=== PATIENT | female | born 1960 | race Caucasian/White ===

== ENCOUNTER → 2016-10-09 | Outpatient (CLI) | payer BC ==
[~2016-10-09] MED LIST: ASPEC81 PO; ATOR-22 PO; DILT240C57 PO; LEVO1TAB33 PO; LISI-461 PO; LISI10TA PO; LPT/20 PO; METO50TA16 PO; OMEP20CA9 PO; PRLSR20 PO; VNTHFA/IN INH
[2016-10-09 14:51] LABS: ESTIMATED AVERAGE GLUCOSE 134 mg/dl; HA1C FLAG Normal (Normal)
[2016-10-09 16:51] LABS: BLOOD UREA NITROGEN 15 mg/dl (7-18); CALCIUM 8.7 mg/dl (8.5-10.1); CARBON DIOXIDE 28 mmol/L (21-32); CHLORIDE 104 mmol/L (98-107); GLUCOSE 99 mg/dl (70-99); POTASSIUM 3.9 mmol/L (3.5-5.1); SODIUM 138 mmol/L (136-145)
[2016-10-09 16:56] LABS: CHOLESTEROL 165 mg/dl (0-200); CHOLESTEROL/HDL RATIO 3.6; HDL CHOLESTEROL 46 mg/dl; TRIGLYCERIDES 94 mg/dl (0-150); VERY LOW DENSITY LIPOPROT CALC 19 mg/dl
== END | disposition home or self-care (01) ==
LOC: C.LABSPEC 12:19
PROVIDERS: ATTEND Internal Medicine
DX: E11.9 Type 2 diabetes mellitus without complications (principal); I10 Essential (primary) hypertension; E78.5 Hyperlipidemia, unspecified; E66.01 Morbid (severe) obesity due to excess calories

== ENCOUNTER 2016-10-17 14:08 | Emergency (ER) | payer BC ==
[~2016-10-17] VITALS: Ht 175.3 cm; Wt 127.5 kg
[~2016-10-17 14:08] MED LIST changes: -ASPEC81 PO; -DILT240C57 PO; -LEVO1TAB33 PO; -LISI-461 PO; -LPT/20 PO; -OMEP20CA9 PO; -VNTHFA/IN INH
[2016-10-17 14:20] VITALS: TEMP 36.6; O2SAT 97; Ht 175.3 cm; Wt 127.5 kg
--- NOTE | 2016-10-17 15:10 | EMERGENCY ROOM VISIT NOTE ---
History Report prepared by Marshall: Isaias Patrick Under the Supervision of: Dr. Katya Soriano D.O. First contact with patient: 14:53 Chief Complaint: ALTERED MENTAL STATUS Stated Complaint: LETHARGIC Nursing Triage Summary: PT PRESENTS VIA ALS FROM WORK. 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 PT VERBALIZES SHE IS A CURRENT SMOKER, HAS BEEN FEELING CONGESTED LATELY WITH A COUGH, BUT THOUGHT IT WAS JUST BECAUSE OF BEING A SMOKER, DENIES ANY OTHER SYMPTOMS. PT PRESENTS ALERT AND ORIENTED X4, BUT SLOW TO RESPOND, FLAT AFFECT. BSG EN ROUTE 120. History of Present Illness The patient is a 56 year old female who presents to the Emergency Room via ALS with complaints of a syncopal episode that occurred earlier this afternoon. 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 The next thing she remembers is people at work waking her up. She ate [employer], which is a normal meal for her. Per the nursing staff, the patient was found at her desk unresponsive. The patient awoke to sternal rub. When EMS arrived, the patient was awake and oriented X4, but was slow to respond, and was lethargic and hypoxic. No seizure like activity noted by coworkers. Her O2 saturation was 88% on room air. The patient has no history of wearing oxygen. The patient notes that she has had an illness for the past week, with symptoms including a productive cough with yellow sputum, and a runny nose. She says she feels okay now, and is not nauseous. She denies any chest pain, palpitations, shortness of breath, abdominal pain, urinary symptoms, bowel problems, or leg swelling. She has no history of syncope, heart attacks, or strokes. The patient says that she has not had any medication changes recently and that she has not had any recent sick contacts. The patient is diabetic, and she says her sugars are under control. She does not check her sugars regularly. The patient's BSG en route was 120. She is a smoker, but she does not drink alcohol or use recreational drugs. The patient does not get her period anymore. She takes Lipitor for hyperlipidemia. She also has hypertension. Source of History: patient, nursing staff Onset: Earlier this afternoon Position: other (global - syncope) Timing: other (episode) Associated Symptoms: + cough, No SOB, No abdominal pain, No chest pain, No urinary symptoms Note: Associated symptoms: Slow to respond when first woken up. Lethargic, hypoxic. Runny nose for past week. Denies bowel problems, leg swelling. Review of Systems See HPI for pertinent positives & negatives. A total of 10 systems reviewed and were otherwise negative. Past Medical & Surgical Medical Problems: (1) Obese Family History Diabetes mellitus MOTHER FH: heart disease FATHER Social History Smoking Status: Current Every Day Smoker Alcohol Use: occasionally Drug Use: none Marital Status: single Housing Status: lives alone Current/Historical Medications Scheduled Albuterol Hfa (Ventolin Hfa), 2 PUFFS INH Q6H Atorvastatin (Atorvastatin Calcium), 20 MG PO QAM Levofloxacin (Levaquin), 500 MG PO DAILY Lisinopril (Lisinopril), 10 MG PO QAM Metoprolol Tartrate (Lopressor) (Lopressor), 50 MG PO TID Omeprazole (Prilosec), 20 MG PO QAM Allergies Coded Allergies: No Known Allergies (Unverified , 03/12/16) Physical Exam Vital Signs Date Time Temp Pulse Resp B/P Pulse Ox O2 Delivery O2 Flow Rate FiO2 10/17/16 21:35 85 20 114/66 98 10/17/16 20:24 78 20 90/65 95 Room Air 10/17/16 19:30 78 18 96/62 93 Room Air 10/17/16 18:07 101 94 Room Air 10/17/16 17:36 84 120/74 110 117/69 85 108/65 10/17/16 16:23 86 16 104/53 98 Nasal Cannula 2.0 10/17/16 15:30 99 Nasal Cannula 2.0 10/17/16 15:20 89 Room Air 10/17/16 14:28 92 10/17/16 14:20 36.6 93 18 103/57 91 Room Air 10/17/16 14:20 97 Nasal Cannula 2.0 Physical Exam GENERAL: alert, well appearing, well nourished, no distress, non-toxic EYE EXAM: normal conjunctiva, PERRL and EOM's grossly intact OROPHARYNX: no exudate, no erythema, lips, buccal mucosa, and tongue normal and mucous membranes are dry. Poor dentition. NECK: supple, no nuchal rigidity, no adenopathy, non-tender LUNGS: Lung sounds diminished. Normal chest wall mechanics HEART: no murmurs, S1 normal and S2 normal ABDOMEN: abdomen soft, non-tender, normo-active bowel sounds, no masses, no rebound or guarding. BACK: Back is symmetrical on inspection and there is no deformity, no midline tenderness, no CVA tenderness. SKIN: no rashes and no bruising UPPER EXTREMITIES: upper extremities are grossly normal. LOWER EXTREMITIES: No pitting edema. NEURO EXAM: Normal sensorium, cranial nerves II-XII [grossly] intact, normal speech, no [gross] weakness of arms, no [gross] weakness of legs. [No drift. Finger to nose intact. Gross sensation intact.] Medical Decision & Procedures ER Provider Diagnostic Interpretation: Xray results per the radiologist and my interpretation. Other results have been interpreted by the radiologist and reviewed by me. CT HEAD WITHOUT CONTRAST (CT) CLINICAL HISTORY: Syncope, G, acute change in mental status. COMPARISON STUDY: No previous studies for comparison. TECHNIQUE: Axial CT of the brain is performed from the vertex to the skull base. IV contrast was not administered for this examination. CT DOSE: 537.48 mGy.cm FINDINGS: No intra or extra-axial mass lesions are visualized. There is no CT evidence of acute cortical infarction. There is no evidence of midline shift. There is no acute hemorrhage. No calvarial fractures are visualized. There is no evidence of pathologic ventricular dilatation. There is mild mucosal thickening involving the maxillary and ethmoid sinuses. IMPRESSION: No acute intracranial findings Electronically signed by: Ant Blandon M.D. 10/17/2016 4:23 PM Dictated Date/Time: 10/17/2016 4:21 PM CHEST ONE VIEW PORTABLE HISTORY: cough, hypoxia COMPARISON: Chest 08/08/2014. FINDINGS: No pleural effusions. No pneumothorax. There are low lung volumes. The heart is normal in size. Left basilar linear densities consistent with subsegmental atelectasis or scarring. No new focal lung consolidations. No evidence for pulmonary edema. Slight prominence of interstitial markings, unchanged. IMPRESSION: No significant change compared to the prior study. No acute process. Electronically signed by: Julio Linares M.D. 10/17/2016 3:54 PM Dictated Date/Time: 10/17/2016 3:52 PM CHEST CTA for PULMONARY ARTERIES CT DOSE: 687.34 mGy.cm HISTORY: Short of breath. Elevated d-dimer. TECHNIQUE: Multiaxial CT images of the chest were performed following the intravenous administration of contrast to evaluate the pulmonary arteries. Maximal intensity projection images were also obtained. COMPARISON STUDY: Chest 10/17/2016. FINDINGS: There is a normal caliber thoracic aorta with no evidence for dissection. There is no evidence for pulmonary embolus. No pleural effusions. No pneumothorax. Mild diffuse bronchial wall thickening. A 7 mm nodular density within the superior segment of the right lower lobe on image 135. This may represent partially impacted bronchus. There are few small scattered bulla/blebs. A 3 mm subpleural nodule within the left lung apex on image 220. Patchy groundglass and linear densities at the lung bases are nonspecific but favor atelectasis. Cholecystectomy. The visualized liver, spleen, and adrenal glands are unremarkable. There are few subcentimeter thyroid nodules. No mediastinal or hilar lymphadenopathy. IMPRESSION: 1. No evidence for pulmonary embolus. 2. Patchy groundglass and linear density lung bases are nonspecific but favor atelectasis. 3. Mild diffuse bronchial wall thickening. 4. A 7 mm nodule within the superior segment of the right lower lobe. This may represent a partially impacted bronchus. However, six-month chest CT follow up is recommended to ensure resolution/stability. Electronically signed by: Julio Linares M.D. 10/17/2016 4:33 PM Dictated Date/Time: 10/17/2016 4:21 PM Laboratory Results 10/17/16 14:55 Red Blood Count 4.81, Mean Corpuscular Volume 87.9, Mean Corpuscular Hemoglobin 28.1, Mean Corpuscular Hemoglobin Concent 31.9, Mean Platelet Volume 12.0, Neutrophils (%) (Auto) 70.0, Lymphocytes (%) (Auto) 22.3, Monocytes (%) (Auto) 5.6, Eosinophils (%) (Auto) 1.5, Basophils (%) (Auto) 0.4, Neutrophils # (Auto) 6.22, Lymphocytes # (Auto) 1.98, Monocytes # (Auto) 0.50, Eosinophils # (Auto) 0.13, Basophils # (Auto) 0.04 10/17/16 14:55 Test 10/17/16 14:55 10/17/16 15:21 10/17/16 15:38 10/17/16 20:14 White Blood Count 8.89 K/uL (4.8-10.8) Red Blood Count 4.81 M/uL (4.2-5.4) Hemoglobin 13.5 g/dL (12.0-16.0) Hematocrit 42.3 % (37-47) Mean Corpuscular Volume 87.9 fL (80-100) Mean Corpuscular Hemoglobin 28.1 pg (25-34) Mean Corpuscular Hemoglobin Concent 31.9 g/dl (32-36) Platelet Count 251 K/uL (130-400) Mean Platelet Volume 12.0 fL (7.4-10.4) Neutrophils (%) (Auto) 70.0 % Lymphocytes (%) (Auto) 22.3 % Monocytes (%) (Auto) 5.6 % Eosinophils (%) (Auto) 1.5 % Basophils (%) (Auto) 0.4 % Neutrophils # (Auto) 6.22 K/uL (1.4-6.5) Lymphocytes # (Auto) 1.98 K/uL (1.2-3.4) Monocytes # (Auto) 0.50 K/uL (0.11-0.59) Eosinophils # (Auto) 0.13 K/uL (0-0.5) Basophils # (Auto) 0.04 K/uL (0-0.2) RDW Standard Deviation 47.3 fL (36.4-46.3) RDW Coefficient of Variation 14.6 % (11.5-14.5) Immature Granulocyte % (Auto) 0.2 % Immature Granulocyte # (Auto) 0.02 K/uL (0.00-0.02) D-Dimer 980 ug/L FEU (0-500) Anion Gap 3.0 mmol/L (3-11) Est Creatinine Clear Calc Drug Dose 63.5 ml/min Estimated GFR () 48.2 Estimated GFR (Non- 41.6 BUN/Creatinine Ratio 16.9 (10-20) Calcium Level 8.6 mg/dl (8.5-10.1) Total Bilirubin 0.2 mg/dl (0.2-1) Aspartate Amino Transf (AST/SGOT) 10 U/L (15-37) Alanine Aminotransferase (ALT/SGPT) 19 U/L (12-78) Alkaline Phosphatase 102 U/L (45-117) Troponin I < 0.015 ng/ml (0-0.045) Total Protein 7.4 gm/dl (6.4-8.2) Albumin 3.2 gm/dl (3.4-5.0) Globulin 4.2 gm/dl (2.5-4.0) Albumin/Globulin Ratio 0.8 (0.9-2) Lipase 126 U/L (73-393) Urine Color DK YELLOW Urine Appearance CLEAR (CLEAR) Urine pH 6.0 (4.5-7.5) Urine Specific [place] 1.025 (1.000-1.030) Urine Protein 1+ (NEG) Urine Glucose (UA) NEG (NEG) Urine Ketones NEG (NEG) Urine Occult Blood NEG (NEG) Urine Nitrite NEG (NEG) Urine Bilirubin NEG (NEG) Urine Urobilinogen NEG (NEG) Urine Leukocyte Esterase TRACE (NEG) Urine WBC (Auto) 5-10 /hpf (0-5) Urine RBC (Auto) 0-4 /hpf (0-4) Urine Hyaline Casts (Auto) 10-30 /lpf (0-5) Urine Epithelial Cells (Auto) >30 /lpf (0-5) Urine Bacteria (Auto) 1+ (NEG) Arterial Blood pH 7.37 (7.35-7.45) Arterial Blood Partial Pressure CO2 40 mmHg (35-46) Arterial Blood Partial Pressure O2 86 mm/Hg (80-95) Arterial Blood HCO3 22 mmol/L (19-24) Arterial Blood Oxygen Saturation 96.0 % (90-95) Arterial Blood Base Excess -2.7 mEq/L (-9-1.8) Arterial Blood Gas Delivery 2L Car Test POS (POS) Lactic Acid Level 1.6 mmol/L (0.4-2.0) Bedside Troponin I 0.000 ng/ml (0-0.045) Laboratory results per my review. Medications Administered Medications (Trade) Dose Ordered Sig/Scott Route Start Time Stop Time Status Last Admin Dose Admin Sodium Chloride (Nss 1000ml) 1,000 ml @ 999 mls/hr Q1H1M STAT IV 10/17/16 15:12 10/17/16 16:12 DC 10/17/16 15:17 999 MLS/HR Levofloxacin (Levaquin Tab) 750 mg NOW STAT PO 10/17/16 17:18 10/17/16 17:20 DC 10/17/16 17:40 750 MG Albuterol (Ventolin Hfa Inhaler) 2 puffs NOW ONCE INH 10/17/16 19:00 10/17/16 19:01 DC 10/17/16 18:50 2 PUFFS Methylprednisolone Sodium Succinate (Solu-Medrol IV) 60 mg NOW STAT IV 10/17/16 20:32 10/17/16 20:33 DC 10/17/16 20:43 60 MG ECG Indication: syncope Rate (beats per minute): 95 Rhythm: normal sinus Findings: no acute ischemic change, no ectopy, other (normal axis, normal intervals) ED Course 1456: The patient was evaluated in room B11B. A complete history and physical exam was performed. 1512: Ordered NSS 1000 ml @ 999 mls/hr IV. 1718: Ordered Levaquin Tab 750 mg PO. 1754: I reevaluated the patient and she is feeling better. She had no symptoms during checkup of orthostatics. 0: Ordered Ventolin Hfa Inhaler 2 puffs INH. 2019: I reevaluated the patient and she is resting comfortably. The patient verbally expressed understanding and agreement of the treatment plan. The patient will be evaluated for further treatment. 2031: Ordered Solu-Medrol IV 60 mg IV. 2040: I discussed the patient with Dr. Lanza - index clerk - he will evaluate the patient for further treatment. Medical Decision Differential diagnosis includes but is not limited to: CVA, seizures, dysrhythmia, ACS, PE, vasovagal, dehydration, electrolyte abnormality, orthostatic hypotension. Patient improved here no recurrence of syncope. No dysrhythmias noted on telemetry. No recurrent episodes of nausea vomiting patient tolerating by mouth well at bedside and receive IV fluids as a precaution. Imaging and labs reassuring. Patient able to be weaned down off oxygen, but still complained of feeling short of breath tactically with exertion despite no hypoxia. Concern given risk factors for ACS. Possible the patient signal event vasovagal orthostatic in nature given preceding symptoms and GI illness. Patient found to have possible early pneumonia on CT and clinical symptoms started on antibiotics as well as steroids given likely underlying COPD from smoking history. Careful monitoring of patient's glucose with use of Solu-Medrol will be needed. Patient states the benefit from inhaler treatments here. Come discussed with patient's PCP who will the patient for continued observation monitoring, likely serial cardiac enzymes to rule out ACS. Consults Time Called: 2034 Consulting Physician: Dr. Lanza - index clerk Returned Call: 2040 I discussed the patient with Dr. Lanza - index clerk - he will evaluate the patient for further treatment. Impression Primary Impression: Syncope Additional Impressions: PNA (pneumonia) Hypoxia Scribe Attestation The scribe's documentation has been prepared under my direction and personally reviewed by me in its entirety. I confirm that the note above accurately reflects all work, treatment, procedures, and medical decision making performed by me. Departure Information Dispostion Still a Patient Prescriptions Albuterol Hfa (VENTOLIN HFA) 200 Puffs/59446 Mcg Aers 2 PUFFS INH Q6H, #1 INHALER Prov: Romeo Mosley M.D. 10/17/16 Levofloxacin (Levaquin) 500 Mg Tab 500 MG PO DAILY for 7 Days, TAB Prov: Romeo Mosley M.D. 10/17/16 Referrals Romeo Mosley M.D. (PCP) Patient Instructions My [facility] Problem Qualifiers Primary Impression: Syncope Syncope type: unspecified Qualified Codes: R55 - Syncope and collapse Additional Impressions: PNA (pneumonia) Pneumonia type: due to unspecified organism Laterality: bilateral Lung location: lower lobe of lung Qualified Codes: J18.9 - Pneumonia, unspecified organism
[2016-10-17] MEDS ORDERED: SODIUM CHLORIDE 0.9% 1000ML 1,000 ML IV STA (15:12)
[2016-10-17 15:26] LABS: BASO % 0.4 %; BASO ABS # 0.04 K/uL (0-0.2); COMPLETE YES; EOS % 1.5 %; HEMATOCRIT 42.3 % (37-47); IG% 0.2 %; LYMPH % 22.3 %; LYMPH ABS # 1.98 K/uL (1.2-3.4); MEAN CELL VOLUME 87.9 fL (80-100); MEAN CORPUSCULAR HEMOGLOBIN 28.1 pg (25-34); MEAN CORPUSCULAR HGB CONC 31.9 g/dl (32-36); MONO % 5.6 %; PLATELET COUNT 251 K/uL (130-400); RED BLOOD COUNT 4.81 M/uL (4.2-5.4); WHITE BLOOD COUNT 8.89 K/uL (4.8-10.8)
[2016-10-17 15:37] LABS: ALT/SGPT 19 U/L (12-78); AST/SGOT 10 U/L (15-37); BLOOD UREA NITROGEN 24 mg/dl (7-18); BUN/CREATININE RATIO 16.9 (10-20); CALCIUM 8.6 mg/dl (8.5-10.1); CARBON DIOXIDE 29 mmol/L (21-32); CHLORIDE 107 mmol/L (98-107); GLUCOSE 105 mg/dl (70-99); POTASSIUM 4.9 mmol/L (3.5-5.1); SODIUM 139 mmol/L (136-145)
[2016-10-17 15:40] LABS: ALB/GLOB RATIO 0.8 (0.9-2); ALKALINE PHOSPHATASE 102 U/L (45-117)
[2016-10-17] MEDS ORDERED: LPT/20 PO (15:47)
[2016-10-17] MEDS ORDERED: LISI-461 PO (15:47)
[2016-10-17] MEDS ORDERED: OMEP20CA9 PO (15:47)
[2016-10-17 15:52] LABS: URINE APPEARANCE CLEAR (CLEAR); URINE BILIRUBIN NEG (NEG); URINE COLOR DK YELLOW; URINE EPITHELIAL CELL AUTO >30 /lpf (0-5); URINE NITRITE NEG (NEG); URINE SPECIFIC GRAVITY 1.025 (1.000-1.030); UROBILINOGEN NEG (NEG); ZZUR CULT IF INDIC CLEAN CATCH YES
--- NOTE | 2016-10-17 15:56 | DIAGNOSTIC IMAGING REPORT ---
CHEST ONE VIEW PORTABLE HISTORY: cough, hypoxia COMPARISON: Chest 08/08/2014. FINDINGS: No pleural effusions. No pneumothorax. There are low lung volumes. The heart is normal in size. Left basilar linear densities consistent with subsegmental atelectasis or scarring. No new focal lung consolidations. No evidence for pulmonary edema. Slight prominence of interstitial markings, unchanged. IMPRESSION: No significant change compared to the prior study. No acute process. Electronically signed by: Julio Linares M.D. 10/17/2016 3:54 PM Dictated Date/Time: 10/17/2016 3:52 PM
[2016-10-17 15:57] LABS: MANUAL MICROSCOPIC REQUIRED? NO; REVIEW REQ? NO
[2016-10-17 15:58] LABS: ARTERIAL BLOOD GAS BASE EXCESS -2.7 mEq/L (-9-1.8); ARTERIAL BLOOD GAS HCO3 22 mmol/L (19-24); ARTERIAL BLOOD GAS PO2 86 mm/Hg (80-95); ARTERIAL BLOOD GAS pH 7.37 (7.35-7.45)
[2016-10-17 16:01] LABS: ALLEN TEST POS (POS); O2 ADMINISTRATION 2L
[2016-10-17] MEDS ORDERED: OPTIRAY 320 IV PRN (16:15)
--- NOTE | 2016-10-17 16:24 | DIAGNOSTIC IMAGING REPORT ---
CT HEAD WITHOUT CONTRAST (CT) CLINICAL HISTORY: Syncope, G, acute change in mental status. COMPARISON STUDY: No previous studies for comparison. TECHNIQUE: Axial CT of the brain is performed from the vertex to the skull base. IV contrast was not administered for this examination. CT DOSE: 537.48 mGy.cm FINDINGS: No intra or extra-axial mass lesions are visualized. There is no CT evidence of acute cortical infarction. There is no evidence of midline shift. There is no acute hemorrhage. No calvarial fractures are visualized. There is no evidence of pathologic ventricular dilatation. There is mild mucosal thickening involving the maxillary and ethmoid sinuses. IMPRESSION: No acute intracranial findings Electronically signed by: Ant Blandon M.D. 10/17/2016 4:23 PM Dictated Date/Time: 10/17/2016 4:21 PM
--- NOTE | 2016-10-17 16:34 | DIAGNOSTIC IMAGING REPORT ---
CHEST CTA for PULMONARY ARTERIES CT DOSE: 687.34 mGy.cm HISTORY: Short of breath. Elevated d-dimer. TECHNIQUE: Multiaxial CT images of the chest were performed following the intravenous administration of contrast to evaluate the pulmonary arteries. Maximal intensity projection images were also obtained. COMPARISON STUDY: Chest 10/17/2016. FINDINGS: There is a normal caliber thoracic aorta with no evidence for dissection. There is no evidence for pulmonary embolus. No pleural effusions. No pneumothorax. Mild diffuse bronchial wall thickening. A 7 mm nodular density within the superior segment of the right lower lobe on image 135. This may represent partially impacted bronchus. There are few small scattered bulla/blebs. A 3 mm subpleural nodule within the left lung apex on image 220. Patchy groundglass and linear densities at the lung bases are nonspecific but favor atelectasis. Cholecystectomy. The visualized liver, spleen, and adrenal glands are unremarkable. There are few subcentimeter thyroid nodules. No mediastinal or hilar lymphadenopathy. IMPRESSION: 1. No evidence for pulmonary embolus. 2. Patchy groundglass and linear density lung bases are nonspecific but favor atelectasis. 3. Mild diffuse bronchial wall thickening. 4. A 7 mm nodule within the superior segment of the right lower lobe. This may represent a partially impacted bronchus. However, six-month chest CT follow up is recommended to ensure resolution/stability. Electronically signed by: Julio Linares M.D. 10/17/2016 4:33 PM Dictated Date/Time: 10/17/2016 4:21 PM
[2016-10-17] MEDS ORDERED: LEVOFLOXACIN 250 MG TAB PO STA (17:18)
[2016-10-17] MEDS ORDERED: ALBUTEROL HFA 8 GM INHALER INH ONE (19:00)
[2016-10-17] MEDS ORDERED: METHYLPREDNISOLONE 125 MG VIAL IV STA (20:32)
[2016-10-17] MEDS ORDERED: LEVO1TAB33 PO (21:14)
[2016-10-17] MEDS ORDERED: VNTHFA/IN INH (21:14)
--- NOTE | 2016-10-17 21:17 | Discharge Instructions ---
Discharge Instructions Date of Service Oct 17, 2016. Admission Reason for Admission: Lethargic Discharge Discharge Diagnosis / Problem: SYNCOPE. BRONCHITIS. ARTERIAL HYPERTENSION. Discharge Goals Goal(s): Decrease discomfort, Improve function Activity Recommendations Activity Limitations: resume your previous activity . Instructions / Follow-Up Instructions / Follow-Up DR AARON IN ONE WEEK Current Hospital Diet Patient's current hospital diet: Discharge Diet Recommended Diet: Diabetes Type 2 Diet Pending Studies Studies pending at discharge: no Laboratory Results Hemoglobin A1c Test 10/09/16 08:30 Range/Units Estimated Average Glucose 134 mg/dl Hemoglobin A1c 6.3 H 4.5-5.6 % Lipid Panel Test 10/09/16 08:30 Range/Units Triglycerides Level 94 0-150 mg/dl Cholesterol Level 165 0-200 mg/dl HDL Cholesterol 46 mg/dl LDL Cholesterol Direct 113 mg/dl Cholesterol/HDL Ratio 3.6 LDL Cholesterol, Calculated mg/dl Medical Emergencies . Who to Call and When: Medical Emergencies: If at any time you feel your situation is an emergency, please call 911 immediately. . Non-Emergent Contact Non-Emergency issues call your: Primary Care Provider . . "Provider Documentation" section prepared by Romeo Lanza. . VTE Core Measure Inpt VTE Proph given/why not?: Treatment not indicated
[2016-10-17 21:35] VITALS: BP 114/66; PULSE 85; O2SAT 98
--- NOTE | 2016-10-18 04:33 | INTERNAL MEDICINE CONSULTATION ---
DATE OF CONSULTATION: 10/17/2016 A 56-year-old female seen in the Emergency Room. She was brought into the Emergency Room from work. Apparently, she had a syncopal episode. Her medical problems include: 1. Arterial hypertension. 2. Type 2 diabetes mellitus. 3. Morbid obesity. 4. Smoker. 5. History of supraventricular tachycardia. The patient was evaluated in the Emergency Room. She had an extensive workup including blood tests, CT scan of the chest, CT scan of the head, and a chest x-ray. The patient has been complaining of some cough over the last few days. Some yellow sputum, but she had no fever or chills. She denied any headache or dizziness or light headedness. Denied any earache, sore throat or neck pain. She has not had any chest pain, pressure or tightness. No shortness of breath. She has been coughing. No hemoptysis. No abdominal pain, no nausea, no vomiting. No problem with her bowel movements. No problem urinating. No pain in her back or extremities. PHYSICAL EXAMINATION: GENERAL: Well developed, in no distress. Her recorded weight is 127.5 kg, height 175.3 cm, BMI 41.5. VITAL SIGNS: Blood pressure 90/65, pulse 78, respiration 20, temperature 36.6, her last oxygen saturation on room air was 95%. SKIN: Warm and dry. No rash. HEENT: She has multiple missing teeth. No mucosal abnormalities. NECK: Supple. Nontender. No lymph node or thyroid enlargement. No JVD. HEART: Regular heart sounds. LUNGS: Clear. The patient was treated in the Emergency Room with albuterol inhaler, but at this time there are no rhonchi, no wheezing, no rales. ABDOMEN: Obese, soft, nontender. BACK: No spinal tenderness. EXTREMITIES: No edema, clubbing or cyanosis. NEUROLOGIC: She is alert and oriented. Normal mental status. No evidence of any deficits. LABORATORY TESTS: WBC count 8890, hemoglobin 13.5, hematocrit 42.3, platelet count 251,000. Differential was normal. Sodium 139, potassium 4.9, chloride 107, CO2 of 29, BUN 24, creatinine 1.4, glucose 105, calcium 8.6, total bilirubin 0.2, AST 10, ALT 19, alkaline phosphatase 102. Troponin I less than 0.015. Second troponin I was 0. Total protein 7.4, albumin 3.2. Lipase 126. ABGs done on 2 liter oxygen by nasal cannula showed a pH 7.37, pCO2 of 40, pO2 of 86, saturation 96%. Her D-dimer was 980. Her urinalysis showed trace leukocyte esterase, 5-10 WBCs, 1+ bacteria. IMAGING STUDIES: Included a chest x-ray which showed some prominent interstitial markings but without any other significant abnormality. A CT angiogram of the chest was done because of the elevated D-dimer and there was no evidence of any pulmonary embolism. It is noted on her CT scan that she has patchy ground-glass and linear density in lung bases which are nonspecific but thought to represent atelectasis. A 7 mm nodule within the superior segment of the right lower lobe was also noted. Not really sure of the etiology. Followup in 6 months recommended. Her electrocardiogram showed sinus rhythm without any abnormality. ASSESSMENT: 1. Syncope. Negative evaluation. 2. Mild bronchitis. 3. Morbid obesity. 4. Smoker. 5. Arterial hypertension. 6. Dyspepsia. 7. Type 2 diabetes mellitus, not requiring any drug therapy at the present time. PLAN: 1. The patient already received a dose of Levaquin 750 mg p.o. in the Emergency Room, she also received a dose of steroids and albuterol inhaler. 2. All her workup has been quite unremarkable. 3. I did not really see any reason for her to be admitted. 4. I discharged her home. Discharge instructions were done. I wrote a prescription for Levaquin 500 mg daily to take for 7 days. 5. I will see her in the office in 1 week.
[2017-02-06] MEDS ORDERED: DILT240C57 PO (07:34)
[2017-02-06] MEDS ORDERED: ASPEC81 PO (07:34)
== END 2016-10-17 21:37 | disposition home or self-care (01) ==
LOC: EDBD 14:08 → C.EDB 14:09
DX: R55 Syncope and collapse (principal); J18.9 Pneumonia, unspecified organism; R09.02 Hypoxemia; J40 Bronchitis, not specified as acute or chronic; R10.13 Epigastric pain; R11.10 Vomiting, unspecified; E11.9 Type 2 diabetes mellitus without complications; E78.5 Hyperlipidemia, unspecified; I10 Essential (primary) hypertension; E66.01 Morbid (severe) obesity due to excess calories; F17.200 Nicotine dependence, unspecified, uncomplicated; Z83.3 Family history of diabetes mellitus; Z79.899 Other long term (current) drug therapy

== ENCOUNTER → 2016-10-23 | Outpatient (CLI) | payer BC ==
[~2016-10-23] MED LIST changes: +ASPEC81 PO; +DILT240C57 PO; +LEVO1TAB33 PO; +LISI-461 PO; +LPT/20 PO; +OMEP20CA9 PO; +VNTHFA/IN INH
--- NOTE | 2016-10-23 16:58 | MAMMOGRAPHY REPORT ---
BILATERAL DIGITAL SCREENING MAMMOGRAM TOMOSYNTHESIS WITH CAD: 10/23/2016 TECHNIQUE: Breast tomosynthesis in addition to standard 2D mammography was performed. Current study was also evaluated with a Computer Aided Detection (CAD) system. COMPARISON: Comparison is made to exams dated: 10/23/2015 mammogram, 10/20/2014 mammogram, 10/19/2013 m ammogram, 10/16/2012 mammogram, 10/16/2011 mammogram, and 09/21/2010 mammogram - [facility] enter. BREAST COMPOSITION: There are scattered areas of fibroglandular density in both breasts. FINDINGS: No suspicious masses, calcifications, or areas of architectural distortion are noted in e ither breast. There has been no significant interval change compared to prior exams. Scattered bilat eral benign-appearing calcifications are not significantly changed. IMPRESSION: ACR BI-RADS CATEGORY 2: BENIGN There is no mammographic evidence of malignancy. A 1 year screening mammogram is recommended. The p atient will receive written notification of the results. Approximately 10% of breast cancers are not detected with mammography. A negative mammographic repor t should not delay biopsy if a clinically suggestive mass is present. Lacey Barnes M.D. ah/:10/23/2016 15:54:08 Civil Engineering Project Manager: Flora RUELAS(R)(M), [facility] letter sent: Normal 1/2 BI-RADS Code: ACR BI-RADS Category 2: Benign
== END | disposition home or self-care (01) ==
LOC: C.MAMM 09:44
PROVIDERS: ATTEND Internal Medicine
DX: Z12.31 Encounter for screening mammogram for malignant neoplasm of breast (principal)

== ENCOUNTER → 2017-01-07 | Outpatient (CLI) | payer BC ==
[~2017-01-07] VITALS: Ht 167.6 cm; Wt 297.6 kg
[~2017-01-07] MED LIST changes: -LEVO1TAB33 PO
[2017-01-07 15:51] VITALS: BP 161/91; PULSE 76; Ht 167.6 cm; Wt 297.6 kg
== END | disposition home or self-care (01) ==
LOC: C.NEUR 15:03
PROVIDERS: ATTEND Internal Medicine Pulmonary Disease
DX: R06.83 Snoring (principal); R53.83 Other fatigue; R06.81 Apnea, not elsewhere classified; E66.01 Morbid (severe) obesity due to excess calories; I10 Essential (primary) hypertension; Z68.42 Body mass index [BMI] 45.0-49.9, adult

== ENCOUNTER 2017-02-03 11:13 | Inpatient (IN) | payer BC ==
[~2017-02-03] VITALS: Ht 167.6 cm; Wt 134.2 kg
[2017-02-03] VITALS (7 sets, daily range): BP systolic 120–144; BP diastolic 77–85; PULSE 70–80; TEMP 36.3–36.4; O2SAT 94–95; BMI 47.7
[~2017-02-03 11:13] MED LIST changes: -ASPEC81 PO; -ATOR-22 PO; -DILT240C57 PO; -LISI10TA PO; -PRLSR20 PO
--- NOTE | 2017-02-03 11:28 | EMERGENCY ROOM VISIT NOTE ---
History Report prepared by Garyibe: Lu Cain Under the Supervision of: Dr. Mark Calle D.O. First contact with patient: 11:25 Chief Complaint: PALPITATIONS Stated Complaint: HEART/EKG, SWEATING, PALPITATIONS History of Present Illness The patient is a 56 year old female who presents to the Emergency Room with complaints of intermittent heart palpitations since 0600 this morning. She reports upon waking, she experienced both diaphoresis and heart palpitations. She went to a local [employer] clinic and was referred to the ED for further evaluation after undergoing an EKG. She was given no medications while at [employer] [facility]. The patient denies ever undergoing a stress test or heart catheterization in the past. She has a history of hypertension and admits she is a current smoker. She took her daily medications this morning as prescribed, including her Lisinopril. She denies any recent pain or swelling in her legs. The patient also denies any recent fevers, abdominal pain or diarrhea. Source of History: patient Onset: 0600 this morning Position: chest Quality: other (palpitations) Timing: intermittent Associated Symptoms: + diaphoresis, No fevers, No abdominal pain, No diarrhea Review of Systems See HPI for pertinent positives & negatives. A total of 10 systems reviewed and were otherwise negative. Past Medical & Surgical Medical Problems: (1) GERD (gastroesophageal reflux disease) (2) Hypertension (3) Obese (4) TACHYARRYTHMIA, Surgical Problems: (1) History of appendectomy (2) History of cholecystectomy Family History Diabetes mellitus MOTHER FH: heart disease FATHER Social History Smoking Status: Current Every Day Smoker Alcohol Use: occasionally Drug Use: none Marital Status: single Housing Status: lives alone Occupation Status: unemployed Current/Historical Medications Scheduled Atorvastatin (Lipitor), 20 MG PO DAILY Lisinopril (Prinivil), 10 MG PO DAILY Metoprolol Tartrate (Lopressor) (Lopressor), 50 MG PO TID Omeprazole (Prilosec), 20 MG PO DAILY Allergies Coded Allergies: No Known Allergies (Unverified , 03/12/16) Physical Exam Vital Signs Date Time Temp Pulse Resp B/P (MAP) Pulse Ox O2 Delivery O2 Flow Rate FiO2 02/03/17 13:13 73 17 98 02/03/17 13:01 114/76 02/03/17 12:43 78 26 96 02/03/17 12:31 133/88 02/03/17 12:26 135/76 02/03/17 12:13 82 25 99 02/03/17 11:46 86 02/03/17 11:45 84 18 124/100 97 02/03/17 11:45 97 02/03/17 11:45 97 Room Air 02/03/17 11:43 86 24 94 02/03/17 11:32 123/100 02/03/17 11:16 36.4 124 20 127/81 95 Room Air Physical Exam GENERAL: Patient is awake, alert, somewhat anxious appearing but overall comfortable. EYES: The conjunctivae are clear. The pupils are round and reactive. EARS, NOSE, MOUTH AND THROAT: The nose is without any evidence of any deformity. Mucous membranes are moist tongue is midline NECK: The neck is nontender and supple. RESPIRATORY: Normal respiratory effort is noted there is no evidence of wheezing rhonchi or rales CARDIOVASCULAR: Heart sounds are tachycardic but regular. No definite murmur to auscultation. GASTROINTESTINAL: The abdomen is soft. Bowel sounds are present in all quadrants. Abdomen is nontender MUSCULOSKELETAL/EXTREMITIES: There is no evidence of gross deformity full range of motion is noted in the hips and shoulders SKIN: There is no obvious evidence of any rash. There are no petechiae, pallor or cyanosis noted. NEUROLOGIC: Patient is awake alert and oriented x3 Medical Decision & Procedures ER Provider Diagnostic Interpretation: Radiology results as stated below per my review and radiologist interpretation: SINGLE VIEW CHEST CLINICAL HISTORY: Dyspnea. FINDINGS: An AP, portable, upright chest radiograph is compared to chest x-ray and chest CT dated 10/17/2016. The examination is degraded by portable technique, large body habitus, and patient rotation. The cardiomediastinal silhouette is unremarkable. There is atherosclerotic calcification of the thoracic aorta. There is mild bibasilar atelectasis. The lungs and pleural spaces are otherwise clear. No pneumothorax is seen. The bony thorax is grossly intact. IMPRESSION: No active disease in the chest. Electronically signed by: Yuriy Jamison M.D. 02/03/2017 12:00 PM Laboratory Results 02/03/17 11:35 Red Blood Count 5.46, Mean Corpuscular Volume 86.6, Mean Corpuscular Hemoglobin 29.1, Mean Corpuscular Hemoglobin Concent 33.6, Mean Platelet Volume 12.0, Neutrophils (%) (Auto) 64.6, Lymphocytes (%) (Auto) 25.4, Monocytes (%) (Auto) 7.7, Eosinophils (%) (Auto) 1.4, Basophils (%) (Auto) 0.6, Neutrophils # (Auto) 6.99, Lymphocytes # (Auto) 2.75, Monocytes # (Auto) 0.83, Eosinophils # (Auto) 0.15, Basophils # (Auto) 0.06 02/03/17 11:35 Test 02/03/17 11:35 White Blood Count 10.81 K/uL (4.8-10.8) Red Blood Count 5.46 M/uL (4.2-5.4) Hemoglobin 15.9 g/dL (12.0-16.0) Hematocrit 47.3 % (37-47) Mean Corpuscular Volume 86.6 fL (80-100) Mean Corpuscular Hemoglobin 29.1 pg (25-34) Mean Corpuscular Hemoglobin Concent 33.6 g/dl (32-36) Platelet Count 256 K/uL (130-400) Mean Platelet Volume 12.0 fL (7.4-10.4) Neutrophils (%) (Auto) 64.6 % Lymphocytes (%) (Auto) 25.4 % Monocytes (%) (Auto) 7.7 % Eosinophils (%) (Auto) 1.4 % Basophils (%) (Auto) 0.6 % Neutrophils # (Auto) 6.99 K/uL (1.4-6.5) Lymphocytes # (Auto) 2.75 K/uL (1.2-3.4) Monocytes # (Auto) 0.83 K/uL (0.11-0.59) Eosinophils # (Auto) 0.15 K/uL (0-0.5) Basophils # (Auto) 0.06 K/uL (0-0.2) RDW Standard Deviation 47.1 fL (36.4-46.3) RDW Coefficient of Variation 15.0 % (11.5-14.5) Immature Granulocyte % (Auto) 0.3 % Immature Granulocyte # (Auto) 0.03 K/uL (0.00-0.02) Prothrombin Time 10.4 SECONDS (9.0-12.0) Prothromb Time International Ratio 1.0 (0.9-1.1) Activated Partial Thromboplast Time 34.5 SECONDS (21.0-31.0) Partial Thromboplastin Ratio 1.3 Anion Gap 6.0 mmol/L (3-11) Est Creatinine Clear Calc Drug Dose 54.6 ml/min Estimated GFR () 41.0 Estimated GFR (Non- 35.4 BUN/Creatinine Ratio 16.4 (10-20) Calcium Level 9.3 mg/dl (8.5-10.1) Magnesium Level 2.4 mg/dl (1.8-2.4) Total Bilirubin 0.2 mg/dl (0.2-1) Aspartate Amino Transf (AST/SGOT) 13 U/L (15-37) Alanine Aminotransferase (ALT/SGPT) 19 U/L (12-78) Alkaline Phosphatase 113 U/L (45-117) Total Creatine Kinase 55 U/L (26-192) Creatine Kinase MB 2.5 ng/ml (0.5-3.6) Creatine Kinase MB Ratio 4.5 (0-3.0) Troponin I 0.121 ng/ml (0-0.045) Total Protein 8.3 gm/dl (6.4-8.2) Albumin 3.4 gm/dl (3.4-5.0) Globulin 4.9 gm/dl (2.5-4.0) Albumin/Globulin Ratio 0.7 (0.9-2) Thyroid Stimulating Hormone (TSH) 1.850 uIu/ml (0.300-4.500) Free Thyroxine 1.14 ng/dl (0.80-1.60) Laboratory results per my review. Medications Administered Medications (Trade) Dose Ordered Sig/Scott Route Start Time Stop Time Status Last Admin Dose Admin Sodium Chloride 1,000 ml @ 999 mls/hr Q1H1M STAT IV 02/03/17 11:31 02/03/17 12:31 DC 02/03/17 11:50 999 MLS/HR Aspirin (Aspirin Chew) 324 mg NOW STAT PO 02/03/17 12:58 02/03/17 12:59 DC 02/03/17 13:07 324 MG ECG Indication: palpitations Rate (beats per minute): 120 Rhythm: SVT Findings: no ectopy, other (No acute ST segment abnormalities) Comparison ECG Date: SVT appears new when compared to EKG from October 17, 2016 Change: Repeat EKG: Normal sinus rhythm, rate of 82, no ectopy, no acute ST segment abnormalities, no change when compared to October 17, 2016. ED Course 1129: The patient was evaluated in room C7. A complete history and physical examination were performed. 1131: NSS 1000 ml @ 999 mls/hr IV. 1258: Aspirin 324 mg PO. 1303: I discussed the patients case with Dr. Lanza, Internal Medicine. The patient will be further evaluated. Medical Decision Prior records/ancillary studies reviewed. Triage Nursing notes reviewed. The patient's history was concerning for palpitations. Differential diagnosis: Etiologies such as premature contractions, electrolyte abnormality, cardiac dysrhythmia, thyroid dysfunction, pulmonary embolism, infection, gastrointestinal, as well as others were entertained. The patient is a 56-year- old female who presented to the emergency department for an evaluation of palpitations. The patient was found have a narrow complex tachycardia which was very regular on her EKG. Initially it was only 120 beats per minute but it did not appear to be consistent with sinus tachycardia or the patient's previous EKG. The patient does take beta blockers for high blood pressure. I feel this is why she did not have a faster rate even though I feel her underlying rhythm was likely SVT. I'm unsure how long the patient was in this rate and rhythm. She was treated with Valsalva maneuver and broke to a normal sinus rhythm. I discussed the patient's laboratory and radiographic studies with her. She was treated with IV fluids in the emergency department. She was also given aspirin. She was found to have an elevated troponin. This could be due to the time the patient was in this dysrhythmia however it could also reflect an underlying coronary lesion. I discussed the patient's condition with her primary care physician. He is agreed to evaluate the patient in emergency apartment for further management and disposition. The patient did not have any dyspnea or chest pain on final reevaluation. Medication Reconcilliation Current Medication List: was personally reviewed by me Blood Pressure Screening Patient's blood pressure: Normal blood pressure Blood pressure disposition: Did not require urgent referral Consults Time Called: 1300 Consulting Physician: Dr. Lanza, Internal Medicine Returned Call: 1303 I discussed the patients case with Dr. Lanza, Internal Medicine. The patient will be further evaluated. Impression Primary Impression: SVT (supraventricular tachycardia) Additional Impressions: Elevated troponin Dehydration Scribe Attestation The scribe's documentation has been prepared under my direction and personally reviewed by me in its entirety. I confirm that the note above accurately reflects all work, treatment, procedures, and medical decision making performed by me. Departure Information Dispostion Being Evaluated By Hospitalist Referrals Romeo Mosley M.D. (PCP) Patient Instructions My [facility] Problem Qualifiers
[2017-02-03] MEDS ORDERED: SODIUM CHLORIDE 0.9% 1000ML 1,000 ML IV STA (11:31)
[2017-02-03] MEDS ORDERED: PRLSR20 PO (11:52)
[2017-02-03] MEDS ORDERED: LISI10TA PO (11:52)
[2017-02-03] MEDS ORDERED: METO50TA16 PO (11:52)
[2017-02-03] MEDS ORDERED: ATOR-22 PO (11:52)
--- NOTE | 2017-02-03 12:01 | DIAGNOSTIC IMAGING REPORT ---
SINGLE VIEW CHEST CLINICAL HISTORY: Dyspnea. FINDINGS: An AP, portable, upright chest radiograph is compared to chest x-ray and chest CT dated 10/17/2016. The examination is degraded by portable technique, large body habitus, and patient rotation. The cardiomediastinal silhouette is unremarkable. There is atherosclerotic calcification of the thoracic aorta. There is mild bibasilar atelectasis. The lungs and pleural spaces are otherwise clear. No pneumothorax is seen. The bony thorax is grossly intact. IMPRESSION: No active disease in the chest. Electronically signed by: Yuriy Jamison M.D. 02/03/2017 12:00 PM Dictated Date/Time: 02/03/2017 11:59 AM
[2017-02-03 12:06] LABS: BASO % 0.6 %; BASO ABS # 0.06 K/uL (0-0.2); COMPLETE YES; EOS % 1.4 %; HEMATOCRIT 47.3 % (37-47); IG% 0.3 %; LYMPH % 25.4 %; LYMPH ABS # 2.75 K/uL (1.2-3.4); MEAN CELL VOLUME 86.6 fL (80-100); MEAN CORPUSCULAR HEMOGLOBIN 29.1 pg (25-34); MEAN CORPUSCULAR HGB CONC 33.6 g/dl (32-36); MONO % 7.7 %; NEUT % 64.6 %; PLATELET COUNT 256 K/uL (130-400); RED BLOOD COUNT 5.46 M/uL (4.2-5.4); WHITE BLOOD COUNT 10.81 K/uL (4.8-10.8)
[2017-02-03 12:15] LABS: PARTIAL THROMBOPLASTIN RATIO 1.3; PROTHROMBIN TIME (PATIENT) 10.4 SECONDS (9.0-12.0)
[2017-02-03 12:27] LABS: BUN/CREATININE RATIO 16.4 (10-20); CALCIUM 9.3 mg/dl (8.5-10.1); CREATININE 1.6 mg/dl (0.60-1.20); MAGNESIUM 2.4 mg/dl (1.8-2.4); POTASSIUM 4.7 mmol/L (3.5-5.1)
[2017-02-03 12:39] LABS: ALB/GLOB RATIO 0.7 (0.9-2); CKMB/CK RATIO 4.5 (0-3.0); THYROID STIMULATING HORMONE 1.85 uIu/ml (0.300-4.500)
[2017-02-03] MEDS ORDERED: ASPIRIN 81 MG CHEW PO STA (12:58)
[2017-02-03] MEDS ORDERED: ONDANSETRON INJ 8 MG in DEXTROSE 5% 50ML 50 ML IV PRN (13:15)
[2017-02-03] MEDS ORDERED: ACETAMINOPHEN 325 MG TAB PO PRN (13:15)
[2017-02-03] MEDS ORDERED: GLUCAGON FOR INJ 1 MG VIAL SQ PRN (14:00)
[2017-02-03] MEDS ORDERED: GLUCOSE 40% GEL 15 GM TUBE PO PRN (14:00)
[2017-02-03] MEDS ORDERED: GLUCOSE 10 TABS/TUBE PO PRN (14:00)
[2017-02-03] MEDS ORDERED: DEXTROSE 50% 50 ML SYR IV PRN (14:00)
[2017-02-03] MEDS ORDERED: PERFLUTREN LIPID MICROSPHERE (DEFINITY) IV ONE (15:53)
[2017-02-03] MEDS: METOPROLOL TARTRATE 50 MG TAB PO SCH ×2 (16:12→20:24)
[2017-02-03] MEDS: SODIUM CHLORIDE 0.9% 1000ML 1,000 ML IV SCH ×2 (16:13→23:52)
[2017-02-03] MEDS: INSULIN ASPART 100 UNITS/ML 3 ML PEN SC SCH ×2 (16:15→20:23)
--- NOTE | 2017-02-03 18:31 | ECHOCARDIOGRAM REPORT ---
*NOTICE TO RECEIVING CONSTITUTION PARTY AGENCY This information is strictly Confidential and protected under [place] law. [place] law prohibits you from making any further disclosure of this information unless further disclosure is expressly permitted by the written consent of the person to whom it pertains or is authorized by law. A general authorization for the release of medical or other information is not sufficient for this purpose. Hospital accepts no responsibility if the information is made available to any other person, INCLUDING THE PATIENT. Interpretation Summary * Name: WIL CARROLL Study Date: 02/03/2017 03:23 PM BP: 137/98 mmHg * Patient Location: C.2T\S\S229\S\2 HR: 73 * : 1960 (M/d/yyy) Gender: Female Height: 66 in * Age: 56 yrs Ethnicity: CA Weight: 294 lb * Ordering Physician: Romeo Mosley * Referring Physician: Self, Referred * Performed By: Radha Love [facility] * * Reason For Study: SVT * BSA: 2.4 m2 * Hyperdynamic left ventricular systolic function. * Mild concentric left ventricular hypertrophy. * Class 1 left ventricular diastolic dysfunction. * Normal chamber dimensions. * No significant valvular abnormalities noted. * The study was technically difficult. Procedure Details * A complete two-dimensional transthoracic echocardiogram was performed (2D, M-mode, Doppler and color flow Doppler). * The study was technically difficult. * There were technical limitations due to patient'sbody habitus * A contrast injection of Definity was performed to improve assessment of LV function. * Contrast was injected into an intravenous site in the left arm. * One vial of Definity ultrasound contrast was diluted in normal saline to a total volume of 10 ml. A total of '2' ml of solution was administered during imaging. * Lot # [id number] of Definity utilized for procedure. * Expiration date FEB 07. * The attending nurse who injected the contrast agent was JIA JAVIER, HEIKE. Left Ventricle * The left ventricle is normal in size. * There is mild concentric left ventricular hypertrophy. * A full diastolic examination was done with clinical findings of Class I diastolic dysfunction. * Ejection Fraction = >70 %. * The left ventricle is hyperdynamic. * The left ventricular wall motion is normal. Right Ventricle * The right ventricle is grossly normal size. * The right ventricle is not well visualized. * The right ventricular systolic function is normal. Atria * The left atrium is not well visualized. * The left atrial size is normal. * Right atrium not well visualized. * Right atrial size is normal. Mitral Valve * The mitral valve is not well visualized. * No significant mitral valve stenosis. * Significant mitral regurgitation is absent. Tricuspid Valve * The tricuspid valve is not well visualized. * There is no tricuspid stenosis. * Significant tricuspid regurgitation is absent. Aortic Valve * The aortic valve is not well visualized. * Aortic stenosis is absent. * There is no significant aortic regurgitation. Pulmonic Valve * The pulmonary valve is inadequately visualized, but the Doppler data is adequate for interpretation. * There is no pulmonic valvular stenosis. * There is no significant pulmonary regurgitation. Great Vessels * The aortic root is normal size. * Normal inferior vena cava diameter and respiratory variation suggests normal central venous pressure. MMode 2D Measurements and Calculations IVSd 1.4 cm LVIDd 3.8 cm LVPWd 1.4 cm IVS/LVPW 1.0 EDV(Teich) 60.6 ml EDV(cubed) 53.4 ml LV mass(C)d 181.1 grams LV mass(C)dI 76.9 grams/m\S\2 Ao root diam 2.6 cm Ao root area 5.2 cm\S\2 LA dimension 2.9 cm LA/Ao 1.1 LVOT diam 1.9 cm LVOT area 2.9 cm\S\2 Doppler Measurements and Calculations MV E max diego 44.8 cm/sec MV A max diego 52.1 cm/sec MV E/A 0.86 MV P1/2t max diego 81.3 cm/sec MV P1/2t 70.6 msec MVA(P1/2t) 3.1 cm\S\2 MV dec slope 337.2 cm/sec\S\2 MV dec time 0.19 sec Ao V2 max 119.0 cm/sec Ao max PG 5.7 mmHg Ao max PG (full) 0.11 mmHg SERVANDO(V,A) 2.9 cm\S\2 SERVANDO(V,D) 2.9 cm\S\2 LV V1 max PG 5.6 mmHg LV V1 max 117.8 cm/sec PA V2 max 88.3 cm/sec PA max PG 3.1 mmHg
[2017-02-03 19:27] LABS: CKMB/CK RATIO 5.2 (0-3.0)
[2017-02-03 19:47] LABS: URINE APPEARANCE CLOUDY (CLEAR); URINE COLOR DK YELLOW; URINE EPITHELIAL CELL AUTO >30 /lpf (0-5); URINE NITRITE NEG (NEG); URINE PH 5.5 (4.5-7.5); URINE SPECIFIC GRAVITY 1.021 (1.000-1.030); UROBILINOGEN NEG (NEG)
[2017-02-03 20:10] LABS: MANUAL MICROSCOPIC REQUIRED? NO; REVIEW REQ? YES; URINE BILIRUBIN NEG (NEG)
[2017-02-03 20:12] LABS: URINE PATH CASTS 5-10 GRANULAR CASTS /lpf (0)
[2017-02-03] MEDS: HEPARIN SOD 5000 UNIT/0.5 ML CARP SQ SCH (20:27)
--- NOTE | 2017-02-03 20:45 | History and Physical ---
History & Physical Date of Service Feb 03, 2017. History & Physical ADMISSION DATE: 02/03/2017 CHIEF COMPLAINTS: 58-year-old female admitted through the emergency room with multiple problems including tachyarrhythmia, dehydration, elevated troponin, acute renal insufficiency. PRESENT ILLNESS : Patient with known supraventricular tachycardia has been treated and controlled. She also has arterial hypertension. She is morbidly obese. Osteoarthritis. Type 2 diabetes mellitus. At one time in the past she was on oral hypoglycemic medication but now has not required any medications for many months. Her diabetes remains under control. She is a smoker up to one and one half pack per day. She was recently seen in the office. She was suspected of having sleep apnea. She is scheduled for a sleep study. Patient woke up this morning on 6:00. She was complaining of palpitation. She felt that her heart was beating fast. She was diaphoretic. Waves short of breath. Denied any chest pain. Denied any dizziness or lightheadedness. She felt nauseous. No vomiting. She still went to work. At work they were trying to check her blood pressure but did not have the right size cuff. She was sent to an [facility]. She was noted to be tachycardic. An electrocardiogram was done. It was abnormal. Her heart rate was 120. She was sent to the emergency room. She was evaluated by Dr. Calle. After Valsalva maneuver she went back to a sinus rhythm. She was asymptomatic. Patient was noted to be dehydrated. She had a rise in her BUN and creatinine. Also her troponin was elevated. She was admitted to PCU with telemetry. PAST MEDICAL HISTORY: * she was last hospitalized on 08/08/2014 with supraventricular tachycardia. * Acute diverticulitis requiring hospitalization in June of 2014. * Cholecystectomy in 1988 * Fracture of the left wrist secondary to a fall in the remote past. * Supraventricular tachycardia. First noted on 2011. She is on metoprolol tartrate 50 mg 3 times a day. * Arterial hypertension * Appendectomy in childhood * Type 2 diabetes mellitus. First diagnosed back in 2013. She was on metformin. In October of 2015 she presented with acute renal failure with a creatinine rising to 2.8. She was dehydrated. Her metformin was discontinued. She has not been on any medication since then. Her last hemoglobin A1c is 6.3 %. SOCIAL HISTORY: She is single. No children. She smokes about 1-1/2 pack per day for many years since approximately 1979. Denied any excessive alcohol. No drugs. 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 FAMILY HISTORY: Her mother age 69 had heart failure and kidney failure. She was diabetic and hypertensive. Her father in his 80s. He had atherosclerotic heart disease. She had 3 brothers and 2 sisters. One brother age 33. She described it as ruptured heart. ALLERGIES: None CURRENT MEDICATIONS: As noted on her home medication list REVIEW OF SYSTEMS: Denied any headache. No dizziness no lightheadedness at this point. No recent change in her vision. No ear ache no sore throat. No neck pain. No chest pain pressure or tightness. No shortness of breath at rest. No pain in her breasts. No abdominal pain. No nausea no vomiting. No problem with her bowel movements. No problem urinating. No pain in her back or extremities. PHYSICAL EXAMINATION: GENERAL : Well developed. Well nourished. No acute distress.Weight 134 kg. Height was 67.6 cm. BMI 47.7. VITAL SIGNS : Blood Pressure : 127/81 on arrival to the emergency room. Pulse 124. Respiration 20. Temperature 36.4. Oxygen saturation 95% on room air. SKIN : Warm and dry. No rash. HEENT :No problem with her vision. Normal oral and nasal and pharyngeal mucosa. Edentulous upper gum. Only a few teeth left in her lower gum. NECK : Supple. No adenopathy. No thyromegaly. No JVD. Normal carotid pulses. No carotid bruit. CHEST : Normal HEART: Regular heart sounds without any murmur rub or gallop. PMI not displaced. LUNGS: Clear. Normal breath sounds. ABDOMEN: Soft nontender. No organomegaly or masses. Good bowel sounds.. Markedly obese. BACK: No spine or CVA tenderness. EXTREMITIES : No edema clubbing or cyanosis. No joint or muscle tenderness. Good peripheral pulses. Osteoarthritis NEUROLOGICAL EXAMINATION: She is at her and oriented. There is no evidence of any deficit. LABORATORY TESTS : WBC count 10,810, hemoglobin 15.9, hematocrit 47.3, platelet count 256,000. Sodium 140, potassium 4.7, low right 108, CO2 26, BUN 26, creatinine 1.6, glucose 102, calcium 9.3, magnesium 2.4, total bilirubin 0.2, AST 13, ALT 19, alkaline phosphatase 113, total CK 55, MB fraction 2.5, troponin 0.121, total protein 8.3, albumin 3.4, globulin 4.9, TSH 1.850, free T4-1.14 Prothrombin time 10.4, INR 1.0, PTT 24.5. Chest x-rays showed no significant abnormality. Her first electrocardiogram showed what is interpreted as accelerated junctional rhythm at 120 beats per minute. After Valsalva maneuver repeat electrocardiogram showed a sinus rhythm without any significant abnormality. ASSESSMENT: * tachyarrhythmia * Known supraventricular tachycardia * Arterial hypertension * Type 2 diabetes mellitus not requiring any drug therapy * Morbid obesity * Suspected sleep apnea. She is scheduled for a sleep study. * Dehydration * Acute renal failure * Hyperlipidemia PLAN: Patient was admitted to PCU with telemetry. Resuscitation level I. all her laboratory tests were ordered. Cardiac isoenzymes and electrocardiograms were ordered. An echocardiogram was ordered. She was started on IV fluid. Zofran for any nausea. It is quite possible that the elevation of her troponin I was related to her rapid rate. She was placed on a sliding scale coverage for her diabetes. Subcutaneous heparin and JOAN stockings for DVT prophylaxis. Her lisinopril was held at this point because of her creatinine. She was continued on metoprolol tartrate. Smoking cessation consultation was requested. Cardiology consultation will be requested.
[2017-02-03] MEDS: CIPROFLOXACIN 500 MG TAB PO SCH (21:22)
[2017-02-04] VITALS (9 sets, daily range): BP systolic 118–167; BP diastolic 75–99; PULSE 55–76; TEMP 36.3–36.8; O2SAT 94–96; Ht 167.6 cm; Wt 134.2 kg
[2017-02-04 00:49] LABS: CKMB/CK RATIO 4.7 (0-3.0)
[2017-02-04 06:14] LABS: BASO % 0.4 %; BASO ABS # 0.04 K/uL (0-0.2); COMPLETE YES; EOS % 2.7 %; HEMATOCRIT 40.7 % (37-47); IG% 0.2 %; LYMPH % 37.2 %; LYMPH ABS # 3.71 K/uL (1.2-3.4); MEAN CELL VOLUME 87.2 fL (80-100); MEAN CORPUSCULAR HEMOGLOBIN 28.3 pg (25-34); MEAN CORPUSCULAR HGB CONC 32.4 g/dl (32-36); MEAN PLATELET VOLUME 12.5 fL (7.4-10.4); MONO % 6.9 %; NEUT % 52.6 %; PLATELET COUNT 202 K/uL (130-400); RED BLOOD COUNT 4.67 M/uL (4.2-5.4); WHITE BLOOD COUNT 9.96 K/uL (4.8-10.8)
[2017-02-04 06:25] LABS: BUN/CREATININE RATIO 22.4 (10-20); CREATININE 1.1 mg/dl (0.60-1.20); MAGNESIUM 2.1 mg/dl (1.8-2.4); POTASSIUM 4.5 mmol/L (3.5-5.1)
[2017-02-04 06:33] LABS: CKMB/CK RATIO 3.6 (0-3.0)
[2017-02-04] MEDS: METOPROLOL TARTRATE 50 MG TAB PO SCH ×3 (08:11→20:28)
[2017-02-04] MEDS: ATORVASTATIN 20 MG TAB PO SCH (08:11)
[2017-02-04] MEDS: CIPROFLOXACIN 500 MG TAB PO SCH ×2 (08:11→20:27)
[2017-02-04] MEDS: ASPIRIN 81 MG ECTAB PO SCH (08:11)
[2017-02-04] MEDS: HEPARIN SOD 5000 UNIT/0.5 ML CARP SQ SCH ×2 (08:16→20:33)
[2017-02-04] MEDS: INSULIN ASPART 100 UNITS/ML 3 ML PEN SC SCH ×4 (08:16→20:31)
--- NOTE | 2017-02-04 11:33 | Cardiology Consultation ---
Cardiology Consultation Date of Consultation: Feb 04, 2017. Requesting Physician: Dr. Lanza Reason for Consultation: SVT Pt evaluation today including: conversation w/ patient, physical exam, lab review, review of studies, review of inpatient medication list History of Present Illness This is a very pleasant 68-year-old woman who has a history of well documented supraventricular tachycardia. In addition she has hypertension, diabetes mellitus and obesity but does not have diagnosed coronary artery disease this point. Her initial documentation of SVT I believe was in July 2014, at that time she came in the emergency room complaining of abdominal discomfort however was noted to be in a supraventricular tachycardia at a rate which evidently varied somewhat but was as high as 150 ms, on 12-lead electrocardiography it appeared to be typical AV arlene reentry at a rate of 136 bpm. It is not clear whether she may have had prior symptoms, but she has been aware of it since. She has been treated with metoprolol, currently 50 mg 3 times a day, and presented on 02/03/2017 noting that her heart was beating rapidly when she woke up at around 6 AM. She came into the emergency room and in the emergency room a Valsalva maneuver converted her back to sinus rhythm. On review of her symptoms it seems as though she has episodes irregularly but on average every month or so, they typically last one half hour to one hour although on this occasion it was much longer than that. During the episode this admission she felt weak, she notes that she was very sweaty and that her heart was beating rapidly. She did not feel dizzy or presyncopal and did not of chest discomfort. She did have positive enzymes on arrival, her troponin was 0.121 on arrival, 5 hours later it had gone up to 0.282 and then decreased from there. Her electrocardiogram did not show any acute changes. Echocardiography this admission shows left ventricular hypertrophy with hyperdynamic systolic function. Past Medical/Surgical History (1) SVT (supraventricular tachycardia) (2) Obese (3) Hypertension (4) Diabetes (5) Hyperlipidemia (6) GERD (gastroesophageal reflux disease) Family History Diabetes mellitus MOTHER FH: heart disease FATHER Social History Smoking Status: Current Every Day Smoker History of Alcohol Use: Yes (occ) Review of Systems Constitutional: No fever, No weight loss, No weakness Respiratory: No cough, No wheezing, No shortness of breath, No dyspnea on exertion Cardiac: + see HPI, + palpitations, No chest pain, No orthopnea, No PND, No edema Abdomen: No pain, No nausea, No vomiting, No diarrhea, No GI bleeding Female : No problem reported Neurologic: No paralysis, No weakness, No numbness/tingling, No balance problems Heme: No abnormal bleeding/bruising, No clotting problems Endo: No fatigue Skin: No problem reported All Other Systems: Reviewed and Negative Allergies Coded Allergies: No Known Allergies (Unverified , 03/12/16) Medications Current Inpatient Medications Medications (Trade) Dose Ordered Sig/Scott Route Start Time Stop Time Status Last Admin Dose Admin Heparin Sodium (Porcine) (Heparin Sq 5000 Unit/0.5ml) 5,000 unit Q12 SQ 02/03/17 21:00 03/05/17 20:59 02/04/17 08:16 5,000 UNIT Acetaminophen (Tylenol Tab) 650 mg Q4H PRN PO 02/03/17 13:15 03/05/17 13:14 Aspirin (Ecotrin Tab) 81 mg QAM PO 02/04/17 09:00 03/06/17 08:59 02/04/17 08:11 81 MG Atorvastatin Calcium (Lipitor Tab) 20 mg DAILY PO 02/04/17 09:00 03/06/17 08:59 02/04/17 08:11 20 MG Metoprolol Tartrate (Lopressor Tab) 50 mg TID PO 02/03/17 14:00 03/05/17 13:59 02/04/17 08:11 50 MG Ondansetron HCl 8 mg/Dextrose 54 ml @ 200 mls/hr Q4H PRN IV 02/03/17 13:15 03/05/17 13:14 Insulin Aspart (novoLOG ASPART) SLIDING SCALE G... ACHS SC 02/03/17 16:15 03/05/17 16:14 02/04/17 08:16 5 UNITS Glucose (Glucose 40% Gel) 15-30 GRAMS 15 GRAMS... UD PRN PO 02/03/17 14:00 03/05/17 13:59 Glucose (Glucose Chew Tab) 4-8 Tablets 4 Tabl... UD PRN PO 02/03/17 14:00 03/05/17 13:59 Dextrose (Dextrose 50% 50ML Syringe) 25-50ML OF 50% DW IV FOR... UD PRN IV 02/03/17 14:00 03/05/17 13:59 Glucagon (Glucagon Inj) 1 mg UD PRN SQ 02/03/17 14:00 03/05/17 13:59 Ciprofloxacin (Cipro Tab) 500 mg BID PO 02/03/17 21:00 02/08/17 20:59 02/04/17 08:11 500 MG Physical Exam Vital Signs Past 12 Hours Date Time Temp Pulse Resp B/P (MAP) Pulse Ox O2 Delivery O2 Flow Rate FiO2 02/04/17 08:15 Room Air 02/04/17 08:15 95 Room Air 02/04/17 07:11 36.3 64 18 159/99 (119) 95 Room Air 02/04/17 04:05 36.5 76 16 118/75 (89) 96 Room Air 02/04/17 04:00 Room Air 02/04/17 02:51 36.5 70 20 135/84 (101) 94 Room Air 02/03/17 23:59 95 Room Air 02/03/17 23:37 36.3 71 18 120/77 (91) 95 Room Air Constitutional: General Apperance: overweight Level of Distress: NAD Psychiatric: Mental Status: active & alert Head: normocephalic Eyes: EOM: EOMI ENMT: normal ENT inspection, hearing grossly normal Neck: supple, no masses Lungs: Respiratory effort: no dyspnea, good air movement Auscultation: breath sounds normal, no wheezing Cardiovascular: Heart Auscultation: RRR, no murmurs, no rubs, no gallops Peripheral Pulses: Bruits: none appreciated Abdomen: Bowel Sounds: normal Inspection & Palpation: soft, no tenderness, guarding & rebound, no masses Musculoskeletal: normal strength (5/5 throughout) Extremities: no edema Neurologic: Cranial Nerves: grossly intact Sensation: grossly intact Data Laboratory Results: Last 24 Hours Test 02/03/17 11:35 02/03/17 15:09 02/03/17 16:12 02/03/17 17:55 White Blood Count 10.81 K/uL Red Blood Count 5.46 M/uL Hemoglobin 15.9 g/dL Hematocrit 47.3 % Mean Corpuscular Volume 86.6 fL Mean Corpuscular Hemoglobin 29.1 pg Mean Corpuscular Hemoglobin Concent 33.6 g/dl Platelet Count 256 K/uL Mean Platelet Volume 12.0 fL Neutrophils (%) (Auto) 64.6 % Lymphocytes (%) (Auto) 25.4 % Monocytes (%) (Auto) 7.7 % Eosinophils (%) (Auto) 1.4 % Basophils (%) (Auto) 0.6 % Neutrophils # (Auto) 6.99 K/uL Lymphocytes # (Auto) 2.75 K/uL Monocytes # (Auto) 0.83 K/uL Eosinophils # (Auto) 0.15 K/uL Basophils # (Auto) 0.06 K/uL RDW Standard Deviation 47.1 fL RDW Coefficient of Variation 15.0 % Immature Granulocyte % (Auto) 0.3 % Immature Granulocyte # (Auto) 0.03 K/uL Prothrombin Time 10.4 SECONDS Prothromb Time International Ratio 1.0 Activated Partial Thromboplast Time 34.5 SECONDS Partial Thromboplastin Ratio 1.3 Sodium Level 140 mmol/L Potassium Level 4.7 mmol/L Chloride Level 108 mmol/L Carbon Dioxide Level 26 mmol/L Anion Gap 6.0 mmol/L Blood Urea Nitrogen 26 mg/dl Creatinine 1.60 mg/dl Est Creatinine Clear Calc Drug Dose 54.6 ml/min Estimated GFR () 41.0 Estimated GFR (Non- 35.4 BUN/Creatinine Ratio 16.4 Random Glucose 102 mg/dl Calcium Level 9.3 mg/dl Magnesium Level 2.4 mg/dl Total Bilirubin 0.2 mg/dl Aspartate Amino Transf (AST/SGOT) 13 U/L Alanine Aminotransferase (ALT/SGPT) 19 U/L Alkaline Phosphatase 113 U/L Total Creatine Kinase 55 U/L Creatine Kinase MB 2.5 ng/ml Creatine Kinase MB Ratio 4.5 Troponin I 0.121 ng/ml Total Protein 8.3 gm/dl Albumin 3.4 gm/dl Globulin 4.9 gm/dl Albumin/Globulin Ratio 0.7 Thyroid Stimulating Hormone (TSH) 1.850 uIu/ml Free Thyroxine 1.14 ng/dl Hepatitis C Antibody Screen NEG Bedside Glucose 118 mg/dl Urine Color DK YELLOW Urine Appearance CLOUDY Urine pH 5.5 Urine Specific Gratz 1.021 Urine Protein 2+ Urine Glucose (UA) NEG Urine Ketones TRACE Urine Occult Blood TRACE Urine Nitrite NEG Urine Bilirubin NEG Urine Urobilinogen NEG Urine Leukocyte Esterase LARGE Urine WBC (Auto) >30 /hpf Urine RBC (Auto) 0-4 /hpf Urine Hyaline Casts (Auto) 1-5 /lpf Urine Epithelial Cells (Auto) >30 /lpf Urine Bacteria (Auto) 4+ Urine Pathogenic Casts 5-10 GRANULAR CASTS /lpf Urine Yeast (Auto) Test 02/03/17 18:30 02/03/17 20:20 02/04/17 00:18 02/04/17 05:36 Total Creatine Kinase 48 U/L 45 U/L 44 U/L Creatine Kinase MB 2.5 ng/ml 2.1 ng/ml 1.6 ng/ml Creatine Kinase MB Ratio 5.2 4.7 3.6 Troponin I 0.282 ng/ml 0.216 ng/ml 0.151 ng/ml Bedside Glucose 111 mg/dl White Blood Count 9.96 K/uL Red Blood Count 4.67 M/uL Hemoglobin 13.2 g/dL Hematocrit 40.7 % Mean Corpuscular Volume 87.2 fL Mean Corpuscular Hemoglobin 28.3 pg Mean Corpuscular Hemoglobin Concent 32.4 g/dl Platelet Count 202 K/uL Mean Platelet Volume 12.5 fL Neutrophils (%) (Auto) 52.6 % Lymphocytes (%) (Auto) 37.2 % Monocytes (%) (Auto) 6.9 % Eosinophils (%) (Auto) 2.7 % Basophils (%) (Auto) 0.4 % Neutrophils # (Auto) 5.23 K/uL Lymphocytes # (Auto) 3.71 K/uL Monocytes # (Auto) 0.69 K/uL Eosinophils # (Auto) 0.27 K/uL Basophils # (Auto) 0.04 K/uL RDW Standard Deviation 48.1 fL RDW Coefficient of Variation 15.2 % Immature Granulocyte % (Auto) 0.2 % Immature Granulocyte # (Auto) 0.02 K/uL Sodium Level 139 mmol/L Potassium Level 4.5 mmol/L Chloride Level 109 mmol/L Carbon Dioxide Level 25 mmol/L Anion Gap 5.0 mmol/L Blood Urea Nitrogen 25 mg/dl Creatinine 1.10 mg/dl Est Creatinine Clear Calc Drug Dose 80.3 ml/min Estimated GFR () 64.5 Estimated GFR (Non- 55.7 BUN/Creatinine Ratio 22.4 Random Glucose 101 mg/dl Calcium Level 8.0 mg/dl Magnesium Level 2.1 mg/dl Test 02/04/17 06:50 02/04/17 11:09 Bedside Glucose 108 mg/dl 77 mg/dl Imaging: Echocardiography this admission shows hyperdynamic left ventricular function with diastolic dysfunction. EKG: On arrival in the emergency room SVT at 136 bpm, probably typical AV arlene reentry Telemetry reviewed: Initially SVT at around 130 bpm, terminated quickly in the emergency room followed by sinus rhythm Assessment & Plan #1. SVT: She has well-documented SVT, on 2 occasions it was recorded on 12-lead in the emergency room and it appears to be typical AV arlene reentry. The rate varies somewhat but in general is relatively slow (136 bpm on this admission) however she does have significant symptoms including diaphoresis and weakness although she was not hypotensive. It is also worrisome that her cardiac enzymes were positive. She has been on a beta esha and continues to have episodes, I discussed options with her which include continued medical therapy or consideration of ablation. She is willing to consider either approach, at the moment I would like to switch her to diltiazem but if she has recurrences (even if they don't require emergency room visits) then I think we should consider electrophysiologic study and ablation. I am going to discontinue her metoprolol after today and start diltiazem to her 40 mg daily tomorrow. #2. Abnormal cardiac enzymes: Her cardiac enzymes are probably due to demand ischemia, she was not hypotensive and her heart rate was not terribly fast in her enzymes seem a little bit high under those circumstances. I agree we should look for evidence of coronary artery disease (she is scheduled for stress test) . If this is negative I would probably not pursue it further, but it would give us more incentive to definitively treat her arrhythmia. Thank you for allowing me to participate in her care.
--- NOTE | 2017-02-04 18:32 | Progress Note ---
Progress Note Date of Service Feb 04, 2017. Progress Note 56-year-old female admitted through the emergency room yesterday with multiple problems including: * tachyarrhythmia * Dehydration * Arterial hypertension * Urinary tract infection * Acute renal insufficiency * Elevated troponin I She converted back to sinus rhythm after Valsalva maneuver in the emergency room and she has remained in a sinus rhythm since then. This morning she has been doing well. Denied any problems or complaints. She has no headache or dizziness or lightheadedness. No chest pain no palpitation. No shortness of breath. She is tolerating her diet without any problem. No abdominal pain no nausea or vomiting. No ankle edema. EXAMINATION: General : Well developed. Well nourished. No distress. Vital Signs : Blood pressure 159/99, pulse 64, respiration 18, temperature 36.3 , oxygen saturation 95% on room air Skin : Warm and dry. No rash. HEENT :No mucosal abnormalities. Neck : Supple. No adenopathy. No thyromegaly. No JVD. Heart : Regular heart sounds. No murmur rub or gallop. Lungs : Clear. Normal breath sounds. Abdomen : Soft nontender without any organomegaly or masses. Back : No spinal or CVA tenderness. Extremities : No edema clubbing or cyanosis. No joint or muscle tenderness.Good peripheral pulses. LABORATORY TESTS: WBC count 9960, hemoglobin 13.2, hematocrit 40.7, platelet count 20 2000. Sodium 139, potassium 4.5, chloride 109, CO2 25, BUN 35, creatinine 1.1, glucose 101, calcium 8.0, magnesium 2.1, total CK 44, MB fraction 1.6, troponin I 0.151. ASSESSMENT: * tachyarrhythmia. Resolved. * History of recurrent supraventricular tachycardia * Elevated troponin I * Acute renal insufficiency. Resolved with hydration. * Arterial hypertension * Type 2 diabetes mellitus not requiring any drug therapy * Morbid obesity * urinary tract infection PLAN: * discontinued IV fluid. * she was started on oral ciprofloxacin yesterday * Encouraged ambulation * Her echocardiogram which was done yesterday was noted. She had a hyperdynamic left ventricular systolic function, mild concentric left ventricular hypertrophy , class I left ventricular diastolic dysfunction, no significant valvular abnormalities, normal chamber dimensions. The study was technically difficult. * Cardiology consultation was requested * I ordered a Lexiscan. I thought it would be a more appropriate test given her body habitus and the fact that the baseline echocardiogram study was technically difficult.
[2017-02-05] VITALS (7 sets, daily range): BP systolic 133–178; BP diastolic 76–99; PULSE 62–70; TEMP 36.3–36.8; O2SAT 93–97
[2017-02-05 06:58] LABS: BASO % 0.6 %; BASO ABS # 0.05 K/uL (0-0.2); COMPLETE YES; EOS % 2.5 %; HEMATOCRIT 41.2 % (37-47); IG% 0.1 %; LYMPH % 36.2 %; MEAN CELL VOLUME 85.8 fL (80-100); MEAN CORPUSCULAR HEMOGLOBIN 29.2 pg (25-34); MEAN PLATELET VOLUME 12.2 fL (7.4-10.4); MONO % 7.8 %; NEUT % 52.8 %; PLATELET COUNT 192 K/uL (130-400); WHITE BLOOD COUNT 7.74 K/uL (4.8-10.8)
[2017-02-05 07:25] LABS: BUN/CREATININE RATIO 20.6 (10-20); CALCIUM 8.9 mg/dl (8.5-10.1); CREATININE 0.97 mg/dl (0.60-1.20); POTASSIUM 4.5 mmol/L (3.5-5.1)
[2017-02-05] MEDS ORDERED: REGADENOSON 0.4 MG/5 ML SYR ONE (07:40)
[2017-02-05] MEDS: INSULIN ASPART 100 UNITS/ML 3 ML PEN SC SCH ×4 (08:00→20:27)
[2017-02-05] MEDS: DILTIAZEM HCL 240 MG CAPCR PO SCH (09:06)
[2017-02-05] MEDS: CIPROFLOXACIN 500 MG TAB PO SCH ×2 (09:06→20:11)
[2017-02-05] MEDS: ATORVASTATIN 20 MG TAB PO SCH (09:06)
[2017-02-05] MEDS: HEPARIN SOD 5000 UNIT/0.5 ML CARP SQ SCH ×2 (09:08→20:19)
[2017-02-05] MEDS: ASPIRIN 81 MG ECTAB PO SCH (09:39)
[2017-02-05] MEDS ORDERED: LISINOPRIL 10 MG TAB PO ONE (10:00)
--- NOTE | 2017-02-05 14:01 | Myocardial Perfusion Study ---
Myocardial Perfusion Study Rpt Myocardial Perfusion Study Rpt Date of Service 02/05/17 Myocardial Perfusion Study Rpt Procedure: 1. Myocardial perfusion study performed in multiple views/images 2. Lexiscan pharmacologic stress ECG Indications: 1. Elevated troponin 2. SVT Consent: Informed written consent was obtained prior to the procedure. Ordering physician: Dr. Lanza Procedural details: For the stress portion of the study, Lexiscan 0.4 mg was intravenously administered followed by a saline flush. This was followed by 22.3 mCi of technetium 99m Cardiolite, injected at 8:15 a.m. on 02/05/2017. 30 minutes following the injection, imaging of the heart was performed in multiple projections. For the rest portion of the study, 22.4 mCi technetium 99m Cardiolite was injected intravenously at 14:15 on 02/04/2017. 1 hour following the injection, imaging of the heart was performed in the same projections. Lexiscan stress ECG: Resting ECG demonstrated: NSR at 64 bpm. Possible septal infarct. Maximum heart rate: 103 bpm Resting blood pressure: 169/85 mmHg Maximum blood pressure: 198/104 mmHg Maximal, age-predicted heart rate: 63 % Significant ST changes: None Arrhythmia: None Symptoms: Shortness of breath Findings: Rotating raw imaging demonstrated no significant lung uptake. There is no significant motion artifact. Heart size appeared normal. Myocardial perfusion demonstrated no significant reversible or fixed defect to suggest ischemia or infarct. There was GI uptake near the inferior wall, more so in the stress imaging compared to rest, which may affect interpretation. Ejection fraction: 72 % Wall motion: Normal No significant transient ischemic dilation. Impression: 1. Normal myocardial perfusion study, without significant ischemia or infarct. 2. Normal wall motion. 3. Hyperdynamic LV systolic function. EF 72%. 4. Lexiscan induced dyspnea. 5. No arrhythmia. 6. Nondiagnostic Lexiscan ECG.
--- NOTE | 2017-02-05 21:50 | Progress Note ---
Progress Note Date of Service Feb 05, 2017. Progress Note 56-year-old female admitted with tachyarrhythmia, acute renal insufficiency,dehydration and elevated troponin . Her tachyarrhythmia was controlled with Valsalva maneuver. She remained in a sinus rhythm for the rest of her hospitalization. She is doing well. She has not had any recurrent problem with any shortness of breath and chest pressure or rhythm issues. She was seen in cardiology consultation by Dr. Candido Cowan. She was changed from metoprolol tartrate to diltiazem extended release. She denied any headache or dizziness or lightheadedness. No chest pain no shortness of breath. She is tolerating her diet. No abdominal pain. No nausea no vomiting. No problems with her bowel movements. No problem urinating. No pain in her back or extremities. EXAMINATION: GENERAL : Well developed. Well nourished. No acute distress. VITAL SIGNS : Blood Pressure : 178/99, pulse 69, respiration 18, temperature 36.5, oxygen saturation 97% on room air. SKIN : Warm and dry. No rash. HEENT :No evidence of mucosal abnormality NECK : Supple. No adenopathy. No thyromegaly. No JVD. HEART: Regular heart sounds without any murmur rub or gallop. LUNGS: Clear. Normal breath sounds. ABDOMEN: Soft nontender. No organomegaly or masses. Obese EXTREMITIES : No edema clubbing or cyanosis. No joint or muscle tenderness. Good peripheral pulses. LABORATORY TESTS : WBC count 7740, hemoglobin 14, hematocrit 41.2, platelet count 192,000. Sodium 138, potassium 4.5, chloride 107, CO2 28, BUN 30, creatinine 0.97, glucose 96, calcium 8.9 A Lexiscan was done today. There was no evidence of any ischemia. ASSESSMENT: * tachyarrhythmia * Elevated troponin I * Arterial hypertension * Type 2 diabetes mellitus * Hyperlipidemia * Morbid obesity * Acute renal insufficiency. Resolved with hydration. PLAN: * she was restarted back on her lisinopril today * As noted her cardiac scan was negative for ischemia * She was switched to diltiazem and she seems to be tolerating it. * As recommended by Dr. Cowan, she may need ablation in the future if she continues to have recurrent episodes of tachyarrhythmias
[2017-02-06 03:49] VITALS: BP 150/82; PULSE 62; TEMP 36.4; O2SAT 93
[2017-02-06 06:29] LABS: BASO % 0.4 %; BASO ABS # 0.03 K/uL (0-0.2); COMPLETE YES; EOS % 2.7 %; HEMATOCRIT 44.2 % (37-47); IG% 0.4 %; LYMPH % 34.5 %; LYMPH ABS # 2.69 K/uL (1.2-3.4); MEAN CELL VOLUME 86.8 fL (80-100); MEAN CORPUSCULAR HEMOGLOBIN 27.3 pg (25-34); MEAN CORPUSCULAR HGB CONC 31.4 g/dl (32-36); MEAN PLATELET VOLUME 11.7 fL (7.4-10.4); MONO % 8.2 %; NEUT % 53.8 %; PLATELET COUNT 210 K/uL (130-400); RED BLOOD COUNT 5.09 M/uL (4.2-5.4); WHITE BLOOD COUNT 7.79 K/uL (4.8-10.8)
[2017-02-06 07:04] LABS: BUN/CREATININE RATIO 19.2 (10-20); CALCIUM 8.8 mg/dl (8.5-10.1); POTASSIUM 4.3 mmol/L (3.5-5.1)
[2017-02-06 07:20] VITALS: BP 108/64; PULSE 74; TEMP 36.3; O2SAT 95
[2017-02-06] MEDS ORDERED: ASPEC81 PO (07:34)
[2017-02-06] MEDS ORDERED: DILT240C57 PO (07:34)
--- NOTE | 2017-02-06 07:38 | Discharge Instructions ---
Discharge Instructions Date of Service Feb 06, 2017. Admission Reason for Admission: Tachyarrythmia Supraventricular tachycardia Acute renal insufficiency Dehydration Arterial hypertension Morbid obesity Discharge Discharge Diagnosis / Problem: tachyarrhythmia. Acute renal insufficiency. Dehydration. Arterial hypert Discharge Goals Goal(s): Decrease discomfort, Improve function, Increase independence, Improve disease control, Improve nutritional status Activity Recommendations Activity Limitations: resume your previous activity . Instructions / Follow-Up Instructions / Follow-Up Return to work on Friday02/10/2017 Dr Lanza in one week Current Hospital Diet Patient's current hospital diet: Diabetes Type 2 Diet, AHA Diet (Heart Healthy) Discharge Diet Recommended Diet: Diabetes Type 2 Diet Pending Studies Studies pending at discharge: no Work Instructions Return To Work: 3 days Medical Emergencies . Who to Call and When: Medical Emergencies: If at any time you feel your situation is an emergency, please call 911 immediately. . Non-Emergent Contact Non-Emergency issues call your: Primary Care Provider . . "Provider Documentation" section prepared by Romeo Lanza. . VTE Core Measure Inpt VTE Proph given/why not?: Treatment not indicated
[2017-02-06 07:52] VITALS: BP 136/83
[2017-02-06] MEDS: DILTIAZEM HCL 240 MG CAPCR PO SCH (08:10)
[2017-02-06] MEDS: ATORVASTATIN 20 MG TAB PO SCH (08:11)
[2017-02-06] MEDS: ASPIRIN 81 MG ECTAB PO SCH (08:11)
[2017-02-06] MEDS: CIPROFLOXACIN 500 MG TAB PO SCH (08:11)
[2017-02-06] MEDS: HEPARIN SOD 5000 UNIT/0.5 ML CARP SQ SCH (08:11)
[2017-02-06] MEDS: INSULIN ASPART 100 UNITS/ML 3 ML PEN SC SCH (08:12)
--- NOTE | 2017-02-06 08:46 | Cardiology Follow-Up ---
Subjective Date of Service: Feb 06, 2017. Pt evaluation today including: conversation w/ patient, physical exam, lab review, review of studies, review of inpatient medication list History of Present Illness This is a very pleasant 68-year-old woman who has a history of well documented supraventricular tachycardia. In addition she has hypertension, diabetes mellitus and obesity but does not have diagnosed coronary artery disease this point. Her initial documentation of SVT I believe was in July 2014, at that time she came in the emergency room complaining of abdominal discomfort however was noted to be in a supraventricular tachycardia at a rate which evidently varied somewhat but was as high as 150 ms, on 12-lead electrocardiography it appeared to be typical AV arlene reentry at a rate of 136 bpm. It is not clear whether she may have had prior symptoms, but she has been aware of it since. She has been treated with metoprolol, currently 50 mg 3 times a day, and presented on 02/03/2017 noting that her heart was beating rapidly when she woke up at around 6 AM. She came into the emergency room and in the emergency room a Valsalva maneuver converted her back to sinus rhythm. On review of her symptoms it seems as though she has episodes irregularly but on average every month or so, they typically last one half hour to one hour although on this occasion it was much longer than that. During the episode this admission she felt weak, she notes that she was very sweaty and that her heart was beating rapidly. She did not feel dizzy or presyncopal and did not of chest discomfort. She did have positive enzymes on arrival, her troponin was 0.121 on arrival, 5 hours later it had gone up to 0.282 and then decreased from there. Her electrocardiogram did not show any acute changes. Echocardiography this admission shows left ventricular hypertrophy with hyperdynamic systolic function. A nuclear stress test was negative for ischemia. Today she feels well, she has tolerated the change from beta-blockade to diltiazem and has no complaints. Social History Smoking Status: Current Every Day Smoker History of Alcohol Use: Yes (occ) Review of Systems Respiratory: No cough, No wheezing, No shortness of breath, No dyspnea on exertion Cardiac: + see HPI, + palpitations, No chest pain, No orthopnea, No PND, No edema Medications Cardiovascular: Item Value Date Time Lisinopril 10 mg 02/06/17 0900 (Zestril Tab) DAILY/PO 02/06/17 0811 Diltiazem HCl 240 mg 02/05/17 0900 (Cardizem Cd Cap) QAM/PO 02/06/17 0810 Aspirin 81 mg 02/04/17 0900 (Ecotrin Tab) QAM/PO 02/06/17 0811 Atorvastatin 20 mg 02/04/17 0900 Calcium DAILY/PO 02/06/17 0811 (Lipitor Tab) Objective Vital Signs Past 12 Hours Date Time Temp Pulse Resp B/P (MAP) Pulse Ox O2 Delivery O2 Flow Rate FiO2 02/06/17 07:52 136/83 (100) 02/06/17 07:20 36.3 74 18 108/64 (79) 95 Room Air 02/06/17 04:00 Room Air 02/06/17 03:49 36.4 62 18 150/82 (104) 93 Room Air 02/06/17 00:04 Room Air 02/05/17 23:29 36.6 65 18 148/79 (102) 94 Room Air Last Recorded Weight-Kilograms: 134.200 Physical Exam Constitutional: General Apperance: overweight Level of Distress: NAD Lungs: Respiratory effort: no dyspnea, good air movement Auscultation: breath sounds normal, no wheezing Cardiovascular: Heart Auscultation: RRR, no murmurs, no rubs, no gallops Peripheral Pulses: Bruits: none appreciated Extremities: no edema Data Laboratory Results: Last 24 Hours Test 02/05/17 09:52 02/05/17 11:10 02/05/17 16:12 02/05/17 20:15 Bedside Glucose 113 mg/dl 90 mg/dl 81 mg/dl 85 mg/dl Test 02/06/17 06:01 02/06/17 06:30 White Blood Count 7.79 K/uL Red Blood Count 5.09 M/uL Hemoglobin 13.9 g/dL Hematocrit 44.2 % Mean Corpuscular Volume 86.8 fL Mean Corpuscular Hemoglobin 27.3 pg Mean Corpuscular Hemoglobin Concent 31.4 g/dl Platelet Count 210 K/uL Mean Platelet Volume 11.7 fL Neutrophils (%) (Auto) 53.8 % Lymphocytes (%) (Auto) 34.5 % Monocytes (%) (Auto) 8.2 % Eosinophils (%) (Auto) 2.7 % Basophils (%) (Auto) 0.4 % Neutrophils # (Auto) 4.19 K/uL Lymphocytes # (Auto) 2.69 K/uL Monocytes # (Auto) 0.64 K/uL Eosinophils # (Auto) 0.21 K/uL Basophils # (Auto) 0.03 K/uL RDW Standard Deviation 47.1 fL RDW Coefficient of Variation 14.7 % Immature Granulocyte % (Auto) 0.4 % Immature Granulocyte # (Auto) 0.03 K/uL Sodium Level 138 mmol/L Potassium Level 4.3 mmol/L Chloride Level 105 mmol/L Carbon Dioxide Level 28 mmol/L Anion Gap 5.0 mmol/L Blood Urea Nitrogen 19 mg/dl Creatinine 1.00 mg/dl Est Creatinine Clear Calc Drug Dose 87.4 ml/min Estimated GFR () 72.4 Estimated GFR (Non- 62.5 BUN/Creatinine Ratio 19.2 Random Glucose 99 mg/dl Calcium Level 8.8 mg/dl Bedside Glucose 100 mg/dl Telemetry reviewed: Sinus rhythm, no further SVT Assessment and Plan #1. SVT: She has well-documented SVT, on 2 occasions it was recorded on 12-lead in the emergency room and it appears to be typical AV arlene reentry. The rate varies somewhat but in general is relatively slow (136 bpm on this admission) however she does have significant symptoms including diaphoresis and weakness although she was not hypotensive. It is also worrisome that her cardiac enzymes were positive. She had been on a beta esha and continued to have episodes, I discussed options with her which include continued medical therapy or consideration of ablation. We elected to give a trial of diltiazem and she has been on diltiazem CD 240 mg for 24 hours. It is too early to tell if it will be effective, but she is tolerating it well. #2. Abnormal cardiac enzymes: Her cardiac enzymes are probably due to demand ischemia, she was not hypotensive and her heart rate was not terribly fast in her enzymes seem a little bit high under those circumstances. Nuclear stress testing was negative for ischemia, I would not pursue this further. I agree with discharge today, I will schedule her to come in to the office in one month. Thank you for allowing me to participate in her care.
[2017-02-06] MEDS ORDERED: LISINOPRIL 10 MG TAB PO SCH (09:00)
[2017-02-06 09:26] VITALS: BP 136/83; PULSE 74; TEMP 36.3; O2SAT 95
--- NOTE | 2017-02-06 21:12 | Progress Note ---
Progress Note Date of Service Feb 06, 2017. Progress Note 56-year-old female admitted with multiple problems including tachyarrhythmia, recurrent supraventricular tachycardia, dehydration, Acute renal insufficiency, type 2 diabetes mellitus, morbid obesity and arterial hypertension. She also had elevation of her troponin I. Patient was admitted. Cardiac isoenzymes showed no evidence of acute myocardial infarction. She was hydrated. Her renal function returned to normal. Her diabetes was monitored. Her blood sugars remained in good range. She did require coverage for her carbohydrate intake. Patient was seen in cardiology consultation by Dr. Candido Cwoan. She was changed from metoprolol tartrate to Cardizem CD. She tolerated the medication. During her hospitalization she did not have any recurrence of her supraventricular tachycardia. She did have a Lexiscan. It did not show any evidence of myocardial ischemia. She is doing one. She had no headache or dizziness or lightheadedness. No chest pain no shortness of breath. No abdominal pain. No nausea no vomiting. No problem with her bowel movements. No problem urinating. No ankle edema. EXAMINATION: GENERAL : Well developed. Well nourished. No acute distress. VITAL SIGNS : Blood Pressure : 108/64, pulse 74, respiration 18, Temperature 36.3, oxygen saturation 95% on room air. SKIN : Warm and dry. No rash. HEENT :No mucosal abnormalities. NECK : Supple. No adenopathy. No thyromegaly. No JVD. Normal carotid pulses. HEART: Regular heart sounds without any murmur rub or gallop. PMI not displaced. LUNGS: Clear. Normal breath sounds. ABDOMEN: Soft nontender. No organomegaly or masses. BACK: No spine or CVA tenderness. EXTREMITIES : No edema clubbing or cyanosis. No joint or muscle tenderness. LABORATORY TESTS : WBC count 7709 8, hemoglobin 13.9, hematocrit 44.2, platelet count 210,000. Sodium 138, potassium 4.3, chloride 105, CO2 28, BUN 19, creatinine 1.0, glucose 99, calcium 8.8 ASSESSMENT : * Tachyarrhythmia * Acute renal insufficiency * Dehydration * Arterial hypertension * Type 2 diabetes mellitus * Morbid obesity PLAN: * her condition is stable. She has not had any recurrent supraventricular tachycardia. Her renal function normalized. Urine culture grew more than 3 types of organisms, she did receive oral ciprofloxacin during her hospital stay. Her stress test was negative. She is tolerating the Cardize CD. * She was discharged home * Followup in the office in one week * Followup with Dr. Cowan in one month * Return to work on Friday.
--- NOTE | 2017-02-07 15:16 | EDITING REQUIRED CODING QUERY ---
CODING QUERY Dear Dr. Luis Fernando Smith, To promote full compliance with coding requirements relating to patient care, provider participation is requested in all cases of beef grinder uncertainty. Please assist us with the question(s) below: UTI is documented within the medical record but not on the discharge instructions. Coding Question(s): Does the patient have? ( ) UTI ( ) Present on admission ( ) Not present on admission ( ) Unable to determine * Organism identified if known: ( x ) UTI was ruled out ( ) Other: Please explain ( ) Unable to determine Physician's Response(s): Thank you for your time. Carina Madera [facility] Principal Diagnosis: "_that condition established after study, to be chiefly responsible for occasioning the admission of the patient to the hospital for care." Co-Existing Principal Diagnosis: "_when two or more diagnoses equally meet the criteria for principal diagnosis as determined by the circumstances of admission, diagnostic work up, and/or therapy provided, and the Alphabetic Index, Tabular List, or another coding guideline does not provide sequencing direction, any one of the diagnoses may be sequenced first." "When the physician has documented what appears to be a current diagnosis in the body of the record, but has not included the diagnosis in the final diagnostic statement, the physician should be asked whether the diagnosis should be added." (Source Coding [facility] 2 QTR90. p3-4)
--- NOTE | 2017-02-12 16:38 | Discharge Summary ---
Discharge Summary Date of Service Feb 12, 2017. Discharge Summary ADMISSION DATE : 02/03/2017 DISCHARGE DATE : 02/06/2017 DISCHARGE DIAGNOSES : * tachyarrhythmia * Supraventricular tachycardia * Acute renal insufficiency * Dehydration * Arterial hypertension * Morbid obesity * smoker DISCHARGE MEDICATIONS : * aspirin 81 mg daily * Cardizem CD 240 mg daily * Lipitor 20 mg daily * Lisinopril 10 mg daily * Omeprazole 20 mg daily. CONSULTATION: * Dr. Candido Cowan in cardiology PROCEDURE: * Lexiscan * Echocardiogram 58-year-old female admitted through the emergency room with multiple problems including tachyarrhythmia, dehydration, elevated troponin I and acute renal insufficiency. Patient with known supraventricular tachycardia had been treated and controlled. She is also treated for arterial hypertension. She has osteoarthritis. Type 2 diabetes mellitus. Currently not requiring any drug therapy for her diabetes. She is also suspected of having sleep apnea and she is scheduled for sleep study. Patient woke up on the day of admission at 6 clock in the morning. She was complaining of palpitation. She felt that her heart was beating fast. She was diaphoretic. She did feel short of breath. Denied any chest pain. No dizziness or lightheadedness. She did feel nauseous. No vomiting. She still went to work. At work they were trying to check her blood pressure because she was not feeling well but they did not have the correct size of the blood pressure cuff. She was sent to an urgent care. She was noted to be tachycardic. An electrocardiogram was done. Her heart rate was 120 beats per minute. She was sent to the emergency room. She was evaluated by Dr. Mark Calle. With Valsalva maneuver she converted to a sinus rhythm. Her troponin I was noted to be elevated. Patient was admitted to PCU for further evaluation. PAST MEDICAL HISTORY, SOCIAL HISTORY, FAMILY HISTORY : NOTED ON THE ADMISSION HISTORY AND PHYSICAL ALLERGIES :None MEDICATIONS ON ADMISSION : NOTED ON HOME MEDICATION LIST. PHYSICAL EXAMINATION AND ADMISSION LABORATORY TESTS : NOTED ON THE ADMISSION HISTORY AND PHYSICAL HOSPITAL COURSE : patient was admitted to PCU with telemetry. Resuscitation level I. All her laboratory tests were ordered. Cardiac isoenzymes and serial electrocardiograms were ordered. An echocardiogram was also ordered. She was started on IV fluid. Given IV Zofran. Sliding scale coverage for her diabetes. Subcutaneous heparin and JOAN stockings for DVT prophylaxis. Her lisinopril was held. She was continued on metoprolol tartrate. Smoking cessation consultation was requested. Cardiology consultation was requested. She was seen by Dr. Candido Cowan. He discontinued her metoprolol tartrate and started her on Cardizem. She did tolerate the medication without any problem. She did not have any recurrent tachyarrhythmia. Her renal function normalized. A Lexiscan was done. There was no evidence of any ischemia. Her condition improved. Her nausea resolved. She was tolerating her diet. Her renal function normalized. She was ambulating. Her cardiac isoenzymes did not show a pattern consistent with myocardial injury. Her LexiScan was negative Patient was discharged home in a stable condition. Medications as noted above. She was asked to stay home and return to work the following Friday. She was to be seen in the office in one week. She was also to see Dr. Cowan in one month. He did discuss with her the possibility of needing ablation for her supraventricular tachycardia. Will proceed with the sleep study as scheduled.
== END 2017-02-06 10:21 | disposition home or self-care (01) | DRG 309 ==
LOC: C.EDB 11:15 → C.2T 13:13 → ENRESERV 13:47 → C.2T 02-04 20:23
PROVIDERS: ADMIT Internal Medicine; ATTEND Internal Medicine
DX: I47.1 Supraventricular tachycardia (principal); Z68.42 Body mass index [BMI] 45.0-49.9, adult; N28.9 Disorder of kidney and ureter, unspecified; E86.0 Dehydration; I10 Essential (primary) hypertension; E66.01 Morbid (severe) obesity due to excess calories; E11.9 Type 2 diabetes mellitus without complications; R79.89 Other specified abnormal findings of blood chemistry; F17.210 Nicotine dependence, cigarettes, uncomplicated; E78.5 Hyperlipidemia, unspecified; K21.9 Gastro-esophageal reflux disease without esophagitis; Z79.899 Other long term (current) drug therapy

== ENCOUNTER → 2017-02-13 | Outpatient (CLI) | payer BC ==
[~2017-02-13] MED LIST changes: +ASPEC81 PO; +ATOR-22 PO; +DILT240C57 PO; -LISI-461 PO; +LISI10TA PO; -LPT/20 PO; -METO50TA16 PO; -OMEP20CA9 PO; +PRLSR20 PO; -VNTHFA/IN INH
--- NOTE | 2017-02-17 07:33 | PAP/PSG TECHNICIAN REPORT ---
[facility] Member Of Technical Staff Polysomnogram Report Study name: None Report date: 02/15/2017 Study date: 02/14/2017 Referring Physician: Frederick Claros M.D. Name: WIL HERNANDEZ Interpreting Physician: Frederick Claros M.D. Date of : 1960 Member Of Technical Staff: Belkis Disla PSGT. Sex: Female Age: 56 StudyType: PSG Weight: 297.6 lbs Height: 56 years, Height 5' 6" Neck Circum:16.5 inches BMI: 48.03 Medications: Lipitor 10 mg, Lisinopril 10 mg, Metoprolol 50 mg, Omeprazole 20 mg. Patient History 56 yr. old female in room 5, Presents tonight for a diagnostic sleep study. Pt. states that she naps during the day, she snores and makes odd noises during sleep. She wakes 2-3 times per: night for the restroom, and has been told she stops breathing during sleep= 9, Neck= 16.5 inches. Parameters Monitored NPSG: E1-M2, E2-M1, Fp1-M2, Fp2-M1, F3-M2, F4-M2, F4-M1, C3-M2, C4-M2, C4-M1, O1-M2, O2-M2, O2-M1, T3-M2, T4-M1, P3-M2, P4-M1, CHIN1, CHIN2, HR, EKG, Legs, PFLOW, SNOR, FLOW, CFLOW, Tidal Volume, THOR, ABDO, SpO2, PLTH, CPRESS, ETCO2 Wave, ETCO2, pH Sleep Architecture Sleep Stages Time at Lights Off 10:48:37 PM STAGES Time (min.) TST (%) Time at Lights On 5:30:07 AM Wake 96.5 -- Total Recording Time (TRT) 402.50 min. N1 46.0 15 Total Sleep Period (TSP) 378.0 min. N2 222.5 73 Total Sleep Time (TST) 305.0min. N3 0.0 0 Awake Time 97.5 min. REM 36.5 12 Wake after Sleep Onset 81.5 min. Sleep Efficiency (SE) 76 % Sleep Onset Latency (MARGARET) 15.0 min. Number of Stage 1 Shifts None Awakenings 18 Stage Changes 55 Number of REM periods 3 REM 36.5 12 REM Latency 176.0 min. NREM 268.5 88 Body Position Analysis Supine Right Left Side Prone Vertical Total Sleep Time (min.) 17.6 0.0 0.0 0.00 0.0 383.9 Total Sleep Time (%) 2% 0% 0% 0 0% 100% Total Sleep Time REM (min.) 0.1 0.0 0.0 None 0.0 36.4 Total Sleep Time NREM (min.) 4.5 0.0 0.0 None 0.0 264.0 Intermittent Wake (min.) 13.0 0.0 0.0 None 0.0 83.5 Total Sleep Period (%) 2% None None None None None Arousals Myoclonus (PLM) * Events Count Index Events Count Index Spontaneous 42 8 Events Awake (PLMW) 3 1.9 Respiratory 30 5.9 Events Asleep w/ Arousal (PLMA) 29 5.7 PLM 27 6 Events Asleep w/o Arousal (PLMS) 320 63.0 Snoring 25 5 Total Asleep 349 68.7 Total 121 24 Total 352 53 Respiratory Analysis * CA OA MA CH H RERA Total Count 0 3 0 0 96 9 99 Index 0.0 0.6 0.0 0 18.9 2 21.2 Mean Duration 0.0 26.4 0.0 0.00 18.5 16.3 18.5 Longest Duration 0.0 31.4 0.0 0.00 0.0 34.2 52.2 Respiratory Event Summary Total Supine ~Supine Right Left Prone REM NREM Apneas Count 3 0 3 N/A N/A N/A 0 3 Index 0.6 0 1 N/A N/A N/A 0 1 Hypopneas (4% Desat) Count 96 7 89 N/A N/A N/A 33 63 Index 18.9 91.3 18 N/A N/A N/A 54.2 14.1 Apneas & All Hypopneas Count 99 7 92 N/A N/A N/A 33 66 Index 19.5 91 18 N/A N/A N/A 54.2 14.7 Respiratory Events (Microbiology Instructor+All Hyp+RERA) Count 99 7 101 N/A N/A N/A 33 66 Index 21.2 91 20 N/A N/A N/A 54.2 16.8 Respiratory Related Arousal Count 30 7 30 N/A N/A N/A 11 19 Index 5.9 0 6 N/A N/A N/A 18 4 Snoring Analysis Supine Right Left Prone REM NREM Total Snore duration 81.4 min Snores count 21 N/A N/A N/A 251 3,163 3,414 Snore mean duration 1.4 Sec Snores index 274 N/A N/A N/A 412.6 706.8 671.6 TST with snoring (%) 26.7% Desaturation Event Summary: Minimum %SpO2 Event Count Mean/Min/Max Duration(sec.) Desaturation Index % Time In Bed > 90 106 23.2 / 6.5 / 53.3 33.4 48.6 86 - 90 19 18.3 / 5.8 / 34.3 5.8 49.9 81 - 85 0 N/A 0.0 1.0 76 - 80 0 N/A 0.0 0.2 71 - 75 0 N/A 0.0 0.1 66 - 70 0 N/A 0.0 0.1 61 - 65 0 N/A 0.0 0.0 56 - 60 0 N/A 0.0 0.0 51 - 55 0 N/A 0.0 0.0 < 50 0 N/A 0.0 0.0 Total REM NREM Awake <50% 0.0 min. 0.0 min. 0.0 min. 0.0 min. 51 - 60% 0.0 min. 0.0 min. 0.0 min. 0.0 min. 61 - 70% 0.5 min. 0.5 min. 0.0 min. 0.0 min. 71 - 80% 1.4 min. 1.3 min. 0.1 min. 0.0 min. 81 - 90% 199.2 min. 13.3 min. 157.4 min. 28.5 min. 91 - 100% 190.2 min. 21.3 min. 110.8 min. 58.2 min. Average 91 90 90 92 Minimum SpO2 64 64 80 83 Desaturation Event Index 16.6 65.8 16.1 0.0 # Desat. Events below 89% 60 32 28 0 Time(%) with Saturation below 89% 7.2 2.2 4.1 0.9 Time(min.) with Saturation below 89% 28.3 8.8 15.9 3.6 Time (mins) REM (mins) NREM (mins) % of TST SpO2 Below 90% 106 37 N69 24.6 SpO2 Below 88% 24 0 0 4 Heart Rate Analysis Min (bpm) Max (bpm) Average (bpm) Awake 67 127 75 NREM 67 87 77 REM 66 127 75 Overall 66 127 77 Supplemental O2 Values Minimum O2 level: None Value Start Time End Time Member Of Technical Staff Comments PSG Study MS. Hernandez slept in the right, left, and supine positions. No cardiac arrhythmia or PLM's noted. No bruxism noted. Snoring was noted and scored as a 4 on a scale of 1 through 5. (0=no snoring, 5=snoring loud enough to be heard through a closed door or down the beltran way) awoke to use the restroom 2 times during the night. Ms. Hernandez stated, I did sleep as well as I do when I am in my own bed. The final report will be interpreted and signed by a sleep physician. The completed physician report will then be placed in the patient medical record. Therapy (cm H2O) 0 TIB (min.) 401.5 TST (min.) 305.0 Sleep Onset (min.) 15.0 REM Onset From Sleep (min.) 176.0 Sleep Efficiency % 76 Wakefulness (%) 24 Wakefulness (min.) 97.5 NREM 1 (%) 15 NREM 1 (min.) 46.0 NREM 2 (%) 73 NREM 2 (min.) 222.5 NREM 3 (%) 0 NREM 3 (min.) 0.0 REM (%) 12 REM (min.) 36.5 # Arousals 121 Arousal Index 24 # Snore 3,414 Snore Index 671.6 AHI 19.5 AHI Supine 91 AHI Non-Supine 18 NREM AHI 14.7 REM AHI 54.2 RDI 21.2 # Obstructive Apnea 3 # Central Apnea 0 # Mixed Apnea 0 # Hypopneas 96 RERAs 9 Total Respiratory Events 109 Time Below SpO2 89% (min.) 24.7 Mean NREM SpO2 (%) 90 Mean REM SpO2 (%) 90 Mean Sleep SpO2 (%) 90 Min NREM SpO2 (%) 80 Min REM SpO2 (%) 64 Position Supine (min.) 17.6 Position Non-supine (min.) 300.4 LM Index Sleep 68.7 LM Index NREM 73.1 LM Index REM 36.2 Mean Heart Rate (bpm) 77 Min Heart Rate (bpm) 66
== END | disposition home or self-care (01) ==
LOC: C.PAPS 15:27
PROVIDERS: ATTEND Internal Medicine
DX: Z01.419 Encounter for gynecological examination (general) (routine) without abnormal findings (principal); Z78.0 Asymptomatic menopausal state

== ENCOUNTER → 2017-02-14 | Outpatient (CLI) | payer BC ==
--- NOTE | 2017-02-17 11:26 | POLYSOMNOGRAPH REPORT ---
CLINICAL DATA: 56-year-old female with BMI of 48 referred by myself and Dr. Lanza for evaluation of sleep apnea. She is tired during the day and takes naps. She snores and makes unusual noises at night. She wakes up 2-3 times per night to use the restroom and has been told she has apneic episodes at night. SLEEP ARCHITECTURE: Total recording time was 402.5 minutes. Total sleep period was 378 minutes. Total sleep time was 305 minutes divided between 268.5 minutes of non-REM sleep and 36.5 minutes of REM sleep. Sleep onset latency was 15 minutes. REM latency was slightly delayed at 176 minutes. Sleep efficiency was 76%. Wake after sleep onset was 81.5 minutes. Sleep consisted of stage N1 15%, stage N2 73% and REM 12%. AROUSAL DATA: 121 arousals were recorded for an index of 24 per hour. PLM DATA: Markedly elevated limb movements during sleep were noted. There were 349 limb movements during sleep noted for an index of 68.7 per hour with arousal index of 5.7 per hour. RESPIRATORY DATA: Moderate sleep apnea was documented. The AHI was 19.5. There were 3 obstructive apneic episodes. The longest duration of apnea was 31.4 seconds. There were 96 hypopneic episodes with mean duration of 18.5 seconds. OXIMETRY DATA: Nocturnal hypoxemia was seen. Oxygen zoila of 64% during REM. The mean saturation was 91%. Time below 88% was 24 minutes. EKG: Heart rates ranged from 66-127 beats per minute. No arrhythmias were noted. DIE MAKER STAMPING'S COMMENTS: The patient slept in the right, left, and supine positions. Snoring was loud rated 4 on a scale of 1 through 5. The patient did not reach split night criteria through the night, so CPAP was not started. IMPRESSION: Moderate sleep apnea/hypopnea with nocturnal hypoxemia with an AHI of 18.9 and an oxygen zoila of 64%. RECOMMENDATIONS: The patient may benefit from a repeat sleep study with CPAP or use of an oral appliance. TRINHD
== END | disposition home or self-care (01) ==
LOC: C.NEUR 20:00
PROVIDERS: ATTEND Internal Medicine Pulmonary Disease
DX: G47.30 Sleep apnea, unspecified (principal); G47.36 Sleep related hypoventilation in conditions classified elsewhere; I10 Essential (primary) hypertension; E66.01 Morbid (severe) obesity due to excess calories

== ENCOUNTER → 2017-03-21 | Outpatient (CLI) | payer BC ==
[~2017-03-21] VITALS: Ht 167.6 cm; Wt 135.3 kg
[2017-03-21 16:30] VITALS: BP 176/85; PULSE 68; Ht 167.6 cm; Wt 135.3 kg
== END | disposition home or self-care (01) ==
LOC: C.NEUR 15:18
PROVIDERS: ATTEND Internal Medicine Pulmonary Disease
DX: G47.33 Obstructive sleep apnea (adult) (pediatric) (principal); R53.83 Other fatigue; I10 Essential (primary) hypertension; E66.01 Morbid (severe) obesity due to excess calories; E11.9 Type 2 diabetes mellitus without complications; E78.5 Hyperlipidemia, unspecified; K21.0 Gastro-esophageal reflux disease with esophagitis; Z82.49 Family history of ischemic heart disease and other diseases of the circulatory system; F17.210 Nicotine dependence, cigarettes, uncomplicated

== ENCOUNTER → 2017-04-09 | Outpatient (CLI) | payer BC ==
--- NOTE | 2017-04-10 06:05 | PAP/PSG TECHNICIAN REPORT ---
[facility] Print And Pattern Designer Polysomnogram Report Study name: None Report date: 04/10/2017 Study date: 04/09/2017 Referring Physician: Frederick Claros M.D. Name: CARLY WIL Avinash Interpreting Physician: Frederick Claros M.D. Date of : 1960 Print And Pattern Designer: Kait Wells RPSGT. Sex: Female Age: 56 Study Type: PSG PAP Weight: 297 lbs 16.5 in Height: 56 years, Height 5' 6" Neck Circum: BMI: 47.93 Medications: LIPITOR 10 MG, LISINOPRIL 10 MG, METOPROLOL 50 MG, OMEPRAZOLE 20 MG Patient History 56 yr-old female here for a new CPAP treatment study. She was found to be positive for LYN with an AHI of 19. She chose a Simplus full face mask size medium from [employer]. The test was started on room air and 4 CMH2O. ETCO2 testing was not utilized during this study. Room 3 Parameters Monitored NPSG: E1-M2, E2-M1, Fp1-M2, Fp2-M1, F3-M2, F4-M2, F4-M1, C3-M2, C4-M2, C4-M1, O1-M2, O2-M2, O2-M1, T3-M2, T4-M1, P3-M2, P4-M1, CHIN1, CHIN2, HR, EKG, Legs, PFLOW, SNOR, FLOW, CFLOW, Tidal Volume, THOR, ABDO, SpO2, PLTH, CPRESS, ETCO2 Wave, ETCO2, pH Sleep Architecture Sleep Stages Time at Lights Off 10:50:41 PM STAGES Time (min.) TST (%) Time at Lights On 5:28:41 AM Wake 93.5 -- Total Recording Time (TRT) 398.00 min. N1 69.0 23 Total Sleep Period (TSP) 381.0 min. N2 139.5 46 Total Sleep Time (TST) 304.5min. N3 19.5 6 Awake Time 93.5 min. REM 76.5 25 Wake after Sleep Onset 76.5 min. Sleep Efficiency (SE) 77 % Sleep Onset Latency (MARGARET) 17.0 min. Number of Stage 1 Shifts None Awakenings 27 Stage Changes 103 Number of REM periods 7 REM 76.5 25 REM Latency 55.5 min. NREM 228.0 75 Body Position Analysis Supine Right Left Side Prone Vertical Total Sleep Time (min.) 85.3 88.8 154.0 242.77 0.0 1.8 Total Sleep Time (%) 20% 29% 51% 80 0% N/A% Total Sleep Time REM (min.) 27.5 6.5 42.5 None 0.0 0.0 Total Sleep Time NREM (min.) 34.2 82.3 111.5 None 0.0 0.0 Intermittent Wake (min.) 23.6 27.7 40.4 None 0.0 1.8 Total Sleep Period (%) 21% None None None None None Arousals Myoclonus (PLM) * Events Count Index Events Count Index Spontaneous 65 13 Events Awake (PLMW) 51 32.7 Respiratory 18 3.7 Events Asleep w/ Arousal (PLMA) 5 1.0 PLM 5 1 Events Asleep w/o Arousal (PLMS) 119 23.4 Snoring 20 4 Total Asleep 124 24.4 Total 107 21 Total 175 26 Respiratory Analysis * CA OA MA CH H RERA Total Count 1 4 0 0 15 14 20 Index 0.2 0.8 0.0 0 3.0 3 6.7 Mean Duration 13.5 12.7 0.0 0.00 29.2 16.5 21.6 Longest Duration 13.5 18.2 0.0 0.00 0.0 20.2 51.2 Respiratory Event Summary Total Supine ~Supine Right Left Prone REM NREM Apneas Count 5 5 0 0 0 N/A 1 4 Index 1.0 5 0 0.0 0.0 N/A 1 1 Hypopneas (4% Desat) Count 15 9 6 5 1 N/A 13 2 Index 3.0 8.7 1 3.4 0.4 N/A 10.2 0.5 Apneas & All Hypopneas Count 20 14 6 5 1 N/A 14 6 Index 3.9 14 1 3 0 N/A 11.0 1.6 Respiratory Events ([employer]des Supervisor+All Hyp+RERA) Count 20 25 9 5 4 N/A 14 6 Index 6.7 24 2 3.4 1.6 N/A 11.8 5.0 Respiratory Related Arousal Count 18 25 4 1 3 N/A 4 15 Index 3.7 15 1 1 1 N/A 3 4 Snoring Analysis Supine Right Left Prone REM NREM Total Snore duration 45.6 min Snores count 115 903 1,447 N/A 34 2,431 2,465 Snore mean duration 1.1 Sec Snores index 112 610 564 N/A 26.7 639.7 485.7 TST with snoring (%) 15.0% Desaturation Event Summary: Minimum %SpO2 Event Count Mean/Min/Max Duration(sec.) Desaturation Index % Time In Bed > 90 25 33.4 / 5.5 / 58.0 5.8 67.4 86 - 90 9 24.0 / 5.5 / 47.8 4.4 32.0 81 - 85 0 N/A 0.0 0.6 76 - 80 1 9.5 / 9.5 / 9.5 334.9 0.0 71 - 75 0 N/A 0.0 0.0 66 - 70 0 N/A 0.0 0.0 61 - 65 0 N/A 0.0 0.0 56 - 60 0 N/A 0.0 0.0 51 - 55 0 N/A 0.0 0.0 < 50 0 N/A 0.0 0.0 Total REM NREM Awake <50% 0.0 min. 0.0 min. 0.0 min. 0.0 min. 51 - 60% 0.0 min. 0.0 min. 0.0 min. 0.0 min. 61 - 70% 0.0 min. 0.0 min. 0.0 min. 0.0 min. 71 - 80% 0.2 min. 0.0 min. 0.0 min. 0.2 min. 81 - 90% 126.0 min. 23.3 min. 98.3 min. 4.5 min. 91 - 100% 260.9 min. 53.2 min. 129.7 min. 78.0 min. Average 91 91 91 93 Minimum SpO2 79 83 88 79 Desaturation Event Index 4.4 14.1 0.8 5.1 # Desat. Events below 89% 14 11 1 2 Time(%) with Saturation below 89% 4.1 2.1 1.8 0.2 Time(min.) with Saturation below 89% 15.7 8.2 6.9 0.7 Time (mins) REM (mins) NREM (mins) % of TST SpO2 Below 90% 16 14 N2 13.1 SpO2 Below 88% 7 0 0 2 Heart Rate Analysis Min (bpm) Max (bpm) Average (bpm) Awake 57 281 79 NREM 58 83 68 REM 58 76 68 Overall 58 83 68 Supplemental O2 Values Minimum O2 level: None Value Start Time End Time Print And Pattern Designer Comments Ms. Hernandez slept in the right, left, and supine positions. No cardiac arrhythmias were noted. Some PLMs were noted. No bruxism noted. CPAP was initiated at +4 CMH2O and up-titrated to a level of +10 CMH2O, Cflex 2. A Simplus full face mask size medium from [employer] was used during titration She awoke to use the restroom two times during the night. Ms. Hernandez stated that she slept ok. The final report will be interpreted and signed by a sleep physician. The completed physician report will then be placed in the patient medical record. Therapy Event: Therapy (cm H20) 4 6 8 10 Total Time at Pressure (min.) 78.9 97.9 28.2 193.0 TST at Pressure (min.) 56.4 63.9 23.7 160.5 # Periods 1 1 1 1 Sleep Onset (min.) 17.0 0.0 0.0 0.0 REM Onset (min.) 72.5 N/A 6.2 0.0 Sleep Efficiency % 71 65 84 83 Wakefulness (%) 28.5 34.7 16.0 16.8 Wakefulness (min.) 22.5 34.0 4.5 32.5 NREM 1 (%) 8.1 25.0 22.0 16.6 NREM 1 (min.) 6.4 24.4 6.2 32.0 NREM 2 (%) 36.8 40.3 0.0 36.8 NREM 2 (min.) 29.0 39.5 0.0 71.0 NREM 3 (%) 24.7 0.0 0.0 0.0 NREM 3 (min.) 19.5 0.0 0.0 0.0 REM (%) 1.9 0.0 62.0 29.8 REM (min.) 1.5 0.0 17.5 57.5 # Arousals 5 38 17 47 Arousal Index 5.3 35.7 43.1 17.6 # Snore 620 665 21 1,159 Snore Index 660.0 624.0 53.2 433.2 AHI 2.1 0.9 27.9 2.2 AHI Supine N/A 4.5 27.9 4.8 AHI Non-Supine 2.1 0.0 N/A 1.8 NREM AHI 1.1 0.9 29.1 0.6 REM AHI 40.0 N/A 27.4 5.2 RDI 2.1 13.1 30.4 2.2 # Obstructive 0 1 3 0 # Central Ap 0 0 1 0 # Mixed 0 0 0 0 # Hypopneas 2 0 7 6 RERAS 0 13 1 0 Total Respiratory Events 2 14 12 6 Time Below SpO2 89.00% (min.) 0.5 0.0 2.5 12.1 Mean NREM SpO2 (%) 91 91 92 90 Mean REM SpO2 (%) 89 N/A 91 91 Mean Sleep SpO2 (%) 91 91 91 91 Min NREM SpO2 (%) 90 89 89 88 Min REM SpO2 (%) 84 N/A 83 83 Position Supine (min.) 0.0 13.2 23.7 24.8 Position Non-supine (min.) 56.4 50.7 0.0 135.7 LM Index Sleep 6.4 8.4 50.7 33.3 LM Index NREM 4.4 8.4 77.5 46.0 LM Index REM 80.0 N/A 41.2 10.4 Mean Heart Rate (bpm) 71 68 66 67 Min Heart Rate (bpm) 66 58 58 59 CPAP REPORT Therapy Detail Time / Page # Comment CPAP 4 cm H2O Full Face Mask Flex Pressure Relief Humidifier on 10:47:49 PM / pg. 208 CPAP 6 cm H2O Full Face Mask Flex Pressure Relief Humidifier on 12:09:33 AM / pg. 371 INCREASED FOR SNORING AND HYPOPNEAS IN REM CPAP 8 cm H2O Full Face Mask Flex Pressure Relief Humidifier on 1:47:29 AM / pg. 567 INCREASED FOR RERAS CPAP 10 cm H2O Full Face Mask Flex Pressure Relief Humidifier on 2:15:40 AM / pg. 623 EVENTS IN REM
--- NOTE | 2017-04-11 09:00 | POLYSOMNOGRAPH REPORT ---
CLINICAL DATA: A 57-year-old female with BMI of 47.9 referred by myself and Dr. Lanza for treatment of moderate sleep apnea and nocturnal hypoxemia. She used a Simplus full facemask size medium from [employer] and [employer]. SLEEP ARCHITECTURE: Total sleep period was 381 minutes. Total sleep time was 304.5 minutes divided between 228 minutes of non-REM sleep and 76.5 minutes of REM sleep. Sleep onset latency was 17 minutes. REM latency was 55.5 minutes. Sleep efficiency was 77%. Wake after sleep onset was 76.5 minutes. Sleep consisted of stage N1 22%, stage N2 46%, stage N3 6%, and REM 25%. AROUSAL DATA: 107 arousals were recorded for an index of 21 per hour. 65 were spontaneous. PERIODIC LIMB MOVEMENTS DATA: Mild PLMD was seen. There were 124 limb movements during sleep noted for an index of 24.4 per hour with arousal index of 1. RESPIRATORY DATA: The AHI was 3.9. There was 1 central and 4 obstructive apneic episodes. The longest apneic episode was 18.2 seconds. There were 15 hypopneic episodes with the mean duration of 29.2 seconds. OXIMETRY DATA: Mild nocturnal hypoxemia was seen. Oxygen zoila was 82% during REM. The mean saturation was 91%. Time below 88% was 7 minutes. EKG: Heart rates ranged from 58-83 beats per minute. No arrhythmias were noted. HEALTH SAFETY COORDINATOR'S COMMENTS: The patient slept in the right, left, and supine positions. CPAP was titrated up to 10 cm of water, C-flex setting 2 using a Simplus full facemask size medium from [employer] and [employer] At her final pressure setting, the patient slept for 160.5 minutes with an AHI of 2.2. IMPRESSION: Moderate sleep apnea corrected with CPAP 10 cm water pressure C-flex setting 2, Simplus full facemask size medium from [employer] and [employer] RECOMMENDATIONS: The patient should be started on the above noted treatment regimen and seen back in followup within 90 days to document efficacy and compliance. MTDD
== END | disposition home or self-care (01) ==
LOC: C.NEUR 21:00
PROVIDERS: ATTEND Internal Medicine Pulmonary Disease
DX: G47.33 Obstructive sleep apnea (adult) (pediatric) (principal); R53.83 Other fatigue; I10 Essential (primary) hypertension; E66.01 Morbid (severe) obesity due to excess calories

== ENCOUNTER 2019-01-15 15:57 | Inpatient (IN) ==
[2019-01-15] MEDS ORDERED: ADENOSINE IV SOLN 3 MG/ML 2 ML VIAL IV STA (16:25)
[2019-01-15] MEDS ORDERED: SODIUM CHLORIDE 0.9% 1000ML 1,000 ML IV ONE ×2 (16:25→16:55)
[2019-01-15] MEDS ORDERED: fentaNYL citrate 100 MCG/2 ML VIAL IV STA (16:30)
[2019-01-15] MEDS ORDERED: SODIUM CHLORIDE 0.9% 1000ML 1,000 ML IV SCH (16:30)
[2019-01-15 16:39] LABS: iSTAT Creatinine 3.6 mg/dl (0.6-1.3); iSTAT Hemoglobin 22.1 g/dl (12.0-16.0); iSTAT Ionized Calcium 1.03 mmol/l (1.12-1.32); iSTAT Potassium 3.1 mEq/L (3.3-5.0)
--- NOTE | 2019-01-15 16:39 | XRay Report ---
XR chest 1V portable HISTORY: 58 years-old Female weakness acute weakness COMPARISON: Chest radiograph 02/03/2017 TECHNIQUE: Portable AP view of the chest FINDINGS: Cardiomediastinal and hilar silhouettes are within normal limits. Calcified plaque the thoracic aorta . No pneumothorax, pleural effusion, focal airspace consolidation or overt pulmonary edema. Degenerat dolly changes are seen about the shoulders and spine. IMPRESSION: No acute process. The above report was generated using voice recognition software. It may contain grammatical, syntax o r spelling errors. Electronically signed by: Yvan Jimenez M.D. 01/15/2019 4:38 PM
[2019-01-15 16:40] LABS: Basophils # (auto) 0.01 K/uL (0-0.2); Hematocrit (blood only) 53.6 % (37-47); Hemoglobin 19.1 g/dL (12.0-16.0); Immature Granulocytes # (auto) 0.11 K/uL (0.00-0.02); Immature Granulocytes % (auto) 0.4 %; Lymphocytes # (auto) 3.82 K/uL (1.2-3.4); Lymphocytes % (auto) 15.6 %; Mean Corpuscular Hgb Conc 35.6 g/dL (32-36); Mean Corpuscular Volume 85.1 fL (80-100); Mean Platelet Volume 12.6 fL (7.4-10.4); Monocytes # (auto) 1.51 K/uL (0.11-0.59); Monocytes % (auto) 6.2 %; Neutrophils # (auto) 19.07 K/uL (1.4-6.5); Neutrophils % (auto) 77.8 %; Platelet Count 231 K/uL (130-400); RDW Coefficient of Variation 14.2 % (11.5-14.5); RDW Standard Deviation 43.9 fL (36.4-46.3); White Blood Count 24.52 K/uL (4.8-10.8)
[2019-01-15] MEDS ORDERED: ONDANSETRON INJ 2 MG/ML 2 ML VIAL ONE (16:50)
[2019-01-15] MEDS ORDERED: ONDANSETRON INJ 2 MG/ML 2 ML VIAL IV STA (16:50)
[2019-01-15 16:52] LABS: INR 1.1 (0.9-1.1); Prothrombin Time 11.4 Seconds (9.0-12.0)
[2019-01-15] MEDS ORDERED: PIPERACILLIN/TAZOBACTAM 4.5 GM/120 ML BAG IV ONE (16:55)
[2019-01-15] MEDS ORDERED: PIPERACILL/TAZOBAC CONSULT ACTIVE PRN ×2 (16:55→20:02)
[2019-01-15 16:59] LABS: Alanine Aminotransferase 20 U/L (12-78); Albumin Level 4.2 gm/dl (3.4-5.0); Aspartate Aminotransferase 18 U/L (15-37); BUN Creatinine Ratio 7.7 (10-20); Blood Urea Nitrogen 26 mg/dl (7-18); Calcium 9.7 mg/dl (8.5-10.1); Carbon Dioxide 23 mmol/L (21-32); Chloride 90 mmol/L (98-107); Est GFR (African American) 16.8; Est GFR (Non-African American) 14.5; Glucose 255 mg/dl (70-99); Magnesium 2.1 mg/dl (1.8-2.4); Sodium 131 mmol/L (136-145)
[2019-01-15 17:12] LABS: Albumin Globulin Ratio 0.8 (0.9-2); Alkaline Phosphatase 125 U/L (45-117); Bilirubin,Total 0.6 mg/dl (0.2-1); Globulin 5.6 gm/dl (2.5-4.0); Phosphorus 2.5 mg/dl (2.5-4.9); Total Protein 9.8 gm/dl (6.4-8.2); Troponin I 0.115 ng/ml (0-0.045)
[2019-01-15] MEDS ORDERED: VANCOMYCIN HCL 2,750 MG in SODIUM CHLORIDE 0.9% 500 ML IV ONE (17:15)
[2019-01-15] MEDS ORDERED: VANCOMYCIN CONSULT ACTIVE PRN (17:15)
--- NOTE | 2019-01-15 18:10 | Emergency Department Note ---
Entered by Lilian Cunha acting as a scribe for Laz Farias MD History of Present Illness General Chief complaint: Vomiting Stated complaint: VOMITING, HOT, SWEATS Time Seen by Provider: 01/15/19 16:15 Source: patient History of Present Illness Provider complaint: Vomiting Onset (ago): day(s) Location: abdomen Pain Consistency: + constant Quality: + constant Associated symptoms: + diaphoresis, + nausea/vomiting (vomiting ), + weakness and + other (Positive: abdominal pain, hot and cold flashes, body aches. Negative: blood in vomit) The patient is a 58 year old white female w/ PMHx diabetes, abdominal pain, hyperlipidemia, acute diverticulitis, hypertension, GERD, who presents to the ED w/ CC of vomiting beginning a couple of days ago. The patient reports her pain became worse today. She notes her last vomiting episode was in the waiting room. The patient states she is a smoker. She states she has hot and cold flashes, weakness, diaphoresis, and body aches. The patient denies blood in vomit. Home Medications Home Medications Medication Instructions Recorded Confirmed Type aspirin 81 mg PO QAM 01/15/19 01/15/19 History atorvastatin 20 mg PO QAM 01/15/19 01/15/19 History lisinopril 10 mg PO QAM 01/15/19 01/15/19 History metoprolol tartrate 100 mg PO BID 01/15/19 01/15/19 History omeprazole 20 mg PO QAM 01/15/19 01/15/19 History Allergies Allergy/AdvReac Type Severity Reaction Status Date / Time No Known Allergies Allergy Verified 01/15/19 18:15 Past Med/Surg History Medical History Obese (Chronic) Vomiting and diarrhea (Acute) Abdominal pain (Acute) Vomiting and diarrhea (Acute) Hypertension (Chronic) Diabetes (Chronic) Hyperlipidemia (Chronic) Acute diverticulitis (Acute 07/17/14) Tachycardia (Acute 08/08/14) Hypertension Nausea, vomiting, and diarrhea (Acute) GERD (gastroesophageal reflux disease) (Chronic) Dehydration (Acute) Family History Other No known problems Social History Feels Safe at Home: Yes Smoking Status: Current every day smoker Review of Systems See HPI for pertinent positives & negatives. and A total of 10 systems reviewed and were otherwise negative Physical Exam Vital Signs Vital Signs - 24 hr 01/15/19 16:05 01/15/19 16:19 01/15/19 16:45 Temperature 36.6 C Temperature Source Oral Sepsis Recent Fever Within 48 Hours No Sepsis New/Unexplained Change in Mental Status No Sepsis Action Taken by Nursing No Action Required Pulse Rate 186 H 180 H Pulse Rate [Apical] 139 H Pulse Rate from SpO2 Sensor Pulse Rhythm Regular Pulse Rhythm [Apical] Irregular Respiratory Rate 32 H 28 H 20 Blood Pressure 47/31 L Blood Pressure [Right Arm] 86/69 L Blood Pressure Mean 36 Blood Pressure Mean [Right Arm] 74 Pulse Oximetry 96 98 95 Oxygen Delivery Method Room Air Room Air Room Air 01/15/19 17:06 01/15/19 17:35 01/15/19 17:50 Temperature Temperature Source Sepsis Recent Fever Within 48 Hours Sepsis New/Unexplained Change in Mental Status Sepsis Action Taken by Nursing Pulse Rate 121 H 119 H Pulse Rate [Apical] 130 H Pulse Rate from SpO2 Sensor 118 H 125 H Pulse Rhythm Pulse Rhythm [Apical] Respiratory Rate 20 Blood Pressure 132/124 H 154/139 H Blood Pressure [Right Arm] 106/60 Blood Pressure Mean 126 144 Blood Pressure Mean [Right Arm] 75 Pulse Oximetry 98 94 94 Oxygen Delivery Method Room Air 01/15/19 18:06 01/15/19 18:36 Temperature Temperature Source Sepsis Recent Fever Within 48 Hours Sepsis New/Unexplained Change in Mental Status Sepsis Action Taken by Nursing Pulse Rate 149 H Pulse Rate [Apical] 130 H Pulse Rate from SpO2 Sensor 139 H Pulse Rhythm Pulse Rhythm [Apical] Respiratory Rate 20 Blood Pressure 96/73 L Blood Pressure [Right Arm] 142/99 H Blood Pressure Mean 80 Blood Pressure Mean [Right Arm] 113 Pulse Oximetry 90 92 Oxygen Delivery Method Room Air GENERAL: Severe distress, diaphoretic. EYE EXAM: Normal conjunctiva. PERRL, no anisocoria and EOM's grossly intact w/o pain. OROPHARYNX: Dry mucous membranes. Poor dentition. NECK: Supple, no nuchal rigidity, no adenopathy, non-tender. No signs of meningismus. LUNGS: Clear to auscultation. Normal chest wall mechanics. HEART: Tachycardic rate, regular rhythm, no MRG. ABDOMEN: Abdomen soft, non-tender, normo-active bowel sounds, no masses, no rebound or guarding. BACK: No CVA TTP. SKIN: No rashes and no bruising. UPPER EXTREMITIES: Upper extremities are grossly normal. LOWER EXTREMITIES: No pitting edema. No calf pain. NEURO EXAM: A&O x3, cranial nerves II-XII grossly intact, normal speech, moves all 4 extremities on command w/o issue. Course Seen and evaluated at 1610. Reevaluation(s) Reevaluation #1: Patient HR and BP improving @ 1645 Reevaluation #2: 1750: HR and BP continuing to improve. Mild nausea noted. O rdered Zofran Reevaluation #3: 1830: HR in 120s a fib w/ RVR. BP 130/90. Repeat Lactice acid 1.9 from > 6. Dr. Mcmahon was updated on patient's improving lactic acid. Consultations Consultation #1: Dr. Rich, [place] [employer] Operator - Patient may be accepted to ICU if needed. Consultation #2: Dr. Mcmahon, [facility] [place] - He will see and further evaluated the patient. Administered Medications Discontinued Medications Adenosine (Adenosine) 6 mg IV NOW STA Stop: 01/15/19 16:26 Last Admin: 01/15/19 17:52 Dose: Not Given Documented by: [id number] Fentanyl Citrate (Fentanyl Citrate) 75 mcg IV NOW STA Stop: 01/15/19 16:31 Last Admin: 01/15/19 17:52 Dose: Not Given Documented by: [id number] Sodium Chloride (Nss 1000ml) 1,000 mls @ 999 mls/hr IV .Q1H1M AKHIL Stop: 01/15/19 17:30 Last Infusion: 01/15/19 18:01 Dose: 0 mls/hr Documented by: [id number] Admin: 01/15/19 16:27 Dose: 999 mls/hr Documented by: [id number] Sodium Chloride (Nss 1000ml) 1,000 mls @ 999 mls/hr IV .Q1H1M ONE Stop: 01/15/19 17:25 Last Admin: 01/15/19 16:32 Dose: 999 mls/hr Documented by: [id number] Sodium Chloride (Nss 1000ml) 1,000 mls @ 999 mls/hr IV .Q1H1M ONE Stop: 01/15/19 17:55 Last Admin: 01/15/19 17:05 Dose: 999 mls/hr Documented by: [id number] Piperacillin Sod/Tazobactam Sod (Zosyn) 4.5 gm in 120 mls @ 240 mls/hr IV NOW ONE Stop: 01/15/19 17:24 Last Admin: 01/15/19 18:25 Dose: 240 mls/hr Documented by: [id number] Metoclopramide HCl (Reglan) 10 mg IV NOW STA Stop: 01/15/19 18:15 Last Admin: 01/15/19 18:20 Dose: 10 mg Documented by: [id number] Ondansetron HCl (Zofran) Confirm Administered Dose 4 mg .ROUTE .STK-MED ONE Stop: 01/15/19 16:51 Last Admin: 01/15/19 16:51 Dose: 4 mg Documented by: [id number] Ondansetron HCl (Zofran) 4 mg IV NOW STA Stop: 01/15/19 16:51 Last Admin: 01/15/19 16:52 Dose: Not Given Documented by: [id number] Medical Decision Making Differential Diagnosis Differential diagnosis: Etiologies such as gastroenteritis, food borne illness, infections, appendicitis, diverticulitis, inflammatory bowel disease, obstruction, GI bleed, biliary pathology, cardiac process, intracranial process, as well as others were entertained. Medical Records Attestation: I reviewed the patient's medical records. Home Medications Current Medication List: was personally reviewed by me Laboratory Data Attestation: I reviewed the patient's lab results. Result diagrams: 01/15/19 16:15 01/15/19 16:15 Lab Results 01/15/19 01/15/19 01/15/19 Range/Units 16:15 16:15 16:15 WBC 24.52 H (4.8-10.8) K/uL RBC 6.30 H (4.2-5.4) M/uL Hgb 19.1 H (12.0-16.0) g/dL POC Hgb (12.0-16.0) g/dl Hct 53.6 H (37-47) % POC Hct (37-47) % MCV 85.1 (80-100) fL MCH 30.3 (25-34) pg MCHC 35.6 (32-36) g/dL RDW Std Deviation 43.9 (36.4-46.3) fL RDW Coeff of Jaswinder 14.2 (11.5-14.5) % Plt Count 231 (130-400) K/uL MPV 12.6 H (7.4-10.4) fL Immature Gran % (Auto) 0.4 % Neut % (Auto) 77.8 % Lymph % (Auto) 15.6 % [place] % (Auto) 6.2 % Eos % (Auto) 0.0 % Baso % (Auto) 0.0 % Immature Gran # (Auto) 0.11 H (0.00-0.02) K/uL Neut # (Auto) 19.07 H (1.4-6.5) K/uL Lymph # (Auto) 3.82 H (1.2-3.4) K/uL [place] # (Auto) 1.51 H (0.11-0.59) K/uL Eos # (Auto) 0.00 (0-0.5) K/uL Baso # (Auto) 0.01 (0-0.2) K/uL PT 11.4 (9.0-12.0) Seconds INR 1.1 (0.9-1.1) POC Sodium (135-144) mEq/L Sodium 131 L (136-145) mmol/L POC Potassium (3.3-5.0) mEq/L Potassium 3.0 L (3.5-5.1) mmol/L POC Chloride (101-112) mEq/L Chloride 90 L (98-107) mmol/L Carbon Dioxide 23 (21-32) mmol/L POC Total CO2 (24-31) mEq/l Anion Gap 18.0 H (3-11) POC Anion Gap (16-25) mmol/L POC BUN (7-18) mg/dl BUN 26 H (7-18) mg/dl Creatinine 3.31 H (0.6-1.2) mg/dl POC Creatinine (0.6-1.3) mg/dl Est Cr Clr Drug Dosing Not Reportable Est GFR ( Amer) 16.8 Est GFR (Non-Af Amer) 14.5 BUN/Creatinine Ratio 7.7 L (10-20) Glucose 255 H (70-99) mg/dl POC Glucose (other) (70-99) mg/dl POC Lactic Acid David (0.90-1.70) mmol/L Calcium 9.7 (8.5-10.1) mg/dl POC Ioniz Calcium Brock (1.12-1.32) mmol/l Phosphorus 2.5 (2.5-4.9) mg/dl Magnesium 2.1 (1.8-2.4) mg/dl Total Bilirubin 0.6 (0.2-1) mg/dl AST 18 (15-37) U/L ALT 20 (12-78) U/L Alkaline Phosphatase 125 H (45-117) U/L Troponin I 0.115 H* (0-0.045) ng/ml Total Protein 9.8 H (6.4-8.2) gm/dl Albumin 4.2 (3.4-5.0) gm/dl Globulin 5.6 H (2.5-4.0) gm/dl Albumin/Globulin Ratio 0.8 L (0.9-2) TSH 2.320 (0.300-4.500) uIu/ml 01/15/19 01/15/19 01/15/19 Range/Units 16:20 16:24 18:36 WBC (4.8-10.8) K/uL RBC (4.2-5.4) M/uL Hgb (12.0-16.0) g/dL POC Hgb 22.1 H* (12.0-16.0) g/dl Hct (37-47) % POC Hct 65 H* (37-47) % MCV (80-100) fL MCH (25-34) pg MCHC (32-36) g/dL RDW Std Deviation (36.4-46.3) fL RDW Coeff of Jawsinder (11.5-14.5) % Plt Count (130-400) K/uL MPV (7.4-10.4) fL Immature Gran % (Auto) % Neut % (Auto) % Lymph % (Auto) % [place] % (Auto) % Eos % (Auto) % Baso % (Auto) % Immature Gran # (Auto) (0.00-0.02) K/uL Neut # (Auto) (1.4-6.5) K/uL Lymph # (Auto) (1.2-3.4) K/uL [place] # (Auto) (0.11-0.59) K/uL Eos # (Auto) (0-0.5) K/uL Baso # (Auto) (0-0.2) K/uL PT (9.0-12.0) Seconds INR (0.9-1.1) POC Sodium 134 L (135-144) mEq/L Sodium (136-145) mmol/L POC Potassium 3.1 L (3.3-5.0) mEq/L Potassium (3.5-5.1) mmol/L POC Chloride 90 L (101-112) mEq/L Chloride (98-107) mmol/L Carbon Dioxide (21-32) mmol/L POC Total CO2 18 L (24-31) mEq/l Anion Gap (3-11) POC Anion Gap 30.0 H (16-25) mmol/L POC BUN 29 H (7-18) mg/dl BUN (7-18) mg/dl Creatinine (0.6-1.2) mg/dl POC Creatinine 3.6 H (0.6-1.3) mg/dl Est Cr Clr Drug Dosing Est GFR ( Amer) Est GFR (Non-Af Amer) BUN/Creatinine Ratio (10-20) Glucose (70-99) mg/dl POC Glucose (other) 229 H (70-99) mg/dl POC Lactic Acid David 6.74 H 1.95 H (0.90-1.70) mmol/L Calcium (8.5-10.1) mg/dl POC Ioniz Calcium Brock 1.03 L (1.12-1.32) mmol/l Phosphorus (2.5-4.9) mg/dl Magnesium (1.8-2.4) mg/dl Total Bilirubin (0.2-1) mg/dl AST (15-37) U/L ALT (12-78) U/L Alkaline Phosphatase (45-117) U/L Troponin I (0-0.045) ng/ml Total Protein (6.4-8.2) gm/dl Albumin (3.4-5.0) gm/dl Globulin (2.5-4.0) gm/dl Albumin/Globulin Ratio (0.9-2) TSH (0.300-4.500) uIu/ml Repeat lactic acid: 1.95 Imaging Data Radiologist's Impression: Radiology results as stated below per my review and the radiologist's interpretation: XR chest 1V portable HISTORY: 58 years-old Female weakness acute weakness COMPARISON: Chest radiograph 02/03/2017 TECHNIQUE: Portable AP view of the chest FINDINGS: Cardiomediastinal and hilar silhouettes are within normal limits. Calcified plaque the thoracic aorta. No pneumothorax, pleural effusion, focal airspace consolidation or overt pulmonary edema. Degenerative changes are seen about the shoulders and spine. IMPRESSION: No acute process. The above report was generated using voice recognition software. It may contain grammatical, syntax or spelling errors. Electronically signed by: Yvan Jimenez M.D. 01/15/2019 4:38 PM ECG Data Attestation: I personally reviewed and interpreted this ECG as follows: Indication: tachycardia Rate (beats per minute): 176 Rhythm: SVT Findings: + other (Narrow complex monomorphic and regular. Normal axis) and + ST depression (laterally ) Additional Comments: Repeat ECG: Atrial fibrillation with RVR at 141 beats per minute. Normal QRS duration QTC is prolonged Diffused depressions anteriorly and laterally. Blood Pressure Blood Pressure Findings: Normal blood pressure Blood Pressure Disposition: did not require urgent referral MDM Narrative The patient is a 58 year old white female w/ PMHx diabetes, abdominal pain, hyperlipidemia, acute diverticulitis, hypertension, GERD, who presents to the ED w/ CC of vomiting beginning a couple of days ago. Patient was seen and evaluated the bedside. The patient did present with nausea vomiting as well as some tachycardia. The patient was placed in a critical care recess room given the concern for elevated heart rate and hypotension. Patient was ill-appearing and diaphoretic. Patient's initial EKG was concerning for SVT. Given the patient's very low blood pressure I was concerned about the possibility of requiring cardioversion. The patient was ordered IV fluids as well as some electrolytes initially as I wanted to ensure that this was not more related to sinus tachycardia or that the patient had not been appropriately resuscitated prior to shock. Patient did show repeated improvement in her heart rate and blood pressure after additional fluids were given. The patient did have an elevated white counts at which point the patient was cultured and broad- spectrum antibiotics were ordered. The patient did have a clear chest x-ray. CT the abdomen pelvis did not show any acute infectious or inflammatory findings. The patient does have acute renal failure with a baseline creatinine of 1 that is now 3. The patient does have an elevated troponin but I believe this is more related to sepsis and dehydration. Patient was given several rounds of anti-medics. I did speak with the on-call biomedical manager given the concern for the patient's elevated lactate. They are comfortable with the patient come to the ICU if needed. I subsequently did speak with the on-call hospitalist and ordered a repeat lactate. The patient will be seen and evaluated by the hospitalist service and admitted to [facility]. Patient's repeat lactate was less than 2. Impression & Plan Dehydration, Sepsis, Acute renal failure (ARF), Elevated troponin, Atrial fibrillation Critical Care Time Critical Care Time: Yes Total Critical Care Time: 75 I have personally spent greater than 75 minutes of critical care time in direct management of this patient. This includes bedside care, interpretation of diagnostic studies, and testing, discussion with consultants, patient, and family members, and other require inpatient management activities. This 75 minutes is in excess of all separately billable procedures. Discharge Plan Visit Data Chief Complaint: Vomiting Stated Complaint: VOMITING, HOT, SWEATS ED Provider: Laz Farias Discharge Problem: Dehydration, Sepsis, Acute renal failure (ARF), Elevated troponin, Atrial fibrillation Forms Stand Alone Forms: My [facility] Prescriptions Prescriptions: No Action atorvastatin 20 mg tablet 20 mg PO QAM RF: 0 aspirin 81 mg Tablet,Delayed Release (Dr/Ec) 81 mg PO QAM RF: 0 lisinopril 10 mg tablet 10 mg PO QAM RF: 0 metoprolol tartrate 50 mg tablet 100 mg PO BID RF: 0 omeprazole 20 mg Tablet,Delayed Release (Dr/Ec) 20 mg PO QAM RF: 0 Discharge Problem: Sepsis Qualifiers: Sepsis type: sepsis due to unspecified organism Qualified Code(s): A41.9 - Seps is, unspecified organism Acute renal failure (ARF) Qualifiers: Acute renal failure type: unspecified Qualified Code(s): N17.9 - Acute kidney failure, unspecified Atrial fibrillation Qualifiers: Atrial fibrillation type: unspecified Qualified Code(s): I48.91 - Unspecified atrial fibrillation The scribe's documentation has been prepared under my direction and personally reviewed by me in its entirety. I confirm that the note above accurately reflects all work, treatment, procedures, and medical decision making performed by me.
--- NOTE | 2019-01-15 18:11 | CT Scan Report ---
ABDOMEN AND PELVIS CT WITHOUT CONTRAST CT DOSE: 1558.91 mGy.cm HISTORY: Acute nausea and vomiting with leukocytosis WBC, tachycardia, VINH, n/v TECHNIQUE: Multiaxial CT images of the abdomen and pelvis were performed without contrast. A dose lo wering technique was utilized adhering to the principles of ALARA. COMPARISON STUDY: CT abdomen and pelvis 03/11/2016 FINDINGS: Mild bibasilar bronchial wall thickening. No pneumatosis or pneumoperitoneum. Imaged inferior cardiac chambers are unremarkable. Coronary arterial calcifications are noted. Trace pericardial fluid. Chol ecystectomy. Unenhanced liver, spleen, pancreas and right adrenal gland are unremarkable. Moderate th ickening of the left adrenal gland suggestive of hyperplasia. 4 mm nonobstructing calculus of the inf erior pole left kidney. Right kidney appears unremarkable. No ureteral calculi or obstructive uropath y. Ureters are unremarkable. Decompressed urinary bladder. There is a suggested subserosal fibroid ab out the anterior mid uterus measuring up to 2.4 cm. No adnexal mass lesions identified. Moderate calc ified plaque of the abdominal aorta with infrarenal ectasia measuring up to 2.6 cm. No adenopathy. Moderate circumferential wall thickening about the distal esophagus. No bowel obstruction. Mild colon ic diverticulosis without acute diverticulitis. Terminal ileum appears unremarkable. Surgically absen t appendix. No ascites or mesenteric inflammation. Soft tissues are unremarkable. Remote appearing bi lateral L5 pars defects. Multilevel spondylitic spurring and facet arthrosis. Mild dextroscoliosis ab out the lumbar spine. IMPRESSION: 1. No bowel obstruction or bowel wall thickening. 2. Moderate circumferential wall thickening about the distal esophagus. Correlate clinically to exclu de esophagitis. 3. Prior cholecystectomy and appendectomy. 4. Nonobstructing 4 mm left renal calculus. 5. Colonic diverticulosis without acute diverticulitis. 6. Fibroid uterus. 7. Coronary arterial calcifications. Electronically signed by: Yvan Jimenez M.D. 01/15/2019 6:09 PM
[2019-01-15] MEDS ORDERED: METOCLOPRAMIDE HCL INJ 5 MG/ML 2 ML VIAL IV STA (18:14)
--- NOTE | 2019-01-15 19:14 | History & Physical Report ---
Date of Service January 15, 2019 Assessment & Plan (1) Sepsis: Documented by lactic acidosis, tachycardia, hypotension, leukocytosis. Blood and urine cultures done. Continue intravenous Zosyn. No further vancomycin due to acute renal failure Present on Admission?: Yes (2) Acute renal failure (ARF): Creatinine 3.6. Continue IV fluids. Hollis catheter placed to monitor urine output. Check fractional excretion of sodium. Serial lab studies. Consult nephrology if she does not improve Present on Admission?: Yes (3) SVT (supraventricular tachycardia): Telemetry. Metoprolol therapy. Obtain cardiac echo. Present on Admission?: Yes (4) Elevated troponin: Probably supply demand mismatch. Trend troponin levels. Telemetry. Cardiac echo. Correct hypokalemia Present on Admission?: Yes (5) Hypokalemia: IV replacement. Serial lab studies Present on Admission?: Yes (6) Diabetes: ADA diet. Sliding scale insulin coverage Present on Admission?: Yes (7) Morbid obesity: BMI greater than 40 Present on Admission?: Yes (8) DVT prophylaxis: Heparin subcu Total critical care time 60 minutes History of Present Illness Chief Complaint: Nausea and vomiting, chills, weakness Primary Care Provider: Romeo Lanza MD 58-year-old morbidly obese female who developed vomiting several days ago followed by weakness. She had a nonproductive cough and chills. She presented to the ED today for evaluation. She appears to be septic with elevated lactic acid, volume depletion, acute renal failure, leukocytosis and hypotension. She did respond to IV fluids and she is not requiring pressor support at this time. She is alert and oriented at the time of my examination and is feeling better. She presented also with SVT which responded to a adenosine IV. Troponin is elevated which may be supply demand mismatch. She has no chest pain and there are no acute EKG changes. She is admitted for further evaluation and treatment. She has been given intravenous Zosyn and vancomycin in the ED. Hollis catheter will be placed. Urine studies are pending. She denies any hematemesis melena or hematochezia. She has no fever upon presentation. Allergies Allergy/AdvReac Type Severity Reaction Status Date / Time No Known Allergies Allergy Verified 01/15/19 18:15 Home Medications Home Medications Medication Instructions Recorded Confirmed Type aspirin 81 mg PO QAM 01/15/19 01/15/19 History atorvastatin 20 mg PO QAM 01/15/19 01/15/19 History lisinopril 10 mg PO QAM 01/15/19 01/15/19 History metoprolol tartrate 100 mg PO BID 01/15/19 01/15/19 History omeprazole 20 mg PO QAM 01/15/19 01/15/19 History Past Med/Surg History Medical History Obese (Chronic) Vomiting and diarrhea (Acute) Abdominal pain (Acute) Vomiting and diarrhea (Acute) Hypertension (Chronic) Diabetes (Chronic) Hyperlipidemia (Chronic) Acute diverticulitis (Acute 07/17/14) Tachycardia (Acute 08/08/14) Hypertension Nausea, vomiting, and diarrhea (Acute) GERD (gastroesophageal reflux disease) (Chronic) Dehydration (Acute) Family History Other No known problems Social History Feels Safe at Home: Yes Smoking Status: Current every day smoker Review of Systems Review of Systems: Constitutional-chills, malaise, weakness ENT-no blurred vision, no double vision, no epistaxis, no sore throat Respiratory- no wheezing, no shortness of breath. Nonproductive cough for several days Cardiac-no palpitations, no chest pain, no syncope GI-nausea and vomiting for several days. No hematemesis or coffee-ground emesis. -no urinary retention, no urinary incontinence, no dysuria, no hematuria Musculoskeletal-no joint pain, no muscle tenderness Skin-no bruising, no rashes, no pruritus Neuro-worsening weakness for several days Psych-no depression, no anxiety Physical Exam Physical Exam: General-alert and oriented x3, chills, malaise. Morbidly obese HEENT-head atraumatic and normocephalic, TMs intact bilaterally, pupils equal and reactive to light, extraocular muscles intact Neck-no lymphadenopathy or thyromegaly, trachea midline Chest-clear to auscultation percussion. No rales wheezing or rhonchi Cardiac-sinus tachycardia, normal S1 and S2, no murmurs Abdomen-normal bowel sounds, nontender, no hepatosplenomegaly Extremities-no cyanosis, clubbing, or edema Neuro-cranial nerves II through XII intact, motor and sensory function within normal limits, strength symmetrical , no focal deficits Psych-normal affect, normal mood Results & Data Vital Signs (Past 12 Hours) Vital Signs Temp Pulse Pulse Resp BP BP Pulse Ox 01/15/19 18:36 130 H 20 142/99 H 92 01/15/19 18:06 149 H 96/73 L 90 01/15/19 17:50 119 H 154/139 H 94 01/15/19 17:35 121 H 132/124 H 94 01/15/19 17:06 130 H 20 106/60 98 01/15/19 16:45 139 H 20 86/69 L 95 01/15/19 16:19 180 H 28 H 98 01/15/19 16:05 36.6 C 186 H 32 H 47/31 L 96 Laboratory Results 01/15/19 16:15 01/15/19 16:15 Critical Care Time 60 minutes PG Care Time/CCT Total # of Minutes Spent Total Time Spent with Patient: Total time spent is greater than 50% in coordination of care (as documented) at patient's floor/unit and/or counseling patient: (1) Sepsis Sepsis type: sepsis due to unspecified organism Qualified Code(s): A41.9 - Sepsis, unspecified organism (2) Acute renal failure (ARF) Acute renal failure type: unspecified Qualified Code(s): N17.9 - Acute kidney failure, unspecified
[2019-01-15 19:37] LABS: Appearance Urine Turbid (Clear); Bacteria Urine Automated Negative (Negative); Blood Urine 2+ (Negative); Color Urine Dark Yellow; Epithelial Cell Urine Auto >30 /lpf (0-5); Glucose Urine UA Trace (Negative); Ketones Urine Trace (Negative); Leukocyte Esterase Urine Negative (Negative); Nitrite Urine Negative (Negative); Protein Urine 3+ (Negative); RBC Urine Automated 0-4 /hpf (0-4); Specific Gravity Urine 1.028 (1.000-1.030); Urobilinogen Urine Negative (Negative)
[2019-01-15 19:44] LABS: Bilirubin Urine Negative (Negative); Ictotest Urine Negative (Negative)
[2019-01-15 19:52] LABS: Cast Urine Automated >30 /lpf (0-5)
[2019-01-15] MEDS ORDERED: ALUMINUM/MAGNESIUM SUSP 30 ML UDC PO PRN (20:02)
[2019-01-15] MEDS ORDERED: ACETAMINOPHEN 325 MG TAB PO PRN (20:02)
[2019-01-15] MEDS ORDERED: PIPERACILLIN/TAZOBACTAM 3.375 GM in DEXTROSE 5% 100 ML IV SCH (20:02)
[2019-01-15] MEDS: METOPROLOL TARTRATE 100 MG TAB PO SCH (21:08)
[2019-01-15] MEDS: HEPARIN SOD 5,000 UNIT/0.5 ML VIAL SQ SCH (21:09)
[2019-01-15] MEDS: NSS + 20MEQ KCL 20 MEQ/1,000 ML BAG IV SCH (21:10)
[2019-01-15] MEDS ORDERED: METOPROLOL TARTRATE 1 MG/ML VIAL IV STA (21:54)
--- NOTE | 2019-01-15 21:59 | Progress Note ---
Date of Service January 15, 2019 Received a text page from the patient's nurse that the patient was just admitted from the emergency department. She continues to have heart rates in the [id number]. On brief review of her chart, patient was admitted for multiple issues to include sepsis, acute renal failure, and SVT. Initial EKG appeared like SVT. A stat repeat EKG is notable for A. fib with RVR. There is no mention of A. fib in her previous medical history. Vitals reviewed. Saw patient at bedside. She is awake, watching TV, and eating some dinner. She stated that she had no chest pain, shortness of breath, or acute symptoms. She mentions that she did not receive any adenosine in the emergency department and that she just received her normal home dose of metoprolol 100 mg p.o. about half an hour ago. Plan: - Will give an additional metoprolol tartrate 5 mg IV x1 to help with rate control. - Hopefully her metoprolol tartrate p.o. from home will begin to kick in and slow down her rates. - She remains asymptomatic. Previous orders are in for an echocardiogram for the morning. Troponins are trending. Avinash Hendrickson, PGY3 Overnight call Results & Data Vital Signs (Past 12 Hours) Vital Signs Temp Pulse Pulse Pulse Resp BP BP 01/15/19 21:36 130 H 125/79 01/15/19 20:09 36.7 C 135 H 21 129/73 01/15/19 19:50 114 H 20 112/86 01/15/19 19:20 137 H 21 171/98 H 01/15/19 19:11 137 H 148/84 H 01/15/19 19:06 134/100 01/15/19 19:01 165/108 H 01/15/19 18:51 124 H 159/91 H 01/15/19 18:46 129 H 117/83 01/15/19 18:36 130 H 20 142/99 H 01/15/19 18:06 149 H 96/73 L 01/15/19 17:50 119 H 154/139 H 01/15/19 17:35 121 H 132/124 H 01/15/19 17:06 130 H 20 106/60 01/15/19 16:45 139 H 20 86/69 L 01/15/19 16:19 180 H 28 H 01/15/19 16:05 36.6 C 186 H 32 H 47/31 L Pulse Ox 01/15/19 21:36 01/15/19 20:09 93 01/15/19 19:50 94 01/15/19 19:20 94 01/15/19 19:11 91 01/15/19 19:06 90 01/15/19 19:01 96 01/15/19 18:51 93 01/15/19 18:46 93 01/15/19 18:36 92 01/15/19 18:06 90 01/15/19 17:50 94 01/15/19 17:35 94 01/15/19 17:06 98 01/15/19 16:45 95 01/15/19 16:19 98 01/15/19 16:05 96
[2019-01-15] MEDS ORDERED: PNEUMOCOCCAL POLYSACCHARIDES 25 MCG/0.5 ML VIAL/SYR IM ONE (22:30)
[2019-01-15] MEDS ORDERED: PNEUMOCOCCAL ADMINISTRATION CHARGE ONE (22:30)
[2019-01-15] MEDS: PIPERACILLIN/TAZOBACTAM 4.5 GM in DEXTROSE 5% 100 ML IV SCH (23:53)
[2019-01-16] MEDS: ONDANSETRON INJ 2 MG/ML 2 ML VIAL IV PRN ×2 (01:27→07:34)
[2019-01-16 02:57] LABS: Basophils # (auto) 0.01 K/uL (0-0.2); Basophils % (auto) 0.1 %; Hematocrit (blood only) 46.3 % (37-47); Hemoglobin 16.2 g/dL (12.0-16.0); Immature Granulocytes # (auto) 0.06 K/uL (0.00-0.02); Immature Granulocytes % (auto) 0.3 %; Lymphocytes # (auto) 2.42 K/uL (1.2-3.4); Lymphocytes % (auto) 12.3 %; Mean Corpuscular Volume 86.1 fL (80-100); Mean Platelet Volume 12.3 fL (7.4-10.4); Monocytes # (auto) 1.39 K/uL (0.11-0.59); Monocytes % (auto) 7.1 %; Neutrophils # (auto) 15.82 K/uL (1.4-6.5); Neutrophils % (auto) 80.2 %; Platelet Count 191 K/uL (130-400); RDW Coefficient of Variation 14.3 % (11.5-14.5); RDW Standard Deviation 44.3 fL (36.4-46.3); Red Blood Count 5.38 M/uL (4.2-5.4)
[2019-01-16] MEDS: NSS + 20MEQ KCL 20 MEQ/1,000 ML BAG IV SCH ×4 (03:04→20:01)
[2019-01-16 03:16] LABS: BUN Creatinine Ratio 13.8 (10-20); Calcium 7.6 mg/dl (8.5-10.1); Creatinine Clr Calc Pharmacy 38.8 ml/min; Est GFR (African American) 30.3; Est GFR (Non-African American) 26.2; Potassium 3.4 mmol/L (3.5-5.1)
[2019-01-16] MEDS: PIPERACILLIN/TAZOBACTAM 4.5 GM in DEXTROSE 5% 100 ML IV SCH ×3 (07:34→23:53)
[2019-01-16] MEDS: PANTOprazole 40 MG TAB PO SCH (07:35)
[2019-01-16] MEDS: ASPIRIN 81 MG ECTAB PO SCH (07:35)
[2019-01-16] MEDS: METOPROLOL TARTRATE 100 MG TAB PO SCH ×2 (07:35→20:29)
[2019-01-16] MEDS: ATORVASTATIN 20 MG TAB PO SCH (07:35)
[2019-01-16] MEDS ORDERED: CALCIUM GLUCONATE 10% 10 ML VIAL IV STA (08:09)
[2019-01-16] MEDS ORDERED: POTASSIUM CHLORIDE PWD 20 MEQ PACK PO ONE (08:10)
[2019-01-16] MEDS ORDERED: CALCIUM GLUCONATE 10% 1,000 MG in SODIUM CHLORIDE 0.9% 50 ML IV ONE (08:30)
[2019-01-16] MEDS: HEPARIN SOD 5,000 UNIT/0.5 ML VIAL SQ SCH ×2 (10:23→20:28)
--- NOTE | 2019-01-16 18:10 | Hospitalist Progress Note ---
Date of Service January 16, 2019 Assessment & Plan (1) Sepsis: Unknown source at this time. Focal symptoms point toward pneumonia with shortness of breath, cough, and productive sputum; however, CXR on 01/15 show no focal consolidation. No urinary symptoms, and UA shows significant contamination and no bacteria. No reflex culture sent. CT a/p on 01/15 shows no acute process. Does show some distal esophageal thickening which will need outpatient review. - Given improvement, continue intravenous Zosyn. - Blood cultures from 01/15 show no growth to date - Will follow (2) SVT (supraventricular tachycardia): On presentation on 01/15, her HR was in the 170s and was labeled an SVT. After fluids, she was down to 120 bpm and her EKG was read as afib. Now, after feeling better, her rate is 80s and her EKG is sinus. Echo on 01/16 showed LVEF 55-60%. Grade II diastolic dysfunction. - Will follow up with cardiology in the morning. - Continue rate control - Will start anticoagulation (3) Acute renal failure (ARF): Baseline Cr ~1.0. - Creatinine was 3.3 on admission -> Improved to 2.0 on 01/16 - Continue IV fluids. (4) Elevated troponin: Supply demand mismatch. Troponin was 0.115 on presentation, then went up to 0.8 before downtrending. No reports of chest pain, and EKG was non-ischemic. - Will discuss with cardiology in the morning - Continue ASA, statin (5) Diabetes: A1c was 7.5% in 11/2018. - ADA diet. - Sliding scale insulin coverage (6) Morbid obesity: BMI greater than 40 (7) DVT prophylaxis: Heparin gtt for possible afib Subjective Feeling much better. Still coughing and still having some shortness of breath. Review of Systems Review of Systems: All systems reviewed & are unremarkable except as noted in HPI & below Physical Exam Constitutional: WD/WN, vitals as above + obese Eyes: EOM intact bilaterally; no conjunctival abnormality ENMT: external ear and nose normal, oropharynx normal Neck: trachea midline, no thyromegaly normal visual inspection Respiratory: normal respiratory effort, lungs clear to auscultation no respiratory distress Cardiovascular: RRR, no murmur, no edema Gastrointestinal (Abdomen): Inspection/Auscultation: abdomen normal to inspection; abdomen not distended Musculoskeletal: no cyanosis or clubbing, extremities motor strength 5/5 Skin: no rashes, warm and dry Neurologic: moves all extremities and awake Psychiatric: Orientation: alert, oriented to person and cooperative Results & Data Vital Signs (Past 12 Hours) Vital Signs Temp Pulse Pulse Resp BP Pulse Ox 01/16/19 15:29 36.7 C 69 18 183/84 H 96 01/16/19 11:00 36.8 C 64 19 157/84 H 95 01/16/19 08:05 86 01/16/19 07:37 36.7 C 89 18 164/97 H 95 PG Care Time/CCT Total # of Minutes Spent Total Time Spent with Patient: Total time spent is greater than 50% in coordination of care (as documented) at patient's floor/unit and/or counseling patient: (1) Sepsis Sepsis type: sepsis due to unspecified organism Qualified Code(s): A41.9 - Sepsis, unspecified organism (2) Acute renal failure (ARF) Acute renal failure type: unspecified Qualified Code(s): N17.9 - Acute kidney failure, unspecified
[2019-01-17] MEDS: NSS + 20MEQ KCL 20 MEQ/1,000 ML BAG IV SCH ×2 (01:54→07:54)
[2019-01-17 06:19] LABS: Basophils # (auto) 0.02 K/uL (0-0.2); Basophils % (auto) 0.2 %; Eosinophils # (auto) 0.09 K/uL (0-0.5); Eosinophils % (auto) 0.9 %; Hemoglobin 13.1 g/dL (12.0-16.0); Immature Granulocytes # (auto) 0.02 K/uL (0.00-0.02); Immature Granulocytes % (auto) 0.2 %; Lymphocytes # (auto) 2.75 K/uL (1.2-3.4); Lymphocytes % (auto) 26.2 %; Mean Corpuscular Hgb Conc 33.6 g/dL (32-36); Mean Corpuscular Volume 86.9 fL (80-100); Mean Platelet Volume 12.2 fL (7.4-10.4); Monocytes # (auto) 0.79 K/uL (0.11-0.59); Monocytes % (auto) 7.5 %; Neutrophils # (auto) 6.81 K/uL (1.4-6.5); Platelet Count 147 K/uL (130-400); RDW Coefficient of Variation 14.5 % (11.5-14.5); RDW Standard Deviation 45.9 fL (36.4-46.3); Red Blood Count 4.49 M/uL (4.2-5.4); White Blood Count 10.48 K/uL (4.8-10.8)
[2019-01-17 06:42] LABS: BUN Creatinine Ratio 15.4 (10-20); Calcium 7.4 mg/dl (8.5-10.1); Creatinine Clr Calc Pharmacy 83.8 ml/min; Est GFR (African American) 67.3; Est GFR (Non-African American) 58.1; Potassium 3.6 mmol/L (3.5-5.1)
[2019-01-17] MEDS ORDERED: CALCIUM GLUCONATE 10% 10 ML VIAL IV STA (07:35)
[2019-01-17] MEDS: PIPERACILLIN/TAZOBACTAM 4.5 GM in DEXTROSE 5% 100 ML IV SCH (07:54)
[2019-01-17] MEDS: PANTOprazole 40 MG TAB PO SCH (07:55)
[2019-01-17] MEDS: ATORVASTATIN 20 MG TAB PO SCH (07:55)
[2019-01-17] MEDS: METOPROLOL TARTRATE 100 MG TAB PO SCH ×2 (07:55→21:27)
[2019-01-17] MEDS: ASPIRIN 81 MG ECTAB PO SCH (07:55)
[2019-01-17] MEDS: HEPARIN SOD 5,000 UNIT/0.5 ML VIAL SQ SCH ×2 (07:55→21:24)
[2019-01-17] MEDS ORDERED: CALCIUM GLUCONATE 10% 2,000 MG in SODIUM CHLORIDE 0.9% 50 ML IV SCH (08:00)
--- NOTE | 2019-01-17 14:23 | Hospitalist Progress Note ---
Date of Service January 17, 2019 Assessment & Plan (1) Sepsis: Unknown source at this time. Focal symptoms point toward pneumonia with shortness of breath, cough, and productive sputum; however, CXR on 01/15 show no focal consolidation. No urinary symptoms, and UA shows significant contamination and no bacteria. No reflex culture sent. CT a/p on 01/15 shows no acute process. Does show some distal esophageal thickening which will need outpatient review. - Blood cultures from 01/15 show no growth to date - Will follow - Given improvement, continue abx. Zosyn switched to Augmentin on 01/17. - I guess I would empirically treat with a 5-7 day course for presumptive pneumonia. (2) Atrial flutter: On presentation on 01/15, her HR was in the 170s and was labeled an SVT. After fluids, she was down to 120 bpm, and her EKG was afib/aflutter. Telemetry clearly shows spontaneous conversion from aflutter to sinus at 1:45am on 01/16. Has remained in sinus since then. Echo on 01/16 showed LVEF 55-60%. Grade II di astolic dysfunction. - Discussed with Dr. Mendez - Likely deserves ~1 month of anticoagulation with repeat EKG at her PCP to ensure she is not in afib still. If she has palpitations, irregular heart beat, or other signs of afib, she should be on anticoagulation indefinitely. - Continue beta-esha - Will start anticoagulation - Discussed with pharmacy. She is too obese for a DOAC/NOAC. Will start warfarin today. As CHADs-Vasc is only 3 (female, DM, and HTN), she does not need bridging. - Would probably set [facility] up with [facility] as I would worry about proper follow up otherwise. (3) Elevated troponin: Supply demand mismatch. Troponin was 0.115 on presentation, then went up to 0.8 before downtrending. No reports of chest pain, and EKG was non-ischemic. - Continue ASA, statin - Would benefit from outpatient nuclear perfusion study per cardiology (4) Acute renal failure (ARF): Baseline Cr ~1.0. - Creatinine was 3.3 on admission -> Improved to baseline by 01/17 - Monitor (5) Diabetes: A1c was 7.5% in 11/2018. Not on any home meds. - ADA diet. - Sliding scale insulin coverage (6) Morbid obesity: BMI greater than 40. - Does not qualify for DOAC (7) DVT prophylaxis: Warfarin for her aflutter Subjective Still has some nausea, but no vomiting. Doesn't feel she is read to go. Review of Systems Review of Systems: All systems reviewed & are unremarkable except as noted in HPI & below Physical Exam Constitutional: WD/WN, vitals as above + obese Eyes: EOM intact bilaterally; no conjunctival abnormality ENMT: external ear and nose normal, oropharynx normal Neck: trachea midline, no thyromegaly normal visual inspection Respiratory: normal respiratory effort, lungs clear to auscultation no respiratory distress Cardiovascular: RRR, no murmur, no edema Gastrointestinal (Abdomen): Inspection/Auscultation: abdomen normal to inspection; abdomen not distended Musculoskeletal: no cyanosis or clubbing, extremities motor strength 5/5 Skin: no rashes, warm and dry Neurologic: moves all extremities and awake Psychiatric: Orientation: alert, oriented to person and cooperative Results & Data Vital Signs (Past 12 Hours) Vital Signs Temp Pulse Pulse Resp BP Pulse Ox 01/17/19 11:06 36.9 C 58 L 19 168/76 H 97 01/17/19 08:50 64 01/17/19 07:30 36.8 C 65 19 188/96 H 97 01/17/19 04:24 36.8 C 71 20 175/84 H 96 01/17/19 02:28 68 PG Care Time/CCT Total # of Minutes Spent Total Time Spent with Patient: Total time spent is greater than 50% in coordination of care (as documented) at patient's floor/unit and/or counseling patient: (1) Acute renal failure (ARF) Acute renal failure type: unspecified Qualified Code(s): N17.9 - Acute kidney failure, unspecified (2) Sepsis Sepsis type: sepsis due to unspecified organism Qualified Code(s): A41.9 - Sepsis, unspecified organism
[2019-01-17] MEDS: WARFARIN SOD 7.5 MG TAB PO SCH (18:10)
[2019-01-17] MEDS: AMOXICILLIN/CLAVULANATE 875 MG TAB PO SCH (18:11)
[2019-01-18 06:12] LABS: Basophils # (auto) 0.03 K/uL (0-0.2); Basophils % (auto) 0.3 %; Eosinophils # (auto) 0.15 K/uL (0-0.5); Eosinophils % (auto) 1.4 %; Hemoglobin 13.9 g/dL (12.0-16.0); Immature Granulocytes # (auto) 0.02 K/uL (0.00-0.02); Immature Granulocytes % (auto) 0.2 %; Lymphocytes # (auto) 3.33 K/uL (1.2-3.4); Lymphocytes % (auto) 31.7 %; Mean Corpuscular Hgb Conc 33.1 g/dL (32-36); Mean Corpuscular Volume 88.4 fL (80-100); Mean Platelet Volume 12.7 fL (7.4-10.4); Monocytes # (auto) 0.71 K/uL (0.11-0.59); Monocytes % (auto) 6.8 %; Neutrophils # (auto) 6.27 K/uL (1.4-6.5); Neutrophils % (auto) 59.6 %; Platelet Count 161 K/uL (130-400); RDW Coefficient of Variation 14.1 % (11.5-14.5); RDW Standard Deviation 45.6 fL (36.4-46.3); Red Blood Count 4.75 M/uL (4.2-5.4); White Blood Count 10.51 K/uL (4.8-10.8)
[2019-01-18 06:21] LABS: Prothrombin Time 10.7 Seconds (9.0-12.0)
[2019-01-18 07:02] LABS: BUN Creatinine Ratio 10.9 (10-20); Calcium 8.3 mg/dl (8.5-10.1); Creatinine Clr Calc Pharmacy 103.6 ml/min; Est GFR (African American) 86.9; Potassium 3.3 mmol/L (3.5-5.1)
[2019-01-18] MEDS: AMOXICILLIN/CLAVULANATE 875 MG TAB PO SCH ×2 (07:44→16:58)
[2019-01-18] MEDS: ASPIRIN 81 MG ECTAB PO SCH (07:44)
[2019-01-18] MEDS: PANTOprazole 40 MG TAB PO SCH (07:44)
[2019-01-18] MEDS: ATORVASTATIN 20 MG TAB PO SCH (07:44)
[2019-01-18] MEDS: HEPARIN SOD 5,000 UNIT/0.5 ML VIAL SQ SCH ×2 (07:45→21:41)
[2019-01-18] MEDS: METOPROLOL TARTRATE 100 MG TAB PO SCH ×2 (08:42→21:41)
[2019-01-18] MEDS ORDERED: LISINOPRIL 10 MG TAB PO ONE (11:00)
[2019-01-18] MEDS ORDERED: POTASSIUM CHLORIDE 20 MEQ TABCR PO ONE (11:00)
[2019-01-18] MEDS: WARFARIN SOD 7.5 MG TAB PO SCH (16:59)
--- NOTE | 2019-01-18 18:03 | Hospitalist Progress Note ---
Date of Service January 18, 2019 Assessment & Plan (1) Sepsis: Unknown source but likely Pulmonary--> Focal symptoms point toward pneumonia with shortness of breath, cough, and productive sputum; however, CXR on 01/15 show no focal consolidation. No urinary symptoms, and UA shows significant contamination and no bacteria. No reflex culture sent. CT a/p on 01/15 shows no acute process. Does show some distal esophageal thickening which will need outpatient review. Sepsis resolved She is a snf smoker and had sputum production which is now improved, could have been acute bacterial bronchitis - Blood cultures from 01/15 show no growth to date - Will follow - Given improvement, continue abx. --> Zosyn switched to Augmentin on 01/17. -will empirically treat with a 5-7 day course for presumptive pneumonia (2) Atrial flutter: On presentation on 01/15, her HR was in the 170s and was labeled an SVT. After fluids, she was down to 120 bpm, and her EKG was afib/aflutter. Telemetry clearly shows spontaneous conversion from aflutter to sinus at 1:45am on 01/16. Has remained in sinus since then. Echo on 01/16 showed LVEF 55-60%. Grade II diastolic dysfunction. - Case was discussed with Dr. Mendez - Likely deserves ~1 month of anticoagulation with repeat EKG at her PCP to ensure she is not in afib still. If she has palpitations, irregular heart beat, or other signs of afib, she should be on anticoagulation indefinitely. - Continue beta-esha - started anticoagulation - Discussed with pharmacy. She is too obese for a DOAC/NOAC. Started warfarin on 01/17. As CHADs-Vasc is only 3 (female, DM, and HTN), she does not need bridging. - she [facility] and PCP will follow her on Fri this week for INR (3) Elevated troponin: Supply demand mismatch. Troponin was 0.115 on presentation, then went up to 0.8 before downtrending. No reports of chest pain, and EKG was non-ischemic. - Continue ASA, statin - Would benefit from outpatient nuclear perfusion study per cardiology (4) Acute renal failure (ARF): Baseline Cr ~1.0. - Creatinine was 3.3 on admission -> Improved to baseline by 01/17 - Monitor (5) Diabetes: A1c was 7.5% in 11/2018. Not on any home meds. - ADA diet. - Sliding scale insulin coverage (6) Morbid obesity: BMI greater than 40. - Does not qualify for DOAC -needs weight loss (7) Abnormal CT scan, esophagus: distal esophageal thickening seen on CT--> needs outpt EGD/follow up with GI (8) Hypertension: BPs not well controlled today as has been off her home lisinopril -restarted lisinopril 10mg daily today (9) Hypokalemia: replace with po K+, likely due to poor po intake recently which is now improved -follow BMP in AM (10) Diarrhea: Multiple loose stools today, on abx -check C. diff -start cholestyramine -start probiotics (11) Current smoker: encouraged cessation -with wheezing today--> add albuterol HFA 2 puffs q6h AKHIL -needs outpt PFTs (12) DVT prophylaxis: Warfarin for her aflutter Dispo-keep overnight given profuse diarrhea and wheezing Hopeful for dc tomorrow Subjective Pt having a lot of loose stools today, no abd pain. Feels her SOB is much improved, no longer coughing up sputum. No hemoptysis ever. No chest pain. Is ambulating around the room, not lightheaded Feels her appetite is back to normal Review of Systems Review of Systems: All systems reviewed & are unremarkable except as noted in HPI & below Physical Exam Constitutional: WD/WN, vitals as above + morbidly obese; no acute distress Eyes: PERRL, conjunctivae normal, anicteric sclerae ENMT: external ear and nose normal, oropharynx normal Neck: trachea midline, no thyromegaly Respiratory: normal respiratory effort; no labored breathing Auscultation: + wheezes (diffuse exp wheezes); no crackles and no rhonchi Cardiovascular: RRR, no murmur, no edema Gastrointestinal (Abdomen): normal bowel sounds, soft, nontender, no hepatosplenomegaly Musculoskeletal: Extremities: extremities normal to inspection; no cyanosis and no clubbing Skin: no rashes, warm and dry Neurologic: moves all extremities and awake; no focal motor deficits Psychiatric: A+Ox3, euthymic affect Results & Data Vital Signs (Past 12 Hours) Vital Signs Temp Pulse Resp BP BP Pulse Ox 01/18/19 15:36 36.6 C 58 L 18 146/85 H 94 01/18/19 14:10 64 138/80 01/18/19 08:41 74 01/18/19 07:08 36.6 C 56 L 18 196/99 H 95 01/18/19 06:57 164/85 H Laboratory Results 01/18/19 01/18/19 01/18/19 Range/Units 05:47 05:47 05:47 WBC 10.51 (4.8-10.8) K/uL RBC 4.75 (4.2-5.4) M/uL Hgb 13.9 (12.0-16.0) g/dL Hct 42.0 (37-47) % MCV 88.4 (80-100) fL MCH 29.3 (25-34) pg MCHC 33.1 (32-36) g/dL RDW Std Deviation 45.6 (36.4-46.3) fL RDW Coeff of Jaswinder 14.1 (11.5-14.5) % Plt Count 161 (130-400) K/uL MPV 12.7 H (7.4-10.4) fL Immature Gran % (Auto) 0.2 % Neut % (Auto) 59.6 % Lymph % (Auto) 31.7 % [place] % (Auto) 6.8 % Eos % (Auto) 1.4 % Baso % (Auto) 0.3 % Immature Gran # (Auto) 0.02 (0.00-0.02) K/uL Neut # (Auto) 6.27 (1.4-6.5) K/uL Lymph # (Auto) 3.33 (1.2-3.4) K/uL [place] # (Auto) 0.71 H (0.11-0.59) K/uL Eos # (Auto) 0.15 (0-0.5) K/uL Baso # (Auto) 0.03 (0-0.2) K/uL PT 10.7 (9.0-12.0) Seconds INR 1.0 (0.9-1.1) Sodium 135 L (136-145) mmol/L Potassium 3.3 L (3.5-5.1) mmol/L Chloride 102 (98-107) mmol/L Carbon Dioxide 26 (21-32) mmol/L Anion Gap 7.0 (3-11) BUN 9 D (7-18) mg/dl Creatinine 0.85 (0.6-1.2) mg/dl Est Cr Clr Drug Dosing 103.6 ml/min Est GFR ( Amer) 86.9 Est GFR (Non-Af Amer) 75.0 BUN/Creatinine Ratio 10.9 (10-20) Glucose 95 (70-99) mg/dl Calcium 8.3 L (8.5-10.1) mg/dl PG Care Time/CCT Total # of Minutes Spent Total Time Spent with Patient: Total time spent is greater than 50% in coordination of care (as documented) at patient's floor/unit and/or counseling patient: (1) Sepsis Sepsis type: sepsis due to unspecified organism Qualified Code(s): A41.9 - Sepsis, unspecified organism (2) Acute renal failure (ARF) Acute renal failure type: unspecified Qualified Code(s): N17.9 - Acute kidney failure, unspecified
[2019-01-18] MEDS: ALBUTEROL HFA 8 GM INHALER INH SCH (19:59)
[2019-01-18] MEDS: SACCHAROMYCES BOULARDII 250 MG CAP PO SCH (20:00)
[2019-01-18] MEDS: CHOLESTYRAMINE LIGHT 4 GM PKT PO SCH (21:41)
[2019-01-19] MEDS: ALBUTEROL HFA 8 GM INHALER INH SCH ×3 (00:15→12:20)
[2019-01-19 05:48] LABS: Basophils # (auto) 0.03 K/uL (0-0.2); Basophils % (auto) 0.3 %; Eosinophils # (auto) 0.16 K/uL (0-0.5); Eosinophils % (auto) 1.7 %; Immature Granulocytes # (auto) 0.02 K/uL (0.00-0.02); Immature Granulocytes % (auto) 0.2 %; Lymphocytes # (auto) 2.61 K/uL (1.2-3.4); Lymphocytes % (auto) 27.8 %; Mean Corpuscular Hgb Conc 33.3 g/dL (32-36); Mean Corpuscular Volume 87.9 fL (80-100); Mean Platelet Volume 12.5 fL (7.4-10.4); Monocytes # (auto) 0.69 K/uL (0.11-0.59); Monocytes % (auto) 7.4 %; Neutrophils # (auto) 5.87 K/uL (1.4-6.5); Neutrophils % (auto) 62.6 %; Platelet Count 158 K/uL (130-400); RDW Standard Deviation 45.5 fL (36.4-46.3); Red Blood Count 4.78 M/uL (4.2-5.4); White Blood Count 9.38 K/uL (4.8-10.8)
[2019-01-19 06:08] LABS: INR 1.3 (0.9-1.1); Prothrombin Time 13.1 Seconds (9.0-12.0)
[2019-01-19 06:31] LABS: BUN Creatinine Ratio 14.5 (10-20); Calcium 8.5 mg/dl (8.5-10.1); Creatinine Clr Calc Pharmacy 86.3 ml/min; Est GFR (African American) 69.7; Est GFR (Non-African American) 60.2; Magnesium 1.7 mg/dl (1.8-2.4); Potassium 3.8 mmol/L (3.5-5.1)
[2019-01-19] MEDS ORDERED: LISINOPRIL 10 MG TAB PO SCH (09:00)
[2019-01-19] MEDS: SACCHAROMYCES BOULARDII 250 MG CAP PO SCH (09:20)
[2019-01-19] MEDS: METOPROLOL TARTRATE 100 MG TAB PO SCH (09:21)
[2019-01-19] MEDS: ASPIRIN 81 MG ECTAB PO SCH (09:21)
[2019-01-19] MEDS: AMOXICILLIN/CLAVULANATE 875 MG TAB PO SCH (09:21)
[2019-01-19] MEDS: PANTOprazole 40 MG TAB PO SCH (09:21)
[2019-01-19] MEDS: ATORVASTATIN 20 MG TAB PO SCH (09:21)
[2019-01-19] MEDS: HEPARIN SOD 5,000 UNIT/0.5 ML VIAL SQ SCH (09:25)
[2019-01-19] MEDS: CHOLESTYRAMINE LIGHT 4 GM PKT PO SCH (10:32)
[2019-01-19] MEDS ORDERED: MAGNESIUM SULFATE / D5W 1 GM/100 ML BAG IV ONE (12:30)
--- NOTE | 2019-01-19 12:30 | Discharge Summary ---
Date of Service January 19, 2019 Admission HPI Per Admitting Provider 58-year-old morbidly obese female who developed vomiting several days ago followed by weakness. She had a nonproductive cough and chills. She presented to the ED today for evaluation. She appears to be septic with elevated lactic acid, volume depletion, acute renal failure, leukocytosis and hypotension. She did respond to IV fluids and she is not requiring pressor support at this time. She is alert and oriented at the time of my examination and is feeling better. She presented also with SVT which responded to a adenosine IV. Troponin is elevated which may be supply demand mismatch. She has no chest pain and there are no acute EKG changes. She is admitted for further evaluation and treatment. She has been given intravenous Zosyn and vancomycin in the ED. Hollis catheter will be placed. Urine studies are pending. She denies any hematemesis melena or hematochezia. She has no fever upon presentation. Principal Diagnosis Sepsis, Rapid atrial fibrillation, Suspected Pneumonia vs acute bronchitis Discharge Exam Constitutional WD/WN, vitals as above + morbidly obese; no acute distress Eyes PERRL, conjunctivae normal, anicteric sclerae ENMT external ear and nose normal, oropharynx normal Neck trachea midline, no thyromegaly Respiratory normal respiratory effort; no labored breathing Auscultation: no crackles and no rhonchi Cardiovascular RRR, no murmur, no edema Gastrointestinal (Abdomen) normal bowel sounds, soft, nontender, no hepatosplenomegaly Musculoskeletal Extremities: extremities normal to inspection; no cyanosis and no clubbing Skin no rashes, warm and dry Neurologic moves all extremities and awake; no focal motor deficits Psychiatric A+Ox3, euthymic affect Discharge Data Allergies Allergy/AdvReac Type Severity Reaction Status Date / Time No Known Allergies Allergy Verified 01/15/19 18:15 Consultations None Ordered Studies 01/15/19 16:55 CT abd pelvis wo con Stat CXR Hospital Course (1) Sepsis: Unknown source but likely Pulmonary--> Focal symptoms point toward pneumonia with shortness of breath, cough, and productive sputum; however, CXR on 01/15 show no focal consolidation. No urinary symptoms, and UA shows significant contamination and no bacteria. No reflex culture sent. CT a/p on 01/15 shows no acute process. Does show some distal esophageal thickening which will need outpatient review. Sepsis resolved She is a skilled nursing smoker and had sputum production which is now improved, could have been acute bacterial bronchitis - Blood cultures from 01/15 show no growth to date - Given improvement, continue abx. --> Zosyn switched to Augmentin on 01/17- finish out 7 day course for presumptive pneumonia (2) Atrial flutter: On presentation on 01/15, her HR was in the 170s and was labeled an SVT. After fluids, she was down to 120 bpm, and her EKG was afib/aflutter. Telemetry clearly shows spontaneous conversion from aflutter to sinus at 1:45am on 01/16. Has remained in sinus since then. Echo on 01/16 showed LVEF 55-60%. Grade II diastolic dysfunction. - Case was discussed with Dr. Mendez - Likely deserves ~1 month of anticoagulation with repeat EKG at her PCP to ensure she is not in afib still. If she has palpitations, irregular heart beat, or other signs of afib, she should be on anticoagulation indefinitely. - Continue beta-esha - started anticoagulation - Discussed with pharmacy. She is too obese for a DOAC/NOAC. Started warfarin on 01/17. As CHADs-Vasc is only 3 (female, DM, and HTN), she does not need bridging. - she has [facility] and PCP will follow her on Fri this week for INR INR was 1.3 on day of discharge and will go out with coumadin 7.5mg daily (3) Elevated troponin: Supply demand mismatch. Troponin was 0.115 on presentation, then went up to 0.8 before downtrending. No reports of chest pain, and EKG was non-ischemic. - Continue statin -dcd aspirin now that on coumadin - Would benefit from outpatient nuclear perfusion study per cardiology (4) Acute renal failure (ARF): Baseline Cr ~1.0. - Creatinine was 3.3 on admission -> Improved to baseline by 01/17 (5) Diabetes: A1c was 7.5% in 11/2018. Not on any home meds. - ADA diet. - Sliding scale insulin coverage was provided here (6) Morbid obesity: BMI greater than 40. - Does not qualify for DOAC -needs weight loss (7) Abnormal CT scan, esophagus: distal esophageal thickening seen on CT--> needs outpt EGD/follow up with GI (8) Hypertension: BPs were high and now improved with restarting home lisinopril which initially was held for VINH -continue lisinopril 10mg daily -continue metoprolol 100mg bid (9) Hypokalemia: replaced and resolved Replaced mildly low Magnesium as well (10) Diarrhea: Multiple loose stools on abx--> C. diff negative, no abd pain or fevers Diarrhea improved with cholestyramine powder and probiotics -cont cholestyramine bid x 1 week -continue probiotics (11) Current smoker: encouraged cessation -with wheezing here now improved with addition of albuterol HFA 2 puffs q6h -needs outpt PFTs -continue albuterol HFA prn after discharge (12) DVT prophylaxis: Warfarin for her aflutter/fib Dispo-stable for dc to home Total Time Total Time Spent Total Time Spent (In Minutes): >30 min Total Time Includes: Examination of the Patient, Discharge Planning and Medication Reconciliation Discharge Plan Discharge Items Patient Disposition: Home - Self-Care Reason For Visit: SEPSIS,ACUTE RENAL FAILURE Discharge Diagnosis: Sepsis, Bronchitis,Possible Pneumonia, Rapid atrial fibrillation Condition: Good Discharge Goals: Decrease discomfort, Diagnostic testing, Improve disease control, Learn about illness and Therapeutic intervention Activity: Resume your previous activity Activity Comment: Remain out of work until you see Dr. Luis Fernando Smith tomorrow. Bathing: No limitations Exercise/Sports: Gradually increase as tolerated Driving/Machine Use: No limitations Non-emergency contact: Primary Care Provider and Results Engineer Call non-emergency contact if: you have any medication questions, your symptoms worsen, your pain is not controlled, your pain is worsening and your temperature is above 100.5 Follow-up/Referrals: [facility] [Provider Group] - 01/21/19 10:45 am (Please, follow up at [facility] on January 21 at 11:00 am (arrive 10:45 am). *The clinic is located in the REAR of this hospital building. You will park BEHIND the hospital in [address] and enter via [facility]. If you have any questions, call the clinic at [phone].) Paris Sullivan PA-C [Physician Florist'S Decorator] - 02/04/19 1:00 pm (Please, follow up at [facility]iology Office with Paris Sullivan PA-C on February 04 at 1:00 pm. *The office is located in [address] of [facility]. This is the big building next to this hospital. If you need to change this appointment, call the office at [phone].) Romeo Lanza MD [Primary Care Provider] - 01/20/19 9:15 am (Please, follow up with Dr. Luis Fernando Smith on FridayJanuary 20 at 9:15 am. *If you need to change this appointment, call the office at [phone].) Diet: Carb Consistent or DM2 and Heart Healthy Addtl Provider Instructions: You were admitted with a lung infection and sepsis as well as a rapid irregular heart rhythm called atrial fibrillation. You were treated with antibiotics and had improvement. Please finish out the course of antibiotics. You can take the cholestyramine powder as needed for diarrhea. You can also use the albuterol inhaler as needed for cough or wheezing. It is VERY IMPORTANT that you QUIT SMOKING immediately. For your atrial fibrillation, you were started on a blood thinner called coumadin to prevent you from having a stroke. You will need to have Dr. Luis Fernando Smith check your PT/INR at your visit TOMORROW and give you instructions on what dose to take moving forward. Either Dr. Luis Fernando Smith or the Coumadin (Anticoagulation) Clinic can manage your coumadin dosing. Please follow up with the Results Engineer as scheduled for you. Prescriptions: New albuterol sulfate [Ventolin HFA] 90 mcg/actuation Hfa Aerosol Inhaler 2 puff inhalation Q6H PRN (Reason: shortness of breath or wheezing) Qty: 18 RF: 0 amoxicillin-pot clavulanate 875-125 mg Tablet 1 tab PO BIDM Qty: 4 RF: 0 warfarin 5 mg tablet 7.5 mg PO QPM Qty: 45 RF: 0 Cholestyramine Light 4 gram Powder In Packet 4 g PO BID@1000,2200 Qty: 14 RF: 0 Florastor 250 mg Capsule 250 mg PO DAILY Qty: 30 RF: 0 Continued atorvastatin 20 mg tablet 20 mg PO QAM RF: 0 lisinopril 10 mg tablet 10 mg PO QAM RF: 0 metoprolol tartrate 50 mg tablet 100 mg PO BID RF: 0 omeprazole 20 mg Tablet,Delayed Release (Dr/Ec) 20 mg PO QAM RF: 0 Discontinued aspirin 81 mg Tablet,Delayed Release (Dr/Ec) 81 mg PO QAM RF: 0 Stand-Alone Forms: [facility] Discharge Orders: Discharge Order (Routine); Ordered 01/19/19 Ordered By: Azeb Nunn Admission Data Admit Date/Time: 01/15/19 19:25 Attending Provider: Azeb Nunn Admit Provider: Max Mcmahon Primary Care Provider: Romeo Lanza Other Providers: Patrick Bosch ; Max Mcmahon Service: Medical Other Pending Studies at Discharge: No
== END 2019-01-19 14:23 | disposition home or self-care (01) | DRG 871 ==
LOC: ED 15:57 → SUATTDRO 19:25 → 2E 19:25 → 4W 01-17 16:00

== ENCOUNTER 2019-02-03 11:25 | Inpatient (IN) ==
[2019-02-03] MEDS ORDERED: SODIUM CHLORIDE 0.9% 1000ML 1,000 ML IV ONE (12:08)
--- NOTE | 2019-02-03 12:39 | XRay Report ---
XR chest 1V portable CLINICAL HISTORY: ro pna dyspnea COMPARISON STUDY: 01/15/2018 FINDINGS: The bones soft tissues and hemidiaphragms are normal. The cardiomediastinal silhouette is n ormal. The lungs are clear. The pulmonary vasculature is normal. IMPRESSION: Negative chest. The above report was generated using voice recognition software. It may contain grammatical, syntax or spelling errors. Electronically signed by: Dom Borjas M.D. 02/03/2019 12:38 PM
[2019-02-03 13:05] LABS: Basophils # (auto) 0.03 K/uL (0-0.2); Basophils % (auto) 0.2 %; Eosinophils # (auto) 0.05 K/uL (0-0.5); Eosinophils % (auto) 0.3 %; Hematocrit (blood only) 50.5 % (37-47); Hemoglobin 17.9 g/dL (12.0-16.0); Immature Granulocytes # (auto) 0.04 K/uL (0.00-0.02); Immature Granulocytes % (auto) 0.3 %; Lymphocytes % (auto) 26.4 %; Mean Corpuscular Hgb Conc 35.4 g/dL (32-36); Mean Corpuscular Volume 83.3 fL (80-100); Mean Platelet Volume 12.7 fL (7.4-10.4); Monocytes # (auto) 1.15 K/uL (0.11-0.59); Monocytes % (auto) 7.2 %; Neutrophils # (auto) 10.46 K/uL (1.4-6.5); Neutrophils % (auto) 65.6 %; Platelet Count 279 K/uL (130-400); RDW Coefficient of Variation 14.1 % (11.5-14.5); RDW Standard Deviation 42.8 fL (36.4-46.3); Red Blood Count 6.06 M/uL (4.2-5.4); White Blood Count 15.93 K/uL (4.8-10.8)
[2019-02-03 13:23] LABS: Albumin Level 3.3 gm/dl (3.4-5.0); Aspartate Aminotransferase 13 U/L (15-37); BUN Creatinine Ratio 15.2 (10-20); Bilirubin Direct < 0.1 mg/dl (0-0.2); Blood Urea Nitrogen 56 mg/dl (7-18); Calcium 8.4 mg/dl (8.5-10.1); Carbon Dioxide 23 mmol/L (21-32); Chloride 94 mmol/L (98-107); Creatinine Clr Calc Pharmacy 22.2 ml/min; Est GFR (African American) 14.9; Est GFR (Non-African American) 12.8; Glucose 133 mg/dl (70-99); Magnesium 1.8 mg/dl (1.8-2.4); Potassium 3.2 mmol/L (3.5-5.1); Sodium 132 mmol/L (136-145)
[2019-02-03 13:31] LABS: Partial Thromboplastin Ratio 2.4; Prothrombin Time > 90.0 Seconds (9.0-12.0)
[2019-02-03 13:35] LABS: INR > 10.4 (0.9-1.1); Partial Thromboplastin Time 65.1 Seconds (21.0-31.0)
[2019-02-03 13:36] LABS: Alanine Aminotransferase 15 U/L (12-78); Alkaline Phosphatase 114 U/L (45-117); Bilirubin,Total 0.4 mg/dl (0.2-1); Total Protein 8.3 gm/dl (6.4-8.2); Troponin I 0.104 ng/ml (0-0.045)
[2019-02-03 13:56] LABS: Appearance Urine Cloudy (Clear); Bilirubin Urine Negative (Negative); Blood Urine 1+ (Negative); Color Urine Yellow; Glucose Urine UA Negative (Negative); Ketones Urine Negative (Negative); Leukocyte Esterase Urine Negative (Negative); Nitrite Urine Negative (Negative); Protein Urine 1+ (Negative); Specific Gravity Urine >= 1.030 (1.000-1.030); Urobilinogen Urine Negative (Negative)
[2019-02-03 14:16] LABS: Epithelial Cell Urine >30 /lpf (0-5)
[2019-02-03 14:17] LABS: Bacteria Urine 1+ (Negative); RBC Urine 0-4 /hpf (0-4)
--- NOTE | 2019-02-03 14:35 | History & Physical Report ---
Date of Service February 03, 2019 Assessment & Plan (1) Sepsis: (2) Gastroenteritis: - Admit to PCU - LR at 125 ml/hr continuous for now - Subjective fever/chills/sweats, N/V diarrhea, elevated WBC, borderline hypotensive. - No known sick contacts, raw foods consumption -Was recently on IV antibiotics, and p.o. antibiotics for suspected pneumonia during last admission, will check C. difficile for rule out -WBC equal to 15.9 with a left shift, this is elevated in comparison to date of discharge from most recent hospital stay on 01/19/2019 - CT abd/pelvis negative for diverticulitis, but can consider this if c diff is negative and would then start empiric abx. -Flu swab for recent respiratory issues- no cough or sputum production now -MRSA swab, will consider vancomycin IV if positive with recent hospital stay, po vanc if c.diff -Lactic acid negative at 1.6 -Follow blood culture x2 -UA completed, appears dirty, but not infected, consider recheck once hydrated, IV Zosyn on board will cover. no urinary sx. (3) VINH (acute kidney injury): -Elevated BUN at 56, creatinine 3.66, This is increased compared to previous results with creatinine of 0.98 most recently on day of discharge -LR on board -Follow a.m. PRP (4) Diarrhea: -Likely secondary to gastroenteritis or else c diff -C. difficile culture ordered, highly possible with history of IV antibiotic use and recent hospital stay (5) Hypokalemia: -Slightly depressed at 3.2, will order po and iv supplement (6) Supratherapeutic INR: (7) Atrial fibrillation: - Holding coumadin as INR supratherapeutic >10, last dose of Coumadin was yesterday at noon. Patient has been taking 7.5 mg daily. Her last check was on 01/28/2019 where it was noted to be 4.0,she was instructed to skip that day and then resumed normal regimen on 01/29/19. - Order 5 mg PO Vit K now - Recheck INR at 1900 with next troponin - Anticoagulated per cardiology for at least 1 month total for developing aflutter/afib during last hospital stay (8) Hypertension: - Holding lisinopril with borderline low BP and giving fluids as above - Order metoprolol tartrate 12.5 mg PO BID starting now as pt missed meds this am. Monitor response tonight, holding home dosing of metoprolol tartrate 100 mg BID - consider increasing if HR not controlled in am. (9) Elevated troponin: - Elevated at 0.104, this is decreased compared to last hospitalization where troponin was 0.323. This is likely secondary to demand ischemia with VINH and dehydration. -trend x2 more sets (10) Hyperlipidemia: - Cont atorvastatin 20 mg QAM (11) Diabetes: - Last A1C =7.5 last month, no need to recheck - ISS with Accu-Cheks - Patient is not on any oral anti-glycemic's or insulin, diet and exercise to be encouraged -Consult shotweld operator (12) Sarcopenia: - Albumin 3.3, would recommend increased protein diet with limiting carbs for more HH/DM diet with new onset DM II - Consider Boost breeze glucose control supplements (13) GERD (gastroesophageal reflux disease): -History of such, continue omeprazole 20 mg every morning (14) Morbid obesity: - BMI of 49.2, diet and exercise to be encouraged upon discharge - HH/DM diet (15) Current smoker: - Cessation encouraged - Pt has been smoking 5-6 cig daily compared to her baseline of 1ppd. She is not actively trying to quit, just has not felt up to it. - Nicotine patch ordered (16) DVT prophylaxis: - teds, holding coumadin with supratherapeutic INR Disposition: From home, lives with cousin, likely to be here fore at least 2 midnights History of Present Illness Primary Care Provider: Romeo Lanza MD This is a 58 yo F with PMx of atrial flutter/fib on coumadin, HTN, elevated troponin, DM type II, acute renal failure, morbid obesity, who was recently admitted for bout of sepsis from 01/15 to 01/19 where it appeared that she was treated for pneumonia due to her sx of sob, cough and productive sputum with IV zosyn and vanc initially, which was then switched to Augment on 01/17 which completed a 7 day course for the presumptive pneumonia. The patient confirms that she did finish the full course and denies any acute shortness of breath or respiratory complaints presently. The patient presents today with nausea and vomiting which started Friday night, denies hematemesis, coffee ground emesis or blood streaking in emesis. She admits to having fever, sweats and chills on and off over past 2 days, but did not take her temp. She did not take tylenol or nsaids to mask a fever. She has not been eating or drinking very well at all. Patient denies any known sick contacts, consumption of raw or undercooked foods, picnic foods, or known exposures. She reports feeling slightly weak and feels generalized soreness throughout her abdomen, which slightly localized. She is also having diarrhea which began around the same timeframe, denies any hematochezia or melena. Patient notes that she was able to take her medications on Friday and Friday however has been unable to do so today. She has not been smoking as much as her normal, only 5 to 6 cigarettes/day compared to 1 PPD. Allergies Allergy/AdvReac Type Severity Reaction Status Date / Time No Known Allergies Allergy Verified 02/03/19 11:46 Home Medications Home Medications Medication Instructions Recorded Confirmed Type atorvastatin 20 mg PO QAM 01/15/19 02/03/19 History lisinopril 10 mg PO QAM 01/15/19 02/03/19 History metoprolol tartrate 100 mg PO BID 01/15/19 02/03/19 History omeprazole 20 mg PO QAM 01/15/19 02/03/19 History Saccharomyces boulardii [Florastor] 250 mg PO DAILY #30 cap 01/19/19 02/03/19 Rx albuterol sulfate [Ventolin HFA] 2 puff INHALATION Q6H PRN #18 gm 01/19/19 02/03/19 Rx warfarin 7.5 mg PO QPM #45 tab 01/19/19 02/03/19 Rx Past Med/Surg History Medical History Morbid obesity (Chronic) Obese (Chronic) Vomiting and diarrhea (Acute) Abdominal pain (Acute) Vomiting and diarrhea (Acute) Hypertension (Chronic) Diabetes (Chronic) Hyperlipidemia (Chronic) Acute diverticulitis (Acute 07/17/14) Tachycardia (Acute 08/08/14) Hypertension Nausea, vomiting, and diarrhea (Acute) GERD (gastroesophageal reflux disease) (Chronic) Dehydration (Acute) Family History Other No known problems Social History Preferred Language: Venezuelan Communication Ability: Effective File Keeper Required: No Beliefs That Will Affect Care: None marital status: Single Current Living Situation: Family current occupational status: unemployed Other Information That Helps Us Care for You: No Feels Safe at Home: Yes Safety Concerns: Feels Safe At This Time Smoking Status: Current every day smoker Tobacco Type: cigarettes ; Do You Dip or Chew Tobacco: No ; Second Hand Exposure: Yes ; Tobacco Cessation Education Requested by Patient: Yes Hx Alcohol Use: No Hx Substance Use: No Review of Systems Review of Systems: Constitutional: + fever, sweats and chills Eyes: No diplopia, no worsening or blurred vision ENT: normal hearing, no trouble swallowing Respiratory: No cough, sputum, dyspnea at rest or on exertion Cardiovascular: No chest pain, tightness or palpitations Abdomen: As per HPI. Musculoskeletal: No joint pain, calf pain, swelling Neurologic: No weakness, numbness/tingling, or balance problems Psychiatric: No anxiety or depression Skin: No rash or itch Physical Exam Physical Exam: General: awake, alert, no apparent distress, smells of tobacco smoke, +obese Head: Normocephalic, atraumatic ENT: PERRL, EOMI, no pharyngeal exudate, mucous membranes moist, + missing multiple teeth Chest: Clear to auscultation, on room air, no wheezing rales or rhonchi Cardiac: Regular rate and rhythm, HR in the 80s, no murmur, no JVD, normal peripheral pulses, good capillary refill Abdominal: NABS x 4 quadrants, soft, nontender to palpation, no rebound, guarding or tenderness Extremities: Normal inspection, no peripheral edema or erythema, calfs nontender to palpation Psych: Normal mood and affect Neuro: AAO x 3, no motor deficits, speech is clear, no peripheral sensory deficits Results & Data Vital Signs (Past 12 Hours) Vital Signs Temp Pulse Pulse Resp BP BP Pulse Ox 02/03/19 12:21 90 20 103/76 95 02/03/19 12:20 90 17 95 02/03/19 12:05 93 H 18 103/76 97 02/03/19 11:28 36.7 C 98 H 20 136/75 98 Diagnostic Findings XR chest 1V portable CLINICAL HISTORY: ro pna dyspnea COMPARISON STUDY: 01/15/2018 FINDINGS: The bones soft tissues and hemidiaphragms are normal. The cardiomediastinal silhouette is normal. The lungs are clear. The pulmonary vasculature is normal. IMPRESSION: Negative chest. ECG Additional Comments: 03-FEB-2019 11:58:22 [facility]-EDSTAT ROUTINE RETRIEVAL Normal sinus rhythm Possible Left atrial enlargement Borderline ECG When compared with ECG of 17-JAN-2019 06:36, Questionable change in QRS axis 25mm/s 10mm/mV 150Hz 9.0.8 12SL 241 STEPHON: 16 Referred by: REFERRED SELF Unconfirmed Vent. rate 83 BPM IN interval 162 ms QRS duration 82 ms QT/QTc 408/479 ms P-R-T axes 73 -12 63 Code Status & VTE Plan Code Status Full Code- discussed with the pt at bedside Supervising Physician Co-Signing Physician Notes I have seen the patient with Abby Gtz and agree with exam , assessment and plan. PG Care Time/CCT Total # of Minutes Spent Total Time Spent with Patient: Total time spent is greater than 50% in coordination of care (as documented) at patient's floor/unit and/or counseling patient: (1) Atrial fibrillation Atrial fibrillation type: unspecified Qualified Code(s): I48.91 - Unspecified atrial fibrillation (2) Sepsis Sepsis type: sepsis due to unspecified organism Qualified Code(s): A41.9 - Sepsis, unspecified organism
--- NOTE | 2019-02-03 14:46 | CT Scan Report ---
CT SCAN OF THE ABDOMEN AND PELVIS WITHOUT CONTRAST CLINICAL HISTORY: Diffuse abdominal pain, nausea, vomiting. COMPARISON STUDY: 01/15/2019 TECHNIQUE: CT scan of the abdomen and pelvis was performed from the lung bases to the proximal femurs . Images are reviewed in the axial, sagittal, and coronal planes. IV contrast was not administered fo r this examination. A dose lowering technique was utilized adhering to the principles of ALARA. CT DOSE: 1701.52 mGy.cm FINDINGS: Lower chest: The heart is normal in size and configuration, without pericardial effusion. The lung ba ses and pleural spaces are clear. There is borderline thickening of the distal esophagus, similar to the preceding study Liver: The unenhanced liver is normal in size, contour, and attenuation. There is no intrahepatic miguel iary ductal dilatation. Gallbladder: Surgically absent Spleen: Normal in size and attenuation. Pancreas: Unremarkable. Adrenal glands: There is mild left adrenal gland thickening similar to the prior study Kidneys: There is a nonobstructing 2 mm left renal calculus. There is no hydronephrosis. No ureteral or bladder calculi are visualized. Bowel: There are no transition zones to indicate bowel obstruction. By history the appendix is surgic ally absent. There is colonic diverticulosis. There are no acute peridiverticular inflammatory change s. Peritoneum: There is no intraperitoneal free air or abdominal ascites. There is a tiny fat-containing umbilical hernia Vasculature: The abdominal aorta is normal in course and caliber. Adenopathy: None. Pelvic viscera: There is a contour deformity uterine fundus, likely secondary to a fibroid Skeletal structures: No destructive osseous lesions are seen. IMPRESSION: 1. No acute intra-abdominal or pelvic findings 2. No evidence of bowel obstruction. No evidence of free air 3. Surgically absent gallbladder and appendix 4. Nonobstructing left renal calculus 5. Fibroid uterus 6. Diverticulosis. No evidence of acute diverticulitis 7. Mild nonspecific distal esophageal thickening Electronically signed by: Ant Blandon M.D. 02/03/2019 2:44 PM
[2019-02-03] MEDS: LACTATED RINGER'S 1,000 ML IV SCH ×2 (14:56→23:31)
[2019-02-03] MEDS ORDERED: PHYTONADIONE 5 MG TAB PO STA (15:17)
[2019-02-03] MEDS ORDERED: CARBOHYDRATES FOR HYPOGLYCEMIA PO PRN (16:34)
[2019-02-03] MEDS ORDERED: GLUCOSE 40% GEL 15 GM TUBE PO PRN (16:34)
[2019-02-03] MEDS ORDERED: POTASSIUM CHLORIDE 20 MEQ TABCR PO STA (16:34)
[2019-02-03] MEDS ORDERED: ACETAMINOPHEN 325 MG TAB PO PRN (16:34)
[2019-02-03] MEDS ORDERED: GLUCAGON FOR INJ 1 MG VIAL SQ PRN (16:34)
[2019-02-03] MEDS ORDERED: PIPERACILL/TAZOBAC CONSULT ACTIVE PRN (16:34)
[2019-02-03] MEDS ORDERED: GLUCOSE 10 TABS/TUBE PO PRN (16:34)
[2019-02-03] MEDS ORDERED: ONDANSETRON INJ 2 MG/ML 2 ML VIAL IV PRN (16:34)
[2019-02-03] MEDS ORDERED: DEXTROSE 50% 50 ML SYRINGE IV PRN (16:34)
[2019-02-03] MEDS ORDERED: PIPERACILLIN/TAZOBACTAM 4.5 GM in DEXTROSE 5% 100 ML IV ONE (17:00)
[2019-02-03] MEDS: POTASSIUM CHLORIDE / WTR 10 MEQ/100 ML PLCT IV SCH ×2 (17:08→18:25)
[2019-02-03] MEDS: METOPROLOL TARTRATE 25 MG TAB PO SCH ×2 (17:21→21:39)
[2019-02-03] MEDS: NICOTINE 14 MG/24 HR PATCH TD SCH (17:22)
[2019-02-03] MEDS: INSULIN ASPART 100 UNITS/ML 3 ML PEN SC SCH ×2 (17:25→21:33)
--- NOTE | 2019-02-03 18:06 | Emergency Department Note ---
Entered by Shayy Junior acting as a scribe for History of Present Illness General Chief complaint: Vomiting Stated complaint: HOT/SWEATY,WEAKNESS,VOMITING Time Seen by Provider: 02/03/19 12:07 Source: patient History of Present Illness Onset (ago): day(s) (this morning) Location: abdomen Severity: similar to prior episodes (SVT) Pain Consistency: + other (episode) Quality: + other (nausea) Associated symptoms: + denies other symptoms (hematuria, dysuria), + diaphoresis, + fever/chills (chills) and + other (hot flashes); no chest pain, no nausea/vomiting (vomiting) and no shortness of breath The patient is a 58 year old female who presents to the Emergency Room with complaints of an episode of nausea starting this morning. The patient states that she has a history of SVT that was recently diagnosed. She reports that this morning she started to feel like she was having another episode. She states that she been having nausea, hot flashes with diaphoresis, and chills. She notes that she did have palpitations when it first started, but not anymore. The patient denies missing any of her medications, vomiting, hematuria, dysuria, chest pain, and shortness of breath. Home Medications Home Medications Medication Instructions Recorded Confirmed Type atorvastatin 20 mg PO QAM 01/15/19 02/03/19 History lisinopril 10 mg PO QAM 01/15/19 02/03/19 History metoprolol tartrate 100 mg PO BID 01/15/19 02/03/19 History omeprazole 20 mg PO QAM 01/15/19 02/03/19 History Saccharomyces boulardii [Florastor] 250 mg PO DAILY #30 cap 01/19/19 02/03/19 Rx albuterol sulfate [Ventolin HFA] 2 puff INHALATION Q6H PRN #18 gm 01/19/19 02/03/19 Rx warfarin 7.5 mg PO QPM #45 tab 01/19/19 02/03/19 Rx Allergies Allergy/AdvReac Type Severity Reaction Status Date / Time No Known Allergies Allergy Verified 02/03/19 11:46 Past Med/Surg History Medical History Morbid obesity (Chronic) Obese (Chronic) Vomiting and diarrhea (Acute) Abdominal pain (Acute) Vomiting and diarrhea (Acute) Hypertension (Chronic) Diabetes (Chronic) Hyperlipidemia (Chronic) Acute diverticulitis (Acute 07/17/14) Tachycardia (Acute 08/08/14) Hypertension Nausea, vomiting, and diarrhea (Acute) GERD (gastroesophageal reflux disease) (Chronic) Dehydration (Acute) Family History Other No known problems Social History Preferred Language: Cymraes Communication Ability: Effective Chief Executive Or Managing Director Required: No Beliefs That Will Affect Care: None marital status: Single Current Living Situation: Family current occupational status: unemployed Other Information That Helps Us Care for You: No Feels Safe at Home: Yes Safety Concerns: Feels Safe At This Time Smoking Status: Current every day smoker Tobacco Type: cigarettes ; Do You Dip or Chew Tobacco: No ; Second Hand Exposure: Yes ; Tobacco Cessation Education Requested by Patient: Yes Hx Alcohol Use: No Hx Substance Use: No Review of Systems See HPI for pertinent positives & negatives. and A total of 10 systems reviewed and were otherwise negative Physical Exam Vital Signs Vital Signs - 24 hr 02/03/19 11:28 02/03/19 12:05 02/03/19 12:20 Temperature 36.7 C Temperature Source Oral Sepsis Recent Fever Within 48 Hours No Sepsis New/Unexplained Change in Mental Status No Sepsis Action Taken by Nursing No Action Required Pulse Rate 98 H 93 H 90 Pulse Rate [Apical] Pulse Rate from SpO2 Sensor 92 H Pulse Rhythm Regular Pulse Rhythm [Apical] Pulse Strength Normal Respiratory Rate 20 18 17 Respiratory Effort / Characteristics Respiratory Depth Respiratory Pattern Blood Pressure 136/75 103/76 Blood Pressure [Right Arm] Blood Pressure Mean 95 85 Blood Pressure Mean [Right Arm] Blood Pressure Position Sitting Blood Pressure Position [Right Arm] Pulse Oximetry 98 97 95 Oxygen Delivery Method Room Air 02/03/19 12:21 02/03/19 14:00 Temperature Temperature Source Sepsis Recent Fever Within 48 Hours Sepsis New/Unexplained Change in Mental Status Sepsis Action Taken by Nursing Pulse Rate Pulse Rate [Apical] 90 90 Pulse Rate from SpO2 Sensor Pulse Rhythm Pulse Rhythm [Apical] Regular Regular Pulse Strength Respiratory Rate 20 20 Respiratory Effort / Characteristics Non-Labored Non-Labored Respiratory Depth Normal Normal Respiratory Pattern Regular Regular Blood Pressure Blood Pressure [Right Arm] 103/76 103/76 Blood Pressure Mean Blood Pressure Mean [Right Arm] 85 85 Blood Pressure Position Blood Pressure Position [Right Arm] Sitting Lying Pulse Oximetry 95 95 Oxygen Delivery Method Room Air Room Air GENERAL: She is oriented to person, place, and time. She appears well-developed and well-nourished. She does not appear distressed. She is morbidly obese. HENT: Exam performed. - Head: Normocephalic and atraumatic. - Right Ear: External ear normal. No mastoid tenderness. - Left Ear: External ear normal. No mastoid tenderness. - Mouth/Throat: Multiple missing teeth. The oropharynx is clear and moist. No trismus in the jaw. No dental abscesses or uvula swelling. No oropharyngeal exudate or tonsillar abscesses. EYES: Conjunctivae and EOM are normal. Pupils are equal, round, and reactive to light. Right eye exhibits no discharge. Left eye exhibits no discharge. No scleral icterus. NECK: Normal range of motion. Neck supple. No JVD present. No spinous process tenderness present. No carotid bruit present. No rigidity. No tracheal deviation and normal range of motion present. No Brudzinski's sign and no Kernig's sign noted. CV: Normal rate, regular rhythm, normal heart sounds and intact distal pulses. There is no peripheral edema. Palpable radial pulses bue. PULM/CHEST: Effort normal and breath sounds normal. No respiratory distress. No stridor. She has no wheezes. She has no rales. Chest Wall: She exhibits no tenderness. ABD: The abdomen is soft. Bowel sounds are normal. She has no distension. No mass is present. There is no tenderness. There is no rebound, no guarding, no Treviño's sign and no tenderness at McBurney's point. Rovsig negative MUSC/SKEL: Normal range of motion. There is no peripheral edema, tenderness or deformity. LYMPH: No cervical adenopathy. NEURO: She is alert and oriented to person, place, and time. She has normal strength. No cranial nerve deficit or sensory deficit. Coordination and gait normal. GCS eye subscore is 4. GCS verbal subscore is 5. GCS motor subscore is 6. cerbellar tests wnl. SKIN: Skin is warm and dry. She is not diaphoretic. PSYCH: She has a normal mood and affect. Her behavior is normal. Judgment and thought content normal. Course 1207: The EMR was reviewed at this time. The patient was discharged from the hospital on January 19 after being admitted on January 15. She was admitted for SVT, acute renal failure, dehydration, and hypotension. Her chest x-ray was negative. Her blood cultures were negative. Her urinalysis was contaminated. Her CT of abdomen was negative. Her heart rate was in the 170s when she was first seen here. She had an elevated troponin and creatinine of 3.3 on admission. Her baseline creatinine was 1. She was started on Coumadin. 1211: Past medical records reviewed. The patient was evaluated in room B3B. A complete history and physical exam was performed. 1354: Vital signs stable. Labs show leukocytosis of 15.9 and a hemoglobin of 17.9. Her INR is greater than 10.4. Her creatinine elevated again at 3.6. This is 3 times her baseline and what she was discharged with of 1. Her lactic acid is within normal limits. The patient's troponin is elevated at 0.104, but thought to be due to her acute kidney injury. We will trend the troponin. no anticoagulation will be started at this time especially since her INR is greater than 10.4. The patient will be continued with aggressive fluid hydration. I di scussed the patient's case with Dr. Walker Hospitalist. She will evaluate the patient for further management and is asking for a CT of the abdomen without contrast be done. Consultations Consultation #1: I discussed the patient's case with Dr. Walker Hospitalist. She will evaluate the patient for further management and is asking for a CT of the abdomen without contrast be done. Time: 13:54 Administered Medications Lactated Ringer's (Lr) 1,000 mls @ 125 mls/hr IV .Q8H AKHIL Stop: 03/05/19 14:59 Last Admin: 02/03/19 14:56 Dose: 125 mls/hr Documented by: [id number] Potassium Chloride (K Quirino / Wtr) 10 meq in 100 mls @ 100 mls/hr IV Q1H AKHIL Stop: 02/03/19 18:33 Last Admin: 02/03/19 17:08 Dose: 100 mls/hr Documented by: [id number] Insulin Aspart (Novolog Flexpen) 0 units SC ACHS AKHIL Stop: 03/05/19 16:33 Last Admin: 02/03/19 17:25 Dose: 2 units Documented by: [id number] Cosigned by: [id number] Metoprolol Tartrate (Lopressor) 12.5 mg PO BID AKHIL Stop: 03/05/19 16:04 Last Admin: 02/03/19 17:21 Dose: 12.5 mg Documented by: [id number] Nicotine (Nicoderm Cq) 14 mg TD QAM AKHIL Stop: 03/05/19 16:33 Last Admin: 02/03/19 17:22 Dose: 14 mg Documented by: [id number] Discontinued Medications Sodium Chloride (Nss 1000ml) 1,000 mls @ 999 mls/hr IV .Q1H1M ONE Stop: 02/03/19 13:08 Last Infusion: 02/03/19 13:23 Dose: 0 mls/hr Documented by: [id number] Admin: 02/03/19 12:22 Dose: 999 mls/hr Documented by: [id number] Piperacillin Sod/Tazobactam (Sod 4.5 gm/ Dextrose) 120 mls @ 200 mls/hr IV NOW ONE; Protocol Stop: 02/03/19 17:35 Last Admin: 02/03/19 17:22 Dose: 200 mls/hr Documented by: [id number] Phytonadione (Mephyton) 5 mg PO NOW STA Stop: 02/03/19 15:18 Last Admin: 02/03/19 15:28 Dose: 5 mg Documented by: [id number] Potassium Chloride (Klor-Con M20) 20 meq PO NOW STA Stop: 02/03/19 16:35 Last Admin: 02/03/19 17:22 Dose: 20 meq Documented by: [id number] Medical Decision Making Medical Records Attestation: I reviewed the patient's medical records. Home Medications Current Medication List: was personally reviewed by me Laboratory Data Attestation: I reviewed the patient's lab results. Result diagrams: 02/03/19 12:50 02/03/19 12:50 Lab Results 02/03/19 02/03/19 02/03/19 Range/Units 12:50 12:50 12:50 WBC 15.93 H (4.8-10.8) K/uL RBC 6.06 H (4.2-5.4) M/uL Hgb 17.9 H (12.0-16.0) g/dL Hct 50.5 H (37-47) % MCV 83.3 (80-100) fL MCH 29.5 (25-34) pg MCHC 35.4 (32-36) g/dL RDW Std Deviation 42.8 (36.4-46.3) fL RDW Coeff of Jaswinder 14.1 (11.5-14.5) % Plt Count 279 (130-400) K/uL MPV 12.7 H (7.4-10.4) fL Immature Gran % (Auto) 0.3 % Neut % (Auto) 65.6 % Lymph % (Auto) 26.4 % [place] % (Auto) 7.2 % Eos % (Auto) 0.3 % Baso % (Auto) 0.2 % Immature Gran # (Auto) 0.04 H (0.00-0.02) K/uL Neut # (Auto) 10.46 H (1.4-6.5) K/uL Lymph # (Auto) 4.20 H (1.2-3.4) K/uL [place] # (Auto) 1.15 H (0.11-0.59) K/uL Eos # (Auto) 0.05 (0-0.5) K/uL Baso # (Auto) 0.03 (0-0.2) K/uL PT (9.0-12.0) Seconds INR (0.9-1.1) APTT (21.0-31.0) Seconds PTT Ratio Sodium 132 L (136-145) mmol/L Potassium 3.2 L (3.5-5.1) mmol/L Chloride 94 L (98-107) mmol/L Carbon Dioxide 23 (21-32) mmol/L Anion Gap 15.0 H (3-11) BUN 56 H (7-18) mg/dl Creatinine 3.66 H (0.6-1.2) mg/dl Est Cr Clr Drug Dosing 22.2 ml/min Est GFR ( Amer) 14.9 Est GFR (Non-Af Amer) 12.8 BUN/Creatinine Ratio 15.2 (10-20) Glucose 133 H (70-99) mg/dl Lactate 1.6 (0.4-2.0) mmol/L Calcium 8.4 L (8.5-10.1) mg/dl Magnesium 1.8 (1.8-2.4) mg/dl Total Bilirubin 0.4 (0.2-1) mg/dl Direct Bilirubin < 0.1 (0-0.2) mg/dl AST 13 L (15-37) U/L ALT 15 (12-78) U/L Alkaline Phosphatase 114 (45-117) U/L Troponin I 0.104 H* (0-0.045) ng/ml Total Protein 8.3 H (6.4-8.2) gm/dl Albumin 3.3 L (3.4-5.0) gm/dl Lipase 56 L (73-393) U/L Urine Color Urine Appearance (Clear) Urine pH (4.5-7.5) Ur Specific [place] (1.000-1.030) Urine Protein (Negative) Urine Glucose (UA) (Negative) Urine Ketones (Negative) Urine Blood (Negative) Urine Nitrite (Negative) Urine Bilirubin (Negative) Urine Urobilinogen (Negative) Ur Leukocyte Esterase (Negative) Urine RBC (0-4) /hpf Urine WBC (0-5) /hpf Ur Epithelial Cells (0-5) /lpf Urine Bacteria (Negative) 02/03/19 02/03/19 Range/Units 12:50 13:40 WBC (4.8-10.8) K/uL RBC (4.2-5.4) M/uL Hgb (12.0-16.0) g/dL Hct (37-47) % MCV (80-100) fL MCH (25-34) pg MCHC (32-36) g/dL RDW Std Deviation (36.4-46.3) fL RDW Coeff of Jaswinder (11.5-14.5) % Plt Count (130-400) K/uL MPV (7.4-10.4) fL Immature Gran % (Auto) % Neut % (Auto) % Lymph % (Auto) % [place] % (Auto) % Eos % (Auto) % Baso % (Auto) % Immature Gran # (Auto) (0.00-0.02) K/uL Neut # (Auto) (1.4-6.5) K/uL Lymph # (Auto) (1.2-3.4) K/uL [place] # (Auto) (0.11-0.59) K/uL Eos # (Auto) (0-0.5) K/uL Baso # (Auto) (0-0.2) K/uL PT > 90.0 H (9.0-12.0) Seconds INR > 10.4 H* (0.9-1.1) APTT 65.1 H* (21.0-31.0) Seconds PTT Ratio 2.4 Sodium (136-145) mmol/L Potassium (3.5-5.1) mmol/L Chloride (98-107) mmol/L Carbon Dioxide (21-32) mmol/L Anion Gap (3-11) BUN (7-18) mg/dl Creatinine (0.6-1.2) mg/dl Est Cr Clr Drug Dosing ml/min Est GFR ( Amer) Est GFR (Non-Af Amer) BUN/Creatinine Ratio (10-20) Glucose (70-99) mg/dl Lactate (0.4-2.0) mmol/L Calcium (8.5-10.1) mg/dl Magnesium (1.8-2.4) mg/dl Total Bilirubin (0.2-1) mg/dl Direct Bilirubin (0-0.2) mg/dl AST (15-37) U/L ALT (12-78) U/L Alkaline Phosphatase (45-117) U/L Troponin I (0-0.045) ng/ml Total Protein (6.4-8.2) gm/dl Albumin (3.4-5.0) gm/dl Lipase (73-393) U/L Urine Color Yellow Urine Appearance Cloudy A (Clear) Urine pH 5.0 (4.5-7.5) Ur Specific [place] >= 1.030 (1.000-1.030) Urine Protein 1+ H (Negative) Urine Glucose (UA) Negative (Negative) Urine Ketones Negative (Negative) Urine Blood 1+ H (Negative) Urine Nitrite Negative (Negative) Urine Bilirubin Negative (Negative) Urine Urobilinogen Negative (Negative) Ur Leukocyte Esterase Negative (Negative) Urine RBC 0-4 (0-4) /hpf Urine WBC 5-10 H (0-5) /hpf Ur Epithelial Cells >30 H (0-5) /lpf Urine Bacteria 1+ H (Negative) Imaging Data Radiologist's Impression: Radiology results as stated below per my review and the radiologist's interpretation: XR chest 1V portable CLINICAL HISTORY: ro pna dyspnea COMPARISON STUDY: 01/15/2018 FINDINGS: The bones soft tissues and hemidiaphragms are normal. The cardiomediastinal silhouette is normal. The lungs are clear. The pulmonary vasculature is normal. IMPRESSION: Negative chest. The above report was generated using voice recognition software. It may contain grammatical, syntax or spelling errors. Electronically signed by: Dom Borjas M.D. 02/03/2019 12:[address] SCAN OF THE ABDOMEN AND PELVIS WITHOUT CONTRAST CLINICAL HISTORY: Diffuse abdominal pain, nausea, vomiting. COMPARISON STUDY: 01/15/2019 TECHNIQUE: CT scan of the abdomen and pelvis was performed from the lung bases to the proximal femurs. Images are reviewed in the axial, sagittal, and coronal planes. IV contrast was not administered for this examination. A dose lowering technique was utilized adhering to the principles of ALARA. CT DOSE: 1701.52 mGy.cm FINDINGS: Lower chest: The heart is normal in size and configuration, without pericardial effusion. The lung bases and pleural spaces are clear. There is borderline thickening of the distal esophagus, similar to the preceding study Liver: The unenhanced liver is normal in size, contour, and attenuation. There is no intrahepatic biliary ductal dilatation. Gallbladder: Surgically absent Spleen: Normal in size and attenuation. Pancreas: Unremarkable. Adrenal glands: There is mild left adrenal gland thickening similar to the prior study Kidneys: There is a nonobstructing 2 mm left renal calculus. There is no hydronephrosis. No ureteral or bladder calculi are visualized. Bowel: There are no transition zones to indicate bowel obstruction. By history the appendix is surgically absent. There is colonic diverticulosis. There are no acute peridiverticular inflammatory changes. Peritoneum: There is no intraperitoneal free air or abdominal ascites. There is a tiny fat-containing umbilical hernia Vasculature: The abdominal aorta is normal in course and caliber. Adenopathy: None. Pelvic viscera: There is a contour deformity uterine fundus, likely secondary to a fibroid Skeletal structures: No destructive osseous lesions are seen. IMPRESSION: 1. No acute intra-abdominal or pelvic findings 2. No evidence of bowel obstruction. No evidence of free air 3. Surgically absent gallbladder and appendix 4. Nonobstructing left renal calculus 5. Fibroid uterus 6. Diverticulosis. No evidence of acute diverticulitis 7. Mild nonspecific distal esophageal thickening Electronically signed by: Ant Blandon M.D. 02/03/2019 2:44 PM ECG Data Attestation: I personally reviewed and interpreted this ECG as follows: Indication: nausea Rate (beats per minute): 83 Rhythm: sinus rhythm Findings: + other (VA, QRS, and QT-c intervals are within normal limits; peaked T waves); no ST depression and no ST elevation Blood Pressure Blood Pressure Findings: Normal blood pressure Blood Pressure Disposition: did not require urgent referral MDM Narrative 1207: The EMR was reviewed at this time. The patient was discharged from the hospital on January 19 after being admitted on January 15. She was admitted for SVT, acute renal failure, dehydration, and hypotension. Her chest x-ray was negative. Her blood cultures were negative. Her urinalysis was contaminated. Her CT of abdomen was negative. Her heart rate was in the 170s when she was first seen here. She had an elevated troponin and creatinine of 3.3 on admission. Her baseline creatinine was 1. She was started on Coumadin. 1211: Past medical records reviewed. The patient was evaluated in room B3B. A complete history and physical exam was performed. 1354: Vital signs stable. Labs show leukocytosis of 15.9 and a hemoglobin of 17.9. Her INR is greater than 10.4. Her creatinine elevated again at 3.6. This is 3 times her baseline and what she was discharged with of 1. Her lactic acid is within normal limits. The patient's troponin is elevated at 0.104, but thought to be due to her acute kidney injury. We will trend the troponin. no anticoagulation will be started at this time especially since her INR is greater than 10.4. The patient will be continued with aggressive fluid hydration. I discussed the patient's case [facility]. She will evaluate the patient for further management and is asking for a CT of the abdomen without contrast be done. Impression & Plan VINH (acute kidney injury), Elevated troponin Discharge Plan Visit Data *Final* Discharge Date/Time: 02/03/19 16:19 Chief Complaint: Vomiting Stated Complaint: HOT/SWEATY,WEAKNESS,VOMITING ED Provider: Govind Figueroa Discharge Problem: VINH (acute kidney injury), Elevated troponin Patient Disposition: Admitted As Inpatient Discharge Instructions Interventions: ED Discharge Assessment Last Done: 02/03/19 16:19 The scribe's documentation has been prepared under my direction and personally reviewed by me in its entirety. I confirm that the note above accurately reflects all work, treatment, procedures, and medical decision making performed by me.
[2019-02-03 20:05] LABS: INR > 10.4 (0.9-1.1); Prothrombin Time > 90.0 Seconds (9.0-12.0)
[2019-02-03] MEDS: PIPERACILLIN/TAZOBACTAM 4.5 GM in DEXTROSE 5% 100 ML IV SCH (21:39)
[2019-02-04 03:17] LABS: Hematocrit (blood only) 43.4 % (37-47); Hemoglobin 15.2 g/dL (12.0-16.0); Mean Corpuscular Volume 82.7 fL (80-100); Mean Platelet Volume 11.5 fL (7.4-10.4); Platelet Count 227 K/uL (130-400); RDW Coefficient of Variation 14.1 % (11.5-14.5); RDW Standard Deviation 42.4 fL (36.4-46.3); Red Blood Count 5.25 M/uL (4.2-5.4)
[2019-02-04 03:37] LABS: Prothrombin Time 55.8 Seconds (9.0-12.0)
[2019-02-04 03:38] LABS: Albumin Level 2.6 gm/dl (3.4-5.0); BUN Creatinine Ratio 17.7 (10-20); Calcium 7.6 mg/dl (8.5-10.1); Creatinine Clr Calc Pharmacy 21.6 ml/min; Est GFR (African American) 15.6; Est GFR (Non-African American) 13.5; Potassium 3.2 mmol/L (3.5-5.1)
[2019-02-04 03:58] LABS: INR 6.2 (0.9-1.1)
[2019-02-04 04:06] LABS: Albumin Globulin Ratio 0.7 (0.9-2); Bilirubin,Total 0.5 mg/dl (0.2-1); Total Protein 6.6 gm/dl (6.4-8.2); Troponin I 0.08 ng/ml (0-0.045)
[2019-02-04] MEDS: PIPERACILLIN/TAZOBACTAM 4.5 GM in DEXTROSE 5% 100 ML IV SCH (06:37)
[2019-02-04] MEDS: ATORVASTATIN 20 MG TAB PO SCH (08:19)
[2019-02-04] MEDS ORDERED: PHYTONADIONE 5 MG TAB PO STA (08:19)
[2019-02-04] MEDS: LACTATED RINGER'S 1,000 ML IV SCH ×3 (08:19→22:45)
[2019-02-04] MEDS: PANTOprazole 40 MG TAB PO SCH (08:19)
[2019-02-04] MEDS: NICOTINE 14 MG/24 HR PATCH TD SCH (08:20)
[2019-02-04] MEDS ORDERED: POTASSIUM CHLORIDE 20 MEQ TABCR PO STA (08:21)
[2019-02-04] MEDS: INSULIN ASPART 100 UNITS/ML 3 ML PEN SC SCH ×4 (08:36→21:22)
[2019-02-04] MEDS: METOPROLOL TARTRATE 25 MG TAB PO SCH ×2 (08:51→20:39)
[2019-02-04] MEDS ORDERED: METOPROLOL TARTRATE 100 MG TAB PO SCH (09:00)
--- NOTE | 2019-02-04 11:00 | Nephrology Consultation ---
Date of Consultation February 04, 2019 Assessment & Plan (1) VINH (acute kidney injury): Nonoliguric acute kidney injury. Clinical presentation is consistent with prerenal physiology and suspected ATN. CT scan was personally reviewed this morning. I cannot completely exclude AIN or warfarin nephropathy. Urine studies are not consistent with anticoagulation associated nephropathy. Patient is be treated appropriately for supratherapeutic INR. Likely culprit medications for AIN including antibiotics have been discontinued. Patient's INDIA-inhibitor has been appropriately held. She has been provided appropriate volume replacement with LR. No additional changes were made at this time. Medications are currently adjust for kidney function. Close perspective monitoring will be provided. Please document accurate I/O's. BP and volume status are currently acceptable. Patient's condition was discussed in detail with the patient this morning. We discussed superimposed a KI. We discussed her recent history of acute kidney injury. We reviewed the treatment plan. I will repeat blood metabolic profile tomorrow morning. Follow-up will be provided at that time. (2) Gastroenteritis: (3) Supratherapeutic INR: (4) Atrial fibrillation: (5) Hypertension: (6) Diabetes: History of Present Illness Reason for Consultation: Acute kidney injury Requesting Physician: Azeb Nunn MD Attending Physician: Azeb Nunn MD History of Present Illness Mrs. Nya Hernandez is a 58-year-old female with baseline creatinine of 1 mg/dL. The patient was admitted to [facility] overnight with nausea and vomiting, as well as fever. Medical history is notable for atrial fibrillation for which he had recently started anticoagulation. Patient was diagnosed with [facility]. She had been admitted to the hospital from January 15 with sepsis secondary to pneumonia. She was treated with vancomycin and Zosyn as an inpatient was converted to Augmentin for to complete a 7 day course of treatment at discharge. During the prior hospitalization the patient had developed acute kidney injury attributed to hemodynamic pre renal VINH. Serum creatinine had peaked at 3.3 mg/dL and improved did 0.98 mg/dL when checked on January 17. Lisinopril have been held. Medical history is also notable for hypertension, diabetes mellitus type 2, morbid obesity, and the patient is a current smoker. Serum creatinine was elevated at 3.66 mg/dL on admission. Balance IV fluids were provided overnight. Creatinine is now 3.5 mg/dL. Metabolic profile also notable for a anion gap metabolic acidosis with superimposed metabolic alkalosis. CT of the abdomen did not demonstrate any obstruction of the kidneys. There is a small 2 mm nonobstructing left renal calculi. Urinalysis demonstrated +1 protein, specific gravity of greater than 1.030. Microscopy was negative for red blood cells and did demonstrate 5-10 white blood cells per high-power field. Patient was resting comfortably in bed when seen and evaluated this morning. She had no acute complaints. She has some persistent nausea. She was able to keep down small amount of food. She is tolerating fluids well. She notes that she did have some loose stools during her recent hospitalization. She attributes this to antibiotics. At that time C difficile testing was negative. A culture is currently pending. Fevers have defervesced. Allergies Allergy/AdvReac Type Severity Reaction Status Date / Time No Known Allergies Allergy Verified 02/03/19 11:46 Home Medications Home Medications Medication Instructions Recorded Confirmed Type atorvastatin 20 mg PO QAM 01/15/19 02/03/19 History lisinopril 10 mg PO QAM 01/15/19 02/03/19 History metoprolol tartrate 100 mg PO BID 01/15/19 02/03/19 History omeprazole 20 mg PO QAM 01/15/19 02/03/19 History Saccharomyces boulardii [Florastor] 250 mg PO DAILY #30 cap 01/19/19 02/03/19 Rx albuterol sulfate [Ventolin HFA] 2 puff INHALATION Q6H PRN #18 gm 01/19/19 02/03/19 Rx warfarin 7.5 mg PO QPM #45 tab 01/19/19 02/03/19 Rx Patient History Medical History Morbid obesity (Chronic) Obese (Chronic) Vomiting and diarrhea (Acute) Abdominal pain (Acute) Vomiting and diarrhea (Acute) Hypertension (Chronic) Diabetes (Chronic) Hyperlipidemia (Chronic) Acute diverticulitis (Acute 07/17/14) Tachycardia (Acute 08/08/14) Hypertension Nausea, vomiting, and diarrhea (Acute) GERD (gastroesophageal reflux disease) (Chronic) Dehydration (Acute) Family History Other No known problems Social History Preferred Language: Uzbek Communication Ability: Effective Day Care Aide Required: No Beliefs That Will Affect Care: None marital status: Single Current Living Situation: Family current occupational status: unemployed Other Information That Helps Us Care for You: No Feels Safe at Home: Yes Safety Concerns: Feels Safe At This Time Smoking Status: Current every day smoker Tobacco Type: cigarettes ; Do You Dip or Chew Tobacco: No ; Second Hand Exposure: Yes ; Tobacco Cessation Education Requested by Patient: Yes Hx Alcohol Use: No Hx Substance Use: No Review of Systems Review of Systems: All systems reviewed & are unremarkable except as noted in HPI & below Physical Exam Constitutional: well developed and + obese; no acute distress Eyes: no scleral abnormality and no corneal abnormality ENMT: Ears: no hearing impairment Mouth: no oral mucosal abnormality Neck: normal visual inspection; + trachea not midline Respiratory: normal respiratory effort Auscultation: lungs clear to auscultation bilaterally Cardiovascular: Rate/Rhythm: regular rate Heart Sounds: normal S1, normal S2 and + murmur Musculoskeletal: Extremities: no cyanosis and no clubbing Skin: normal turgor; no lesions Neurologic: Motor/Sensory: no tremor and no asterixis Psychiatric: Orientation: alert and oriented x 3 Results & Data Vital Signs (Past 12 Hours) Vital Signs Temp Pulse Pulse Resp BP Pulse Ox 02/04/19 08:00 74 02/04/19 07:29 36.5 C 67 20 106/64 95 02/04/19 04:23 36.8 C 76 16 124/73 95 02/04/19 00:00 36.5 C 75 16 122/60 97 Laboratory Results Laboratory Results - last 24 hr 02/03/19 02/03/19 02/03/19 12:50 12:50 12:50 WBC 15.93 H RBC 6.06 H Hgb 17.9 H Hct 50.5 H MCV 83.3 MCH 29.5 MCHC 35.4 RDW Std Deviation 42.8 RDW Coeff of Jaswinder 14.1 Plt Count 279 MPV 12.7 H Immature Gran % (Auto) 0.3 Neut % (Auto) 65.6 Lymph % (Auto) 26.4 [place] % (Auto) 7.2 Eos % (Auto) 0.3 Baso % (Auto) 0.2 Immature Gran # (Auto) 0.04 H Neut # (Auto) 10.46 H Lymph # (Auto) 4.20 H [place] # (Auto) 1.15 H Eos # (Auto) 0.05 Baso # (Auto) 0.03 PT INR APTT PTT Ratio Sodium 132 L Potassium 3.2 L Chloride 94 L Carbon Dioxide 23 Anion Gap 15.0 H BUN 56 H Creatinine 3.66 H Est Cr Clr Drug Dosing 22.2 Est GFR ( Amer) 14.9 Est GFR (Non-Af Amer) 12.8 BUN/Creatinine Ratio 15.2 Glucose 133 H POC Glucose Lactate 1.6 Calcium 8.4 L Magnesium 1.8 Total Bilirubin 0.4 Direct Bilirubin < 0.1 AST 13 L ALT 15 Alkaline Phosphatase 114 Troponin I 0.104 H* Total Protein 8.3 H Albumin 3.3 L Globulin Albumin/Globulin Ratio Lipase 56 L Urine Color Urine Appearance Urine pH Ur Specific [place] Urine Protein Urine Glucose (UA) Urine Ketones Urine Blood Urine Nitrite Urine Bilirubin Urine Urobilinogen Ur Leukocyte Esterase Urine RBC Urine WBC Ur Epithelial Cells Urine Bacteria Nasal Screen MRSA (PCR) Stl C. diff Tox B Gene Influenza Type A Ag Influenza Type B Ag 02/03/19 02/03/19 02/03/19 12:50 13:40 15:33 WBC RBC Hgb Hct MCV MCH MCHC RDW Std Deviation RDW Coeff of Jaswinder Plt Count MPV Immature Gran % (Auto) Neut % (Auto) Lymph % (Auto) [place] % (Auto) Eos % (Auto) Baso % (Auto) Immature Gran # (Auto) Neut # (Auto) Lymph # (Auto) [place] # (Auto) Eos # (Auto) Baso # (Auto) PT > 90.0 H INR > 10.4 H* APTT 65.1 H* PTT Ratio 2.4 Sodium Potassium Chloride Carbon Dioxide Anion Gap BUN Creatinine Est Cr Clr Drug Dosing Est GFR ( Amer) Est GFR (Non-Af Amer) BUN/Creatinine Ratio Glucose POC Glucose Lactate Calcium Magnesium Total Bilirubin Direct Bilirubin AST ALT Alkaline Phosphatase Troponin I Total Protein Albumin Globulin Albumin/Globulin Ratio Lipase Urine Color Yellow Urine Appearance Cloudy A Urine pH 5.0 Ur Specific [place] >= 1.030 Urine Protein 1+ H Urine Glucose (UA) Negative Urine Ketones Negative Urine Blood 1+ H Urine Nitrite Negative Urine Bilirubin Negative Urine Urobilinogen Negative Ur Leukocyte Esterase Negative Urine RBC 0-4 Urine WBC 5-10 H Ur Epithelial Cells >30 H Urine Bacteria 1+ H Nasal Screen MRSA (PCR) Stl C. diff Tox B Gene Influenza Type A Ag Neg for Influ A Influenza Type B Ag Neg for Influ B 02/03/19 02/03/19 02/03/19 16:51 19:12 19:12 WBC RBC Hgb Hct MCV MCH MCHC RDW Std Deviation RDW Coeff of Jaswinder Plt Count MPV Immature Gran % (Auto) Neut % (Auto) Lymph % (Auto) [place] % (Auto) Eos % (Auto) Baso % (Auto) Immature Gran # (Auto) Neut # (Auto) Lymph # (Auto) [place] # (Auto) Eos # (Auto) Baso # (Auto) PT > 90.0 H INR > 10.4 H* APTT PTT Ratio Sodium Potassium Chloride Carbon Dioxide Anion Gap BUN Creatinine Est Cr Clr Drug Dosing Est GFR ( Amer) Est GFR (Non-Af Amer) BUN/Creatinine Ratio Glucose POC Glucose 115 H Lactate Calcium Magnesium Total Bilirubin Direct Bilirubin AST ALT Alkaline Phosphatase Troponin I 0.119 H* Total Protein Albumin Globulin Albumin/Globulin Ratio Lipase Urine Color Urine Appearance Urine pH Ur Specific [place] Urine Protein Urine Glucose (UA) Urine Ketones Urine Blood Urine Nitrite Urine Bilirubin Urine Urobilinogen Ur Leukocyte Esterase Urine RBC Urine WBC Ur Epithelial Cells Urine Bacteria Nasal Screen MRSA (PCR) Stl C. diff Tox B Gene Influenza Type A Ag Influenza Type B Ag 02/03/19 02/04/19 02/04/19 21:18 03:08 03:08 WBC 14.50 H RBC 5.25 Hgb 15.2 Hct 43.4 MCV 82.7 MCH 29.0 MCHC 35.0 RDW Std Deviation 42.4 RDW Coeff of Jaswinder 14.1 Plt Count 227 MPV 11.5 H Immature Gran % (Auto) Neut % (Auto) Lymph % (Auto) [place] % (Auto) Eos % (Auto) Baso % (Auto) Immature Gran # (Auto) Neut # (Auto) Lymph # (Auto) [place] # (Auto) Eos # (Auto) Baso # (Auto) PT INR APTT PTT Ratio Sodium 133 L Potassium 3.2 L Chloride 96 L Carbon Dioxide 25 Anion Gap 12.0 H BUN 62 H Creatinine 3.51 H Est Cr Clr Drug Dosing 21.6 Est GFR ( Amer) 15.6 Est GFR (Non-Af Amer) 13.5 BUN/Creatinine Ratio 17.7 Glucose 113 H POC Glucose 137 H Lactate Calcium 7.6 L Magnesium Total Bilirubin 0.5 Direct Bilirubin AST 12 L ALT 13 Alkaline Phosphatase 86 Troponin I 0.080 H* Total Protein 6.6 D Albumin 2.6 L Globulin 4.0 Albumin/Globulin Ratio 0.7 L Lipase Urine Color Urine Appearance Urine pH Ur Specific [place] Urine Protein Urine Glucose (UA) Urine Ketones Urine Blood Urine Nitrite Urine Bilirubin Urine Urobilinogen Ur Leukocyte Esterase Urine RBC Urine WBC Ur Epithelial Cells Urine Bacteria Nasal Screen MRSA (PCR) Stl C. diff Tox B Gene Influenza Type A Ag Influenza Type B Ag 02/04/19 02/04/19 02/04/19 03:08 06:35 06:45 WBC RBC Hgb Hct MCV MCH MCHC RDW Std Deviation RDW Coeff of Jaswinder Plt Count MPV Immature Gran % (Auto) Neut % (Auto) Lymph % (Auto) [place] % (Auto) Eos % (Auto) Baso % (Auto) Immature Gran # (Auto) Neut # (Auto) Lymph # (Auto) [place] # (Auto) Eos # (Auto) Baso # (Auto) PT 55.8 H INR 6.2 H* APTT PTT Ratio Sodium Potassium Chloride Carbon Dioxide Anion Gap BUN Creatinine Est Cr Clr Drug Dosing Est GFR ( Amer) Est GFR (Non-Af Amer) BUN/Creatinine Ratio Glucose POC Glucose Lactate Calcium Magnesium Total Bilirubin Direct Bilirubin AST ALT Alkaline Phosphatase Troponin I Total Protein Albumin Globulin Albumin/Globulin Ratio Lipase Urine Color Urine Appearance Urine pH Ur Specific [place] Urine Protein Urine Glucose (UA) Urine Ketones Urine Blood Urine Nitrite Urine Bilirubin Urine Urobilinogen Ur Leukocyte Esterase Urine RBC Urine WBC Ur Epithelial Cells Urine Bacteria Nasal Screen MRSA (PCR) Negative Stl C. diff Tox B Gene Pending Influenza Type A Ag Influenza Type B Ag 02/04/19 07:27 WBC RBC Hgb Hct MCV MCH MCHC RDW Std Deviation RDW Coeff of Jaswinder Plt Count MPV Immature Gran % (Auto) Neut % (Auto) Lymph % (Auto) [place] % (Auto) Eos % (Auto) Baso % (Auto) Immature Gran # (Auto) Neut # (Auto) Lymph # (Auto) [place] # (Auto) Eos # (Auto) Baso # (Auto) PT INR APTT PTT Ratio Sodium Potassium Chloride Carbon Dioxide Anion Gap BUN Creatinine Est Cr Clr Drug Dosing Est GFR ( Amer) Est GFR (Non-Af Amer) BUN/Creatinine Ratio Glucose POC Glucose 108 H Lactate Calcium Magnesium Total Bilirubin Direct Bilirubin AST ALT Alkaline Phosphatase Troponin I Total Protein Albumin Globulin Albumin/Globulin Ratio Lipase Urine Color Urine Appearance Urine pH Ur Specific [place] Urine Protein Urine Glucose (UA) Urine Ketones Urine Blood Urine Nitrite Urine Bilirubin Urine Urobilinogen Ur Leukocyte Esterase Urine RBC Urine WBC Ur Epithelial Cells Urine Bacteria Nasal Screen MRSA (PCR) Stl C. diff Tox B Gene Influenza Type A Ag Influenza Type B Ag PG Care Time/CCT Total # of Minutes Spent Total Time Spent with Patient: Total time spent is greater than 50% in coordination of care (as documented) at patient's floor/unit and/or counseling patient: (1) Atrial fibrillation Atrial fibrillation type: unspecified Qualified Code(s): I48.91 - Unspecified atrial fibrillation
[2019-02-04 12:04] LABS: Cdiff Antigen Positive; Cdiff Toxin A+B Negative Cdiff Toxin (Negative)
--- NOTE | 2019-02-04 13:04 | Hospitalist Progress Note ---
Date of Service February 04, 2019 Assessment & Plan (1) Nausea, vomiting, and diarrhea: Patient presented with several days of nausea/vomiting/diarrhea developed diffuse crampy abdominal pains. Nonbloody vomit and stool. With subjective chills and sweats at home, leukocytosis, borderline hypotension on admission No known sick contacts, raw foods consumption Was recently on IV antibiotics, and p.o. antibiotics for suspected pneumonia during last admission CT abd/pelvis negative for diverticulitis Lactic acid negative at 1.6 Flu swab negative C. difficile gene is positive, but C. difficile toxin is negative, however C. difficile gene was negative just 2 weeks ago. Despite the toxin being negative, I do believe this represents an acute C. difficile colitis/diarrhea especially as there is no other source of infection at this time -Start p.o. vancomycin 125 mg p.o. 4 times daily x14-day course -Discontinue Zosyn and vancomycin -Follow blood cultures -Continue antiemetics as needed for nausea -Start cholestyramine powder to help with diarrhea -Continue IV fluids with LR at 125 mL's per hour (2) C. difficile diarrhea: As above -Starting p.o. vancomycin (3) Sepsis: Secondary to C. difficile colitis as above -Continue IV fluid resuscitation -Continue to follow CBC (4) VINH (acute kidney injury): -Elevated BUN at 56, creatinine 3.66, on admission up from baseline of 0.98 Likely some prerenal component from hypovolemia from dehydration, also possibly with ATN secondary to hypotension Urinalysis without granular casts Creatinine is only slightly improved with hydration overnight down to 3.5 today, BUN remains high at 62 Is non-oliguric -Continue IV fluids at 125 mL's per hour -Consult nephrology-recommendations appreciated -Follow BMP in the morning (5) Hypokalemia: Potassium remains low likely secondary to GI losses and poor p.o. intake -Will give p.o. potassium chloride -Caution in the setting of acute kidney injury -Follow BMP in the morning (6) Supratherapeutic INR: INR was greater than 10 upon admission, no evidence of bleeding, likely secondary to poor p.o. intake Was given vitamin K 5 mg p.o. x1 on admission INR only down to 6.1 today We will give another 2.5 mg of vitamin K, repeat INR later was 3.6 -Plan to permanently discontinue Coumadin-she was only supposed to be on it for another 2 weeks anyway given her very brief episode of rapid atrial fibrillation not upon admission 2 to 3 weeks ago -Follow INR in the morning -Monitor for bleeding (7) Atrial fibrillation: No recurrence of A. fib that she is aware of since last admission Plan at that time was to only continue Coumadin x1 month-we will discontinue as above Monitor on telemetry-remains in sinus -Metoprolol dose was reduced to 12.5 twice daily down from 100 twice daily home dose due to hypotension -Can titrate back up on metoprolol dose as needed (8) Hypertension: - Holding lisinopril due to hypotension -Continue metoprolol tartrate at lower dose of 12.5 mg PO BID -Follow blood pressures (9) Elevated troponin: - Elevated at 0.104/0.119/0.08, this is decreased compared to last hospitalization where troponin was 0.323. ECG shows normal sinus rhythm without ischemic changes No chest pain at all This is likely secondary to demand ischemia with VINH and dehydration. (10) Hyperlipidemia: - Cont atorvastatin 20 mg QAM (11) Diabetes: - Last A1C =7.5 last month - ISS with Accu-Cheks - Patient is not on any oral anti-glycemic's or insulin, diet and exercise to be encouraged -Consult ems educator (12) GERD (gastroesophageal reflux disease): -Stable -Continue PPI (13) Morbid obesity: - BMI of 56, diet and exercise to be encouraged upon discharge - HH/DM diet (14) Current smoker: - Cessation encouraged - Pt has been smoking 5-6 cig daily compared to her baseline of 1ppd. She is not actively trying to quit, just has not felt up to it. - Nicotine patch ordered (15) DVT prophylaxis: - teds, holding coumadin with supratherapeutic INR Disposition: From home, lives with cousin, remain on PCU Subjective Patient reports still having a lot of loose stools and some lower crampy abdominal pain. She also has nausea but has not vomited. She is eating some food. Denies chest pain or shortness of breath. She denies lightheadedness. She is making urine. No blood in the stool, no bleeding in the gums, no bloody nose, no blood in the urine. Telemetry with normal sinus rhythm, rates in the 60s 70s Review of Systems Review of Systems: All systems reviewed & are unremarkable except as noted in HPI & below Physical Exam Constitutional: WD/WN, vitals as above + obese Eyes: + anicteric sclerae ENMT: external ear and nose normal, oropharynx normal Neck: trachea midline, no thyromegaly Respiratory: normal respiratory effort; no labored breathing Auscultation: + wheezes (Scattered expiratory wheezes); no crackles Cardiovascular: RRR, no murmur, no edema Gastrointestinal (Abdomen): Inspection/Auscultation: abdomen normal to inspection and normal bowel sounds Percussion/Palpation: + abdomen tender (Mild, across lower abdomen and periumbilical region without guarding or rebound tenderness) and abdomen soft Musculoskeletal: Extremities: extremities normal to inspection; no cyanosis and no clubbing Skin: no rashes, warm and dry Neurologic: moves all extremities and awake; no focal motor deficits Psychiatric: A+Ox3, euthymic affect Results & Data Vital Signs (Past 12 Hours) Vital Signs Temp Pulse Pulse Resp BP Pulse Ox 02/04/19 11:14 36.5 C 70 16 121/71 95 02/04/19 08:00 74 02/04/19 07:29 36.5 C 67 20 106/64 95 02/04/19 04:23 36.8 C 76 16 124/73 95 Laboratory Results 02/04/19 02/04/19 02/04/19 Range/Units 16:28 12:51 11:16 WBC (4.8-10.8) K/uL RBC (4.2-5.4) M/uL Hgb (12.0-16.0) g/dL Hct (37-47) % MCV (80-100) fL MCH (25-34) pg MCHC (32-36) g/dL RDW Std Deviation (36.4-46.3) fL RDW Coeff of Jaswinder (11.5-14.5) % Plt Count (130-400) K/uL MPV (7.4-10.4) fL PT 33.9 H (9.0-12.0) Seconds INR 3.6 H (0.9-1.1) Sodium (136-145) mmol/L Potassium (3.5-5.1) mmol/L Chloride (98-107) mmol/L Carbon Dioxide (21-32) mmol/L Anion Gap (3-11) BUN (7-18) mg/dl Creatinine (0.6-1.2) mg/dl Est Cr Clr Drug Dosing ml/min Est GFR ( Amer) Est GFR (Non-Af Amer) BUN/Creatinine Ratio (10-20) Glucose (70-99) mg/dl POC Glucose 99 102 H (70-99) Calcium (8.5-10.1) mg/dl Total Bilirubin (0.2-1) mg/dl AST (15-37) U/L ALT (12-78) U/L Alkaline Phosphatase (45-117) U/L Troponin I (0-0.045) ng/ml Total Protein (6.4-8.2) gm/dl Albumin (3.4-5.0) gm/dl Globulin (2.5-4.0) gm/dl Albumin/Globulin Ratio (0.9-2) Nasal Screen MRSA (PCR) (Negative) Stl C. diff Tox B Gene (Neg) Stl C.difficile Tox A&B (Negative) 02/04/19 02/04/19 02/04/19 Range/Units 07:27 06:45 06:35 WBC (4.8-10.8) K/uL RBC (4.2-5.4) M/uL Hgb (12.0-16.0) g/dL Hct (37-47) % MCV (80-100) fL MCH (25-34) pg MCHC (32-36) g/dL RDW Std Deviation (36.4-46.3) fL RDW Coeff of Jaswinder (11.5-14.5) % Plt Count (130-400) K/uL MPV (7.4-10.4) fL PT (9.0-12.0) Seconds INR (0.9-1.1) Sodium (136-145) mmol/L Potassium (3.5-5.1) mmol/L Chloride (98-107) mmol/L Carbon Dioxide (21-32) mmol/L Anion Gap (3-11) BUN (7-18) mg/dl Creatinine (0.6-1.2) mg/dl Est Cr Clr Drug Dosing ml/min Est GFR ( Amer) Est GFR (Non-Af Amer) BUN/Creatinine Ratio (10-20) Glucose (70-99) mg/dl POC Glucose 108 H (70-99) Calcium (8.5-10.1) mg/dl Total Bilirubin (0.2-1) mg/dl AST (15-37) U/L ALT (12-78) U/L Alkaline Phosphatase (45-117) U/L Troponin I (0-0.045) ng/ml Total Protein (6.4-8.2) gm/dl Albumin (3.4-5.0) gm/dl Globulin (2.5-4.0) gm/dl Albumin/Globulin Ratio (0.9-2) Nasal Screen MRSA (PCR) Negative (Negative) Stl C. diff Tox B Gene Positive Cdiff Gene H (Neg) Stl C.difficile Tox A&B Negative Cdiff Toxin (Negative) 02/04/19 02/04/19 02/04/19 Range/Units 03:08 03:08 03:08 WBC 14.50 H (4.8-10.8) K/uL RBC 5.25 (4.2-5.4) M/uL Hgb 15.2 (12.0-16.0) g/dL Hct 43.4 (37-47) % MCV 82.7 (80-100) fL MCH 29.0 (25-34) pg MCHC 35.0 (32-36) g/dL RDW Std Deviation 42.4 (36.4-46.3) fL RDW Coeff of Jaswinder 14.1 (11.5-14.5) % Plt Count 227 (130-400) K/uL MPV 11.5 H (7.4-10.4) fL PT 55.8 H (9.0-12.0) Seconds INR 6.2 H* (0.9-1.1) Sodium 133 L (136-145) mmol/L Potassium 3.2 L (3.5-5.1) mmol/L Chloride 96 L (98-107) mmol/L Carbon Dioxide 25 (21-32) mmol/L Anion Gap 12.0 H (3-11) BUN 62 H (7-18) mg/dl Creatinine 3.51 H (0.6-1.2) mg/dl Est Cr Clr Drug Dosing 21.6 ml/min Est GFR ( Amer) 15.6 Est GFR (Non-Af Amer) 13.5 BUN/Creatinine Ratio 17.7 (10-20) Glucose 113 H (70-99) mg/dl POC Glucose (70-99) Calcium 7.6 L (8.5-10.1) mg/dl Total Bilirubin 0.5 (0.2-1) mg/dl AST 12 L (15-37) U/L ALT 13 (12-78) U/L Alkaline Phosphatase 86 (45-117) U/L Troponin I 0.080 H* (0-0.045) ng/ml Total Protein 6.6 D (6.4-8.2) gm/dl Albumin 2.6 L (3.4-5.0) gm/dl Globulin 4.0 (2.5-4.0) gm/dl Albumin/Globulin Ratio 0.7 L (0.9-2) Nasal Screen MRSA (PCR) (Negative) Stl C. diff Tox B Gene (Neg) Stl C.difficile Tox A&B (Negative) 02/03/19 Range/Units 21:18 WBC (4.8-10.8) K/uL RBC (4.2-5.4) M/uL Hgb (12.0-16.0) g/dL Hct (37-47) % MCV (80-100) fL MCH (25-34) pg MCHC (32-36) g/dL RDW Std Deviation (36.4-46.3) fL RDW Coeff of Jaswinder (11.5-14.5) % Plt Count (130-400) K/uL MPV (7.4-10.4) fL PT (9.0-12.0) Seconds INR (0.9-1.1) Sodium (136-145) mmol/L Potassium (3.5-5.1) mmol/L Chloride (98-107) mmol/L Carbon Dioxide (21-32) mmol/L Anion Gap (3-11) BUN (7-18) mg/dl Creatinine (0.6-1.2) mg/dl Est Cr Clr Drug Dosing ml/min Est GFR ( Amer) Est GFR (Non-Af Amer) BUN/Creatinine Ratio (10-20) Glucose (70-99) mg/dl POC Glucose 137 H (70-99) Calcium (8.5-10.1) mg/dl Total Bilirubin (0.2-1) mg/dl AST (15-37) U/L ALT (12-78) U/L Alkaline Phosphatase (45-117) U/L Troponin I (0-0.045) ng/ml Total Protein (6.4-8.2) gm/dl Albumin (3.4-5.0) gm/dl Globulin (2.5-4.0) gm/dl Albumin/Globulin Ratio (0.9-2) Nasal Screen MRSA (PCR) (Negative) Stl C. diff Tox B Gene (Neg) Stl C.difficile Tox A&B (Negative) PG Care Time/CCT Total # of Minutes Spent Total Time Spent with Patient: Total time spent is greater than 50% in coordination of care (as documented) at patient's floor/unit and/or counseling patient: (1) Atrial fibrillation Atrial fibrillation type: unspecified Qualified Code(s): I48.91 - Unspecified atrial fibrillation (2) Sepsis Sepsis type: sepsis due to unspecified organism Qualified Code(s): A41.9 - Sepsis, unspecified organism
[2019-02-04] MEDS: RASPBERRY SYRUP 5 ML UDP PO SCH ×3 (13:12→23:47)
[2019-02-04] MEDS: VANCOMYCIN HCL 125 MG/2.5ML SOLN PO SCH ×3 (13:12→23:48)
[2019-02-04 13:21] LABS: INR 3.6 (0.9-1.1); Prothrombin Time 33.9 Seconds (9.0-12.0)
[2019-02-04] MEDS ORDERED: PIPERACILLIN/TAZOBACTAM 4.5 GM in DEXTROSE 5% 100 ML IV SCH (18:00)
[2019-02-04] MEDS: CHOLESTYRAMINE LIGHT 4 GM PKT PO SCH (21:26)
[2019-02-05 06:01] LABS: Hematocrit (blood only) 41.3 % (37-47); Hemoglobin 14.1 g/dL (12.0-16.0); Mean Corpuscular Hgb Conc 34.1 g/dL (32-36); Mean Corpuscular Volume 84.8 fL (80-100); Mean Platelet Volume 12.3 fL (7.4-10.4); Platelet Count 186 K/uL (130-400); RDW Coefficient of Variation 14.1 % (11.5-14.5); RDW Standard Deviation 43.8 fL (36.4-46.3); Red Blood Count 4.87 M/uL (4.2-5.4); White Blood Count 9.16 K/uL (4.8-10.8)
[2019-02-05 06:14] LABS: INR 1.8 (0.9-1.1); Prothrombin Time 17.7 Seconds (9.0-12.0)
[2019-02-05 06:34] LABS: Albumin Globulin Ratio 0.7 (0.9-2); Albumin Level 2.5 gm/dl (3.4-5.0); BUN Creatinine Ratio 26.9 (10-20); Bilirubin,Total 0.7 mg/dl (0.2-1); Calcium 7.8 mg/dl (8.5-10.1); Creatinine Clr Calc Pharmacy 51.7 ml/min; Est GFR (African American) 44.8; Est GFR (Non-African American) 38.7; Globulin 3.7 gm/dl (2.5-4.0); Potassium 3.2 mmol/L (3.5-5.1); Total Protein 6.2 gm/dl (6.4-8.2)
[2019-02-05] MEDS: RASPBERRY SYRUP 5 ML UDP PO SCH ×4 (06:51→23:44)
[2019-02-05] MEDS: LACTATED RINGER'S 1,000 ML IV SCH ×2 (06:51→15:40)
[2019-02-05] MEDS: METOPROLOL TARTRATE 25 MG TAB PO SCH (07:38)
[2019-02-05] MEDS: ATORVASTATIN 20 MG TAB PO SCH (07:38)
[2019-02-05] MEDS: PANTOprazole 40 MG TAB PO SCH (07:38)
[2019-02-05] MEDS: NICOTINE 14 MG/24 HR PATCH TD SCH (07:38)
[2019-02-05] MEDS: VANCOMYCIN HCL 125 MG/2.5ML SOLN PO SCH ×4 (07:40→23:44)
[2019-02-05] MEDS ORDERED: POTASSIUM CHLORIDE 20 MEQ TABCR PO STA (08:27)
[2019-02-05] MEDS: INSULIN ASPART 100 UNITS/ML 3 ML PEN SC SCH ×4 (08:35→20:35)
--- NOTE | 2019-02-05 09:18 | Nephrology Progress Note ---
Date of Service February 05, 2019 Assessment & Plan (1) VINH (acute kidney injury): Nonoliguric acute kidney injury. Clinical presentation is consistent with prerenal physiology. CT scan did not demonstrate obstruction. Urine studies are not consistent with anticoagulation associated nephropathy. INDIA-inhibitor has been appropriately held. She appropriate volume replacement with LR is being provided. No additional changes were made at this time. Medications are acceptable for kidney function. Close perspective monitoring will be provided. Please document accurate I/O's. BP and volume status are currently acceptable. Pending additional improvement in GI symptoms, I have continued IVF's for now. Elevated BP noted this AM which is being monitored. Once oral intake is acceptable and diarrhea improved, stop IVF. (2) Gastroenteritis: (3) Supratherapeutic INR: (4) Atrial fibrillation: (5) Hypertension: (6) Diabetes: Subjective No acute events overnight. Nya continues to describe persistent nausea and frequent loose stool. No fevers or chills. Appetite is poor. Review of Systems Review of Systems: All systems reviewed & are unremarkable except as noted in HPI & below Physical Exam Constitutional: well developed and + obese; no acute distress Eyes: no scleral abnormality and no corneal abnormality ENMT: Ears: no hearing impairment Mouth: no oral mucosal abnormality Neck: normal visual inspection; + trachea not midline Respiratory: normal respiratory effort Auscultation: lungs clear to auscultation bilaterally Cardiovascular: Rate/Rhythm: regular rate Heart Sounds: normal S1, normal S2 and + murmur Musculoskeletal: Extremities: no cyanosis and no clubbing Skin: normal turgor; no lesions Neurologic: Motor/Sensory: no tremor and no asterixis Psychiatric: Orientation: alert and oriented x 3 Results & Data Vital Signs (Past 12 Hours) Vital Signs Temp Pulse Pulse Resp BP BP Pulse Ox 02/05/19 08:00 71 02/05/19 07:34 159/96 H 02/05/19 07:31 36.6 C 75 20 201/130 H 97 02/05/19 03:28 36.6 C 71 18 149/65 H 99 02/04/19 23:23 36.6 C 74 18 115/44 L 95 Laboratory Results Laboratory Results - last 24 hr 02/04/19 02/04/19 02/04/19 06:35 06:45 11:16 WBC RBC Hgb Hct MCV MCH MCHC RDW Std Deviation RDW Coeff of Jaswinder Plt Count MPV PT INR Sodium Potassium Chloride Carbon Dioxide Anion Gap BUN Creatinine Est Cr Clr Drug Dosing Est GFR ( Amer) Est GFR (Non-Af Amer) BUN/Creatinine Ratio Glucose POC Glucose 102 H Calcium Total Bilirubin AST ALT Alkaline Phosphatase Total Protein Albumin Globulin Albumin/Globulin Ratio Nasal Screen MRSA (PCR) Negative Stl C. diff Tox B Gene Positive Cdiff Gene H Stl C.difficile Tox A&B Negative Cdiff Toxin 02/04/19 02/04/19 02/04/19 12:51 16:28 20:14 WBC RBC Hgb Hct MCV MCH MCHC RDW Std Deviation RDW Coeff of Jaswinder Plt Count MPV PT 33.9 H INR 3.6 H Sodium Potassium Chloride Carbon Dioxide Anion Gap BUN Creatinine Est Cr Clr Drug Dosing Est GFR ( Amer) Est GFR (Non-Af Amer) BUN/Creatinine Ratio Glucose POC Glucose 99 116 H Calcium Total Bilirubin AST ALT Alkaline Phosphatase Total Protein Albumin Globulin Albumin/Globulin Ratio Nasal Screen MRSA (PCR) Stl C. diff Tox B Gene Stl C.difficile Tox A&B 02/05/19 02/05/19 02/05/19 05:36 05:36 05:36 WBC 9.16 RBC 4.87 Hgb 14.1 Hct 41.3 MCV 84.8 MCH 29.0 MCHC 34.1 RDW Std Deviation 43.8 RDW Coeff of Jaswinder 14.1 Plt Count 186 MPV 12.3 H PT 17.7 H INR 1.8 H Sodium 137 Potassium 3.2 L Chloride 104 Carbon Dioxide 26 Anion Gap 7.0 BUN 40 H Creatinine 1.47 H D Est Cr Clr Drug Dosing 51.7 Est GFR ( Amer) 44.8 Est GFR (Non-Af Amer) 38.7 BUN/Creatinine Ratio 26.9 H Glucose 98 POC Glucose Calcium 7.8 L Total Bilirubin 0.7 AST 9 L ALT 10 L Alkaline Phosphatase 78 Total Protein 6.2 L Albumin 2.5 L Globulin 3.7 Albumin/Globulin Ratio 0.7 L Nasal Screen MRSA (PCR) Stl C. diff Tox B Gene Stl C.difficile Tox A&B 02/05/19 07:30 WBC RBC Hgb Hct MCV MCH MCHC RDW Std Deviation RDW Coeff of Jaswinder Plt Count MPV PT INR Sodium Potassium Chloride Carbon Dioxide Anion Gap BUN Creatinine Est Cr Clr Drug Dosing Est GFR ( Amer) Est GFR (Non-Af Amer) BUN/Creatinine Ratio Glucose POC Glucose 104 H Calcium Total Bilirubin AST ALT Alkaline Phosphatase Total Protein Albumin Globulin Albumin/Globulin Ratio Nasal Screen MRSA (PCR) Stl C. diff Tox B Gene Stl C.difficile Tox A&B PG Care Time/CCT Total # of Minutes Spent Total Time Spent with Patient: Total time spent is greater than 50% in coordination of care (as documented) at patient's floor/unit and/or counseling patient: (1) Atrial fibrillation Atrial fibrillation type: unspecified Qualified Code(s): I48.91 - Unspecified atrial fibrillation
[2019-02-05] MEDS: CHOLESTYRAMINE LIGHT 4 GM PKT PO SCH ×3 (09:24→20:31)
[2019-02-05] MEDS ORDERED: HydrALAZINE HCL 20 MG/ML VIAL IV STA (16:37)
[2019-02-05] MEDS ORDERED: Nursing to Pharmacy Communication ONE (17:09)
[2019-02-05] MEDS ORDERED: METOPROLOL TARTRATE 100 MG TAB PO ONE (17:30)
--- NOTE | 2019-02-05 20:12 | Hospitalist Progress Note ---
Date of Service February 05, 2019 Assessment & Plan (1) Nausea, vomiting, and diarrhea: Patient presented with several days of nausea/vomiting/diarrhea developed diffuse crampy abdominal pains. Nonbloody vomit and stool. With subjective chills and sweats at home, leukocytosis, borderline hypotension on admission No known sick contacts, raw foods consumption Was recently on IV antibiotics, and p.o. antibiotics for suspected pneumonia during last admission CT abd/pelvis negative for diverticulitis Lactic acid negative at 1.6 Flu swab negative C. difficile gene is positive, but C. difficile toxin is negative, however C. difficile gene was negative just 2 weeks ago. Despite the toxin being negative, I do believe this represents an acute C. difficile colitis/diarrhea especially as there is no other source of infection at this time Now much improved -Continue p.o. vancomycin 125 mg p.o. 4 times daily x14-day course, however patient does not have health insurance-senior manager asset protection stated that the oral vancomycin would be too costly-she will need p.o. metronidazole at the time of discharge to finish out the course -Follow blood cultures-no growth to date -Continue antiemetics as needed for nausea -Continue cholestyramine powder to help with diarrhea -DC IV fluids for elevated blood pressures (2) C. difficile diarrhea: As above -Continue p.o. vancomycin while here and then convert to Flagyl as above (3) Sepsis: Secondary to C. difficile colitis as above Resolved (4) VINH (acute kidney injury): -Elevated BUN at 56, creatinine 3.66, on admission up from baseline of 0.98 Likely some prerenal component from hypovolemia from dehydration Urinalysis without granular casts Creatinine now much improved down to 1.47, BUN decreased Is non-oliguric -DC IV fluids especially given elevated blood pressures -Consult nephrology-recommendations appreciated -Follow BMP in the morning -Continue to hold home lisinopril (5) Hypokalemia: Potassium remains low likely secondary to GI losses and poor p.o. intake -We will again give p.o. potassium chloride -Caution in the setting of acute kidney injury -Follow BMP in the morning (6) Supratherapeutic INR: INR was greater than 10 upon admission, no evidence of bleeding, likely secondary to poor p.o. intake Was given vitamin K 5 mg p.o. x1 on admission INR was then only down to 6.1 the following day and was given another 2.5 mg of vitamin K, repeat INR later was 3.6 INR down to 1.8 -Plan to permanently discontinue Coumadin-she was only supposed to be on it for another 2 weeks anyway given her very brief episode of rapid atrial fibrillation not upon admission 2 to 3 weeks ago -Follow INR in the morning -Monitor for bleeding (7) Atrial fibrillation: No recurrence of A. fib that she is aware of since last admission and none on telemetry here Plan at that time was to only continue Coumadin x1 month-we will discontinue as above Monitor on telemetry-remains in sinus -Metoprolol dose was reduced to 12.5 twice daily initially due to hypotension, but will now increase back to usual home dose of 100 twice daily home dose due to severely elevated blood pressures (8) Hypertension: - Holding lisinopril due to hypotension and acute kidney injury on admission Now with severely elevated blood pressures as above in the low 200 systolic over 110 -Increase metoprolol tartrate back to home dose of 100 mg p.o. twice daily -Continue to hold lisinopril -Give IV hydralazine 10 mg x 1 now (9) Elevated troponin: - Elevated at 0.104/0.119/0.08, this is decreased compared to last hospitalization where troponin was 0.323. ECG shows normal sinus rhythm without ischemic changes No chest pain at all This is likely secondary to demand ischemia with VINH and dehydration. (10) Hyperlipidemia: - Cont atorvastatin 20 mg QAM (11) Diabetes: - Last A1C =7.5 last month - ISS with Accu-Cheks - Patient is not on any oral anti-glycemic's or insulin, diet and exercise to be encouraged -Consult torch straightener (12) GERD (gastroesophageal reflux disease): -Stable -Continue PPI (13) Morbid obesity: - BMI of 56, diet and exercise to be encouraged upon discharge - HH/DM diet (14) Current smoker: - Cessation encouraged - Pt has been smoking 5-6 cig daily compared to her baseline of 1ppd. She is not actively trying to quit, just has not felt up to it. - Nicotine patch ordered (15) DVT prophylaxis: - teds, discontinue Coumadin Disposition: From home, lives with cousin, remain on PCU for severely elevated blood pressure If diarrhea continues to improve, renal failure continues to improve, and blood pressure improved, could discharge to home on Friday. Of note, will need Flagyl rather than p.o. vancomycin due to severe cost and has no health insurance Subjective Patient had one episode of loose stool this morning, but otherwise diarrhea has really decreased. No blood in her stool. Abdominal pain is much improved today. She is urinating quite frequently with IV fluids running. Afebrile. Her blood pressures got quite high in the afternoon and she felt a little bit l ightheaded with standing. Telemetry with normal sinus rhythm with rates in the 60s to 70s Review of Systems Review of Systems: All systems reviewed & are unremarkable except as noted in HPI & below No chest pain or shortness of breath Physical Exam Constitutional: WD/WN, vitals as above + obese Eyes: + anicteric sclerae Neck: trachea midline, no thyromegaly Respiratory: normal respiratory effort; no labored breathing Auscultation: lungs clear to auscultation bilaterally Cardiovascular: RRR, no murmur, no edema Gastrointestinal (Abdomen): normal bowel sounds, soft, nontender, no hepatosplenomegaly Musculoskeletal: Extremities: extremities normal to inspection; no cyanosis and no clubbing Skin: no rashes, warm and dry Neurologic: moves all extremities and awake; no focal motor deficits Psychiatric: A+Ox3, euthymic affect Results & Data Vital Signs (Past 12 Hours) Vital Signs Temp Pulse Resp BP BP Pulse Ox 02/05/19 19:31 36.8 C 74 18 97 02/05/19 17:24 164/72 H 02/05/19 16:34 198/106 H 02/05/19 16:30 212/112 H 02/05/19 15:35 36.8 C 74 18 98 02/05/19 11:28 36.4 C L 91 H 20 165/95 H 97 Laboratory Results 02/05/19 02/05/19 02/05/19 Range/Units 16:25 11:26 07:30 WBC (4.8-10.8) K/uL RBC (4.2-5.4) M/uL Hgb (12.0-16.0) g/dL Hct (37-47) % MCV (80-100) fL MCH (25-34) pg MCHC (32-36) g/dL RDW Std Deviation (36.4-46.3) fL RDW Coeff of Jaswinder (11.5-14.5) % Plt Count (130-400) K/uL MPV (7.4-10.4) fL PT (9.0-12.0) Seconds INR (0.9-1.1) Sodium (136-145) mmol/L Potassium (3.5-5.1) mmol/L Chloride (98-107) mmol/L Carbon Dioxide (21-32) mmol/L Anion Gap (3-11) BUN (7-18) mg/dl Creatinine (0.6-1.2) mg/dl Est Cr Clr Drug Dosing ml/min Est GFR ( Amer) Est GFR (Non-Af Amer) BUN/Creatinine Ratio (10-20) Glucose (70-99) mg/dl POC Glucose 83 74 104 H (70-99) Calcium (8.5-10.1) mg/dl Total Bilirubin (0.2-1) mg/dl AST (15-37) U/L ALT (12-78) U/L Alkaline Phosphatase (45-117) U/L Total Protein (6.4-8.2) gm/dl Albumin (3.4-5.0) gm/dl Globulin (2.5-4.0) gm/dl Albumin/Globulin Ratio (0.9-2) 02/05/19 02/05/19 02/05/19 Range/Units 05:36 05:36 05:36 WBC 9.16 (4.8-10.8) K/uL RBC 4.87 (4.2-5.4) M/uL Hgb 14.1 (12.0-16.0) g/dL Hct 41.3 (37-47) % MCV 84.8 (80-100) fL MCH 29.0 (25-34) pg MCHC 34.1 (32-36) g/dL RDW Std Deviation 43.8 (36.4-46.3) fL RDW Coeff of Jaswinder 14.1 (11.5-14.5) % Plt Count 186 (130-400) K/uL MPV 12.3 H (7.4-10.4) fL PT 17.7 H (9.0-12.0) Seconds INR 1.8 H (0.9-1.1) Sodium 137 (136-145) mmol/L Potassium 3.2 L (3.5-5.1) mmol/L Chloride 104 (98-107) mmol/L Carbon Dioxide 26 (21-32) mmol/L Anion Gap 7.0 (3-11) BUN 40 H (7-18) mg/dl Creatinine 1.47 H D (0.6-1.2) mg/dl Est Cr Clr Drug Dosing 51.7 ml/min Est GFR ( Amer) 44.8 Est GFR (Non-Af Amer) 38.7 BUN/Creatinine Ratio 26.9 H (10-20) Glucose 98 (70-99) mg/dl POC Glucose (70-99) Calcium 7.8 L (8.5-10.1) mg/dl Total Bilirubin 0.7 (0.2-1) mg/dl AST 9 L (15-37) U/L ALT 10 L (12-78) U/L Alkaline Phosphatase 78 (45-117) U/L Total Protein 6.2 L (6.4-8.2) gm/dl Albumin 2.5 L (3.4-5.0) gm/dl Globulin 3.7 (2.5-4.0) gm/dl Albumin/Globulin Ratio 0.7 L (0.9-2) 02/04/19 Range/Units 20:14 WBC (4.8-10.8) K/uL RBC (4.2-5.4) M/uL Hgb (12.0-16.0) g/dL Hct (37-47) % MCV (80-100) fL MCH (25-34) pg MCHC (32-36) g/dL RDW Std Deviation (36.4-46.3) fL RDW Coeff of Jaswinder (11.5-14.5) % Plt Count (130-400) K/uL MPV (7.4-10.4) fL PT (9.0-12.0) Seconds INR (0.9-1.1) Sodium (136-145) mmol/L Potassium (3.5-5.1) mmol/L Chloride (98-107) mmol/L Carbon Dioxide (21-32) mmol/L Anion Gap (3-11) BUN (7-18) mg/dl Creatinine (0.6-1.2) mg/dl Est Cr Clr Drug Dosing ml/min Est GFR ( Amer) Est GFR (Non-Af Amer) BUN/Creatinine Ratio (10-20) Glucose (70-99) mg/dl POC Glucose 116 H (70-99) Calcium (8.5-10.1) mg/dl Total Bilirubin (0.2-1) mg/dl AST (15-37) U/L ALT (12-78) U/L Alkaline Phosphatase (45-117) U/L Total Protein (6.4-8.2) gm/dl Albumin (3.4-5.0) gm/dl Globulin (2.5-4.0) gm/dl Albumin/Globulin Ratio (0.9-2) PG Care Time/CCT Total # of Minutes Spent Total Time Spent with Patient: Total time spent is greater than 50% in coordination of care (as documented) at patient's floor/unit and/or counseling patient: (1) Sepsis Sepsis type: sepsis due to unspecified organism Qualified Code(s): A41.9 - Sepsis, unspecified organism (2) Atrial fibrillation Atrial fibrillation type: unspecified Qualified Code(s): I48.91 - Unspecified atrial fibrillation
[2019-02-05] MEDS ORDERED: METOPROLOL TARTRATE 100 MG TAB PO SCH (21:00)
[2019-02-06] MEDS: VANCOMYCIN HCL 125 MG/2.5ML SOLN PO SCH ×3 (06:31→17:03)
[2019-02-06] MEDS: RASPBERRY SYRUP 5 ML UDP PO SCH ×3 (06:31→17:03)
[2019-02-06 06:45] LABS: Hematocrit (blood only) 41.4 % (37-47); Hemoglobin 14.2 g/dL (12.0-16.0); Mean Corpuscular Hgb Conc 34.3 g/dL (32-36); Mean Corpuscular Volume 84.1 fL (80-100); Platelet Count 176 K/uL (130-400); RDW Standard Deviation 43.1 fL (36.4-46.3); Red Blood Count 4.92 M/uL (4.2-5.4); White Blood Count 9.88 K/uL (4.8-10.8)
[2019-02-06 06:54] LABS: INR 1.5 (0.9-1.1); Prothrombin Time 14.9 Seconds (9.0-12.0)
[2019-02-06 07:25] LABS: Albumin Level 2.6 gm/dl (3.4-5.0); BUN Creatinine Ratio 22.4 (10-20); Creatinine Clr Calc Pharmacy 83.4 ml/min; Est GFR (Non-African American) 67.3; Potassium 3.5 mmol/L (3.5-5.1)
[2019-02-06 07:29] LABS: Albumin Globulin Ratio 0.7 (0.9-2); Bilirubin,Total 0.4 mg/dl (0.2-1); Globulin 3.7 gm/dl (2.5-4.0); Total Protein 6.3 gm/dl (6.4-8.2)
[2019-02-06] MEDS: ATORVASTATIN 20 MG TAB PO SCH (07:44)
[2019-02-06] MEDS: PANTOprazole 40 MG TAB PO SCH (07:45)
[2019-02-06] MEDS: NICOTINE 14 MG/24 HR PATCH TD SCH (07:45)
[2019-02-06] MEDS: CHOLESTYRAMINE LIGHT 4 GM PKT PO SCH (07:45)
[2019-02-06] MEDS: INSULIN ASPART 100 UNITS/ML 3 ML PEN SC SCH ×3 (08:32→17:03)
[2019-02-06] MEDS ORDERED: METOPROLOL TARTRATE 100 MG TAB PO SCH (09:00)
[2019-02-06] MEDS ORDERED: LISINOPRIL 10 MG TAB PO STA (09:55)
--- NOTE | 2019-02-06 09:57 | Nephrology Progress Note ---
Date of Service February 06, 2019 Assessment & Plan (1) VINH (acute kidney injury): Nonoliguric acute kidney injury. Clinical presentation is consistent with prerenal physiology. CT scan did not demonstrate obstruction. Urine studies are not consistent with anticoagulation associated nephropathy. INDIA-inhibitor has been appropriately held. She appropriate volume replacement with LR is being provided. No additional changes were made at this time. Medications are acceptable for kidney function. Close perspective monitoring will be provided. Please document accurate I/O's. Volume status is euvolemic. BP elevated. Lopressor has been adjusted. Suggest restarting lisinopril 10 mg daily now. Once BP acceptable, patient stable for discharge home (possible discharge this afternoon). Please check a metabolic profile within 1 week of discharge. Results can be faxed to my office ([phone]). I will request follow up in the nephrology clinic in [place] within 2 weeks of discharge. (2) Gastroenteritis: (3) Supratherapeutic INR: (4) Atrial fibrillation: (5) Hypertension: (6) Diabetes: Subjective No acute events overnight. Nya is feeling better this morning. No fevers or chills. Appetite improved. GI symptoms improving. No diarrhea today. BP high but patient asymptomatic. Denies headaches, chest pain, shortness or breath, or palpitations. Review of Systems Review of Systems: All systems reviewed & are unremarkable except as noted in HPI & below Physical Exam Constitutional: well developed and + obese; no acute distress Eyes: no scleral abnormality and no corneal abnormality ENMT: Ears: no hearing impairment Mouth: no oral mucosal abnormality Neck: normal visual inspection; + trachea not midline Respiratory: normal respiratory effort Auscultation: lungs clear to auscultation bilaterally Cardiovascular: Rate/Rhythm: regular rate Heart Sounds: normal S1 and normal S2 Musculoskeletal: Extremities: no cyanosis and no clubbing Skin: normal turgor; no lesions Neurologic: Motor/Sensory: no tremor and no asterixis Psychiatric: Orientation: alert and oriented x 3 Results & Data Vital Signs (Past 12 Hours) Vital Signs Temp Pulse Resp BP Pulse Ox 02/06/19 07:30 36.6 C 75 18 175/117 H 96 02/06/19 06:31 129/108 H 02/06/19 04:14 36.8 C 70 19 179/103 H 96 02/05/19 23:58 36.7 C 73 18 140/77 95 Laboratory Results Laboratory Results - last 24 hr 02/05/19 02/05/19 02/05/19 11:26 16:25 20:26 WBC RBC Hgb Hct MCV MCH MCHC RDW Std Deviation RDW Coeff of Jaswinder Plt Count MPV PT INR Sodium Potassium Chloride Carbon Dioxide Anion Gap BUN Creatinine Est Cr Clr Drug Dosing Est GFR ( Amer) Est GFR (Non-Af Amer) BUN/Creatinine Ratio Glucose POC Glucose 74 83 90 Calcium Total Bilirubin AST ALT Alkaline Phosphatase Total Protein Albumin Globulin Albumin/Globulin Ratio 02/06/19 02/06/19 02/06/19 01:28 05:56 05:56 WBC 9.88 RBC 4.92 Hgb 14.2 Hct 41.4 MCV 84.1 MCH 28.9 MCHC 34.3 RDW Std Deviation 43.1 RDW Coeff of Jaswinder 14.0 Plt Count 176 MPV 13.0 H PT 14.9 H INR 1.5 H Sodium Potassium Chloride Carbon Dioxide Anion Gap BUN Creatinine Est Cr Clr Drug Dosing Est GFR ( Amer) Est GFR (Non-Af Amer) BUN/Creatinine Ratio Glucose POC Glucose 87 Calcium Total Bilirubin AST ALT Alkaline Phosphatase Total Protein Albumin Globulin Albumin/Globulin Ratio 02/06/19 02/06/19 05:56 07:26 WBC RBC Hgb Hct MCV MCH MCHC RDW Std Deviation RDW Coeff of Jaswinder Plt Count MPV PT INR Sodium 139 Potassium 3.5 Chloride 106 Carbon Dioxide 25 Anion Gap 8.0 BUN 21 H Creatinine 0.93 D Est Cr Clr Drug Dosing 83.4 Est GFR ( Amer) 78.0 Est GFR (Non-Af Amer) 67.3 BUN/Creatinine Ratio 22.4 H Glucose 94 POC Glucose 106 H Calcium 8.0 L Total Bilirubin 0.4 AST 10 L ALT 12 Alkaline Phosphatase 75 Total Protein 6.3 L Albumin 2.6 L Globulin 3.7 Albumin/Globulin Ratio 0.7 L PG Care Time/CCT Total # of Minutes Spent Total Time Spent with Patient: Total time spent is greater than 50% in commercial coordinator rdination of care (as documented) at patient's floor/unit and/or counseling patient: (1) Atrial fibrillation Atrial fibrillation type: unspecified Qualified Code(s): I48.91 - Unspecified atrial fibrillation
--- NOTE | 2019-02-06 12:34 | Hospitalist Progress Note ---
Date of Service February 06, 2019 Assessment & Plan (1) C. difficile diarrhea: Patient presented with several days of nausea/vomiting/diarrhea developed diffuse crampy abdominal pains. C. difficile gene was positive on admission, but C. difficile toxin was negative; however, C. difficile gene was negative just 2 weeks ago. Despite the toxin being negative, I do believe this represents an acute C. difficile colitis/diarrhea especially as there is no other source of infection at this time. - Continue vancomycin PO while here and then convert to Flagyl on discharge for cost issues. (2) Sepsis: Secondary to C. difficile colitis as above. - Resolved (3) VINH (acute kidney injury): Elevated BUN at 56, creatinine 3.66, on admission up from baseline of 0.98. - Likely prerenal from hypovolemia from dehydration. - Creatinine down to 0.9 on 02/06. - Will need BMP sent to Dr. Morris in 1 week. ( ). Follow up with nephrology in 2 weeks. (4) Supratherapeutic INR: INR was greater than 10 upon admission, no evidence of bleeding, likely secondary to poor p.o. intake. - Was given vitamin K 5 mg p.o. x1 on admission - Plan to permanently discontinue Coumadin - she was only supposed to be on it for another 2 weeks anyway given her very brief episode of rapid atrial fibrillation during admission 2 to 3 weeks ago. (5) Atrial fibrillation: No recurrence of A. fib that she is aware of since last admission and none on telemetry here. - Plan at that time was to only continue Coumadin x1 month-we will discontinue as above - Continue beta-esha (6) Hypertension: Held lisinopril due to hypotension and acute kidney injury on admission. Then had severely elevated blood pressures as above in the low 200/110. - Increased metoprolol tartrate back to home dose of 100 mg p.o. twice daily - Restart home lisinopril (7) Elevated troponin: Elevated at 0.104/0.119/0.08, this is decreased compared to last hospitalization where troponin was 0.323. - ECG shows normal sinus rhythm without ischemic changes - No chest pain at all - This is likely secondary to demand ischemia with VINH and dehydration. - Follow up outpatient with PCP and/or cardiology. (8) Hyperlipidemia: - Cont atorvastatin 20 mg QAM (9) Diabetes: Last A1C =7.5 last month - ISS with Accu-Cheks - Patient is not on any oral anti-glycemic's or insulin, diet and exercise to be encouraged - Consulted patient educator (10) GERD (gastroesophageal reflux disease): -Stable -Continue PPI (11) Morbid obesity: - BMI of 56, diet and exercise to be encouraged upon discharge - HH/DM diet (12) Current smoker: - Cessation encouraged - Pt has been smoking 5-6 cig daily compared to her baseline of 1ppd. She is not actively trying to quit, just has not felt up to it. - Nicotine patch ordered (13) DVT prophylaxis: - teds, discontinue Coumadin Subjective Diarrhea is firming up. No major concerns otherwise. Not sure she is ready to go home. Review of Systems Review of Systems: All systems reviewed & are unremarkable except as noted in HPI & below Physical Exam Constitutional: WD/WN, vitals as above Eyes: EOM intact bilaterally; no conjunctival abnormality ENMT: external ear and nose normal, oropharynx normal Neck: trachea midline, no thyromegaly normal visual inspection Respiratory: normal respiratory effort, lungs clear to auscultation no respiratory distress Cardiovascular: RRR, no murmur, no edema Gastrointestinal (Abdomen): Inspection/Auscultation: abdomen normal to inspection; abdomen not distended Musculoskeletal: no cyanosis or clubbing, extremities motor strength 5/5 Skin: no rashes, warm and dry Neurologic: moves all extremities and awake Psychiatric: Orientation: alert, oriented to person and cooperative Results & Data Vital Signs (Past 12 Hours) Vital Signs Temp Pulse Resp BP Pulse Ox 02/06/19 11:00 36.7 C 62 18 97 02/06/19 07:30 36.6 C 75 18 175/117 H 96 02/06/19 06:31 129/108 H 02/06/19 04:14 36.8 C 70 19 179/103 H 96 PG Care Time/CCT Total # of Minutes Spent Total Time Spent with Patient: Total time spent is greater than 50% in coordination of care (as documented) at patient's floor/unit and/or counseling patient: (1) Sepsis Sepsis type: sepsis due to unspecified organism Qualified Code(s): A41.9 - Sepsis, unspecified organism (2) Atrial fibrillation Atrial fibrillation type: unspecified Qualified Code(s): I48.91 - Unspecified atrial fibrillation
--- NOTE | 2019-02-06 17:14 | Discharge Summary ---
Date of Service February 06, 2019 Admission HPI Per Admitting Provider This is a 58 yo F with PMx of atrial flutter/fib on coumadin, HTN, elevated troponin, DM type II, acute renal failure, morbid obesity, who was recently admitted for bout of sepsis from 01/15 to 01/19 where it appeared that she was treated for pneumonia due to her sx of sob, cough and productive sputum with IV zosyn and vanc initially, which was then switched to Augment on 01/17 which completed a 7 day course for the presumptive pneumonia. The patient confirms that she did finish the full course and denies any acute shortness of breath or respiratory complaints presently. The patient presents today with nausea and vomiting which started Friday night, denies hematemesis, coffee ground emesis or blood streaking in emesis. She admits to having fever, sweats and chills on and off over past 2 days, but did not take her temp. She did not take tylenol or nsaids to mask a fever. She has not been eating or drinking very well at all. Patient denies any known sick contacts, consumption of raw or undercooked foods, picnic foods, or known exposures. She reports feeling slightly weak and feels generalized soreness throughout her abdomen, which slightly localized. She is also having diarrhea which began around the same timeframe, denies any hematochezia or melena. Patient notes that she was able to take her medications on Friday and Friday however has been unable to do so today. She has not been smoking as much as her normal, only 5 to 6 cigarettes/day compared to 1 PPD. Principal Diagnosis C. diff infection Discharge Exam Constitutional WD/WN, vitals as above Eyes EOM intact bilaterally; no conjunctival abnormality ENMT external ear and nose normal, oropharynx normal Neck trachea midline, no thyromegaly normal visual inspection Respiratory normal respiratory effort, lungs clear to auscultation no respiratory distress Cardiovascular RRR, no murmur, no edema Gastrointestinal (Abdomen) Inspection/Auscultation: abdomen normal to inspection; abdomen not distended Musculoskeletal no cyanosis or clubbing, extremities motor strength 5/5 Skin no rashes, warm and dry Neurologic moves all extremities and awake Psychiatric Orientation: alert, oriented to person and cooperative Discharge Data Allergies Allergy/AdvReac Type Severity Reaction Status Date / Time No Known Allergies Allergy Verified 02/03/19 11:46 Consultations 02/03/19 13:55 ED Decision to Admit Stat 02/03/19 16:34 Consult Case Management - Discharge Planning Routine 02/04/19 08:21 Consult Nephrology Routine Ordered Studies 02/03/19 13:55 CT abd pelvis wo con Stat Hospital Course (1) C. difficile diarrhea: Patient presented with several days of nausea/vomiting/diarrhea developed diffuse crampy abdominal pains. C. difficile gene was positive on admission, but C. difficile toxin was negative; however, C. difficile gene was negative just 2 weeks ago. Despite the toxin being negative, I do believe this represents an acute C. difficile colitis/diarrhea especially as there is no other source of infection at this time. - Continue vancomycin PO while here and then convert to Flagyl on discharge for cost issues. (2) Sepsis: Secondary to C. difficile colitis as above. - Resolved (3) VINH (acute kidney injury): Elevated BUN at 56, creatinine 3.66, on admission up from baseline of 0.98. - Likely prerenal from hypovolemia from dehydration. - Creatinine down to 0.9 on 02/06. - Will need BMP sent to Dr. Morris in 1 week. ( ). Follow up with nephrology in 2 weeks. (4) Supratherapeutic INR: INR was greater than 10 upon admission, no evidence of bleeding, likely secondary to poor p.o. intake. - Was given vitamin K 5 mg p.o. x1 on admission - Plan to permanently discontinue Coumadin - she was only supposed to be on it for another 2 weeks anyway given her very brief episode of rapid atrial fibrillation during admission 2 to 3 weeks ago. (5) Atrial fibrillation: No recurrence of A. fib that she is aware of since last admission and none on telemetry here. - Plan at that time was to only continue Coumadin x1 month-we will discontinue as above - Continue beta-esha (6) Hypertension: Held lisinopril due to hypotension and acute kidney injury on admission. Then had severely elevated blood pressures as above in the low 200/110. - Increased metoprolol tartrate back to home dose of 100 mg p.o. twice daily - Restart home lisinopril (7) Elevated troponin: Elevated at 0.104/0.119/0.08, this is decreased compared to last hospitalization where troponin was 0.323. - ECG shows normal sinus rhythm without ischemic changes - No chest pain at all - This is likely secondary to demand ischemia with VINH and dehydration. - Follow up outpatient with PCP and/or cardiology. (8) Hyperlipidemia: - Cont atorvastatin 20 mg QAM (9) Diabetes: Last A1C =7.5 last month - ISS with Accu-Cheks - Patient is not on any oral anti-glycemic's or insulin, diet and exercise to be encouraged - Consulted breastfeeding educator (10) GERD (gastroesophageal reflux disease): -Stable -Continue PPI (11) Morbid obesity: - BMI of 56, diet and exercise to be encouraged upon discharge - HH/DM diet (12) Current smoker: - Cessation encouraged - Pt has been smoking 5-6 cig daily compared to her baseline of 1ppd. She is not actively trying to quit, just has not felt up to it. - Nicotine patch ordered (13) DVT prophylaxis: - teds, discontinue Coumadin Total Time Total Time Spent Total Time Spent (In Minutes): 35 Total Time Includes: Examination of the Patient and Communication With Other Providers Discharge Plan Discharge Items Patient Disposition: Home - Self-Care Reason For Visit: SEPSIS Discharge Diagnosis: C. diff infection Discharge Goals: Diagnostic testing, Increase independence and Improve nutritional status Activity: Resume your previous activity Non-emergency contact: Primary Care Provider Call non-emergency contact if: your symptoms worsen, your pain is worsening and your temperature is above 100.5 Follow-up/Referrals: Romeo Lanza MD [Primary Care Provider] - 02/11/19 10:45 am (A follow up appt. has been made for you with Dr. Lanza on 02/11 at 10:45am.) Diet: Regular Addtl Provider Instructions: Ms. Hernandez, You were admitted to the hospital with diarrhea, nausea, and vomiting. You had an infection in your GI tract called C. diff which is usually the result of taking antibiotics. You were on antibiotics 2 weeks ago for your pneumonia, and this probably triggered the diarrhea. We started you on a medication called vancomycin which helped control the diarrhea. On discharge, we will have you take something called Flagyl to help keep it from coming back. Please contact your PCP if the diarrhea starts to get worse again, as you may need to find a way to get financial assistance for the vancomycin instead of using the Flagyl. You will be on antibiotics for a total of 9 more days to stop the infection. Please take the antibiotic 3 times per day. Please stop your warfarin as you do not need to be on a blood thinner any longer. Please come back to the hospital with any concerning symptoms such as lightheadedness, dizziness, fainting, or other concerning issues. Prescriptions: New metronidazole 500 mg tablet 500 mg PO TID Qty: 27 RF: 0 Continued atorvastatin 20 mg tablet 20 mg PO QAM RF: 0 lisinopril 10 mg tablet 10 mg PO QAM RF: 0 metoprolol tartrate 50 mg tablet 100 mg PO BID RF: 0 omeprazole 20 mg Tablet,Delayed Release (Dr/Ec) 20 mg PO QAM RF: 0 albuterol sulfate [Ventolin HFA] 90 mcg/actuation Hfa Aerosol Inhaler 2 puff inhalation Q6H PRN (Reason: shortness of breath or wheezing) Qty: 18 RF: 0 Florastor 250 mg Capsule 250 mg PO DAILY Qty: 30 RF: 0 Discontinued warfarin 5 mg tablet 7.5 mg PO QPM Qty: 45 RF: 0 Stand-Alone Forms: [facility] Discharge Orders: Discharge Order (Routine); Ordered 02/06/19 Ordered By: Patrick Bosch Admission Data Admit Date/Time: 02/03/19 14:50 Attending Provider: Patrick Bosch Admit Provider: Gaby Nuñez Primary Care Provider: Romeo Lanza Other Providers: Axel Morris ; Patrick Bosch Service: Telemetry
[2019-02-07] MEDS ORDERED: LISINOPRIL 10 MG TAB PO SCH (09:00)
== END 2019-02-06 18:37 | disposition home or self-care (01) | DRG 871 ==
LOC: ED 11:25 → 2E 14:50 → SUATTDRO 14:50 → 2E 16:19

== ENCOUNTER 2019-02-20 15:00 | Inpatient (IN) ==
[2019-02-20] MEDS ORDERED: ADENOSINE IV SOLN 3 MG/ML 2 ML VIAL IV ONE ×3 (15:17→15:18)
[2019-02-20] MEDS ORDERED: ADENOSINE IV SOLN 3 MG/ML 2 ML VIAL IV STA ×2 (15:17→15:25)
[2019-02-20] MEDS ORDERED: SODIUM CHLORIDE 0.9% 1000ML 1,000 ML IV ONE (15:17)
[2019-02-20] MEDS ORDERED: ONDANSETRON INJ 2 MG/ML 2 ML VIAL IV STA ×2 (15:27→16:10)
[2019-02-20 15:28] LABS: Basophils # (auto) 0.02 K/uL (0-0.2); Basophils % (auto) 0.1 %; Hematocrit (blood only) 50.8 % (37-47); Immature Granulocytes # (auto) 0.04 K/uL (0.00-0.02); Immature Granulocytes % (auto) 0.3 %; Lymphocytes % (auto) 9.7 %; Mean Corpuscular Hemoglobin 30.3 pg (25-34); Mean Corpuscular Hgb Conc 35.4 g/dL (32-36); Mean Corpuscular Volume 85.4 fL (80-100); Mean Platelet Volume 12.8 fL (7.4-10.4); Monocytes # (auto) 0.33 K/uL (0.11-0.59); Monocytes % (auto) 2.5 %; Neutrophils # (auto) 11.65 K/uL (1.4-6.5); Neutrophils % (auto) 87.4 %; Platelet Count 236 K/uL (130-400); RDW Coefficient of Variation 14.5 % (11.5-14.5); RDW Standard Deviation 44.8 fL (36.4-46.3); Red Blood Count 5.95 M/uL (4.2-5.4); White Blood Count 13.34 K/uL (4.8-10.8)
[2019-02-20 15:42] LABS: INR 1.1 (0.9-1.1); Partial Thromboplastin Time 28.3 Seconds (21.0-31.0); Prothrombin Time 10.9 Seconds (9.0-12.0)
[2019-02-20 15:46] LABS: Alanine Aminotransferase 27 U/L (12-78); Albumin Level 3.8 gm/dl (3.4-5.0); Aspartate Aminotransferase 19 U/L (15-37); Bilirubin Direct < 0.1 mg/dl (0-0.2); Blood Urea Nitrogen 11 mg/dl (7-18); Calcium 9.2 mg/dl (8.5-10.1); Carbon Dioxide 18 mmol/L (21-32); Chloride 100 mmol/L (98-107); Creatinine Clr Calc Pharmacy 58.7 ml/min; Est GFR (Non-African American) 39.6; Glucose 225 mg/dl (70-99); Magnesium 1.8 mg/dl (1.8-2.4); Potassium 3.8 mmol/L (3.5-5.1); Sodium 133 mmol/L (136-145)
--- NOTE | 2019-02-20 15:53 | XRay Report ---
XR chest 1V portable CLINICAL HISTORY: 58 years-old Female presenting with Shortness of breath. TECHNIQUE: Portable upright AP view of the chest was obtained. COMPARISON: 02/03/2019. FINDINGS: Atherosclerosis of the aortic arch. Cardiac silhouette top normal in size. No focal opacity. No large effusion or pneumothorax. Osseous structures normal. IMPRESSION: 1. No acute cardiopulmonary disease. Electronically signed by: Lewis Tomlinson M.D. 02/20/2019 3:52 PM
[2019-02-20 15:57] LABS: Alkaline Phosphatase 121 U/L (45-117); Bilirubin,Total 0.5 mg/dl (0.2-1); Total Protein 9.1 gm/dl (6.4-8.2); Troponin I < 0.015 ng/ml (0-0.045)
[2019-02-20] MEDS ORDERED: LABETALOL HCL IV 5 MG/ML 20ML IV STA ×2 (16:34→17:35)
[2019-02-20] MEDS ORDERED: METOPROLOL TARTRATE 1 MG/ML VIAL IV STA ×2 (17:17→17:35)
[2019-02-20 17:22] LABS: Appearance Urine Clear (Clear); Bacteria Urine Automated 1+ (Negative); Bilirubin Urine Negative (Negative); Blood Urine 1+ (Negative); Color Urine Yellow; Epithelial Cell Urine Auto >30 /lpf (0-5); Glucose Urine UA 2+ (Negative); Ketones Urine 2+ (Negative); Leukocyte Esterase Urine Negative (Negative); Nitrite Urine Negative (Negative); Protein Urine 3+ (Negative); RBC Urine Automated 0-4 /hpf (0-4); Specific Gravity Urine 1.019 (1.000-1.030); Urobilinogen Urine Negative (Negative)
[2019-02-20 17:36] LABS: Mucus Urine Present (None Prsent)
[2019-02-20] MEDS ORDERED: SODIUM CHLORIDE 0.9% 1000ML 1,000 ML IV SCH (18:15)
[2019-02-20] MEDS ORDERED: dilTIAZem HCl 125 MG in DEXTROSE 5% 100 ML IV ONE (18:17)
[2019-02-20] MEDS ORDERED: dilTIAZem HCl 5 MG/ML 5 ML VIAL IV STA (18:17)
[2019-02-20] MEDS ORDERED: Heparin IV Low Dose WITH Bolus IV STA (18:18)
[2019-02-20] MEDS ORDERED: HEPARIN SODIUM/DEXTROSE 25,000 UNITS/500 ML BAG IV SCH (18:30)
--- NOTE | 2019-02-20 18:36 | Emergency Department Note ---
Entered by Odalys Evans acting as a scribe for ED Provider Note Name: Nya Hernandez Age: 58F Arrives Via: EMS Informant: Patient CC: Tachycardia HPI: The patient is a 58 year old female that is presenting to the Emergency Room with complaints of an episode of tachycardia that started yesterday. The patient reports that she has some slight shortness of breath. She states that her symptoms worsen with exertion. She denies any falls or injuries. She notes some associated nausea, diaphoresis, and weakness. She denies any chest pain, headaches, abdominal pain, leg swelling, or syncope. She denies any history of thyroid issues. She reports that she was taking Coumadin but has discontinued it. She states that she was on the blood thinner for her thick blood. She denies any history of atrial fibrillation. The patient reports that she was admitted to the hospital 2 times in the past month. She notes that she was last admitted 2 weeks ago. She believes that she was given medication to slow her heart rate down but she is unsure. She denies drinking any alcohol or drug use. She notes that she smokes a pack of cigarettes today. On review of the patients records, she was admitted to the hospital 2 weeks ago for 4 days. She had an INR of 10.5 at that time. She was admitted 4 weeks ago for tachycardia which was resolved with fluids. ROS: See above HPI for pertinent positives & negatives. A total of 10 systems reviewed and were otherwise negative. Past Medical History: VINH, elevated troponin, sarcopenia, supratherapeutic INR, gastroenteritis, atrial flutter, sepsis, morbid obesity, diabetes, HLD, HTN, GERD, tachycardia Past Surgical History: No known surgical history Family History: No significant medical history Social History: Single, unemployed. Current smoker, pack of cigarettes a day. No alcohol or substance use. Home Medications: Ventolin, atorvastatin, Florastor, lisinopril, metoprolol, metronidazole, omeprazole Allergies NKDA Physical: Vitals: BP: 213/159, HR: 176, R: 21, T: 98.6F, O2: 100 Exam: GENERAL: Patient is unwell appearing and in no acute distress. Morbidly obese and diaphoretic. EYES: No scleral icterus, unremarkable pupils. ENT: Mucous membranes moist, no nasal congestion. NECK: No masses appreciated, no meningismus, trachea is midline. RESPIRATORY: Mildly dyspnic/tachypnic. No wheeze, no rhonchi. CARDIOVASCULAR: Regular rhythm and tachycardic rate. No murmurs, rubs, gallops appreciated. GASTROINTESTINAL: Abdomen soft, non-tender, no peritonitis. Bowel sounds positive. No masses appreciated. BACK: No midline tenderness, no CVA tenderness EXTREMITIES: Normal motion all extremities, no cyanosis, no edema. NEUROLOGIC: Alert and oriented, no acute motor or sensory deficits, no focal weakness, cranial nerves grossly intact. SKIN: No rash, no jaundice. ED Course: Prior Medical Record, Triage/Nursing Notes, Medications, Allergies reviewed by Me Vital Signs: reviewed and remarkable for HTN, Tachy Labs: Reviewed and remarkable for mild renal insufficiency from recent admission, normal INR, normal trop. Interventions: Saline lock, adenosine 6mg & 12mg IV, Labetalol 10mg IV x 2, Lopressor 5mg IV x 2, Cardizem bolus/gtt, heparin bolus/gtt Imaging: Radiology results as stated below per my review and the radiologist's interpretation: XR chest 1V portable CLINICAL HISTORY: 58 years-old Female presenting with Shortness of breath. TECHNIQUE: Portable upright AP view of the chest was obtained. COMPARISON: 02/03/2019. FINDINGS: Atherosclerosis of the aortic arch. Cardiac silhouette top normal in size. No focal opacity. No large effusion or pneumothorax. Osseous structures normal. IMPRESSION: 1. No acute cardiopulmonary disease. Electronically signed by: Lewis Tomlinson M.D. 02/20/2019 3:52 PM EKG: #1: 1510. Per My Interpretation: Indication Tachycardia: SVT 174 bpm which is new from feb 03, 2019 EKG. QTC 466, lateral mild ST depressions. There is single PVC. #1: 1526. Per My Interpretation: Indication Resolution of SVT: Sinus tachy 108 bpm qtc 458 without ectopy nor ischemia. Resosolution of EKG findings from previous EKG. #1: 1720. Per My Interpretation: Indication Increased HR: Tachycardia 134 bpm without p waves concerning for svt, aflutter/fib, junc tachycardia. QTC 483. This is new from previous EKG. Mild lateral ST depression, no stemi Course: 1512:The patient was evaluated in room C03. A complete history and physical examination was performed. 1525: 6 of adenosine and then 12 of adenosine were given resulting in sinus tachycardia at a rate of 120bpm. The patient is no longer in SVT. Repeat EKG was ordered. 1530: I reevaluated the patient at this time. She is vomiting but otherwise feels well. HR is 108bpm. 1607: I revisited the patient at this time. She reports that was previously feeling better but now feels nauseous again. She notes some mild epigastric pain. 1634: The patient states that her nausea has improved. Her BP is elevated again. She denies current CP. 1717: I reevaluated the patient at this time. She is now tachycardic and appears to be in atrial flutter. Repeat EKG is being obtained. She is still mildly nauseous. Patient is agreeable to hospitalist evaluation. 1735: I revisited the patient. She is more hypertensive by tachycardia has lowered to low teens without p-waves appreciated. Lopressor and labetalol ordered. 1745: Hr to 120s, patient still hypertensive 1810: I discussed the patient's case with Dr. Nuñez, [facility] [place], who will evaluate the patient for further management and care. Asked I get CT head and start heparin/cardizem bolus/gtt 1812: Reviewed with patient who agrees with plan and denies any bleeding issues nor significant headache at this time. Blood pressure: Elevated - Referred to PCP Disposition: Being evaluated by a hospitalist. Prescriptions: None. Differentials: Etiologies such as premature contractions, electrolyte abnormality, cardiac dysrhythmia, thyroid dysfunction, pulmonary embolism, infection, gastrointestinal, as well as others were entertained. Medical Decision Makin yr old female with palpitations associated with nausea, weakness and diaphoresis. Does have some vague abdominal pain which is ongoing for last 4 weeks with [address] abdo/pelv normal wbc and no fever and no peritonitis by exam thus I feel repeat CT abdo pelv not indicated. Recent admissions for elevated trop, arythmia, cdiff, renal failure, elevated INR, etc. Today with normal trop, no current diarrhea and renal function improved. Given fluids along with Adenosine 6mg then 12mg with resolution of SVT to a sinus tach that trended to 90 bpm. Became increasingly nauseous and vomiting thus zofran x 2 with improvement but after last vomiting HR increasing and now with tachycardia in 130s though without pwaves. Seems unlikely SVT and more likely afib/flutter with RVR. Lopressor given and HR to 110s and gradually tending up thus I suspect afib. Given further lopressor and now labetelol. Reviewed with cards (Dr Ramos) who agree with continued medical approach and hospitalization. Reviewed with Dr Nuñez and after discussion with her she agrees with plan for starting cardizem and heparin. Will get CT head prior as no clear headache but with persistent hypertension and no recent imaging I feel this is reasonable. She was consented to this approach and agrees verbally. Of note previous Mag and TSH OK. Trop today is OK without chest pain so will not electrocardiovert nor emergent cath at this time. Cr mild up from previous though no to where she was last week. Lactate, wbc, OK without fever I do not feel this is return of sepsis. Impression: SVT, atrial fibrillation with RVR, intractable nausea and vomiting, hypertensive emergency, renal insufficiency Critical Care Time: I have personally spent greater than 190 minutes of critical care time in the direct management of this patient. SVT converting to multiple other rhytms eventually afib RVR requiring multiple lopressor boluses then cardizem bolus/gtt and heparin bolus/gtt. This was a life/limb threatening event. This includes time spent evaluating patient, direct bedside care, chart review, placing orders, interpretation of diagnostic studies, discussion with consultants, patient, and family members, as well as other required patient management a ctivities. This 90 minutes is in excess of all separately billable procedures. The scribe's documentation has been prepared under my direction and personally reviewed by me in its entirety. I confirm that the note above accurately reflects all work, treatment, procedures, and medical decision making performed by me. Adan Saez MD Impression & Plan SVT (supraventricular tachycardia), Intractable nausea and vomiting, Hypertensive emergency, Renal insufficiency, Atrial fibrillation with RVR Past Med/Surg History Medical History Morbid obesity (Chronic) Obese (Chronic) Vomiting and diarrhea (Acute) Abdominal pain (Acute) Vomiting and diarrhea (Acute) Hypertension (Chronic) Diabetes (Chronic) Hyperlipidemia (Chronic) Acute diverticulitis (Acute 07/17/14) Tachycardia (Acute 08/08/14) Hypertension GERD (gastroesophageal reflux disease) (Chronic) Dehydration (Acute) Family History Other No known problems Social History Preferred Language: Sami Communication Ability: Effective 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 Teacher Required: No Beliefs That Will Affect Care: None marital status: Single Current Living Situation: Family current occupational status: unemployed Feels Safe at Home: Yes Smoking Status: Current every day smoker Tobacco Type: cigarettes ; Second Hand Exposure: Yes ; Hx Alcohol Use: No Hx Substance Use: No Results & Data Vital Signs Vital Signs - 24 hr 02/20/19 15:07 02/20/19 15:10 02/20/19 15:15 Temperature Temperature Source Sepsis Recent Fever Within 48 Hours Sepsis New/Unexplained Change in Mental Status Sepsis Action Taken by Nursing Pulse Rate 176 H 174 H 173 H Pulse Rate from SpO2 Sensor Pulse Rhythm Respiratory Rate 21 20 27 H Respiratory Effort / Characteristics Respiratory Depth Blood Pressure 213/159 H Blood Pressure Mean 177 Blood Pressure Position Pulse Oximetry Oxygen Delivery Method Oxygen Flow Rate 02/20/19 15:16 02/20/19 15:19 02/20/19 15:23 Temperature Temperature Source Sepsis Recent Fever Within 48 Hours Sepsis New/Unexplained Change in Mental Status Sepsis Action Taken by Nursing Pulse Rate 174 H 65 Pulse Rate from SpO2 Sensor 110 H Pulse Rhythm Respiratory Rate 23 17 Respiratory Effort / Characteristics Respiratory Depth Blood Pressure 168/137 H 174/139 H Blood Pressure Mean 147 150 Blood Pressure Position Pulse Oximetry 98 99 Oxygen Delivery Method Room Air Nasal Cannula Oxygen Flow Rate 2 02/20/19 15:28 02/20/19 15:30 02/20/19 15:45 Temperature 37.0 C Temperature Source Oral Sepsis Recent Fever Within 48 Hours No Sepsis New/Unexplained Change in Mental Status No Sepsis Action Taken by Nursing No Action Required Pulse Rate 180 H 133 H 106 H Pulse Rate from SpO2 Sensor 133 H 106 H Pulse Rhythm Regular Respiratory Rate 23 19 23 Respiratory Effort / Characteristics Non-Labored Spontaneous Respiratory Depth Normal Blood Pressure 173/123 H 199/136 H 198/110 H Blood Pressure Mean 139 157 139 Blood Pressure Position Sitting Pulse Oximetry 98 97 100 Oxygen Delivery Method Room Air Oxygen Flow Rate 02/20/19 16:00 02/20/19 16:15 02/20/19 16:16 Temperature Temperature Source Sepsis Recent Fever Within 48 Hours Sepsis New/Unexplained Change in Mental Status Sepsis Action Taken by Nursing Pulse Rate 106 H 101 H 96 H Pulse Rate from SpO2 Sensor 105 H Pulse Rhythm Respiratory Rate 15 24 17 Respiratory Effort / Characteristics Respiratory Depth Blood Pressure 158/77 H 242/161 H Blood Pressure Mean 104 188 Blood Pressure Position Pulse Oximetry 100 Oxygen Delivery Method Oxygen Flow Rate 02/20/19 16:19 02/20/19 16:30 02/20/19 16:45 Temperature Temperature Source Sepsis Recent Fever Within 48 Hours Sepsis New/Unexplained Change in Mental Status Sepsis Action Taken by Nursing Pulse Rate 94 H Pulse Rate from SpO2 Sensor Pulse Rhythm Respiratory Rate 18 24 25 H Respiratory Effort / Characteristics Respiratory Depth Blood Pressure 190/120 H 201/136 H 157/102 H Blood Pressure Mean 143 157 120 Blood Pressure Position Pulse Oximetry Oxygen Delivery Method Oxygen Flow Rate 02/20/19 17:05 02/20/19 17:06 02/20/19 17:15 Temperature Temperature Source Sepsis Recent Fever Within 48 Hours Sepsis New/Unexplained Change in Mental Status Sepsis Action Taken by Nursing Pulse Rate 136 H 138 H 136 H Pulse Rate from SpO2 Sensor Pulse Rhythm Respiratory Rate 19 20 Respiratory Effort / Characteristics Respiratory Depth Blood Pressure 165/127 H 198/134 H Blood Pressure Mean 139 155 Blood Pressure Position Pulse Oximetry Oxygen Delivery Method Oxygen Flow Rate 02/20/19 17:24 02/20/19 17:30 02/20/19 17:45 Temperature Temperature Source Sepsis Recent Fever Within 48 Hours Sepsis New/Unexplained Change in Mental Status Sepsis Action Taken by Nursing Pulse Rate 134 H 122 H 119 H Pulse Rate from SpO2 Sensor Pulse Rhythm Respiratory Rate 14 27 H Respiratory Effort / Characteristics Respiratory Depth Blood Pressure 198/134 H 192/103 H 169/105 H Blood Pressure Mean 132 126 Blood Pressure Position Pulse Oximetry Oxygen Delivery Method Oxygen Flow Rate 02/20/19 18:00 02/20/19 18:15 02/20/19 18:16 Temperature Temperature Source Sepsis Recent Fever Within 48 Hours Sepsis New/Unexplained Change in Mental Status Sepsis Action Taken by Nursing Pulse Rate 131 H 118 H 117 H Pulse Rate from SpO2 Sensor Pulse Rhythm Respiratory Rate 23 22 33 H Respiratory Effort / Characteristics Respiratory Depth Blood Pressure 182/119 H 142/100 H Blood Pressure Mean 140 114 Blood Pressure Position Pulse Oximetry Oxygen Delivery Method Oxygen Flow Rate 02/20/19 18:30 02/20/19 18:45 02/20/19 19:08 Temperature Temperature Source Sepsis Recent Fever Within 48 Hours Sepsis New/Unexplained Change in Mental Status Sepsis Action Taken by Nursing Pulse Rate 117 H 118 H Pulse Rate from SpO2 Sensor 85 Pulse Rhythm Respiratory Rate 25 H 20 Respiratory Effort / Characteristics Respiratory Depth Blood Pressure 137/108 H Blood Pressure Mean 117 Blood Pressure Position Pulse Oximetry 96 Oxygen Delivery Method Oxygen Flow Rate 02/20/19 19:10 02/20/19 19:15 02/20/19 19:16 Temperature Temperature Source Sepsis Recent Fever Within 48 Hours Sepsis New/Unexplained Change in Mental Status Sepsis Action Taken by Nursing Pulse Rate Pulse Rate from SpO2 Sensor 84 86 87 Pulse Rhythm Respiratory Rate Respiratory Effort / Characteristics Respiratory Depth Blood Pressure 153/112 H 166/119 H Blood Pressure Mean 125 134 Blood Pressure Position Pulse Oximetry 97 99 97 Oxygen Delivery Method Oxygen Flow Rate Home Medications Current Medication List: was personally reviewed by me Laboratory Data Attestation: I reviewed the patient's lab results. Result diagrams: 02/20/19 15:18 02/20/19 15:18 Lab Results 02/20/19 02/20/19 02/20/19 Range/Units 15:18 15:18 15:18 WBC 13.34 H (4.8-10.8) K/uL RBC 5.95 H (4.2-5.4) M/uL Hgb 18.0 H (12.0-16.0) g/dL Hct 50.8 H (37-47) % MCV 85.4 (80-100) fL MCH 30.3 (25-34) pg MCHC 35.4 (32-36) g/dL RDW Std Deviation 44.8 (36.4-46.3) fL RDW Coeff of Jaswinder 14.5 (11.5-14.5) % Plt Count 236 (130-400) K/uL MPV 12.8 H (7.4-10.4) fL Immature Gran % (Auto) 0.3 % Neut % (Auto) 87.4 % Lymph % (Auto) 9.7 % [place] % (Auto) 2.5 % Eos % (Auto) 0.0 % Baso % (Auto) 0.1 % Immature Gran # (Auto) 0.04 H (0.00-0.02) K/uL Neut # (Auto) 11.65 H (1.4-6.5) K/uL Lymph # (Auto) 1.30 (1.2-3.4) K/uL [place] # (Auto) 0.33 (0.11-0.59) K/uL Eos # (Auto) 0.00 (0-0.5) K/uL Baso # (Auto) 0.02 (0-0.2) K/uL PT 10.9 (9.0-12.0) Seconds INR 1.1 (0.9-1.1) APTT 28.3 (21.0-31.0) Seconds PTT Ratio 1.0 Sodium 133 L (136-145) mmol/L Potassium 3.8 (3.5-5.1) mmol/L Chloride 100 (98-107) mmol/L Carbon Dioxide 18 L (21-32) mmol/L Anion Gap 15.0 H (3-11) BUN 11 (7-18) mg/dl Creatinine 1.44 H (0.6-1.2) mg/dl Est Cr Clr Drug Dosing 58.7 ml/min Est GFR ( Amer) 46.0 Est GFR (Non-Af Amer) 39.6 BUN/Creatinine Ratio 8.0 L (10-20) Glucose 225 H (70-99) mg/dl Lactate (0.4-2.0) mmol/L Calcium 9.2 (8.5-10.1) mg/dl Magnesium 1.8 (1.8-2.4) mg/dl Total Bilirubin 0.5 (0.2-1) mg/dl Direct Bilirubin < 0.1 (0-0.2) mg/dl AST 19 (15-37) U/L ALT 27 (12-78) U/L Alkaline Phosphatase 121 H (45-117) U/L Troponin I < 0.015 (0-0.045) ng/ml Total Protein 9.1 H (6.4-8.2) gm/dl Albumin 3.8 (3.4-5.0) gm/dl TSH 1.660 (0.300-4.500) uIu/ml Urine Color Urine Appearance (Clear) Urine pH (4.5-7.5) Ur Specific [place] (1.000-1.030) Urine Protein (Negative) Urine Glucose (UA) (Negative) Urine Ketones (Negative) Urine Blood (Negative) Urine Nitrite (Negative) Urine Bilirubin (Negative) Urine Urobilinogen (Negative) Ur Leukocyte Esterase (Negative) Urine WBC (Auto) (0-5) /hpf Urine RBC (Auto) (0-4) /hpf U Hyaline Cast (Auto) (0-5) /lpf U Epithel Cells (Auto) (0-5) /lpf Urine Bacteria (Auto) (Negative) Ur Renal Epithelial Cell WBC Casts (0) /lpf Urine Mucus (None Prsent) 02/20/19 02/20/19 Range/Units 16:45 17:10 WBC (4.8-10.8) K/uL RBC (4.2-5.4) M/uL Hgb (12.0-16.0) g/dL Hct (37-47) % MCV (80-100) fL MCH (25-34) pg MCHC (32-36) g/dL RDW Std Deviation (36.4-46.3) fL RDW Coeff of Jaswinder (11.5-14.5) % Plt Count (130-400) K/uL MPV (7.4-10.4) fL Immature Gran % (Auto) % Neut % (Auto) % Lymph % (Auto) % [place] % (Auto) % Eos % (Auto) % Baso % (Auto) % Immature Gran # (Auto) (0.00-0.02) K/uL Neut # (Auto) (1.4-6.5) K/uL Lymph # (Auto) (1.2-3.4) K/uL [place] # (Auto) (0.11-0.59) K/uL Eos # (Auto) (0-0.5) K/uL Baso # (Auto) (0-0.2) K/uL PT (9.0-12.0) Seconds INR (0.9-1.1) APTT (21.0-31.0) Seconds PTT Ratio Sodium (136-145) mmol/L Potassium (3.5-5.1) mmol/L Chloride (98-107) mmol/L Carbon Dioxide (21-32) mmol/L Anion Gap (3-11) BUN (7-18) mg/dl Creatinine (0.6-1.2) mg/dl Est Cr Clr Drug Dosing ml/min Est GFR ( Amer) Est GFR (Non-Af Amer) BUN/Creatinine Ratio (10-20) Glucose (70-99) mg/dl Lactate 1.9 (0.4-2.0) mmol/L Calcium (8.5-10.1) mg/dl Magnesium (1.8-2.4) mg/dl Total Bilirubin (0.2-1) mg/dl Direct Bilirubin (0-0.2) mg/dl AST (15-37) U/L ALT (12-78) U/L Alkaline Phosphatase (45-117) U/L Troponin I (0-0.045) ng/ml Total Protein (6.4-8.2) gm/dl Albumin (3.4-5.0) gm/dl TSH (0.300-4.500) uIu/ml Urine Color Yellow Urine Appearance Clear (Clear) Urine pH 6.0 (4.5-7.5) Ur Specific [place] 1.019 (1.000-1.030) Urine Protein 3+ H (Negative) Urine Glucose (UA) 2+ H (Negative) Urine Ketones 2+ H (Negative) Urine Blood 1+ H (Negative) Urine Nitrite Negative (Negative) Urine Bilirubin Negative (Negative) Urine Urobilinogen Negative (Negative) Ur Leukocyte Esterase Negative (Negative) Urine WBC (Auto) 5-10 H (0-5) /hpf Urine RBC (Auto) 0-4 (0-4) /hpf U Hyaline Cast (Auto) 10-30 H (0-5) /lpf U Epithel Cells (Auto) >30 H (0-5) /lpf Urine Bacteria (Auto) 1+ H (Negative) Ur Renal Epithelial Cell Not Reportable WBC Casts 1-5 H (0) /lpf Urine Mucus Present A (None Prsent) Administered Medications Sodium Chloride (Nss 1000ml) 1,000 mls @ 125 mls/hr IV .Q8H AKHIL Stop: 03/22/19 18:14 Last Admin: 02/20/19 18:09 Dose: 125 mls/hr Documented by: [id number] Diltiazem HCl 125 mg/ Dextrose 125 mls @ 5 mls/hr IV .Q24H ONE; Protocol Stop: 02/21/19 18:16 Last Admin: 02/20/19 19:14 Dose: 5 mg/hr, 5 mls/hr Documented by: [id number] Cosigned by: [id number] Heparin Sodium/Dextrose (Heparin Sodium/Dextrose) 25,000 units in 500 mls @ 0.02 mls/hr IV .Q24H AKHIL; Protocol Stop: 03/22/19 18:29 Last Admin: 02/20/19 19:13 Dose: 1,000 units/hr, 20 mls/hr Documented by: [id number] Cosigned by: [id number] Discontinued Medications Adenosine (Adenosine) Confirm Administered Dose 6 mg IV .STK-MED ONE Stop: 02/20/19 15:18 Last Admin: 02/20/19 15:37 Dose: 6 mg Documented by: [id number] Adenosine (Adenosine) Confirm Administered Dose 6 mg IV .STK-MED ONE Stop: 02/20/19 15:18 Last Admin: 02/20/19 15:37 Dose: 6 mg Documented by: [id number] Adenosine (Adenosine) Confirm Administered Dose 6 mg IV .STK-MED ONE Stop: 02/20/19 15:19 Last Admin: 02/20/19 15:38 Dose: 6 mg Documented by: [id number] Adenosine (Adenosine) 6 mg IV NOW STA Stop: 02/20/19 15:18 Last Admin: 02/20/19 15:38 Dose: Not Given Documented by: [id number] Adenosine (Adenosine) 12 mg IV NOW STA Stop: 02/20/19 15:26 Last Admin: 02/20/19 15:38 Dose: Not Given Documented by: [id number] Diltiazem HCl (Cardizem) 20 mg IV NOW STA Stop: 02/20/19 18:18 Last Admin: 02/20/19 19:12 Dose: 20 mg Documented by: [id number] Cosigned by: [id number] Heparin Sodium (Porcine) (Heparin Iv Bolus) Confirm Administered Dose 10,000 units .ROUTE .STK-MED ONE Stop: 02/20/19 19:09 Last Admin: 02/20/19 19:14 Dose: 4,000 units Documented by: [id number] Cosigned by: [id number] Heparin Sodium/Dextrose () 1 ea IV NOW STA; Protocol Stop: 02/20/19 18:19 Last Admin: 02/20/19 19:26 Dose: Not Given Documented by: [id number] Sodium Chloride (Nss 1000ml) 1,000 mls @ 999 mls/hr IV .Q1H1M ONE Stop: 02/20/19 16:17 Last Infusion: 02/20/19 16:31 Dose: 0 mls/hr Documented by: [id number] Admin: 02/20/19 15:20 Dose: 999 mls/hr Documented by: [id number] Labetalol HCl (Normodyne) 10 mg IV NOW STA Stop: 02/20/19 16:35 Last Admin: 02/20/19 16:38 Dose: 10 mg Documented by: [id number] Cosigned by: [id number] Labetalol HCl (Normodyne) 10 mg IV NOW STA Stop: 02/20/19 17:36 Last Admin: 02/20/19 18:00 Dose: 10 mg Documented by: [id number] Cosigned by: [id number] Metoprolol Tartrate (Lopressor) 5 mg IV NOW STA Stop: 02/20/19 17:18 Last Admin: 02/20/19 17:24 Dose: 5 mg Documented by: [id number] Metoprolol Tartrate (Lopressor) 5 mg IV NOW STA Stop: 02/20/19 17:36 Last Admin: 02/20/19 18:00 Dose: 5 mg Documented by: [id number] Ondansetron HCl (Zofran) 4 mg IV NOW STA Stop: 02/20/19 15:28 Last Admin: 02/20/19 15:38 Dose: 4 mg Documented by: [id number] Ondansetron HCl (Zofran) 4 mg IV NOW STA Stop: 02/20/19 16:11 Last Admin: 02/20/19 16:33 Dose: 4 mg Documented by: [id number] Blood Pressure Blood Pressure Findings: Elevated blood pressure Blood Pressure Disposition: Referred to patients primary care provider Discharge Plan Visit Data Chief Complaint: Tachycardia Stated Complaint: nausea/vomit ED Provider: Adan Saez Discharge Problem: SVT (supraventricular tachycardia), Intractable nausea and vomiting, Hypertensive emergency, Renal insufficiency, Atrial fibrillation with RVR Patient Disposition: Being Evaluated by Hospitalist Forms Stand Alone Forms: My [facility] [employer] Prescriptions Prescriptions: No Action atorvastatin 20 mg tablet 20 mg PO QAM RF: 0 lisinopril 10 mg tablet 10 mg PO QAM RF: 0 metoprolol tartrate 50 mg tablet 100 mg PO BID RF: 0 albuterol sulfate [Ventolin HFA] 90 mcg/actuation Hfa Aerosol Inhaler 2 puff inhalation Q6H PRN (Reason: shortness of breath or wheezing) Qty: 18 RF: 0 ranitidine HCl 150 mg tablet 150 mg PO BID RF: 0 Probiotic 3 billion cell Capsule 3,000 mmu cells PO DAILY RF: 0 Referrals Referrals: Romeo Lanza MD [Primary Care Provider] - Discharge Problem: Intractable nausea and vomiting Qualifiers: Vomiting type: unspecified Qualified Code(s): R11.2 - Nausea with vomiting, unspecified The scribe's documentation has been prepared under my direction and personally reviewed by me in its entirety. I confirm that the note above accurately reflects all work, treatment, procedures, and medical decision making performed by me.
--- NOTE | 2019-02-20 19:00 | CT Scan Report ---
CT head/brain wo con CLINICAL HISTORY: 58 years-old Female presenting with Hypertensive emergency, pre heparin. TECHNIQUE: Multidetector CT imaging of the head was performed without the use of intravenous contrast . IV contrast: None. One or more dose lowering techniques were used consistent with the principles of ALARA (as low as reasonably achievable), including automatic exposure control, mA or kV adjustment t o individual patient size, and/or use of iterative reconstruction. COMPARISON: 10/17/2016. CT DOSE (mGy.cm): The estimated cumulative dose is 537.48 mGy.cm. FINDINGS: Director Multimedia topogram: Unremarkable. Ventricles and sulci normal in size. No hemorrhage. Brain parenchyma normal in appearance with preser nicky lindsay-white differentiation. No acute territorial infarct. No mass effect or midline shift. No ext ra-axial fluid collection. Paranasal sinuses and mastoid air cells clear. Calvarium intact. IMPRESSION: 1. No acute intracranial abnormality. Electronically signed by: Lewis Tomlinson M.D. 02/20/2019 6:59 PM
[2019-02-20] MEDS ORDERED: HEPARIN SOD (PORCINE) 1000 UNIT/ML 10 ML VIAL ONE (19:08)
--- NOTE | 2019-02-20 19:34 | History & Physical Report ---
Date of Service February 20, 2019 Assessment & Plan (1) Atrial fibrillation with RVR: Admit to PCU on telemetry Vital signs every 4 hours Started diltiazem bolus and drip in the ER-continue Started heparin bolus and draped in the ER continue CT head negative Aspirin 81 Patient advised to stop smoking Treat urinary tract infection with ceftriaxone 1 g IV every 24 hours CBC CMP PTT BMP pending Replenish electrolytes as needed Cardiology consult Echocardiogram DVT prophylaxis patient heparin drip Full code Present on Admission?: Yes (2) Hypertension: Blood pressure is not well controlled Continue lisinopril 10 mg p.o. every morning Hold metoprolol tartrate 100 mg p.o. twice daily while patient on diltiazem drip Hydralazine 10 mg p.o. every 6 hours as needed for blood pressure 160/90 Upgrade blood pressure medicine as needed to keep blood pressure below 140/85 Present on Admission?: Yes (3) Hyperlipidemia: Lipid panel pending, continue atorvastatin 20 mg p.o. nightly Present on Admission?: Yes (4) Diabetes: Patient is not on any diabetic medication. Will check A1c. POC glucose on occasion elevated to 225 Diabetic diet for now, Accu-Cheks before meals and at bedtime. Consider glycemic control per pharmacy if patient diabetic. Present on Admission?: Yes (5) Vomiting and diarrhea: Improved with Zofran Present on Admission?: Yes (6) Urinary tract infection: (7) Current smoker: Patient advised to stop smoking Offered nicotine patch. Present on Admission?: Yes (8) VINH (acute kidney injury): Appears due to nausea and vomiting associated with shortness of breath. Avoid nephrotoxic agents. Patient already received IV liter fluid high in the ER. Tolerates p.o. now Present on Admission?: Yes History of Present Illness Chief Complaint: Palpitations and shortness of breath Primary Care Provider: Sammy Lanza MD Patient is a 58 years old female with past medical history of hypertension, hyperlipidemia, diabetes, obesity, acute to chronic renal failure,diverticul osis, presents to the emergency room with a episode of tachycardia that started yesterday. Patient reports that she was also short of breath. Patient smokes 1 pack per day for many years. Patient said her symptoms are worsening with exertion. Patient denies falls or injuries. Patient said that this morning she felt nauseated, had diaphoresis and generalized weakness for 1 day. Patient denies cough, hemoptysis, headache, hematuria, melena.Patient reports gaining 50 pounds in the past several months.Patient denies history of atrial fibrillation. She is not on blood thinners. Patient reports that she was admitted to the hospital 2 times in the past month. Patient last admission was 2 weeks ago. Patient said that she was given medication to slow her heart down but she was not sure. Patient denies abusing alcohol or drugs. In the ER patient was treated for supraventricular tachycardia. She was given 2 doses of adenosine 6 mg and 12 IV, labetalol 10 mg IV x2, Lopressor 5 mg IV x2, which converted her to the normal sinus rhythm. And then patient went back to A. fib's. Patient had also elevated blood pressure the high is being 199/136. Her heart rate was fluctuating and the highest was 180 and the lowest 106. CT scan of the head is pending before patient is started on heparin bolus and drip and diltiazem bolus and drip for A. fib's. Cardiology is consulted. Patient also reports of burning on urination and it was found that patient has urinary tract infection confirmed by her UA analysis. Labs were reviewed: White blood cell count with normal neutrophil count of 87.4 hemoglobin 18 hematocrit 50.8 is elevated to 13.34, PT 10.9 INR 1.1 APTT 28.3. Sodium 133, potassium 3.8 chloride 100 anion gap 15, BUN 11 creatinine 1.44 GFR 39 lactate 1.9, AST 19, ALT 27, alkaline phosphatase 121, troponin 0 0.015, total protein 9.1 albumin 3.8. Urine: White blood cell 5-10, bacteria 1+. CT head no acute intracranial abnormalities. Chest x-rays no acute cardiopulmonary disease. Decision was made to admit patient to PCU on telemetry for paroxysmal A. fib with RVR and urinary tract infection. Allergies Allergy/AdvReac Type Severity Reaction Status Date / Time No Known Allergies Allergy Verified 02/20/19 16:15 Home Medications Home Medications Medication Instructions Recorded Confirmed Type atorvastatin 20 mg PO QAM 01/15/19 02/20/19 History lisinopril 10 mg PO QAM 01/15/19 02/20/19 History metoprolol tartrate 100 mg PO BID 01/15/19 02/20/19 History albuterol sulfate [Ventolin HFA] 2 puff INHALATION Q6H PRN #18 gm 01/19/19 02/20/19 Rx lactobacillus combination no.4 3,000 mmu cells PO DAILY 02/20/19 02/20/19 Histo ry [Probiotic] ranitidine HCl 150 mg PO BID 02/20/19 02/20/19 History Past Med/Surg History Medical History Morbid obesity (Chronic) Obese (Chronic) Vomiting and diarrhea (Acute) Abdominal pain (Acute) Vomiting and diarrhea (Acute) Hypertension (Chronic) Diabetes (Chronic) Hyperlipidemia (Chronic) Acute diverticulitis (Acute 07/17/14) Tachycardia (Acute 08/08/14) Hypertension GERD (gastroesophageal reflux disease) (Chronic) Dehydration (Acute) Family History Other No known problems Social History Preferred Language: Italian Communication Ability: Effective Computer Assistant Required: No Beliefs That Will Affect Care: None marital status: Single Current Living Situation: Family current occupational status: unemployed Feels Safe at Home: Yes Smoking Status: Current every day smoker Tobacco Type: cigarettes ; Second Hand Exposure: Yes ; Hx Alcohol Use: No Hx Substance Use: No Review of Systems Review of Systems: All systems reviewed & are unremarkable except as noted in HPI & below Physical Exam Constitutional: WD/WN, vitals as above well developed and + morbidly obese Eyes: PERRL, conjunctivae normal, anicteric sclerae ENMT: external ear and nose normal, oropharynx normal Neck: trachea midline, no thyromegaly Respiratory: + tachypneic Auscultation: + wheezes (Bilaterally) Cardiovascular: Rate/Rhythm: + tachycardic and + irregularly irregular Heart Sounds: normal S1 and normal S2 Palpation: + palpable S3 Vessels: + JVD and normal peripheral pulses Extremities: normal capillary refill Gastrointestinal (Abdomen): normal bowel sounds, soft, nontender, no hepatosplenomegaly Musculoskeletal: no cyanosis or clubbing, extremities motor strength 5/5 Skin: no rashes, warm and dry Neurologic: patellar DTR's 2+ bilat, sensation intact Psychiatric: A+Ox3, euthymic affect Lymphatic: no cervical or axillary lymphadenopathy Results & Data Vital Signs (Past 12 Hours) Vital Signs Temp Pulse Resp BP Pulse Ox 02/20/19 18:00 126 H 182/119 H 02/20/19 17:24 134 H 198/134 H 02/20/19 16:30 24 201/136 H 02/20/19 16:19 94 H 18 190/120 H 02/20/19 16:16 96 H 17 242/161 H 02/20/19 16:15 101 H 24 02/20/19 16:00 106 H 15 158/77 H 100 02/20/19 15:45 106 H 23 198/110 H 100 02/20/19 15:30 133 H 19 199/136 H 97 02/20/19 15:28 37.0 C 180 H 23 173/123 H 98 02/20/19 15:23 65 17 174/139 H 99 02/20/19 15:19 98 02/20/19 15:16 174 H 23 168/137 H 02/20/19 15:15 173 H 27 H 02/20/19 15:10 174 H 20 02/20/19 15:07 176 H 21 213/159 H Code Status & VTE Plan Code Status Full code VTE Prophylaxis Plan VTE Prophylaxis will be ordered: Yes PG Care Time/CCT Total # of Minutes Spent Total Time Spent with Patient: Total time spent is greater than 50% in coordination of care (as documented) at patient's floor/unit and/or counseling patient:
[2019-02-20] MEDS: cefTRIAXone SODIUM 2,000 MG in DEXTROSE 5% 50 ML IV SCH (19:52)
[2019-02-20] MEDS ORDERED: ZOLPIDEM TARTRATE 5 MG TAB PO PRN (21:05)
[2019-02-20] MEDS ORDERED: POLYETHYLENE (MIRALAX) 17 GM PACK PO PRN (21:05)
[2019-02-20] MEDS ORDERED: ACETAMINOPHEN 325 MG TAB PO PRN (21:05)
[2019-02-20] MEDS ORDERED: ALBUTEROL HFA 8 GM INHALER INH PRN (21:05)
[2019-02-20] MEDS ORDERED: NICOTINE 7 MG/24 HR TDSY TD PRN (21:05)
[2019-02-20] MEDS: ONDANSETRON INJ 2 MG/ML 2 ML VIAL IV PRN (22:13)
[2019-02-20] MEDS: ATORVASTATIN 20 MG TAB PO SCH (22:14)
[2019-02-20 22:40] LABS: Troponin I 0.028 ng/ml (0-0.045)
[2019-02-21] MEDS ORDERED: GLUCOSE 40% GEL 15 GM TUBE PO PRN (01:00)
[2019-02-21] MEDS ORDERED: CARBOHYDRATES FOR HYPOGLYCEMIA PO PRN (01:00)
[2019-02-21] MEDS ORDERED: GLUCOSE 10 TABS/TUBE PO PRN (01:00)
[2019-02-21] MEDS ORDERED: DEXTROSE 50% 50 ML SYRINGE IV PRN (01:00)
[2019-02-21] MEDS ORDERED: GLUCAGON FOR INJ 1 MG VIAL SQ PRN (01:00)
[2019-02-21] MEDS: dilTIAZem HCL 30 MG TAB PO SCH ×2 (01:38→09:08)
[2019-02-21 02:11] LABS: Partial Thromboplastin Ratio 1.2; Partial Thromboplastin Time 33.3 Seconds (21.0-31.0)
[2019-02-21] MEDS ORDERED: HEPARIN IV BOLUS 4,500 UNITS in SYRINGE 0 ML IV ONE (02:45)
[2019-02-21] MEDS: INSULIN ASPART 100 UNITS/ML 3 ML PEN SC SCH ×5 (03:09→22:17)
[2019-02-21] MEDS ORDERED: dilTIAZem HCl 125 MG in DEXTROSE 5% 100 ML IV SCH (03:30)
[2019-02-21] MEDS: ATORVASTATIN 20 MG TAB PO SCH (08:25)
[2019-02-21] MEDS: LISINOPRIL 10 MG TAB PO SCH (08:25)
[2019-02-21 08:40] LABS: Basophils # (auto) 0.02 K/uL (0-0.2); Basophils % (auto) 0.2 %; Eosinophils # (auto) 0.01 K/uL (0-0.5); Eosinophils % (auto) 0.1 %; Hematocrit (blood only) 45.8 % (37-47); Hemoglobin 15.9 g/dL (12.0-16.0); Immature Granulocytes # (auto) 0.02 K/uL (0.00-0.02); Immature Granulocytes % (auto) 0.2 %; Lymphocytes # (auto) 2.88 K/uL (1.2-3.4); Lymphocytes % (auto) 26.6 %; Mean Corpuscular Hemoglobin 29.8 pg (25-34); Mean Corpuscular Hgb Conc 34.7 g/dL (32-36); Mean Corpuscular Volume 85.9 fL (80-100); Mean Platelet Volume 12.2 fL (7.4-10.4); Monocytes # (auto) 0.64 K/uL (0.11-0.59); Monocytes % (auto) 5.9 %; Neutrophils # (auto) 7.25 K/uL (1.4-6.5); Platelet Count 198 K/uL (130-400); RDW Coefficient of Variation 14.8 % (11.5-14.5); RDW Standard Deviation 46.2 fL (36.4-46.3); Red Blood Count 5.33 M/uL (4.2-5.4); White Blood Count 10.82 K/uL (4.8-10.8)
[2019-02-21 09:00] LABS: Partial Thromboplastin Ratio 1.9
[2019-02-21] MEDS ORDERED: NON-FORMULARY MEDICATION (Lactobacillus Combination No.4 [Probiotic] 3,000 mmu cells) PO SCH (09:00)
[2019-02-21 09:06] LABS: BUN Creatinine Ratio 13.8 (10-20); Calcium 8.7 mg/dl (8.5-10.1); Creatinine Clr Calc Pharmacy 55.1 ml/min; Est GFR (African American) 48.4; Est GFR (Non-African American) 41.7; Potassium 3.3 mmol/L (3.5-5.1)
[2019-02-21 09:07] LABS: Partial Thromboplastin Time 52.2 Seconds (21.0-31.0)
[2019-02-21 09:12] LABS: Albumin Globulin Ratio 0.7 (0.9-2); Bilirubin,Total 0.3 mg/dl (0.2-1); Globulin 4.4 gm/dl (2.5-4.0); Total Protein 7.4 gm/dl (6.4-8.2)
[2019-02-21] MEDS ORDERED: POTASSIUM CHLORIDE 20 MEQ TABCR PO STA (09:36)
[2019-02-21] MEDS: METOPROLOL TARTRATE 100 MG TAB PO SCH ×2 (14:23→22:17)
--- NOTE | 2019-02-21 14:39 | Hospitalist Progress Note ---
Date of Service February 21, 2019 Assessment & Plan (1) SVT (supraventricular tachycardia): Patient presented with SVT with rates in the 170s, was given adenosine in the ER and converted to normal sinus rhythm She then later had recurrent SVT was treated with IV Lopressor and IV labetalol, was noted by ER physician notes to have suspected atrial flutter on telemetry monitoring, however this is not been confirmed by the balance sheet analyst upon review of telemetry and ECGs today Her most recent ECG does appear to be a possible AVNRT as per cardiology with rates in the 130s Since admission, she remains in a normal sinus rhythm and has no further symptoms -Echocardiogram 1 month ago with normal EF -Very mild elevation in troponin but not above high end of normal -Patient had nausea and vomiting the day prior to her symptoms starting and missed about 2 doses of her metoprolol-this may have contributed to developing SVT -She has long history of what sounds like SVT in the past -Cardiology suggest restarting metoprolol tartrate 100 mg p.o. twice daily which is her home dose, discontinuing p.o. diltiazem started on admission -There is no role for anticoagulation at this point-heparin drip will be discontinued -There may be a role for flecainide-cardiology recommends consultation with electrophysiology on Friday when they return after the holiday -Continued observation on telemetry for further SVT (2) Hypertension: Presented with hypertensive urgency in the setting of SVT Was given IV labetalol and Lopressor in the ER She had missed 2 doses of her home metoprolol due to nausea and vomiting which likely contributed Blood pressures much better controlled now -Continue lisinopril 10 mg p.o. every morning -Restart home metoprolol tartrate 100 mg p.o. twice daily (3) Urinary tract infection: Had dysuria and evidence of UTI on urinalysis upon admission She did have a leukocytosis upon admission which is now improving which may have been secondary to UTI versus secondary to nausea and vomiting -Urine culture with pinpoint growth and is re-incubating -Continue ceftriaxone 2 g IV every 24 hours -Follow-up urine culture results -Given very recent history of C. difficile colitis and continued loose stools despite treatment for C. difficile as an outpatient, will restart p.o. vancomycin 125 mg p.o. 4 times daily as prophylaxis -Would maintain p.o. vancomycin until several days at least after treatment for urinary tract infection is complete -Follow CBC (4) Diabetes: Patient is not on any diabetic medication as an outpatient. Hemoglobin A1c was 7.5% in 11/2018 POC glucose on occasion elevated to 225 -Continue diabetic diet for now, Accu-Cheks before meals and at bedtime -She should be on metformin but would not start right now in the setting of loose stools -Check hemoglobin A1c (5) Vomiting and diarrhea: Had nausea and vomiting on Friday night into Friday morning without any abdominal pain, no fevers Unclear what the etiology is Her abdominal exam here is benign, her nausea vomiting has resolved She does have persistent loose stools twice daily since her admission for C. difficile recently -Nausea is improved with Zofran -Continue diabetic diet as tolerated (6) Current smoker: Patient advised to stop smoking Offered nicotine patch. (7) VINH (acute kidney injury): Appears due to nausea and vomiting. Has a frequent history of getting acute kidney injuries in the setting of CKD stage II-III Creatinine is now down from 1.44-1.38 with IV fluid hydration -Follow BMP in the morning (8) Morbid obesity: BMI 56.2 -She desperately needs weight loss (9) Hypokalemia: Potassium low at 3.3 likely secondary to poor p.o. intake and vomiting -Replaced today with p.o. potassium (10) Leukocytosis: WBC count elevated at 13 on admission is now improved to 10 Likely secondary to stress with nausea and vomiting versus UTI -CBC in the morning (11) CKD stage 3 due to type 2 diabetes mellitus: Baseline GFR in the CKD stage II-III range over the last year or so -Avoid nephrotoxins -Renally dose medications as necessary -Follow BMP (12) Paroxysmal atrial flutter: Has a history of atrial flutter on previous admission in 12/2018 Cardiology confirm she was not in atrial flutter this admission thus far -Was on Coumadin for about 2 weeks but was discontinued due to having an INR greater than 10 in the setting of C. difficile colitis last admission -We will discontinue heparin drip at this time -Restarting home metoprolol as above (13) Paroxysmal atrial fibrillation: Had a history of paroxysmal atrial fibrillation and flutter on a previous admission, none so far here -Electrophysiology consultation pending (14) Hyperlipidemia: -Continue atorvastatin 20 mg p.o. nightly (15) DVT prophylaxis: Heparin drip now discontinued -Would start Lovenox in the morning Disposition-remain on PCU for further telemetry monitoring Results & Data Vital Signs (Past 12 Hours) Vital Signs Temp Pulse Pulse Resp BP BP Pulse Ox 02/21/19 11:13 36.7 C 71 17 119/81 96 02/21/19 07:09 36.5 C 74 20 114/69 95 02/21/19 03:03 36.8 C 122 H 19 152/81 H 98 PG Care Time/CCT Total # of Minutes Spent Total Time Spent with Patient: Total time spent is greater than 50% in coordination of care (as documented) at patient's floor/unit and/or counseling patient:
[2019-02-21] MEDS ORDERED: METOPROLOL TARTRATE 100 MG TAB PO ONE (15:00)
[2019-02-21] MEDS: RASPBERRY SYRUP 5 ML UDP PO SCH ×3 (15:07→22:20)
[2019-02-21] MEDS: VANCOMYCIN HCL 125 MG/2.5ML SOLN PO SCH ×3 (15:07→22:21)
--- NOTE | 2019-02-21 16:18 | Cardiology Consultation ---
Date of Consultation February 21, 2019 Assessment & Plan (1) SVT (supraventricular tachycardia): The patient's several ECGs documenting her SVT. 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 Would reinitiate her metoprolol tartrate and if unsuccessful, could consider trial of flecainide. She may also be a candidate for a radiofrequency ablation. There was an episode of atrial flutter which was very brief during hospitalization in December. She had a brief course of warfarin, however, that was discontinued as her arrhythmia was very symptomatic and brief. Would discontinue her heparin at this time. Would also discontinue diltiazem and restart metoprolol tartrate. (2) Hypertension: Adequate control on current medical regimen. (3) Hyperlipidemia: Continue atorvastatin. History of Present Illness Attending Physician: Azeb Nunn MD History of Present Illness Mrs. Hernandez is a 58-year-old female admitted yesterday with asymptomatic SVT and a urinary tract infection. This consultation was ordered to assist in her management. The patient was in her usual state of health until the day of presentation. She had the abrupt onset of a rapid heart rate that she could see and feel in her chest. She had associated shortness of breath and presented to the emergency room for further care. She was noted to be in a supraventricular tachycardia at the time of her presentation. She was given adenosine and she returned to sinus rhythm. Hospitalization was recommended. The patient was diagnosed in December with an atrial dysrhythmia. She had a brief episode of paroxysmal atrial flutter and was started on metoprolol tartrate. She had a brief course of warfarin, however, that was discontinued after 1 month as it was felt her atrial dysrhythmia was very infrequent. An echocardiogram performed during her hospitalization in December noted normal left ventricular systolic function and no significant valvular pathology. The patient explains that she has noted her tachycardia on numerous occasions over the last 1-2 years. Past medical surgical history 1. Hypertension next 2. Hypercholesterolemia 3. Paroxysmal SVT 4. Paroxysmal atrial flutter-December 2018 5. Diabetes mellitus 6. GERD 7. Chronic renal failure 8. Obesity 9. Obstructive sleep apnea 10. Colonic polyps 11. Diverticulitis Social history and lives with her Currently unemployed Smokes 1/2 pack cigarettes daily Social alcohol Family history Mother at 60 from CHF Father at 75 from an [place] Review of systems A 10 point review of systems was undertaken and negative except for that described above. Allergies Allergy/AdvReac Type Severity Reaction Status Date / Time No Known Allergies Allergy Verified 02/20/19 16:15 Home Medications Home Medications Medication Instructions Recorded Confirmed Type atorvastatin 20 mg PO QAM 01/15/19 02/20/19 History lisinopril 10 mg PO QAM 01/15/19 02/20/19 History metoprolol tartrate 100 mg PO BID 01/15/19 02/20/19 History albuterol sulfate [Ventolin HFA] 2 puff INHALATION Q6H PRN #18 gm 01/19/19 02/20/19 Rx lactobacillus combination no.4 3,000 mmu cells PO DAILY 02/20/19 02/20/19 Hi story [Probiotic] ranitidine HCl 150 mg PO BID 02/20/19 02/20/19 History Patient History Medical History Morbid obesity (Chronic) Obese (Chronic) Vomiting and diarrhea (Acute) Abdominal pain (Acute) Vomiting and diarrhea (Acute) Hypertension (Chronic) Diabetes (Chronic) Hyperlipidemia (Chronic) Acute diverticulitis (Acute 07/17/14) Tachycardia (Acute 08/08/14) Hypertension GERD (gastroesophageal reflux disease) (Chronic) Dehydration (Acute) Family History Other No known problems Social History Preferred Language: Polish Communication Ability: Effective Java Programmer Analyst Required: No Beliefs That Will Affect Care: None marital status: Single Current Living Situation: Family current occupational status: unemployed Feels Safe at Home: Yes Smoking Status: Current every day smoker Tobacco Type: cigarettes ; Second Hand Exposure: Yes ; Hx Alcohol Use: No Hx Substance Use: No Physical Exam Physical Exam: In general this is an obese white female in no acute distress. HEENT exam is negative. Neck is supple with full carotid upstrokes. There are no carotid bruits. Jugular venous pressure is flat at 90. There is no thyromegaly. Cardiovascular exam reveals a regular rhythm with a normal S1 and S2. No S3, S4, or murmurs are noted. Lungs are clear without rales, rhonchi, or wheezes. Abdomen is obese without bruits. Extremities reveal intact radial artery and posterior tibial pulses bilaterally. There is no peripheral edema. Results & Data Vital Signs (Past 12 Hours) Vital Signs Temp Pulse Pulse Resp BP BP Pulse Ox 02/21/19 15:33 36.7 C 76 18 102/69 96 02/21/19 11:13 36.7 C 71 17 119/81 96 02/21/19 07:09 36.5 C 74 20 114/69 95 Laboratory Results CBC notes a hemoglobin of 15.9, hematocrit 45.8, white count 10.8, and platelet count [id number]. Electrolytes note a sodium of 136, potassium 3.3, chloride 101, bicarb 26, BUN 19, creatinine 1.3, glucose of 146. Troponin I level was less than 0.015 on presentation with follow-up values of 0.028 and 0.03. Diagnostic Findings Initial EKG noted an SVT with an inferior ST and T-wave abnormality. Second ECG noted sinus rhythm without abnormalities. A 3rd tracing again noted SVT suggestive of AV node reentrant tachycardia. Chest x-ray is benign. PG Care Time/CCT Total # of Minutes Spent Total Time Spent with Patient: Total time spent is greater than 50% in coordination of care (as documented) at patient's floor/unit and/or counseling patient:
[2019-02-21] MEDS: ONDANSETRON INJ 2 MG/ML 2 ML VIAL IV PRN (17:50)
[2019-02-21] MEDS: cefTRIAXone SODIUM 2,000 MG in DEXTROSE 5% 50 ML IV SCH (18:09)
[2019-02-21] MEDS: PROCHLORPERAZINE 5 MG in SYRINGE 4 ML IV PRN (21:01)
[2019-02-22] MEDS: VANCOMYCIN HCL 125 MG/2.5ML SOLN PO SCH ×4 (06:09→23:35)
[2019-02-22] MEDS: RASPBERRY SYRUP 5 ML UDP PO SCH ×4 (06:09→23:35)
[2019-02-22] MEDS: ENOXAPARIN INJ 40 MG/0.4 ML SYR SQ SCH (08:08)
[2019-02-22] MEDS: INSULIN ASPART 100 UNITS/ML 3 ML PEN SC SCH ×4 (08:09→20:44)
[2019-02-22] MEDS: METOPROLOL TARTRATE 100 MG TAB PO SCH ×2 (08:11→20:44)
[2019-02-22] MEDS: ATORVASTATIN 20 MG TAB PO SCH (08:12)
[2019-02-22] MEDS: LISINOPRIL 10 MG TAB PO SCH (08:12)
[2019-02-22 08:31] LABS: BUN Creatinine Ratio 14.2 (10-20); Calcium 8.9 mg/dl (8.5-10.1); Creatinine Clr Calc Pharmacy 55.2 ml/min; Est GFR (African American) 48.4; Est GFR (Non-African American) 41.7; Potassium 4.1 mmol/L (3.5-5.1)
[2019-02-22] MEDS: PROCHLORPERAZINE 5 MG in SYRINGE 4 ML IV PRN (13:03)
--- NOTE | 2019-02-22 13:44 | Cardiology Progress Note ---
Date of Service February 22, 2019 Assessment & Plan (1) SVT (supraventricular tachycardia): The patient's several ECGs documenting her SVT at the time of presentation. 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 However, the patient had not taken her metoprolol tartrate on the day of presentation. Her dysrhythmias have resolved since Re initiating metoprolol tartrate. Could consider trial of flecainide if her dysrhythmias recur. She may also be a candidate for a radiofrequency ablation. There was an episode of atrial flutter which was very brief, during a hospitalization in December. She had a brief course of warfarin, however, that was discontinued as her arrhythmia was very symptomatic and brief. (2) Hypertension: Adequate control. (3) Hyperlipidemia: Continue atorvastatin. Subjective The patient is resting comfortably in bed without complaints of chest pain or dyspnea. Her palpitations have resolved since restarting her metoprolol tartrate. Physical Exam Physical Exam: In general this is an obese white female in no acute distress. HEENT exam is negative. Neck is supple with full carotid upstrokes. There are no carotid bruits. Jugular venous pressure is flat at 90. There is no thyromegaly. Cardiovascular exam reveals a regular rhythm with a normal S1 and S2. No S3, S4, or murmurs are noted. Lungs are clear without rales, rhonchi, or wheezes. Abdomen is obese without bruits. Extremities reveal intact radial artery and posterior tibial pulses bilaterally. There is no peripheral edema. Results & Data Vital Signs (Past 12 Hours) Vital Signs Temp Pulse Resp BP Pulse Ox 02/22/19 11:30 36.6 C 57 L 18 142/83 H 95 02/22/19 06:49 36.5 C 62 19 164/90 H 96 02/22/19 03:40 36.6 C 61 19 145/84 H 97 Diagnostic Findings pvc monitor notes sinus rhythm with occasional PACs and PVCs. No atrial dysrhythmias. PG Care Time/CCT Total # of Minutes Spent Total Time Spent with Patient: Total time spent is greater than 50% in coordination of care (as documented) at patient's floor/unit and/or counseling patient:
--- NOTE | 2019-02-22 14:52 | Hospitalist Progress Note ---
Date of Service February 22, 2019 Assessment & Plan (1) SVT (supraventricular tachycardia): Patient presented with SVT with rates in the 170s, was given adenosine in the ER and converted to normal sinus rhythm. She then later had recurrent SVT was treated with IV Lopressor and IV labetalol. 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 twice daily which is her home dose. - There is no role for anticoagulation at this point - There may be a role for flecainide-cardiology recommends consultation with electrophysiology on Friday when they return after the holiday - Continued observation on telemetry for further SVT. (2) Hypertension: Presented with hypertensive urgency in the setting of SVT. Was given IV labetalol and Lopressor in the ER. - Continue lisinopril 10 mg p.o. every morning and home metoprolol tartrate 100 mg p.o. twice daily (3) Urinary tract infection: Had dysuria and evidence of UTI on urinalysis upon admission. - Continue ceftriaxone 2 g IV every 24 hours - Follow-up urine culture results - Given very recent history of C. difficile colitis and continued loose stools despite treatment for C. difficile as an outpatient, will restart p.o. vancomycin 125 mg p.o. 4 times daily as prophylaxis. - Would maintain p.o. vancomycin until several days at least after treatment for urinary tract infection is complete (4) Diabetes: Patient is not on any diabetic medication as an outpatient. Hemoglobin A1c was 7.5% in 11/2018. - Continue diabetic diet for now, Accu-Cheks before meals and at bedtime - She should be on metformin but would not start right now in the setting of loose stools. (5) Vomiting and diarrhea: Had nausea and vomiting on Friday night into Friday morning without any abdominal pain, no fevers. Unclear what the etiology is. Her abdominal exam here is benign. She does have persistent loose stools twice daily since her admission for C. difficile recently. - Nausea is improved with Zofran - Continue diabetic diet as tolerated (6) Current smoker: Patient advised to stop smoking. Offered nicotine patch. (7) VINH (acute kidney injury): Appears due to nausea and vomiting. Has a frequent history of getting acute kidney injuries in the setting of CKD stage II-III. - Creatinine is now down to 1.38 with IV fluid hydration. - Follow BMP in the morning (8) Morbid obesity: BMI of 56.2. - Weight loss counseled. (9) CKD stage 3 due to type 2 diabetes mellitus: Baseline GFR in the CKD stage II-III range over the last year or so. - Avoid nephrotoxins - Renally dose medications as necessary - Follow BMP (10) Paroxysmal atrial flutter: Has a history of atrial flutter on previous admission in 12/2018. Cardiology confirm she was not in atrial flutter this admission thus far. - Was on Coumadin for about 2 weeks but was discontinued due to having an INR greater than 10 in the setting of C. difficile colitis last admission. - Restarting home metoprolol as above. (11) Paroxysmal atrial fibrillation: Had a history of paroxysmal atrial fibrillation and flutter on a previous admission, none so far here. - Electrophysiology consultation pending (12) Hyperlipidemia: - Continue atorvastatin 20 mg p.o. nightly (13) DVT prophylaxis: Lovenox 40mg daily Subjective No major cardiac issues today. Heart is back to baseline rate overall, even somewhat on the bradycardic side. She does report continued nausea with food yesterday, though not for a light breakfast today. Review of Systems Review of Systems: All systems reviewed & are unremarkable except as noted in HPI & below Physical Exam Constitutional: WD/WN, vitals as above Eyes: EOM intact bilaterally; no conjunctival abnormality ENMT: external ear and nose normal, oropharynx normal Neck: trachea midline, no thyromegaly normal visual inspection Respiratory: normal respiratory effort, lungs clear to auscultation no respiratory distress Cardiovascular: RRR, no murmur, no edema Gastrointestinal (Abdomen): Inspection/Auscultation: abdomen normal to inspection; abdomen not distended Musculoskeletal: no cyanosis or clubbing, extremities motor strength 5/5 Skin: no rashes, warm and dry Neurologic: moves all extremities and awake Psychiatric: Orientation: alert, oriented to person and cooperative Results & Data Vital Signs (Past 12 Hours) Vital Signs Temp Pulse Resp BP Pulse Ox 02/22/19 11:30 36.6 C 57 L 18 142/83 H 95 02/22/19 06:49 36.5 C 62 19 164/90 H 96 02/22/19 03:40 36.6 C 61 19 145/84 H 97 PG Care Time/CCT Total # of Minutes Spent Total Time Spent with Patient: Total time spent is greater than 50% in coordination of care (as documented) at patient's floor/unit and/or counseling patient:
[2019-02-22] MEDS: ONDANSETRON INJ 2 MG/ML 2 ML VIAL IV PRN (17:44)
[2019-02-22] MEDS ORDERED: METOPROLOL TARTRATE 1 MG/ML VIAL IV PRN (17:51)
[2019-02-23] MEDS: RASPBERRY SYRUP 5 ML UDP PO SCH ×4 (05:51→23:24)
[2019-02-23] MEDS: VANCOMYCIN HCL 125 MG/2.5ML SOLN PO SCH ×4 (05:51→23:24)
[2019-02-23] MEDS: INSULIN ASPART 100 UNITS/ML 3 ML PEN SC SCH ×4 (08:00→21:09)
[2019-02-23] MEDS: ENOXAPARIN INJ 40 MG/0.4 ML SYR SQ SCH (12:41)
[2019-02-23] MEDS: LISINOPRIL 10 MG TAB PO SCH (12:41)
[2019-02-23] MEDS: ATORVASTATIN 20 MG TAB PO SCH (12:42)
[2019-02-23] MEDS: METOPROLOL TARTRATE 100 MG TAB PO SCH (12:42)
--- NOTE | 2019-02-23 12:43 | Nuclear Medicine Report ---
NUCLEAR GASTRIC EMPTYING STUDY HISTORY: Postprandial nausea COMPARISON: Abdomen and pelvis CT 02/03/2019. TECHNIQUE: Following the oral administration of 1.1 mCi of technetium 99m sulfur colloid in egg sandw ich and 8 ounces of water, static abdominal images are obtained anteriorly and posteriorly at 0 minut es, 1 hour, 2 hour, and 4 hour time intervals. Gastric emptying was calculated utilizing the geometri c mean method. FINDINGS: There is approximately 17% activity remaining at the 1 hour time interval (normal is less t aranda 90%), 7% remaining at the 2 hour time interval (normal is less than 60%), and 0% activity remaini ng at the 4 hour time interval (normal is less than 10%). IMPRESSION: No evidence for delayed gastric emptying. Electronically signed by: Julio Linares M.D. 02/23/2019 12:42 PM
--- NOTE | 2019-02-23 15:14 | Cardiology Progress Note ---
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 She would prefer to try medical therapy, I am not sure she has had an adequate trial of calcium blockade, I believe she has had an adequate trial of beta-blockade and that has not been effective. I would like to switch her to diltiazem. She is on metoprolol tartrate and received at this morning therefore I am going to discontinue that and start diltiazem SR (twice daily dosing) this evening, which can be switched to once a day at discharge if it is effective and well- tolerated. We can try to control at this way as an outpatient, if that is unsuccessful we should probably strongly consider ablation. (2) Paroxysmal atrial fibrillation: At her December 2018 visit she had well-documented atrial fibrillation, she came in ill, was in SVT with a rapid heart rate (suggesting a high catecholamine level) and converted to atrial fibrillation which lasted at least 5 hours, possibly longer. The atrial fibrillation may have been related to her presentation and therefore unless we document further episodes I do not think we necessarily need anticoagulation. It is possible however that she has more of the atrial fibrillation that we realize and she may not distinguish the 2 arrhythmias, will need to watch for that in the future but if it is triggered by SVT if we can control the SVT she hopefully will not have the atrial fibrillation either. (3) Hypertension: She has a long history of hypertension however on her current regimen her blood pressure is well controlled. We will need to watch this as we switch to diltiazem. Subjective This is a 58-year-old woman with a long history of SVT. As far as I know her initial documentation was July 2014 when she came into the emergency room with abdominal discomfort and was noted to be in SVT with appearance of typical AV arlene reentry. She was initiated on metoprolol at that time. In January 2017 she presented with SVT and she was reporting having episodes averaging every month or so and typically lasting 1/2-hour to 1 hour although sometimes much longer. Her documented heart rates have been quite variable, sometimes they are as high as 150 to 170 bpm and other times around 130 bpm. At her January 2017 admission I switched her from metoprolol which was not working to diltiazem, with the thought that if that did not work we should plan ablation. I have not seen her since. In February 2017 our office records suggest that she was back on metoprolol. She does not recognize diltiazem so I do not know if she was actually on it as an outpatient. Her echocardiogram has been normal. She also has well-documented atrial fibrillation at her December 2018 visit. Review of electrocardiogram showed that on January 15, 2019 at 1613 she was in SVT, on the same day at 1637 she was in atrial fibrillation, 2 other electrocardiograms done at 1757 and 2146 that they show atrial fibrillation. Her atrial fibrillation was therefore over 5 hours in duration, perhaps longer but I cannot tell from the information I have. It did likely initiate from her SVT however as the arrhythmia is clearly present 20 minutes before the atrial fibrillation started but I cannot document that either. I am not sure she can tell the difference between atrial fibrillation and SVT. She also had a nuclear stress test on February 05, 2017 which was done because her enzymes were positive at that presentation and SVT. She has had several brief episodes of SVT during her hospitalization which she has been aware of. At the moment she feels well, she has been having difficulty with nausea and just had her gastric emptying study which was normal. Currently she is not nauseous. Physical Exam Physical Exam: Constitutional: Alert, cooperative and in no distress. She is obese. HEENT: Unremarkable Neck: No jugular venous distention, carotid pulses are normal and equal bilaterally without bruits. Pulmonary: Clear to auscultation bilaterally. Cardiac: Regular rhythm with no murmur, gallop or rub. Abdomen: Soft, nontender with normal bowel sounds. Extremities: No edema. Distal pulses intact. Neurologic: No focal findings. Gait is steady. Skin: No rash, ecchymoses or petechiae. Results & Data Vital Signs (Past 12 Hours) Vital Signs Temp Pulse Pulse Resp BP Pulse Ox 02/23/19 11:29 36.5 C 74 19 130/84 94 02/23/19 07:55 69 02/23/19 07:22 36.6 C 64 18 141/84 H 94 02/23/19 03:36 36.6 C 69 20 132/83 93 Laboratory Results Abnormal lab results 02/22/19 02/22/19 02/23/19 Range/Units 16:18 20:32 07:21 POC Glucose 137 H 123 H 100 H (70-99) 02/23/19 Range/Units 11:27 POC Glucose 103 H (70-99) Diagnostic Findings Telemetry: Predominantly sinus rhythm, over the last 24 hours she has had occasional episodes of SVT which appears to be typical AV arlene reentry PG Care Time/CCT Total # of Minutes Spent Total Time Spent with Patient: Total time spent is greater than 50% in coordination of care (as documented) at patient's floor/unit and/or counseling patient:
--- NOTE | 2019-02-23 15:59 | Hospitalist Progress Note ---
Date of Service February 23, 2019 Assessment & Plan (1) SVT (supraventricular tachycardia): Patient presented with SVT with rates in the 170s, was given adenosine in the ER and converted to normal sinus rhythm. She then later had recurrent SVT was treated with IV Lopressor and IV labetalol. 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 - Echocardiogram 1 month ago with normal EF - Discussed with cardiology who feel that trialling diltiazem instead of beta- esha could be beneficial. (2) Hypertension: Presented with hypertensive urgency in the setting of SVT. Was given IV labetalol and Lopressor in the ER. - Increased lisinopril to 20 mg - BP better since then. (3) Urinary tract infection: Had dysuria and evidence of UTI on urinalysis upon admission. - Finished ceftriaxone on 02/22 - Urine culture on 02/20 grew multiple bacteria - Probably skin ondina - Given very recent history of C. difficile colitis and continued loose stools despite treatment for C. difficile as an outpatient, will restart p.o. vancomycin 125 mg p.o. 4 times daily as prophylaxis. - Would maintain p.o. vancomycin until several days at least after treatment for urinary tract infection is complete. (4) Diabetes: Patient is not on any diabetic medication as an outpatient. Hemoglobin A1c was 7.5% in 11/2018. - Continue diabetic diet for now, Accu-Cheks before meals and at bedtime - She should be on metformin but would not start right now in the setting of loose stools. (5) Vomiting and diarrhea: Had nausea and vomiting on Friday night into Friday morning without any abdominal pain, no fevers. Unclear what the etiology is. Her abdominal exam here is benign. She does have persistent loose stools twice daily since her admission for C. difficile recently. Gastric emptying study on 02/23 was normal, ruling out gastroparesis. - Nausea is improved with Zofran - Continue diabetic diet as tolerated (6) Current smoker: Patient advised to stop smoking. Offered nicotine patch. (7) VINH (acute kidney injury): Likely due to nausea and vomiting. Has a frequent history of getting acute kidney injuries in the setting of CKD stage II-III. - Creatinine is now down to 1.38 with IV fluid hydration. - Follow BMP in the morning (8) Morbid obesity: BMI of 56.2. - Weight loss counseled. (9) CKD stage 3 due to type 2 diabetes mellitus: Baseline GFR in the CKD stage II-III range over the last year or so. - Avoid nephrotoxins - Renally dose medications as necessary - Follow BMP (10) Paroxysmal atrial flutter: Has a history of atrial fib/flutter on previous admission in 12/2018. Cardiology confirm she was not in atrial flutter this admission thus far. - Was on Coumadin for about 2 weeks but was discontinued due to having an INR greater than 10 in the setting of C. difficile colitis last admission. - Home metoprolol to diltiazem as above. (11) Paroxysmal atrial fibrillation: Had a history of paroxysmal atrial fibrillation and flutter on a previous admission, none so far here. - Electrophysiology consultation - Discussed with Dr. Cowan. Plan to trial calcium channel esha. (12) Hyperlipidemia: - Continue atorvastatin 20 mg p.o. nightly (13) DVT prophylaxis: Lovenox 40mg daily Subjective Feeling better today. Less nausea with eating. No vomiting. BMs are still loose, but not straight watery. Review of Systems Review of Systems: All systems reviewed & are unremarkable except as noted in HPI & below Physical Exam Constitutional: WD/WN, vitals as above Eyes: EOM intact bilaterally; no conjunctival abnormality ENMT: external ear and nose normal, oropharynx normal Neck: trachea midline, no thyromegaly normal visual inspection Respiratory: normal respiratory effort, lungs clear to auscultation no respiratory distress Cardiovascular: RRR, no murmur, no edema Gastrointestinal (Abdomen): Inspection/Auscultation: abdomen normal to inspection; abdomen not distended Musculoskeletal: no cyanosis or clubbing, extremities motor strength 5/5 Skin: no rashes, warm and dry Neurologic: moves all extremities and awake Psychiatric: Orientation: alert, oriented to person and cooperative Results & Data Vital Signs (Past 12 Hours) Vital Signs Temp Pulse Pulse Resp BP Pulse Ox 02/23/19 11:29 36.5 C 74 19 130/84 94 02/23/19 07:55 69 02/23/19 07:22 36.6 C 64 18 141/84 H 94 PG Care Time/CCT Total # of Minutes Spent Total Time Spent with Patient: Total time spent is greater than 50% in coordination of care (as documented) at patient's floor/unit and/or counseling patient:
[2019-02-23 16:40] LABS: Cdiff Antigen Positive; Cdiff Toxin A+B Negative Cdiff Toxin (Negative)
[2019-02-24] MEDS: RASPBERRY SYRUP 5 ML UDP PO SCH ×4 (05:24→23:21)
[2019-02-24] MEDS: VANCOMYCIN HCL 125 MG/2.5ML SOLN PO SCH ×4 (05:24→23:21)
[2019-02-24] MEDS: INSULIN ASPART 100 UNITS/ML 3 ML PEN SC SCH ×4 (08:37→20:53)
[2019-02-24] MEDS: ATORVASTATIN 20 MG TAB PO SCH (08:38)
[2019-02-24] MEDS: ENOXAPARIN INJ 40 MG/0.4 ML SYR SQ SCH (08:39)
[2019-02-24] MEDS: LISINOPRIL 10 MG TAB PO SCH (08:39)
--- NOTE | 2019-02-24 11:02 | Cardiology Progress Note ---
Date of Service February 24, 2019 Assessment & Plan (1) SVT (supraventricular tachycardia): He seems to be doing well on diltiazem. I did discuss with her options for treatment including continued use of diltiazem or catheter based therapy. I think catheter based therapy would have several advantages including obviating the need for additional medical therapy and possibly reducing episodes of atrial fibrillation. It seems that her atrial fibrillation could have been triggered by reentrant tachycardia. I did provide her with some literature on the topic. We discussed the risks benefits and other treatment options. If she is interested in ablation this could be performed tomorrow morning. Alternatively, she could be discharged on her diltiazem, switched to a daily dose formulation and follow-up arranged in our clinic to discuss or schedule alternative treatments. (2) Paroxysmal atrial fibrillation: Possibly related to SVT. Consider catheter based therapy. Continue to monitor for recurrent episodes of atrial fibrillation. (3) Hypertension: She has a long history of hypertension however on her current regimen her blood pressure is well controlled. We will need to watch this as we switch to diltiazem. Subjective This morning patient claims to be feeling well. She has not noticed any additional palpitations. He has been tolerating diet did not report symptoms of chest pain or dyspnea. Review of Systems Review of Systems: Per HPI Physical Exam Physical Exam: She is alert and oriented x3. Mood affect appear normal. She answered all questions appropriately. HEENT: Sclerae are anicteric. Pupils are equal and reactive to light and accommodation. Extraocular movements were intact. Neuro: Cranial nerves intact Lungs: Lungs are clear to auscultation bilaterally. There are no rales wheezes or rhonchi. She has normal respiratory effort without use of accessory muscles. There is normal pulmonary excursion. Cardiac: The rhythm was regular. S1 and S2 were normal. There are no murmurs on examination. The PMI was not markedly displaced on palpation. Skin: There are no rashes noted on examination today. Results & Data Vital Signs (Past 12 Hours) Vital Signs Temp Pulse Resp BP Pulse Ox 02/24/19 10:36 36.5 C 77 19 136/84 95 02/24/19 07:44 36.7 C 78 20 135/82 94 02/24/19 03:46 36.4 C L 74 19 116/83 94 02/23/19 23:25 36.5 C 74 18 113/77 97 Laboratory Results Abnormal Lab Results 02/23/19 02/23/19 02/23/19 11:27 13:40 16:26 POC Glucose 103 H 99 Stl C. diff Tox B Gene Positive Cdiff Gene H Stl C.difficile Tox A&B Negative Cdiff Toxin 02/23/19 02/24/19 20:03 07:21 POC Glucose 85 107 H Stl C. diff Tox B Gene Stl C.difficile Tox A&B ECG Additional Comments: I reviewed her telemetry did not reveal any episodes tachycardia PG Care Time/CCT Total # of Minutes Spent Total Time Spent with Patient: Total time spent is greater than 50% in coordination of care (as documented) at patient's floor/unit and/or counseling p atient:
--- NOTE | 2019-02-24 21:18 | Hospitalist Progress Note ---
Date of Service February 24, 2019 Assessment & Plan (1) SVT (supraventricular tachycardia): Patient presented with SVT with rates in the 170s, was given adenosine in the ER and converted to normal sinus rhythm. She then later had recurrent SVT was treated with IV Lopressor and IV labetalol. 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 - Echocardiogram 1 month ago with normal EF - Plan for ablation tomorrow with Dr. Mendez (2) Hypertension: Presented with hypertensive urgency in the setting of SVT. Was given IV labetalol and Lopressor in the ER. - Increased lisinopril to 20 mg - BP better since then. (3) Urinary tract infection: Had dysuria and evidence of UTI on urinalysis upon admission. - Finished ceftriaxone on 02/22 - Urine culture on 02/20 grew multiple bacteria - Probably skin ondina - Given very recent history of C. difficile colitis and continued loose stools despite treatment for C. difficile as an outpatient, will restart p.o. vancomycin 125 mg p.o. 4 times daily as prophylaxis. - Would maintain PO vancomycin until several days at least after treatment for urinary tract infection is complete. (4) Diabetes: Patient is not on any diabetic medication as an outpatient. Hemoglobin A1c was 7.5% in 11/2018. - Continue diabetic diet for now, Accu-Cheks before meals and at bedtime - She should be on metformin but would not start right now in the setting of loose stools. - Will consider starting glipizide on discharge at low dose; this should be ok with her kidney function and also cost-effective given her financial limitations. (5) Vomiting and diarrhea: Had nausea and vomiting on Friday night into Friday morning without any abdominal pain, no fevers. Unclear what the etiology is. Her abdominal exam here is benign. She does have persistent loose stools twice daily since her admission for C. difficile recently. Gastric emptying study on 02/23 was normal, ruling out gastroparesis. - Nausea is improved with Zofran - Continue diabetic diet as tolerated (6) Current smoker: Patient advised to stop smoking. Offered nicotine patch. (7) VINH (acute kidney injury): Likely due to nausea and vomiting. Has a frequent history of getting acute kidney injuries in the setting of CKD stage II-III. - Creatinine is now down to 1.38 with IV fluid hydration. - Follow BMP in the morning (8) Morbid obesity: BMI of 56.2. - Weight loss counseled. (9) CKD stage 3 due to type 2 diabetes mellitus: Baseline GFR in the CKD stage II-III range over the last year or so. - Avoid nephrotoxins - Renally dose medications as necessary - Follow BMP (10) Paroxysmal atrial flutter: Has a history of atrial fib/flutter on previous admission in 12/2018. Cardiology confirm she was not in atrial fib/flutter this admission thus far. - Was on Coumadin for about 2 weeks but was discontinued due to having an INR greater than 10 in the setting of C. difficile colitis last admission. - Home metoprolol as above. (11) Paroxysmal atrial fibrillation: Had a history of paroxysmal atrial fibrillation and flutter on a previous admission, none so far here. - Electrophysiology consultation - Discussed with Dr. Mendez. Plan for ablation as above. (12) Hyperlipidemia: - Continue atorvastatin 20 mg p.o. nightly (13) DVT prophylaxis: Lovenox 40mg daily Subjective Feeling well today. No major nausea or vomiting. Has been having some looser stools still. Review of Systems Review of Systems: All systems reviewed & are unremarkable except as noted in HPI & below Physical Exam Constitutional: WD/WN, vitals as above Eyes: EOM intact bilaterally; no conjunctival abnormality ENMT: external ear and nose normal, oropharynx normal Neck: trachea midline, no thyromegaly normal visual inspection Respiratory: normal respiratory effort, lungs clear to auscultation no respiratory distress Cardiovascular: RRR, no murmur, no edema Gastrointestinal (Abdomen): Inspection/Auscultation: abdomen normal to inspection; abdomen not distended Musculoskeletal: no cyanosis or clubbing, extremities motor strength 5/5 Skin: no rashes, warm and dry Neurologic: moves all extremities and awake Psychiatric: Orientation: alert, oriented to person and cooperative Results & Data Vital Signs (Past 12 Hours) Vital Signs Temp Pulse Resp BP BP Pulse Ox 02/24/19 19:30 36.4 C L 73 18 136/84 94 02/24/19 15:55 36.3 C L 69 18 135/77 92 02/24/19 10:36 36.5 C 77 19 136/84 95 PG Care Time/CCT Total # of Minutes Spent Total Time Spent with Patient: Total time spent is greater than 50% in coordination of care (as documented) at patient's floor/unit and/or counseling patient:
[2019-02-25] MEDS: VANCOMYCIN HCL 125 MG/2.5ML SOLN PO SCH ×4 (05:50→23:51)
[2019-02-25] MEDS: RASPBERRY SYRUP 5 ML UDP PO SCH ×4 (05:50→23:51)
[2019-02-25 06:35] LABS: Hematocrit (blood only) 41.4 % (37-47); Mean Corpuscular Hemoglobin 29.2 pg (25-34); Mean Corpuscular Hgb Conc 33.8 g/dL (32-36); Mean Corpuscular Volume 86.3 fL (80-100); Mean Platelet Volume 12.4 fL (7.4-10.4); Platelet Count 172 K/uL (130-400); RDW Coefficient of Variation 14.6 % (11.5-14.5); RDW Standard Deviation 46.2 fL (36.4-46.3); White Blood Count 9.65 K/uL (4.8-10.8)
[2019-02-25 07:17] LABS: Calcium 8.6 mg/dl (8.5-10.1); Creatinine Clr Calc Pharmacy 63.7 ml/min; Est GFR (African American) 57.3; Est GFR (Non-African American) 49.4; Potassium 3.7 mmol/L (3.5-5.1)
[2019-02-25] MEDS ORDERED: MIDAZOLAM HCL 5 MG/ML 1 ML VIAL ONE ×3 (07:24→09:50)
[2019-02-25] MEDS ORDERED: fentaNYL citrate 100 MCG/2 ML VIAL ONE ×4 (07:24→10:55)
--- NOTE | 2019-02-25 07:59 | Pre Anesthesia Assessment ---
Date of Service February 25, 2019 Pre Sedation Assessment Vital Signs Temp Pulse Resp BP BP Pulse Ox 02/25/19 06:41 36.4 C L 89 19 131/81 97 02/25/19 03:35 36.6 C 76 19 138/83 95 02/24/19 23:21 36.7 C 88 17 136/82 94 02/24/19 19:30 36.4 C L 73 18 136/84 94 02/24/19 15:55 36.3 C L 69 18 135/77 92 02/24/19 10:36 36.5 C 77 19 136/84 95 Cardiovascular + regular rate Respiratory + respiratory effort normal Pre-Sedation Airway Assessment Smoking Status: Current every day smoker Hx Sleep Apnea: No Hx Difficult Intubation: No Short, Thick Neck: No Thyromental Distance: > or= 3.5 Finger Breadths Oral Cavity: + Dental Abnormalities Mallampati Class: III ASA: ASA3 Procedure Planning Contraindications for Sedation: none Current Medications Reviewed: Yes Notes The planned sedation has been discussed with the patient. Informed Consent was obtained. I have identified the patient, determined the appropriateness of sedation and have assessed the patient immediately prior to the procedure. All medicine(s) and interventions are by my order.
[2019-02-25] MEDS ORDERED: ISOPROTERENOL HCL 0.2 MG/ML 5 ML AMP IV ONE (08:20)
[2019-02-25] MEDS ORDERED: ADENOSINE IV SOLN 3 MG/ML 2 ML VIAL IV ONE (08:56)
[2019-02-25] MEDS ORDERED: IBUTILIDE FUMARATE 0.1 MG/ML 10 ML VIAL IV ONE ×2 (09:24→10:00)
[2019-02-25] MEDS ORDERED: DiphenhydrAMINE HCL 50 MG/ML VIAL ONE (09:43)
[2019-02-25] MEDS ORDERED: MAG SULFATE 50% 1GM/2ML VIAL IV ONE (10:01)
[2019-02-25] MEDS ORDERED: HydrALAZINE HCL 20 MG/ML VIAL ONE (11:06)
--- NOTE | 2019-02-25 11:14 | Post Operative Brief Note ---
Cardiology Brief Post Op Date of Surgery February 25, 2019 Pre & Post Diagnosis Operation Date: 02/25/19 08:00 <No data on this case meets the specified criteria> Procedure EPS using right femoral vein and right IJ for access. Patient in tachycardia at the initiation of procedure. Required adenosine for conversion and developed atrial fibrillation. Cardioverted x3 and given 2mg ibutilide to maintain sinus rhythm. EPS revealed both brief atrial tachycardia and sustained episodes of junctional tachycardia. No echo beats with programmed stimulation. No inducible AVNRT. Normal baseline conduction intervals. [employer] Operator Eduard Mendez MD [employer] none Estimated Blood Loss 10 Findings See Below Paroxysmal junctional tachycardia. atrial fibrillation. Complications none Disposition Accompanied Patient To Recovery: No Disposition: PCU Overlapping Procedure I was immediately available: during the entire case.
[2019-02-25] MEDS ORDERED: OXYCODONE HCL IR 5 MG TAB (IMMEDIATE RELEASE) PO PRN (11:16)
[2019-02-25] MEDS ORDERED: dilTIAZem HCL 240 MG CAPCR PO SCH (11:30)
[2019-02-25] MEDS: INSULIN ASPART 100 UNITS/ML 3 ML PEN SC SCH ×4 (12:03→21:37)
[2019-02-25] MEDS: LISINOPRIL 10 MG TAB PO SCH (12:03)
[2019-02-25] MEDS: ATORVASTATIN 20 MG TAB PO SCH (12:04)
[2019-02-25] MEDS: ENOXAPARIN INJ 40 MG/0.4 ML SYR SQ SCH (12:04)
--- NOTE | 2019-02-25 17:11 | Procedure Note ---
Procedure Note Date of Service February 25, 2019 Note Procedure performed: Please electrophysiologic testing including pacing from the left atrium via the coronary sinus, arrhythmia induction, ultrasound-guided vascular access Staff lehr cutter: Eduard Mendez MD Indication: The patient is a 58-year-old woman recently admitted to the hospital with an episode of tachycardia. Patient's telemetry monitoring suggested an SVT and possibly reentrant mechanism. She was therefore brought to the electrophysiology suite for electrophysiologic testing and possible ablation. Procedure in detail: The patient was informed of the risks benefits and alternatives to the intended procedure. She understood which proceed. She was taken to the EP lab in a fasting state. Conscious sedation was administered per protocol the patient was monitored electrocardiographically throughout today's procedure. The right and internal jugular area and right femoral areas were prepped and draped in usual sterile fashion. These areas were anesthetized using subcutaneous menstruation of a lidocaine and Marcaine solution. The right internal jugular vein was subsequently access using modified Seldinger technique under ultrasound guidance and 6 [place] venous sheath was placed at the site over guidewire. The right femoral vein was subsequently access using modified Seldinger technique 3 times. She has were placed over guidewires at this site and used to facilitate passage of the EP catheters to the respective chambers and fluoroscopic guidance. This included right ventricular, his bundle and coronary sinus catheters. Patient's baseline conduction system was characterize. Arrhythmia was induced. The elements of the arrhythmia was subsequently characterized as well. He should be noted that the patient spent a considerable portion of the testing in atrial fibrillation. The patient underwent to infusions of ibutilide and cardioversion x3. Based on the nature of the patient's arrhythmia no ablation was performed. At the conclusion of the case the sheaths and catheters were removed. Hemostasis was achieved at the access sites using manual pressure. The patient tolerated the procedure well. There were no immediate complications. Findings: Baseline intracardiac intervals Cycling in the atrium 570 milliseconds Cycling in the ventricle 571 milliseconds MA interval 147 milliseconds QRS duration 85 milliseconds QT 323 milliseconds AH interval 82 milliseconds HV interval 60 milliseconds Av Wenckebach occurred at 310 milliseconds The effective refractory period of the fast input to the AV node was 360 milliseconds Tachycardia: After introduction of the EP catheters the patient was noted to be in a tachycardia. The cycle length was 420 milliseconds and the VA time was 0. Attempts at pace termination both from the atrium and the ventricle were unsuccessful. Patient was administered 12 milligrams of adenosine in a rapid fashion. This terminated the arrhythmia but initiated atrial fibrillation. The patient maintained atrial fibrillation despite infusion of 1 milligram of ibutilide. She was subsequently sedated and underwent conversion to a sinus rhythm with 360 joules delivered in a biphasic fashion. However, within a few beats the patient returned to atrial fibrillation. She was cardioverted again and quickly returned to atrial fibrillation. A 2nd infusion of ibutilide was then performed and the patient underwent a 3rd cardioversion in a similar fashion. She was able to maintain sinus rhythm at this point. Programmed stimulation from the atrium did induce a tachycardia. Generally speaking the VA time was close to 0, although there were some a arrhythmias induced with a very long VA time. Despite induction of the arrhythmia and no echo beats were seen with programmed stimulation. There did appear to be dual AV arlene physiology The refractory period of the AV node could not be determined due to frequent episodes of SVT with programmed stimulation Ventricular entrainment of the tachycardia produced A VAAV response. On some oc casions it appeared to produce an AHHA response. There was progressive fusion with atrial pacing during the tachycardia The tachycardia reliably initiated without any retrograde conduction to the atri um Pacing at the tachycardia cycle length from the atrium in sinus rhythm produced a different activation pattern Coding
[2019-02-25] MEDS ORDERED: dilTIAZem HCl 5 MG/ML 5 ML VIAL IV STA (17:15)
[2019-02-25] MEDS ORDERED: SODIUM CHLORIDE 0.9% 500 ML IV ONE (17:18)
[2019-02-25] MEDS ORDERED: dilTIAZem HCl 125 MG in DEXTROSE 5% 100 ML IV SCH (17:30)
--- NOTE | 2019-02-25 18:38 | Hospitalist Progress Note ---
Date of Service February 25, 2019 Assessment & Plan (1) SVT (supraventricular tachycardia): Patient presented with SVT with rates in the 170s, was given adenosine in the ER and converted to normal sinus rhythm. She then later had recurrent SVT was treated with IV Lopressor and IV labetalol. 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 - Echocardiogram 1 month ago with normal EF - Had EP study with Dr. Mendez on 02/25 -> Does not have an AVNRT as we thought, but rather a possible atrial tachycardia or a junctional tachycardia. - Restarted diltiazem in the afternoon -> Heart rates still in the 120-130 range, but coming down. (2) Hypertension: Presented with hypertensive urgency in the setting of SVT. Was given IV labetalol and Lopressor in the ER. - Increased lisinopril to 20 mg - BP better since then. (3) Urinary tract infection: Had dysuria and evidence of UTI on urinalysis upon admission. - Finished ceftriaxone on 02/22 - Urine culture on 02/20 grew multiple bacteria - Probably skin ondina - Given very recent history of C. difficile colitis and continued loose stools despite treatment for C. difficile as an outpatient, will restart p.o. vanc omycin 125 mg p.o. 4 times daily as prophylaxis. - Will maintain PO vancomycin until several days at least after treatment for urinary tract infection is complete. (4) Diabetes: Patient is not on any diabetic medication as an outpatient. Hemoglobin A1c was 7.5% in 11/2018. - Continue diabetic diet for now, Accu-Cheks before meals and at bedtime - She should be on metformin but would not start right now in the setting of loose stools. - Will consider starting glipizide on discharge at low dose; this should be ok with her kidney function and also cost-effective given her financial limitations. (5) Vomiting and diarrhea: Had nausea and vomiting on Friday night into Friday morning without any abdominal pain, no fevers. Unclear what the etiology is. Her abdominal exam here is benign. She does have persistent loose stools twice daily since her admission for C. difficile recently. Gastric emptying study on 02/23 was normal, ruling out gastroparesis. - Nausea is improved with Zofran - Continue diabetic diet as tolerated (6) Current smoker: Patient advised to stop smoking. Offered nicotine patch. (7) VINH (acute kidney injury): Likely due to nausea and vomiting. Has a frequent history of getting acute kidney injuries in the setting of CKD stage II-III. - Creatinine is now down to 1.38 with IV fluid hydration. - Follow BMP in the morning (8) Morbid obesity: BMI of 56.2. - Weight loss counseled. (9) CKD stage 3 due to type 2 diabetes mellitus: Baseline GFR in the CKD stage II-III range over the last year or so. - Avoid nephrotoxins - Renally dose medications as necessary - Follow BMP (10) Paroxysmal atrial flutter: Has a history of atrial fib/flutter on previous admission in 12/2018. Cardiology confirm she was not in atrial fib/flutter this admission thus far. - Was on Coumadin for about 2 weeks but was discontinued due to having an INR greater than 10 in the setting of C. difficile colitis last admission. - Home metoprolol as above. (11) Paroxysmal atrial fibrillation: Had a history of paroxysmal atrial fibrillation and flutter on a previous admission, none so far here. - Electrophysiology consultation - Discussed with Dr. Mendez. As above. (12) Hyperlipidemia: - Continue atorvastatin 20 mg p.o. nightly (13) DVT prophylaxis: Lovenox 40mg daily Subjective This morning was feeling well prior to the procedure. However, after the procedure she was frustrated with the result and was also fatigued. However, her nausea and diarrhea have improved. Physical Exam Constitutional: WD/WN, vitals as above Eyes: EOM intact bilaterally; no conjunctival abnormality ENMT: external ear and nose normal, oropharynx normal Neck: trachea midline, no thyromegaly normal visual inspection Respiratory: normal respiratory effort, lungs clear to auscultation no respiratory distress Cardiovascular: RRR, no murmur, no edema Gastrointestinal (Abdomen): Inspection/Auscultation: abdomen normal to inspection; abdomen not distended Musculoskeletal: no cyanosis or clubbing, extremities motor strength 5/5 Skin: no rashes, warm and dry Neurologic: moves all extremities and awake Psychiatric: Orientation: alert, oriented to person and cooperative Results & Data Vital Signs (Past 12 Hours) Vital Signs Temp Pulse Resp BP BP Pulse Ox 02/25/19 16:00 36.8 C 135 H 20 128/74 98 02/25/19 15:39 36.7 C 121 H 19 110/78 97 02/25/19 14:01 36.8 C 120 H 20 124/78 96 02/25/19 13:31 36.8 C 124 H 20 132/84 98 02/25/19 13:01 36.6 C 125 H 18 130/78 97 02/25/19 12:31 36.8 C 130 H 18 132/84 97 02/25/19 12:01 36.6 C 101 H 18 116/74 96 02/25/19 12:00 36.6 C 101 H 116/74 96 02/25/19 06:41 36.4 C L 89 19 131/81 97 PG Care Time/CCT Total # of Minutes Spent Total Time Spent with Patient: Total time spent is greater than 50% in coordination of care (as documented) at patient's floor/unit and/or counseling patient:
[2019-02-26] MEDS ORDERED: dilTIAZem HCL 180 MG CAPCR PO SCH
[2019-02-26] MEDS: RASPBERRY SYRUP 5 ML UDP PO SCH ×2 (06:00→12:37)
[2019-02-26] MEDS: VANCOMYCIN HCL 125 MG/2.5ML SOLN PO SCH ×2 (06:00→12:37)
[2019-02-26] MEDS: LISINOPRIL 10 MG TAB PO SCH (08:25)
[2019-02-26] MEDS: ATORVASTATIN 20 MG TAB PO SCH (08:26)
[2019-02-26] MEDS: ENOXAPARIN INJ 40 MG/0.4 ML SYR SQ SCH (08:27)
[2019-02-26] MEDS: INSULIN ASPART 100 UNITS/ML 3 ML PEN SC SCH ×2 (08:28→12:37)
--- NOTE | 2019-02-26 09:30 | Cardiology Progress Note ---
Date of Service February 26, 2019 Assessment & Plan (1) SVT (supraventricular tachycardia): EP testing yesterday did not reveal any evidence of a reentrant tachycardia. She did have what appeared to be an accelerated junctional rhythm as well as atrial tachycardia. She also had an extended episode of atrial fibrillation likely related to the procedure itself. No ablation was performed. Was placed on diltiazem last evening and did require in infusion for period of time due to persistent tachycardia. I think her primary therapy at this point will be medical. I started her back on diltiazem and she can be discharged on her current dose provided she is feeling well otherwise. I suspect this will be a work in progress. I think we will need to titrate her medications perhaps prescribe alternate therapy depending on her clinical response. I do not believe there is a strong indication for anticoagulation currently, although we will need to be vigilant for recurrent atrial fibrillation in the outpatient setting. (2) Paroxysmal atrial fibrillation: Possibly related to SVT. Continue to monitor for recurrent episodes of atrial fibrillation. (3) Hypertension: She has a long history of hypertension. Her blood pressure was markedly elevated yesterday during her procedure but appears better controlled today. Will continue diltiazem. Subjective This morning patient claims to be feeling well. She reports being ambulatory around the room without significant symptoms. She is not currently aware of any palpitations. No chest pain. No pain at the access site in the right groin. Review of Systems Review of Systems: Per HPI Physical Exam Physical Exam: Evaluations right groin did not reveal any evidence of hematoma. No bleeding. She is alert and oriented x3. Mood affect appear normal. She answered all questions appropriately. HEENT: Sclerae are anicteric. Pupils are equal and reactive to light and accommodation. Extraocular movements were intact. Neuro: Cranial nerves intact Extremities: Patient has bilateral radial pulses that are equal in intensity. There is no evidence cyanosis or clubbing. There was no evidence of significant peripheral edema bilaterally. Skin: There are no rashes noted on examination today. Results & Data Vital Signs (Past 12 Hours) Vital Signs Temp Pulse Resp BP BP Pulse Ox 02/26/19 08:00 36.6 C 85 20 124/78 96 02/26/19 07:14 36.6 C 88 16 148/81 H 96 02/26/19 05:02 36.5 C 89 18 159/79 H 97 02/25/19 23:15 36.6 C 96 H 19 108/75 94 PG Care Time/CCT Total # of Minutes Spent Total Time Spent with Patient: Total time spent is greater than 50% in coordination of care (as documented) at patient's floor/unit and/or counseling patient:
--- NOTE | 2019-02-26 18:13 | Discharge Summary ---
Date of Service February 26, 2019 Admission HPI Per Admitting Provider Patient is a 58 years old female with past medical history of hypertension, hyperlipidemia, diabetes, obesity, acute to chronic renal failure,diverticulosis, presents to the emergency room with a episode of tachycardia that started yesterday. Patient reports that she was also short of breath. Patient smokes 1 pack per day for many years. Patient said her symptoms are worsening with exertion. Patient denies falls or injuries. Patient said that this morning she felt nauseated, had diaphoresis and generalized weakness for 1 day. Patient denies cough, hemoptysis, headache, hematuria, melena.Patient reports gaining 50 pounds in the past several months.Patient denies history of atrial fibrillation. She is not on blood thinners. Patient reports that she was admitted to the hospital 2 times in the past month. Patient last admission was 2 weeks ago. Patient said that she was given medication to slow her heart down but she was not sure. Patient denies abusing alcohol or drugs. In the ER patient was treated for supraventricular tachycardia. She was given 2 doses of adenosine 6 mg and 12 IV, labetalol 10 mg IV x2, Lopressor 5 mg IV x2, which converted her to the normal sinus rhythm. And then patient went back to A. fib's. Patient had also elevated blood pressure the high is being 199/136. Her heart rate was fluctuating and the highest was [address] and the lowest 106. CT scan of the head is pending before patient is started on heparin bolus and drip and diltiazem bolus and drip for A. fib's. Cardiology is consulted. Patient also reports of burning on urination and it was found that patient has urinary tract infection confirmed by her UA analysis. Labs were reviewed: White blood cell count with normal neutrophil count of 87.4 hemoglobin 18 hematocrit 50.8 is elevated to 13.34, PT 10.9 INR 1.1 APTT 28.3. Sodium 133, potassium 3.8 chloride 100 anion gap 15, BUN 11 creatinine 1.44 GFR 39 lactate 1.9, AST 19, ALT 27, alkaline phosphatase 121, troponin 0 0.015, total protein 9.1 albumin 3.8. Urine: White blood cell 5-10, bacteria 1+. CT head no acute intracranial abnormalities. Chest x-rays no acute cardiopulmonary disease. Decision was made to admit patient to PCU on telemetry for paroxysmal A. fib with RVR and urinary tract infection. Principal Diagnosis Atrial and junctional tachycardia Discharge Exam Constitutional WD/WN, vitals as above Eyes EOM intact bilaterally; no conjunctival abnormality ENMT external ear and nose normal, oropharynx normal Neck trachea midline, no thyromegaly normal visual inspection Respiratory normal respiratory effort, lungs clear to auscultation no respiratory distress Cardiovascular RRR, no murmur, no edema Gastrointestinal (Abdomen) Inspection/Auscultation: abdomen normal to inspection; abdomen not distended Musculoskeletal no cyanosis or clubbing, extremities motor strength 5/5 Skin no rashes, warm and dry Neurologic moves all extremities and awake Psychiatric Orientation: alert, oriented to person and cooperative Discharge Data Allergies Allergy/AdvReac Type Severity Reaction Status Date / Time No Known Allergies Allergy Verified 02/20/19 16:15 Consultations 02/20/19 18:36 ED Decision to Admit Stat 02/20/19 21:05 Consult Cardiology Routine Procedures Performed Operation Date: 02/25/19 08:00 Actual Procedures p EPS with Induction (RA,HIS, RV)(Not Applicable) - Alonso Mendez MD s Cardioversion(Not Applicable) - Alonso Mendez MD s LA Pacing (Add-On)(Not Applicable) - Alonso Mendez MD Ordered Studies 02/20/19 18:17 CT head/brain wo con Stat 02/25/19 07:30 EP Lab Images for PACS ONCE Hospital Course (1) SVT (supraventricular tachycardia): Patient presented with SVT with rates in the 170s, was given adenosine in the ER and converted to normal sinus rhythm. She then later had recurrent SVT was treated with IV Lopressor and IV labetalol. - Echocardiogram 1 month ago with normal EF - Had EP study with Dr. Mendez on 02/25 -> Does not have an AVNRT as we thought, but rather a combination of an atrial tachycardia and a junctional tachycardia. In essence, she has 3 separate cardiac pacemakers (the SA node and the two ectopic areas). - Restart PO diltiazem 360mg PO daily per Dr. Mendez. Will need outpatient EP follow up for possible flecainide or other anti-arrhythmic. (2) Hypertension: Presented with hypertensive urgency in the setting of SVT. Was given IV labetalol and Lopressor in the ER. - Increased lisinopril to 20 mg - BP better since then. - Given the switch from metoprolol to diltiazem, I did not leave it increased. She will need close PCP follow up to determine if her BP remains controlled on the diltiazem and lisinopril 10mg. (3) Urinary tract infection: Had dysuria and evidence of UTI on urinalysis upon admission. - Finished ceftriaxone on 02/22 - Urine culture on 02/20 grew multiple bacteria - Probably skin ondina - Given very recent history of C. difficile colitis and continued loose stools despite treatment for C. difficile as an outpatient, will restart p.o. vancomycin 125 mg p.o. 4 times daily as prophylaxis. - Discharged with 5 more days of Dificid as her [facility] pharmacy does not carry the liquid vancomycin. (4) Diabetes: Patient is not on any diabetic medication as an outpatient. Hemoglobin A1c was 7.5% in 11/2018. - Continue diabetic diet for now, Accu-Cheks before meals and at bedtime - On discharge, I started low-dose glipizide which is the best choice sulfonyurea for CKD. Metformin is contraindicated with her current diarrhea. (5) Vomiting and diarrhea: Had nausea and vomiting on Friday night into Friday morning without any abdominal pain, no fevers. Unclear what the etiology is. Her abdominal exam here is benign. She does have persistent loose stools twice daily since her admission for C. difficile recently. Gastric emptying study on 02/23 was normal, ruling out gastroparesis. - Nausea improved with Zofran and being off the Flagyl. I think this was mostly due to her Flagyl. (6) Current smoker: Patient advised to stop smoking. Offered nicotine patch. (7) VINH (acute kidney injury): Likely due to nausea and vomiting. Has a frequent history of getting acute kidney injuries in the setting of CKD stage II-III. - Creatinine is now down to 1.38 with IV fluid hydration. - Back to baseline on discharge with Cr at 1.2. (8) Morbid obesity: BMI of 56.2. - Weight loss counseled. (9) CKD stage 3 due to type 2 diabetes mellitus: Baseline GFR in the CKD stage II-III range over the last year or so. - Avoid nephrotoxins - Renally dose medications as necessary (10) Paroxysmal atrial flutter: Has a history of atrial fib/flutter on previous admission in 12/2018. Cardiology confirm she was not in atrial fib/flutter this admission thus far. - Was on Coumadin for about 2 weeks but was discontinued due to having an INR greater than 10 in the setting of C. difficile colitis last admission. - Diltiazem as above. (11) Paroxysmal atrial fibrillation: Had a history of paroxysmal atrial fibrillation and flutter on a previous admission, none so far here. - Electrophysiology consultation - Discussed with Dr. Mendez. As above. (12) Hyperlipidemia: - Continue atorvastatin 20 mg p.o. nightly (13) DVT prophylaxis: Lovenox 40mg daily Total Time Total Time Spent Total Time Spent (In Minutes): 45 Discharge Plan Discharge Items Patient Disposition: Home - Self-Care Reason For Visit: PALPITATIONS Discharge Diagnosis: Fast heart rate, continued diarrhea Discharge Goals: Decrease discomfort, Diagnostic testing and Improve disease control Activity: Resume your previous activity Non-emergency contact: Primary Care Provider and [employer]ting [employer] S[employer] Supervisor Call non-emergency contact if: your symptoms worsen and your temperature is above 101 Follow-up/Referrals: Candido Cowan MD [Physician] - 03/02/19 11:30 am (Please, follow up at [facility] Cardiology Office with Dr. Cowan on FridayMarch 02 at 11:30 am. *The office is located in [address] of [facility]. This is the big building next to this [facility]. If you need to change this appointment, call the office at [phone].) Romeo Lanza MD [Primary Care Provider] - 03/04/19 10:30 am (Please, follow up with Dr. Luis Fernando Smith on March 04 at 10:30 am. *If you need to change this appointment, call the office at [phone].) Diet: Carb Consistent or DM2 Addtl Provider Instructions: Ms. Hernandez, You were admitted to the hospital for nausea, vomiting, and diarrhea. You were found to have a fast heart rate. The heart rate is called atrial tachycardia and junctional tachycardia. We are switching your metoprolol to diltiazem to help better control this rate and hopefully help keep your blood pressure in a good range. We are giving you 5 more days of vancomycin to help keep the C. diff from returning. Finally, I am starting you on a low dose of a diabetes medication to help keep your sugars under control. Prescriptions: New diltiazem HCl 360 mg capsule,extended release 24 hr 360 mg PO DAILY Qty: 30 RF: 0 vancomycin 25 mg/mL recon soln 125 mg PO Q6H 5 Days Qty: 100 RF: 0 glipizide 5 mg tablet 2.5 mg PO DAILY Qty: 30 RF: 0 Continued atorvastatin 20 mg tablet 20 mg PO QAM RF: 0 lisinopril 10 mg tablet 10 mg PO QAM RF: 0 albuterol sulfate [Ventolin HFA] 90 mcg/actuation Hfa Aerosol Inhaler 2 puff inhalation Q6H PRN (Reason: shortness of breath or wheezing) Qty: 18 RF: 0 ranitidine HCl 150 mg tablet 150 mg PO BID RF: 0 Probiotic 3 billion cell Capsule 3,000 mmu cells PO DAILY RF: 0 Discontinued metoprolol tartrate 50 mg tablet 100 mg PO BID RF: 0 Stand-Alone Forms: My [facility] Discharge Orders: Discharge Order (Routine); Ordered 02/26/19 Ordered By: Patrick Bosch Admission Data Admit Date/Time: 02/20/19 18:39 Attending Provider: Patrick Bosch Admit Provider: Gaby Nuñez Primary Care Provider: Romeo Lanza Other Providers: Mark Ramos ; Patrick Bosch Service: Telemetry Other Interventions: Discharge Summary Assessment (RN) Last Done: 02/26/19 15:55 DC Date/Time DO NOT enter until pt leaves facility: 02/26/19 17:32
== END 2019-02-26 17:32 | disposition home or self-care (01) | DRG 309 ==
LOC: ED 15:00 → SUATTDRO 18:39 → 2S 18:39

== ENCOUNTER 2020-07-03 15:34 | Inpatient (IN) ==
[~2020-07-03 15:34] MED LIST changes: -ASPEC81 PO; -ATOR-22 PO; -DILT240C57 PO; +INFLUENZA ADMINISTRATION CHARGE ONE; -LISI10TA PO; -PRLSR20 PO
[2020-07-03] MEDS ORDERED: fentaNYL citrate 100 MCG/2 ML VIAL IV STA (17:24)
[2020-07-03] MEDS ORDERED: DEXAMETHASONE SOD INJ 10 MG/ML VIAL IV ONE (17:25)
[2020-07-03] MEDS ORDERED: ALBUT/IPRATROP 3MG/0.5MG NEB 3 ML VIAL NEB STA (17:25)
--- NOTE | 2020-07-03 17:29 | Emergency Department Note ---
Impression & Plan Breathlessness, Pulmonary embolism, bilateral, Infarctions, pulmonary, Chest pain ED Provider Note Provider: Raymond Chavarria MD DATE OF SERVICE:07/03/2020 CHIEF COMPLAINT: Shortness of breath, chest pain HISTORY OF PRESENT ILLNESS: Patient is a 60-year-old female history of CKD, diabetes, diverticulitis, recent fall with right ankle fracture status post repair 2 weeks ago presents today reporting over the last approximately 2 days she developed shortness of breath pleuritic right-sided lower chest pain at the very top of the right abdomen as well. Patient denies falls or syncope. Ana ent states she has a cough and feels short of breath and has had some productive quality to it at times. Patient states she is a smoker and has not used any breathing treatments or inhalers at home. Patient states she has no significant swelling of her legs but is still nonweightbearing on the right leg. She was seen at the orthopedic office and had some vianca of the relate leg and they thought this was healing adequately today. Patient denies nausea or vomiting. Patient denies other associated abdominal pain. Patient states she feels quite short of breath. Has tried some ibuprofen at home with minimal improvement of her left pain. Does report some tenderness in this area. REVIEW OF SYSTEMS: A total of 10 review of systems was obtained and negative except as stated above in the HPI. PAST MEDICAL HISTORY: As noted above MEDICATIONS: Reviewed home medication list SOCIAL HISTORY: Patient is an everyday smoker, lives at home PHYSICAL EXAM: GENERAL: alert and oriented on stretcher appears fatigued Head: normocephalic and atraumatic EYES: No injection, discharge or icterus. NECK: Trachea midline. ENT: Mucous membranes pink and moist. LUNGS: Airway patent. No retractions. Breath sounds with expiratory wheeze noted diffusely. Mildly tachypneic. HEART: Regular rate and rhythm. Mild to moderate right lower anterior axillary chest wall tenderness without crepitus appreciated. ABDOMEN: Soft without guarding or peritonitis with some slight right upper quadrant tenderness. BACK:No bilateral flank tenderness. SKIN: Acyanotic, warm, dry, without rashes EXTREMITIES: Without swelling, tenderness or deformity EXCEPT for the right lower leg which is in a walking boot. No significant bilateral calf tenderness or edema appreciated. NEUROLOGICAL: No focal deficits. No aphasia. No facial droop or slurred speech. EK bpm normal sinus rhythm without PVC or PAC. No acute ST segment elevation or depression noted. Normal QTC. CONTINUOUS CARDIAC MONITORING: was ordered and showed a heart rate of 90's bpm in normal sinus rhythm to 100s sinus tachycardia Patient's laboratory studies and imaging reviewed. Differential includes Reactive airway disease, pneumonia, pneumothorax, COPD, CHF, infections, cardiac ischemia, pulmonary embolism, musculoskeletal, callie rointestinal, as well as other pathologies. IMPRESSION/MEDICAL DECISION MAKING: Given current immobilization and recent orthopedic surgery CT of the chest will be completed to evaluate for possible PE. Covid testing will be sent as she does have a borderline fever here today. She did have a pelvic and some right upper quadrant tenderness was completed as well as her lower suspicion for acute appendicitis or diverticulitis in the lower abdomen. EKG and troponin were sent. Given some fentanyl here initially for pain as well as some steroid to help with her breathing as likely a reactive component given her history of smoking as well as a DuoNeb. Patient noted to have on room air hypoxia in the high 80s. Laboratory studies do show leukocytosis of 18 higher than recent levels around 1 3 without significant anemia today. No significant electrolyte abnormality. No evidence of acute hepatitis or pancreatitis based on labs. Troponin is undetectable and EKG without findings concerning for acute ischemic changes. Doubt this is ACS/MA. Rapid Covid test was negative. Chest x-ray per radiology report questions diffuse interstitial thickening of the mid to lower lung zones congestive change versus pneumonitis versus atelectasis. CTA of the chest with evidence of large bilateral PEs. Pulmonary infarct noted. CT abdomen pelvis without significant intra-abdominal processes. Patient updated and for comfort is on 2 L of oxygen. BNP added on to lb studies. Discussed with the patient and started on heparin drip. Do not feel at this point she needs TPA but will need to be monitored closely with further monitoring here in the hospital. Patient was in agreement. The hospitalist was contacted. DIAGNOSIS: Shortness breath, chest pain DISPOSITION: Hospitalist will evaluate Patient was agreeable with this plan. Critical Care I have personally spent 34 minutes of critical care time in the direct management of this patient. This includes bedside care, interpretation of diagnostic studies, and testing, discussion with consultants, patient, and family members, and other required patient management activities. These 34 minutes is in excess of all separately billable procedures. Past Med/Surg History Medical History (Updated 07/03/20 @ 21:24 by Stacie Mirza DO) Atrial fibrillation Follows with cardio- per cardio "well-documented atrial fibrillation in December 2018, however it appears to have started with a prolonged episode of SVT at a time when she was ill otherwise. It terminated spontaneously. I would watch for further recurrences before starting anticoagulation." Chronic back pain managed on own. no chronic pain specialist CKD stage 3 due to type 2 diabetes mellitus Diabetes GERD (gastroesophageal reflux disease) History of electrophysiologic study [address] Dr Mendez [facility] "[facility]" femoral artery Hyperlipidemia Hypertension Morbid obesity Sleep apnea does not use machine. SVT (supraventricular tachycardia) treated with medication. follows with Dr Cowan. Surgical History History of adenoidectomy History of appendectomy History of bilateral tubal ligation History of cardioversion 2018 [facility] -- unsuccessful. managed with medication. History of cholecystectomy History of tonsillectomy Family History Other No family history of adverse response to anesthesia No known problems Social History Smoking Status: Current every day smoker Cigarettes Per Day: 30; Second Hand Exposure: Yes; Hx Alcohol Use: Yes Alcohol type: hard liquor Hx Substance Use: Yes Preferred Language: Spanish Communication Ability: Effective Mitigation Supervisor Required: No Beliefs That Will Affect Care: None marital status: Single Current Living Situation: Family current occupational status: unemployed Feels Safe at Home: Yes Assistive Devices: Brace/Splint/Immobilizer, CPAP, Crutches and Glasses Allergies Allergies Allergy/AdvReac Type Severity Reaction Status Date / Time No Known Allergies Allergy Verified 07/03/20 19:44 Home Meds Home Medications Medication Instructions Recorded Confirmed atorvastatin 20 mg PO QAM 01/15/19 07/03/20 aspirin 81 mg tablet,delayed 81 mg PO QAM 09/07/19 07/03/20 release glipizide 5 mg tablet 5 mg PO QAM tab 03/06/20 07/03/20 lisinopril 20 mg PO QAM 06/12/20 07/03/20 omeprazole 20 mg PO QAM 06/12/20 07/03/20 diltiazem HCl [DILT-XR] 480 mg PO QAM 06/14/20 07/03/20 Previous Rx's Medication Instructions Recorded albuterol sulfate [Ventolin HFA] 2 puff INHALATION Q6H PRN #18 gm 01/19/19 oxycodone 5 - 10 mg PO Q4H PRN #14 tab 06/12/20 Results & Data (ED) Vital Signs Vital Signs - 24 hr 07/03/20 15:39 07/03/20 17:36 07/03/20 18:23 Temperature 37.6 C H Temperature Source Temporal Artery Scan Pulse Rate 103 H 91 H Pulse Rate [Apical] 91 H 93 H Pulse Rate from SpO2 Sensor Pulse Rhythm Regular Pulse Rhythm [Apical] Regular Pulse Strength [Apical] Normal Respiratory Rate 20 32 H 22 Respiratory Effort / Characteristics Short of Breath Spontaneous Respiratory Depth Normal Respiratory Pattern Regular Tachypnea Blood Pressure 127/92 Blood Pressure [Left Arm] 192/91 H Blood Pressure Mean 103 Blood Pressure Mean [Left Arm] 124 Pulse Oximetry 93 90 91 Oxygen Delivery Method Room Air Room Air Room Air Oxygen Flow Rate Sepsis Recent Fever Within 48 Hours No Sepsis New/Unexplained Change in Mental Status N/A Sepsis Action Taken by Nursing No Action Required 07/03/20 19:00 07/03/20 19:31 07/03/20 19:42 Temperature Temperature Source Pulse Rate 97 H 104 H Pulse Rate [Apical] 93 H Pulse Rate from SpO2 Sensor 96 H 105 H Pulse Rhythm Pulse Rhythm [Apical] Pulse Strength [Apical] Respiratory Rate 24 24 26 H Respiratory Effort / Characteristics Respiratory Depth Respiratory Pattern Blood Pressure 179/80 H 168/98 H Blood Pressure [Left Arm] 204/95 H Blood Pressure Mean 109 120 Blood Pressure Mean [Left Arm] 131 Pulse Oximetry 93 96 96 Oxygen Delivery Method Nasal Cannula Nasal Cannula Oxygen Flow Rate 2 3 Sepsis Recent Fever Within 48 Hours Sepsis New/Unexplained Change in Mental Status Sepsis Action Taken by Nursing 07/03/20 19:46 Temperature Temperature Source Pulse Rate 94 H Pulse Rate [Apical] Pulse Rate from SpO2 Sensor 94 H Pulse Rhythm Pulse Rhythm [Apical] Pulse Strength [Apical] Respiratory Rate 23 Respiratory Effort / Characteristics Respiratory Depth Respiratory Pattern Blood Pressure 159/89 H Blood Pressure [Left Arm] Blood Pressure Mean 101 Blood Pressure Mean [Left Arm] Pulse Oximetry 95 Oxygen Delivery Method Nasal Cannula Oxygen Flow Rate 2 Sepsis Recent Fever Within 48 Hours Sepsis New/Unexplained Change in Mental Status Sepsis Action Taken by Nursing Laboratory Data Result diagrams: 07/03/20 17:29 07/03/20 17:29 Lab Results 07/03/20 07/03/20 07/03/20 Range/Units 17:29 17:29 17:29 WBC 18.74 H (4.8-10.8) K/uL RBC 4.98 (4.2-5.4) M/uL Hgb 14.0 (12.0-16.0) g/dL Hct 42.5 (37-47) % MCV 85.3 (80-100) fL MCH 28.1 (25-34) pg MCHC 32.9 (32-36) g/dL RDW Std Deviation 49.7 H (36.4-46.3) fL RDW Coeff of Jaswinder 15.8 H (11.5-14.5) % Plt Count 275 (130-400) K/uL MPV 11.6 H (7.4-10.4) fL Immature Gran % (Auto) 0.3 % Neut % (Auto) 81.9 % Lymph % (Auto) 10.6 % [place] % (Auto) 6.7 % Eos % (Auto) 0.3 % Baso % (Auto) 0.2 % Neut # (Auto) 15.33 H (1.4-6.5) K/uL Lymph # (Auto) 1.99 (1.2-3.4) K/uL [place] # (Auto) 1.26 H (0.11-0.59) K/uL Eos # (Auto) 0.06 (0-0.5) K/uL Baso # (Auto) 0.04 (0-0.2) K/uL Immature Gran # (Auto) 0.06 H (0.00-0.02) K/uL PT 11.3 (9.0-12.0) Seconds INR 1.1 (0.9-1.1) APTT 31.2 H (21.0-31.0) Seconds PTT Ratio 1.1 Sodium 135 L (136-145) mmol/L Potassium 4.1 (3.5-5.1) mmol/L Chloride 104 (98-107) mmol/L Carbon Dioxide 22 (21-32) mmol/L Anion Gap 8.0 (3-11) BUN 20 H (7-18) mg/dl Creatinine 1.05 (0.6-1.2) mg/dl Est Cr Clr Drug Dosing Not Reportable Est GFR ( Amer) 66.4 Est GFR (Non-Af Amer) 57.3 BUN/Creatinine Ratio 18.6 (10-20) Glucose 112 H (70-99) mg/dl Calcium 9.6 (8.5-10.1) mg/dl Magnesium 2.0 (1.8-2.4) mg/dl Total Bilirubin 0.4 (0.2-1) mg/dl AST 8 L (15-37) U/L ALT 11 L (12-78) U/L Alkaline Phosphatase 139 H (45-117) U/L Troponin I < 0.015 (0-0.045) ng/ml NT-Pro-B Natriuret Pep (0-900) pg/ml Total Protein 8.6 H (6.4-8.2) gm/dl Albumin 3.0 L (3.4-5.0) gm/dl Globulin 5.6 H (2.5-4.0) gm/dl Albumin/Globulin Ratio 0.5 L (0.9-2) Lipase 40 L (73-393) U/L COVID-19 Eval Order SARS-CoV-2, RNA, NAAT (NEGATIVE) 07/03/20 07/03/20 07/03/20 Range/Units 17:29 17:59 17:59 WBC (4.8-10.8) K/uL RBC (4.2-5.4) M/uL Hgb (12.0-16.0) g/dL Hct (37-47) % MCV (80-100) fL MCH (25-34) pg MCHC (32-36) g/dL RDW Std Deviation (36.4-46.3) fL RDW Coeff of Jaswinder (11.5-14.5) % Plt Count (130-400) K/uL MPV (7.4-10.4) fL Immature Gran % (Auto) % Neut % (Auto) % Lymph % (Auto) % [place] % (Auto) % Eos % (Auto) % Baso % (Auto) % Neut # (Auto) (1.4-6.5) K/uL Lymph # (Auto) (1.2-3.4) K/uL [place] # (Auto) (0.11-0.59) K/uL Eos # (Auto) (0-0.5) K/uL Baso # (Auto) (0-0.2) K/uL Immature Gran # (Auto) (0.00-0.02) K/uL PT (9.0-12.0) Seconds INR (0.9-1.1) APTT (21.0-31.0) Seconds PTT Ratio Sodium (136-145) mmol/L Potassium (3.5-5.1) mmol/L Chloride (98-107) mmol/L Carbon Dioxide (21-32) mmol/L Anion Gap (3-11) BUN (7-18) mg/dl Creatinine (0.6-1.2) mg/dl Est Cr Clr Drug Dosing Est GFR ( Amer) Est GFR (Non-Af Amer) BUN/Creatinine Ratio (10-20) Glucose (70-99) mg/dl Calcium (8.5-10.1) mg/dl Magnesium (1.8-2.4) mg/dl Total Bilirubin (0.2-1) mg/dl AST (15-37) U/L ALT (12-78) U/L Alkaline Phosphatase (45-117) U/L Troponin I (0-0.045) ng/ml NT-Pro-B Natriuret Pep 209 (0-900) pg/ml Total Protein (6.4-8.2) gm/dl Albumin (3.4-5.0) gm/dl Globulin (2.5-4.0) gm/dl Albumin/Globulin Ratio (0.9-2) Lipase (73-393) U/L [facility], [facility], NAAT NEGATIVE (NEGATIVE) Administered Medications Heparin Sodium/Dextrose (Heparin Sodium/Dextrose) 25,000 units in 500 mls @ 32 mls/hr IV .[id number] [facility]; Protocol Stop: 08/02/20 19:29 Last Admin: 07/03/20 20:08 Dose: 1,600 units/hr, 32 mls/hr Documented by: [id number] Cosigned by: [id number] Discontinued Medications Acetaminophen (Acetaminophen 500 Mg Tab) 1,000 mg PO NOW STA Stop: 07/03/20 18:05 Last Admin: 07/03/20 18:54 Dose: 1,000 mg Documented by: [id number] Albuterol (Albut/Ipratrop 3mg/0.5mg Neb 3 Ml Vial) 3 ml NEB NOW STA Stop: 07/03/20 17:26 Last Admin: 07/03/20 18:23 Dose: 3 ml Documented by: [id number] Dexamethasone (Dexamethasone Sod Inj 10 Mg/Ml Vial) 6 mg IV NOW ONE Stop: 07/03/20 17:26 Last Admin: 07/03/20 17:59 Dose: 6 mg Documented by: [id number] Fentanyl Citrate (Fentanyl Citrate 100 Mcg/2 Ml Vial) 50 mcg IV NOW STA Stop: 07/03/20 17:25 Last Admin: 07/03/20 17:59 Dose: 50 mcg Documented by: [id number] Heparin Sodium (Porcine) (Heparin Bolus Ed Use Only) 7,000 units IV NOW STA Stop: 07/03/20 19:47 Last Admin: 07/03/20 20:07 Dose: 7,000 units Documented by: [id number] Cosigned by: [id number] Heparin Sodium/Dextrose (Heparin Iv Standard With Bolus) 1 ea IV NOW STA; Protocol Stop: 07/03/20 19:31 Last Admin: 07/03/20 20:16 Dose: Not Given Documented by: [id number] Ioversol (Optiray 320 125ml) 118 ml IV ONCE ONE Stop: 07/03/20 19:19 Last Admin: 07/03/20 19:18 Dose: 118 ml Documented by: [id number] Discharge Plan Visit Data Chief Complaint: Shortness of Breath/Dyspnea Stated Complaint: RT SIDE PAIN,SOB ED Provider: Raymond Chavarria Discharge Problem: Breathlessness, Pulmonary embolism, bilateral, Infarctions, pulmonary, Chest pain Patient Disposition: Admitted As Inpatient Discharge Instructions Interventions: ED Discharge Assessment Last Done: 07/03/20 21:30 Discharge Problem: Chest pain Qualifiers: Chest pain type: unspecified Qualified Code(s): R07.9 - Chest pain, unspecified
[2020-07-03 17:56] LABS: Basophils # (auto) 0.04 K/uL (0-0.2); Basophils % (auto) 0.2 %; Eosinophils # (auto) 0.06 K/uL (0-0.5); Eosinophils % (auto) 0.3 %; Hematocrit (blood only) 42.5 % (37-47); Immature Granulocytes # (auto) 0.06 K/uL (0.00-0.02); Immature Granulocytes % (auto) 0.3 %; Lymphocytes # (auto) 1.99 K/uL (1.2-3.4); Lymphocytes % (auto) 10.6 %; Mean Corpuscular Hemoglobin 28.1 pg (25-34); Mean Corpuscular Hgb Conc 32.9 g/dL (32-36); Mean Corpuscular Volume 85.3 fL (80-100); Mean Platelet Volume 11.6 fL (7.4-10.4); Monocytes # (auto) 1.26 K/uL (0.11-0.59); Monocytes % (auto) 6.7 %; Neutrophils # (auto) 15.33 K/uL (1.4-6.5); Neutrophils % (auto) 81.9 %; Platelet Count 275 K/uL (130-400); RDW Coefficient of Variation 15.8 % (11.5-14.5); RDW Standard Deviation 49.7 fL (36.4-46.3); Red Blood Count 4.98 M/uL (4.2-5.4); White Blood Count 18.74 K/uL (4.8-10.8)
[2020-07-03] MEDS ORDERED: ACETAMINOPHEN 500 MG TAB PO STA (18:04)
[2020-07-03 18:06] LABS: INR 1.1 (0.9-1.1); Partial Thromboplastin Ratio 1.1; Partial Thromboplastin Time 31.2 Seconds (21.0-31.0); Prothrombin Time 11.3 Seconds (9.0-12.0)
--- NOTE | 2020-07-03 18:12 | XRay Report ---
XR chest 1V portable HISTORY: Dyspnea, right-sided chest pain. COMPARISON: Chest 06/12/2020. FINDINGS: There are low lung volumes. No pleural effusions. No pneumothorax. The heart is normal in s ize. There is mild diffuse interstitial thickening. A few bibasilar linear densities and a right midl arnold zone linear density. There is also hazy appearance to the lower lung zones. IMPRESSION: Mild diffuse interstitial thickening with linear and hazy densities within the mid to lower lung zone s. This could represent mild congestive change and atelectasis. A viral pneumonitis could also have a similar appearance. ACT 112: Negative or not required by law. Electronically signed by: Julio Linares M.D. 07/03/2020 6:10 PM
[2020-07-03 18:24] LABS: Alanine Aminotransferase 11 U/L (12-78); Aspartate Aminotransferase 8 U/L (15-37); BUN Creatinine Ratio 18.6 (10-20); Blood Urea Nitrogen 20 mg/dl (7-18); Calcium 9.6 mg/dl (8.5-10.1); Carbon Dioxide 22 mmol/L (21-32); Chloride 104 mmol/L (98-107); Est GFR (African American) 66.4; Est GFR (Non-African American) 57.3; Glucose 112 mg/dl (70-99); Lipase 40 U/L (73-393); Potassium 4.1 mmol/L (3.5-5.1); Sodium 135 mmol/L (136-145)
[2020-07-03 18:28] LABS: Albumin Globulin Ratio 0.5 (0.9-2); Alkaline Phosphatase 139 U/L (45-117); Bilirubin,Total 0.4 mg/dl (0.2-1); Globulin 5.6 gm/dl (2.5-4.0); Total Protein 8.6 gm/dl (6.4-8.2); Troponin I < 0.015 ng/ml (0-0.045)
[2020-07-03] MEDS ORDERED: OPTIRAY 320 125ml IV ONE (19:18)
[2020-07-03] MEDS ORDERED: HEPARIN SODIUM/DEXTROSE 25,000 UNITS/500 ML BAG IV SCH (19:30)
--- NOTE | 2020-07-03 19:42 | CT Scan Report ---
CHEST CTA for PULMONARY ARTERIES CT DOSE: 2614.16 mGy.cm HISTORY: Dyspnea, right-sided chest pain, recent ortho surgery TECHNIQUE: Multiaxial CT images of the chest were performed following the intravenous administration of contrast to evaluate the pulmonary arteries. Maximal intensity projection images were also obtaine d. A dose lowering technique was utilized adhering to the principles of ALARA. COMPARISON STUDY: Chest CTA 10/17/2016. FINDINGS: No fractures within the visualized osseous structures. A few prominent mediastinal lymph no ian. These may be reactive. Small right pleural effusion. No pericardial effusion. The heart is lalita l in size. Slight flattening of the interventricular septum concerning for mild right-sided heart str ain. Please refer to the same day abdomen and pelvis CT for further evaluation of the abdominal struc tures. Extensive bilateral pulmonary emboli involving the distal bilateral main pulmonary artery and majority of the lobar and segmental branches, right greater than left. Normal caliber thoracic aorta with no evidence for dissection. Moderate coronary artery calcifications are noted. No pneumothorax. Mild respiratory motion artifact. This results in suboptimal evaluation of the lungs. There are few l inear densities within the lung bases consistent with subsegmental atelectasis. There are also periph eral groundglass densities within the right lower lobe and lateral right upper lobe. This favors pulm onary infarcts. A viral pneumonitis is considered less likely but not entirely excluded. The central airways are patent. IMPRESSION: 1. Extensive bilateral pulmonary emboli described above with associated mild right-sided heart strain . 2. Peripheral groundglass densities within the right lower lobe and right upper lobe which favor pulm onary infarcts. A viral pneumonitis is considered less likely but not entirely excluded. 3. Small right pleural effusion. 4. A few prominent mediastinal lymph nodes. ACT 112: Negative or not required by law. Electronically signed by: Julio Linares M.D. 07/03/2020 7:41 PM
[2020-07-03] MEDS ORDERED: Heparin BOLUS **ED Use Only IV STA (19:46)
--- NOTE | 2020-07-03 19:49 | CT Scan Report ---
ABDOMEN AND PELVIS CT WITH IV CONTRAST CT DOSE: HISTORY: Right-sided chest pain. Right upper quadrant pain. TECHNIQUE: Multiaxial CT images of the abdomen and pelvis were performed following the use of intrave nous contrast. A dose lowering technique was utilized adhering to the principles of ALARA. COMPARISON STUDY: Abdomen and pelvis CT 02/03/2019. FINDINGS: Please refer to the same day chest CT for further evaluation of the pulmonary emboli, small right pleural effusion, and right lung groundglass densities suggestive of pulmonary infarcts. No pn eumoperitoneum. No pneumatosis. Bilateral L5 spondylolysis. No suspicious lytic or blastic osseous le sions. Cholecystectomy. The liver, pancreas, spleen, and adrenal glands unremarkable. The right kidne y enhances normally. No hydronephrosis. As a punctate stone within the lower pole the left kidney. Th ere is a 5 mm hypodense lesion within the lower pole the left kidney knee. This is technically too sm all to characterize. The main portal vein is patent. There is an ectatic abdominal aorta measuring up to 2.6 cm in diameter. No abdominal aortic aneurysm at this time. Stable 4.8 cm slightly enhancing l esion within the uterine fundus. This favors a fibroid. The ovaries are unremarkable. Normal bladder. No pelvic free fluid. A few prominent left external iliac lymph nodes with the largest measuring 2.2 x 1.1 cm. This previously measured 1.4 x 0.8 cm. No inguinal lymphadenopathy. Colonic diverticulosis . No evidence for acute diverticulitis. No bowel wall thickening or obstruction. Prior appendectomy. IMPRESSION: 1. No bowel wall thickening or obstruction. 2. Left-sided nephrolithiasis. No ureteral stones. No hydronephrosis. 3. Please refer to the same day chest CTA for further evaluation of the pulmonary emboli, small right pleural effusion, and right lung pulmonary infarcts. 4. Prior cholecystectomy and appendectomy. 5. There are 2 mildly enlarged left external iliac lymph nodes. These have slightly increased in size and are of uncertain clinical significance. 6. Colonic diverticulosis. No evidence for acute diverticulitis. 7. Fibroid uterus. ACT 112: Negative or not required by law. Electronically signed by: Julio Linares M.D. 07/03/2020 7:48 PM
--- NOTE | 2020-07-03 20:38 | History & Physical Report ---
Date of Service July 03, 2020 Assessment & Plan (1) Pulmonary embolism, bilateral: 60yo C female presenting with 2 days of SOB. Found to have extensive bilateral pulmonary emboli with mild right-sided heart strain. Patient is currently HD stable, adequate oxygenation on 2L NC with no respiratory distress. Suspect provoked PE in setting of recent surgery and immobilization. -Admit to PCU -Continue heparin gtt per protocol -Repeat troponin in AM -Check 2D echo -Bilateral LE doppler Present on Admission?: Yes (2) Hypertension: Blood pressure elevated on arrival. Now within normal range -Continue Lisinopril -Continue to monitor Present on Admission?: Yes (3) Diabetes: Well controlled, CouD5W=6.2 on 07/02/19 -Hold Glipizide -Lantus 7u BID -ISS -Goal blood sugar 100 - 140 Present on Admission?: Yes (4) Hyperlipidemia: Chronic. Stable -Continue Atorvastatin Present on Admission?: Yes (5) GERD (gastroesophageal reflux disease): Chronic. Stable -Continue Omeprazole Present on Admission?: Yes (6) CKD stage 3 due to type 2 diabetes mellitus: BUN and Cr near baseline -Avoid nephrotoxic agents -Monitor renal function Present on Admission?: Yes (7) Paroxysmal atrial fibrillation: Currently in NSR. Patient not on anticoagulation for this. She was on Coumadin in the past - uncertain why she was taken off -Continue Diltiazem -Heparin gtt as above for PE Present on Admission?: Yes (8) S/P ORIF (open reduction internal fixation) fracture: Stable -Oxycodone 10mg po q 4 hours as needed for pain -Tylenol as needed -Colace PRN -PT/OT evaluation for continued therapy F/E/N - Heplock. Electrolytes WNL. CC/Heart healthy diet as tolerated Ppx - Heparin gtt as above Code - Full Code Dispo - Admit to PCU Present on Admission?: Yes History of Present Illness Chief Complaint: SOB Primary Care Provider: Romeo Lanza MD Nya Hernandez is a 60yo C female with history of HTN, HLP, DM and GERD, PAF not currently on anticoagulation. Patient had an ORIF of right ankle performed on 06/19/[address] Lennon. Patient has been going to PT weekly but states she has otherwise been fairly sedentary since surgery. She had a followup appointment with Orthopedics today - at that appointment she was noted to be wheezing and short of breath and was sent to the ER. She reports being short of breath for two days - both at rest and with exertion. She has pleuritic chest pain in right lower anterior chest wall. She denies chest pain, palpitations, dizziness, syncope. Denies calf pain. She has been having hot and cold flashes, otherwise no complaints. ER Course: Heparin bolus and gtt per protocol, Dexamethasone 6mg IV, Tylenol 1gm, Albuterol Allergies Allergy/AdvReac Type Severity Reaction Status Date / Time No Known Allergies Allergy Verified 07/03/20 19:44 Home Medications Medication Instructions Recorded Confirmed Type atorvastatin 20 mg PO QAM 01/15/19 07/03/20 History albuterol sulfate [Ventolin HFA] 2 puff INHALATION Q6H PRN #18 gm 01/19/19 07/03/20 Rx aspirin 81 mg tablet,delayed 81 mg PO QAM 09/07/19 07/03/20 History release glipizide 5 mg tablet 5 mg PO QAM tab 03/06/20 07/03/20 History lisinopril 20 mg PO QAM 06/12/20 07/03/20 History omeprazole 20 mg PO QAM 06/12/20 07/03/20 History oxycodone 5 - 10 mg PO Q4H PRN #14 tab 06/12/20 07/03/20 Rx diltiazem HCl [DILT-XR] 480 mg PO QAM 06/14/20 07/03/20 History Past Med/Surg History Medical History (Updated 07/03/20 @ 21:24 by Stacie Mirza DO) Atrial fibrillation Follows with cardio- per cardio "well-documented atrial fibrillation in December 2018, however it appears to have started with a prolonged episode of SVT at a time when she was ill otherwise. It terminated spontaneously. I would watch for further recurrences before starting anticoagulation." Chronic back pain managed on own. no chronic pain specialist CKD stage 3 due to type 2 diabetes mellitus Diabetes GERD (gastroesophageal reflux disease) History of electrophysiologic study [address] Mendez [facility] "EPS" femoral artery Hyperlipidemia Hypertension Morbid obesity Sleep apnea does not use machine. SVT (supraventricular tachycardia) treated with medication. follows with Dr Cowan. Surgical History History of adenoidectomy History of appendectomy History of bilateral tubal ligation History of cardioversion 2018 [facility] -- unsuccessful. managed with medication. History of cholecystectomy History of tonsillectomy Family History Other No family history of adverse response to anesthesia No known problems Social History Smoking Status: Current every day smoker Cigarettes Per Day: 30 x40 years; Second Hand Exposure: Yes; Hx Alcohol Use: Yes Alcohol type: hard liquor Hx Substance Use: Yes (street/recreational) Preferred Language: Welsh Communication Ability: Effective Paleontological Helper Required: No Beliefs That Will Affect Care: None marital status: Single Current Living Situation: Family current occupational status: unemployed Feels Safe at Home: Yes Assistive Devices: Brace/Splint/Immobilizer, Crutches, Glasses and Walker Review of Systems Review of Systems: All systems reviewed & are unremarkable except as noted in HPI & below Physical Exam Physical Exam: General: obese female patient resting comfortably, NAD, non- toxic in appearance, AA&O x 4 Skin: warm, dry, intact, no rashes or lesions HEENT: NC/AT, PERRL, EOMI, anicteric sclera, conjunctiva without injection, external ear normal to inspection and nontender, nares patent, moist mucus membranes, dentition intact, no oropharyngeal lesions, neck supple, trachea midline, no LAD, no thyromegaly, no JVD Heart: +S1/S2, regular, no m/r/g Lungs: equal air entry bilaterally, no rales/rhonchi/wheezes Abd: +BS, soft, NT/ND, no masses/organomegaly/ascites Ext: warm, 2+ pulses in UE/LE bilaterally, no clubbing/cyanosis or edema, RLE in immobilizer Neuro: nonfocal, patient AA&O x 4, speech intact, no facial droop, moving all extremities on command with equal strength 5/5 Results & Data Results & Data ([facility]) Vital Signs (Past 12 Hours) Vital Signs Temp Pulse Pulse Resp BP BP Pulse Ox 07/03/20 19:46 94 H 23 159/89 H 95 07/03/20 19:42 93 H 26 H 204/95 H 96 07/03/20 19:31 104 H 24 168/98 H 96 07/03/20 19:00 97 H 24 179/80 H 93 07/03/20 18:23 93 H 22 91 07/03/20 17:36 91 H 91 H 32 H 192/91 H 90 07/03/20 15:39 37.6 C H 103 H 20 127/92 93 Laboratory Results Lab Results 07/03/20 07/03/20 07/03/20 Range/Units 17:29 17:29 17:29 WBC 18.74 H (4.8-10.8) K/uL RBC 4.98 (4.2-5.4) M/uL Hgb 14.0 (12.0-16.0) g/dL Hct 42.5 (37-47) % MCV 85.3 (80-100) fL MCH 28.1 (25-34) pg MCHC 32.9 (32-36) g/dL RDW Std Deviation 49.7 H (36.4-46.3) fL RDW Coeff of Jaswinder 15.8 H (11.5-14.5) % Plt Count 275 (130-400) K/uL MPV 11.6 H (7.4-10.4) fL Immature Gran % (Auto) 0.3 % Neut % (Auto) 81.9 % Lymph % (Auto) 10.6 % Apache % (Auto) 6.7 % Eos % (Auto) 0.3 % Baso % (Auto) 0.2 % Neut # (Auto) 15.33 H (1.4-6.5) K/uL Lymph # (Auto) 1.99 (1.2-3.4) K/uL [place] # (Auto) 1.26 H (0.11-0.59) K/uL Eos # (Auto) 0.06 (0-0.5) K/uL Baso # (Auto) 0.04 (0-0.2) K/uL Immature Gran # (Auto) 0.06 H (0.00-0.02) K/uL PT 11.3 (9.0-12.0) Seconds INR 1.1 (0.9-1.1) APTT 31.2 H (21.0-31.0) Seconds PTT Ratio 1.1 Sodium 135 L (136-145) mmol/L Potassium 4.1 (3.5-5.1) mmol/L Chloride 104 (98-107) mmol/L Carbon Dioxide 22 (21-32) mmol/L Anion Gap 8.0 (3-11) BUN 20 H (7-18) mg/dl Creatinine 1.05 (0.6-1.2) mg/dl Est Cr Clr Drug Dosing Not Reportable Est GFR ( Amer) 66.4 Est GFR (Non-Af Amer) 57.3 BUN/Creatinine Ratio 18.6 (10-20) Glucose 112 H (70-99) mg/dl Calcium 9.6 (8.5-10.1) mg/dl Magnesium 2.0 (1.8-2.4) mg/dl Total Bilirubin 0.4 (0.2-1) mg/dl AST 8 L (15-37) U/L ALT 11 L (12-78) U/L Alkaline Phosphatase 139 H (45-117) U/L Troponin I < 0.015 (0-0.045) ng/ml NT-Pro-B Natriuret Pep (0-900) pg/ml Total Protein 8.6 H (6.4-8.2) gm/dl Albumin 3.0 L (3.4-5.0) gm/dl Globulin 5.6 H (2.5-4.0) gm/dl Albumin/Globulin Ratio 0.5 L (0.9-2) Lipase 40 L (73-393) U/L COVID-19 Eval Order SARS-CoV-2, RNA, NAAT (NEGATIVE) 07/03/20 07/03/20 07/03/20 Range/Units 17:29 17:59 17:59 WBC (4.8-10.8) K/uL RBC (4.2-5.4) M/uL Hgb (12.0-16.0) g/dL Hct (37-47) % MCV (80-100) fL MCH (25-34) pg MCHC (32-36) g/dL RDW Std Deviation (36.4-46.3) fL RDW Coeff of Jaswinder (11.5-14.5) % Plt Count (130-400) K/uL MPV (7.4-10.4) fL Immature Gran % (Auto) % Neut % (Auto) % Lymph % (Auto) % [place] % (Auto) % Eos % (Auto) % Baso % (Auto) % Neut # (Auto) (1.4-6.5) K/uL Lymph # (Auto) (1.2-3.4) K/uL [place] # (Auto) (0.11-0.59) K/uL Eos # (Auto) (0-0.5) K/uL Baso # (Auto) (0-0.2) K/uL Immature Gran # (Auto) (0.00-0.02) K/uL PT (9.0-12.0) Seconds INR (0.9-1.1) APTT (21.0-31.0) Seconds PTT Ratio Sodium (136-145) mmol/L Potassium (3.5-5.1) mmol/L Chloride (98-107) mmol/L Carbon Dioxide (21-32) mmol/L Anion Gap (3-11) BUN (7-18) mg/dl Creatinine (0.6-1.2) mg/dl Est Cr Clr Drug Dosing Est GFR ( Amer) Est GFR (Non-Af Amer) BUN/Creatinine Ratio (10-20) Glucose (70-99) mg/dl Calcium (8.5-10.1) mg/dl Magnesium (1.8-2.4) mg/dl Total Bilirubin (0.2-1) mg/dl AST (15-37) U/L ALT (12-78) U/L Alkaline Phosphatase (45-117) U/L Troponin I (0-0.045) ng/ml NT-Pro-B Natriuret Pep 209 (0-900) pg/ml Total Protein (6.4-8.2) gm/dl Albumin (3.4-5.0) gm/dl Globulin (2.5-4.0) gm/dl Albumin/Globulin Ratio (0.9-2) Lipase (73-393) U/L COVID-19 Eval Order Covid19 IDNow atMMTC SARS-CoV-2, RNA, NAAT NEGATIVE (NEGATIVE) Diagnostic Findings XR chest 1V portable HISTORY: Dyspnea, right-sided chest pain. COMPARISON: Chest 06/12/2020. FINDINGS: There are low lung volumes. No pleural effusions. No pneumothorax. The heart is normal in size. There is mild diffuse interstitial thickening. A few bibasilar linear densities and a right midlung zone linear density. There is also hazy appearance to the lower lung zones. IMPRESSION: Mild diffuse interstitial thickening with linear and hazy densities within the mid to lower lung zones. This could represent mild congestive change and atelectasis. A viral pneumonitis could also have a similar appearance. ACT 112: Negative or not required by law. Electronically signed by: Julio Linares M.D. 07/03/2020 6:10 PM Dictated: 07/03/201808Transcribed: 07/03/201808 CHEST CTA for PULMONARY ARTERIES CT DOSE: 2614.16 mGy.cm HISTORY: Dyspnea, right-sided chest pain, recent ortho surgery TECHNIQUE: Multiaxial CT images of the chest were performed following the intravenous administration of contrast to evaluate the pulmonary arteries. Maximal intensity projection images were also obtained. A dose lowering technique was utilized adhering to the principles of ALARA. COMPARISON STUDY: Chest CTA 10/17/2016. FINDINGS: No fractures within the visualized osseous structures. A few prominent mediastinal lymph nodes. These may be reactive. Small right pleural effusion. No pericardial effusion. The heart is normal in size. Slight flattening of the interventricular septum concerning for mild right-sided heart strain. Please refer to the same day abdomen and pelvis CT for further evaluation of the abdominal structures. Extensive bilateral pulmonary emboli involving the distal bilateral main pulmonary artery and majority of the lobar and segmental branches, right greater than left. Normal caliber thoracic aorta with no evidence for dissection. Moderate coronary artery calcifications are noted. No pneumothorax. Mild respiratory motion artifact. This results in suboptimal evaluation of the lungs. There are few linear densities within the lung bases consistent with subsegmental atelectasis. There are also peripheral groundglass densities within the right lower lobe and lateral right upper lobe. This favors pulmonary infarcts. A viral pneumonitis is considered less likely but not entirely excluded. The central airways are patent. IMPRESSION: 1. Extensive bilateral pulmonary emboli described above with associated mild right-sided heart strain. 2. Peripheral groundglass densities within the right lower lobe and right upper lobe which favor pulmonary infarcts. A viral pneumonitis is considered less likely but not entirely excluded. 3. Small right pleural effusion. 4. A few prominent mediastinal lymph nodes. ACT 112: Negative or not required by law. Electronically signed by: Julio Linares M.D. 07/03/2020 7:41 PM Dictated: 07/03/201934Transcribed: 07/03/2019[address] WITH IV CONTRAST CT DOSE: HISTORY: Right-sided chest pain. Right upper quadrant pain. TECHNIQUE: Multiaxial CT images of the abdomen and pelvis were performed following the use of intravenous contrast. A dose lowering technique was utilized adhering to the principles of ALARA. COMPARISON STUDY: Abdomen and pelvis CT 02/03/2019. FINDINGS: Please refer to the same day chest CT for further evaluation of the pulmonary emboli, small right pleural effusion, and right lung groundglass densities suggestive of pulmonary infarcts. No pneumoperitoneum. No pneumatosis. Bilateral L5 spondylolysis. No suspicious lytic or blastic osseous lesions. Cholecystectomy. The liver, pancreas, spleen, and adrenal glands unremarkable. The right kidney enhances normally. No hydronephrosis. As a punctate stone within the lower pole the left kidney. There is a 5 mm hypodense lesion within the lower pole the left kidney knee. This is technically too small to characterize. The main portal vein is patent. There is an ectatic abdominal aorta measuring up to 2.6 cm in diameter. No abdominal aortic aneurysm at this time. Stable 4.8 cm slightly enhancing lesion within the uterine fundus. This favors a fibroid. The ovaries are unremarkable. Normal bladder. No pelvic free fluid. A few prominent left external iliac lymph nodes with the largest measuring 2.2 x 1.1 cm. This previously measured 1.4 x 0.8 cm. No inguinal lymphadenopathy. Colonic diverticulosis. No evidence for acute diverticulitis. No bowel wall thickening or obstruction. Prior appendectomy. IMPRESSION: 1. No bowel wall thickening or obstruction. 2. Left-sided nephrolithiasis. No ureteral stones. No hydronephrosis. 3. Please refer to the same day chest CTA for further evaluation of the pulmonary emboli, small right pleural effusion, and right lung pulmonary infarcts. 4. Prior cholecystectomy and appendectomy. 5. There are 2 mildly enlarged left external iliac lymph nodes. These have slightly increased in size and are of uncertain clinical significance. 6. Colonic diverticulosis. No evidence for acute diverticulitis. 7. Fibroid uterus. ACT 112: Negative or not required by law. Electronically signed by: Julio Linares M.D. 07/03/2020 7:48 PM Dictated: 07/03/201940Transcribed: 07/03/201940 PG Care Time/CCT Total # of Minutes Spent Total Time Spent with Patient: Total time spent is greater than 50% in coordination of care (as documented) at patient's floor/unit and/or counseling patient: Coding Level of Care Code 96275 Initial Inpt Care Lvl 3 Diagnoses Pulmonary embolism, bilateral I26.99 Hypertension I10 Hypertension type: essential hypertension Diabetes E11.9 Diabetes mellitus complication status: without complication Diabetes mellitus fci insulin use: without fci use Diabetes mellitus type: type 2 Hyperlipidemia E78.5 Hyperlipidemia type: unspecified GERD (gastroesophageal reflux disease) K21.9 Esophagitis presence: esophagitis presence not specified CKD stage 3 due to type 2 diabetes mellitus E11.22; N18.3 Paroxysmal atrial fibrillation I48.0 S/P ORIF (open reduction internal fixation) fracture Z98.890; Z87.81 (1) Diabetes Diabetes mellitus complication status: without complication Diabetes mellitus fci insulin use: without exterminator helper termite use Diabetes mellitus type: type 2 Qualified Code(s): E11.9 - Type 2 diabetes mellitus without complications (2) Hyperlipidemia Hyperlipidemia type: unspecified Qualified Code(s): E78.5 - Hyperlipidemia, unspecified (3) GERD (gastroesophageal reflux disease) Esophagitis presence: esophagitis presence not specified Qualified Code(s): K21.9 - Gastro-esophageal reflux disease without esophagitis (4) Hypertension Hypertension type: essential hypertension Qualified Code(s): I10 - Essential (primary) hypertension
[2020-07-03] MEDS ORDERED: DEXTROSE 50% 50 ML SYRINGE IV PRN (21:59)
[2020-07-03] MEDS ORDERED: ALBUTEROL HFA 8 GM INHALER INH PRN (21:59)
[2020-07-03] MEDS ORDERED: GLUCOSE 10 TABS/TUBE PO PRN (21:59)
[2020-07-03] MEDS ORDERED: GLUCAGON FOR INJ 1 MG VIAL SQ PRN (21:59)
[2020-07-03] MEDS ORDERED: oxyCODONE HCL IR 5 MG TAB (IMMEDIATE RELEASE) PO PRN (21:59)
[2020-07-03] MEDS ORDERED: ACETAMINOPHEN 325 MG TAB PO PRN (21:59)
[2020-07-03] MEDS ORDERED: GLUCOSE 40% GEL 15 GM TUBE PO PRN (21:59)
[2020-07-03] MEDS ORDERED: ONDANSETRON INJ 2 MG/ML 2 ML VIAL IV PRN (21:59)
[2020-07-03] MEDS ORDERED: DOCUSATE SODIUM 100 MG CAP PO PRN (21:59)
[2020-07-03] MEDS ORDERED: CARBOHYDRATES FOR HYPOGLYCEMIA PO PRN (21:59)
[2020-07-03 23:00] LABS: Phosphorus 3.6 mg/dl (2.5-4.9)
[2020-07-03] MEDS: INSULIN GLARGINE SOLOSTAR 100 UNITS/ML 3 ML PEN SC SCH (23:50)
[2020-07-03] MEDS: INSULIN ASPART 100 UNITS/ML 3 ML PEN SC SCH (23:51)
[2020-07-04 02:58] LABS: Partial Thromboplastin Ratio 3.5
[2020-07-04 03:08] LABS: Partial Thromboplastin Time 96.9 Seconds (21.0-31.0)
[2020-07-04 05:01] LABS: Basophils # (auto) 0.02 K/uL (0-0.2); Basophils % (auto) 0.1 %; Hematocrit (blood only) 40.3 % (37-47); Immature Granulocytes # (auto) 0.06 K/uL (0.00-0.02); Immature Granulocytes % (auto) 0.3 %; Lymphocytes # (auto) 1.07 K/uL (1.2-3.4); Lymphocytes % (auto) 5.7 %; Mean Corpuscular Hemoglobin 27.4 pg (25-34); Mean Corpuscular Hgb Conc 32.3 g/dL (32-36); Mean Platelet Volume 12.9 fL (7.4-10.4); Monocytes # (auto) 0.44 K/uL (0.11-0.59); Monocytes % (auto) 2.4 %; Neutrophils # (auto) 17.04 K/uL (1.4-6.5); Neutrophils % (auto) 91.5 %; Platelet Count 238 K/uL (130-400); RDW Coefficient of Variation 15.6 % (11.5-14.5); RDW Standard Deviation 48.9 fL (36.4-46.3); Red Blood Count 4.74 M/uL (4.2-5.4); White Blood Count 18.63 K/uL (4.8-10.8)
[2020-07-04 05:28] LABS: BUN Creatinine Ratio 21.4 (10-20); Blood Urea Nitrogen 20 mg/dl (7-18); Calcium 8.7 mg/dl (8.5-10.1); Carbon Dioxide 24 mmol/L (21-32); Chloride 104 mmol/L (98-107); Creatinine Clr Calc Pharmacy 93.1 ml/min; Est GFR (African American) 77.9; Est GFR (Non-African American) 67.2; Glucose 212 mg/dl (70-99); Potassium 4.1 mmol/L (3.5-5.1); Sodium 135 mmol/L (136-145)
[2020-07-04 05:33] LABS: Troponin I < 0.015 ng/ml (0-0.045)
--- NOTE | 2020-07-04 06:38 | Ultrasound Report ---
BILATERAL LOWER EXTREMITY VENOUS DOPPLER CLINICAL HISTORY: Pulmonary emboli. COMPARISON STUDY: Bilateral lower extremity venous Doppler ultrasound October 28, 2019. TECHNIQUE: Sonography of the deep venous system of the bilateral lower extremities was performed. Co mpression and augmentation were evaluated. FINDINGS: The bilateral common femoral, superficial femoral and popliteal veins were compressible. A ugmentation was normal. Flow was shown within the deep calf vessels. IMPRESSION: No evidence of deep venous thrombus within the bilateral lower extremities. ACT 112: Negative or not required by law. Electronically signed by: Praveen Jean-Baptiste M.D. 07/04/2020 6:37 AM
--- NOTE | 2020-07-04 07:28 | Hospitalist Progress Note ---
Date of Service July 04, 2020 Assessment & Plan (1) Pulmonary embolism, bilateral: 60yo C female presenting with 2 days of SOB. Found to have extensive bilateral pulmonary emboli with mild right-sided heart strain. Patient is currently HD stable, adequate oxygenation on 2L NC with no respiratory distress. Suspect provoked PE in setting of recent surgery and immobilization. - heparin gtt per protocol due to right heart strain commented on CT congestion to Xarelto therapy in the afternoon of 07/04/2021 07/04/2020 2D echo left-ventricular function is normal concentric LVH grade 1 diastolic dysfunction right ventricle is normal in size and function inferior vena cava diameter and respiratory variation suggesting normal central venous pressure -Bilateral LE doppler does not show evidence of DVT (2) Hypertension: Blood pressure elevated on arrival. -Continue Lisinopril -Continue to monitor (3) Diabetes: Well controlled, [id number]=8.2 on 07/02/19 -Hold Glipizide -Lantus 7u BID -ISS -Goal blood sugar 100 - 140 (4) Hyperlipidemia: Chronic. Stable, Continue Atorvastatin (5) GERD (gastroesophageal reflux disease): Chronic. Stable -Continue Omeprazole (6) CKD stage 3 due to type 2 diabetes mellitus: BUN and Cr near baseline -Avoid nephrotoxic agents -Monitor renal function (7) Paroxysmal atrial fibrillation: Currently in NSR. Patient not on anticoagulation for this. She was on Coumadin in the past - uncertain why she was taken off -Continue Diltiazem -Heparin gtt as above for PE (8) S/P ORIF (open reduction internal fixation) fracture: Stable ORIf right ankle fracture 06/19/20 Dr Lennon -Oxycodone 10mg po q 4 hours as needed for pain -Tylenol as needed -Colace PRN -PT/OT evaluation for continued therapy Morbid obesity with BMI of 50 patient of nocturnal oximetry study to evaluate for sleep apnea or nocturnal hypoxia Ppx - Heparin gtt as above Code - Full Code Dispo - Admit to PCU Admission and Anticipated Discharge Date Admission Date: July 03, 2020 Subjective Patient feels well she is been transitioned off of heparin infusion and started on Xarelto. She is tolerant of being on room air she is 95% she ever feels little weakened and unsure about going home at this point time Review of Systems Review of Systems: Mild distress and fatigue no headache, blurry or double vision no speech or swallowing issues Resolution of prehospital chest pain, pressure or palpitations no shortness of breath, cough or wheezes no abdominal pain, nausea or vomiting, diarrhea or constipation no dysuria, hematuria or frequency no focal joint pain or swelling no back pain, CVA tenderness or radicular pain no bruising, bleeding or rashes no focal signs of weakness or numbness or altered sensation no complaints of anxiety or depression.. Physical Exam Physical Exam: The patient appeared well nourished and normally developed. Vital signs as documented. Head exam is normocephalic atraumatic no scleral icterus Neck is without JVD, thyromegaly, or carotid bruits. Lungs are clear to auscultation, no focal loss of breath sounds Cardiac exam, Rhythm is regular.. No murmurs, rubs or gallops. Abdominal exam reveals normal bowel sounds, soft non tender, no masses Extremities are nonedematous and both pedal pulses are present Neurologic exam is alert and oriented, no focal loss of strength or sensation Skin is without bruises or rashes Psychologically is without concerns for anxiety or depression. Results & Data Results & Data ([facility]) Vital Signs (Past 12 Hours) Vital Signs Temp Pulse Pulse Resp BP BP Pulse Ox 07/04/20 04:43 97.7 F 90 28 H 144/77 H 95 07/04/20 02:47 98.1 F 79 16 113/82 93 07/03/20 23:05 87 07/03/20 21:55 98.1 F 90 24 143/93 H 95 07/03/20 21:21 92 H 30 H 172/79 H 93 07/03/20 19:46 94 H 23 159/89 H 95 07/03/20 19:42 93 H 26 H 204/95 H 96 07/03/20 19:31 104 H 24 168/98 H 96 PG Care Time/CCT Total # of Minutes Spent Total Time Spent with Patient: Total time spent is greater than 50% in coordination of care (as documented) at patient's floor/unit and/or counseling patient: Coding Level of Care Code 91608 Subseq Hosp Care Lvl 3 Diagnoses Pulmonary embolism, bilateral I26.99 Hypertension I10 Hypertension type: essential hypertension Diabetes E11.9 Diabetes mellitus complication status: without complication Diabetes mellitus fpc insulin use: without fpc use Diabetes mellitus type: type 2 Hyperlipidemia E78.5 Hyperlipidemia type: unspecified GERD (gastroesophageal reflux disease) K21.9 Esophagitis presence: esophagitis presence not specified CKD stage 3 due to type 2 diabetes mellitus E11.22; N18.3 Paroxysmal atrial fibrillation I48.0 S/P ORIF (open reduction internal fixation) fracture Z98.890; Z87.81 (1) Diabetes Diabetes mellitus complication status: without complication Diabetes mellitus fpc insulin use: without intermediate manager use Diabetes mellitus type: type 2 Qualified Code(s): E11.9 - Type 2 diabetes mellitus without complications (2) Hyperlipidemia Hyperlipidemia type: unspecified Qualified Code(s): E78.5 - Hyperlipidemia, unspecified (3) GERD (gastroesophageal reflux disease) Esophagitis presence: esophagitis presence not specified Qualified Code(s): K21.9 - Gastro-esophageal reflux disease without esophagitis (4) Hypertension Hypertension type: essential hypertension Qualified Code(s): I10 - Essential (primary) hypertension
[2020-07-04] MEDS ORDERED: INFLUENZA VIRUS QUAD VACCINE 0.5 ML SYR IM ONE (08:00)
[2020-07-04] MEDS ORDERED: INFLUENZA ADMINISTRATION CHARGE ONE (08:00)
[2020-07-04 09:25] LABS: Appearance Urine Clear (Clear); Bacteria Urine Automated Negative (Negative); Bilirubin Urine Negative (Negative); Blood Urine Trace (Negative); Color Urine Yellow; Epithelial Cell Urine Auto >30 /lpf (0-5); Glucose Urine UA 1+ (Negative); Ketones Urine Negative (Negative); Leukocyte Esterase Urine Negative (Negative); Nitrite Urine Negative (Negative); Protein Urine 1+ (Negative); Specific Gravity Urine 1.031 (1.000-1.030); Urobilinogen Urine Negative (Negative)
[2020-07-04] MEDS: ASPIRIN 81 MG ECTAB PO SCH (09:37)
[2020-07-04] MEDS: PANTOprazole 40 MG TAB PO SCH (09:37)
[2020-07-04] MEDS: lisinopril 20 MG TAB PO SCH (09:38)
[2020-07-04] MEDS: dilTIAZem HCL 240 MG CAPCR PO SCH (09:38)
[2020-07-04] MEDS: ATORVASTATIN 20 MG TAB PO SCH (09:38)
[2020-07-04] MEDS: INSULIN GLARGINE SOLOSTAR 100 UNITS/ML 3 ML PEN SC SCH ×2 (09:39→20:07)
[2020-07-04] MEDS: INSULIN ASPART 100 UNITS/ML 3 ML PEN SC SCH ×4 (09:43→20:06)
[2020-07-04 09:48] LABS: RBC Urine Automated 0-4 /hpf (0-4)
--- NOTE | 2020-07-04 12:08 | XCELERA ---
[id number]
[2020-07-04] MEDS: RIVAROXABAN 15 MG TAB PO SCH ×2 (12:55→20:09)
--- NOTE | 2020-07-04 15:00 | Electrocardiogram Report ---
Test Reason : Blood Pressure : / mmHG Vent. Rate : 096 BPM Atrial Rate : 096 BPM P-R Int : 190 ms QRS Dur : 072 ms QT Int : 330 ms P-R-T Axes : 045 -17 062 degrees QTc Int : 416 ms Normal sinus rhythm Normal ECG When compared with ECG of 12-JUN-2020 18:15, NV interval has decreased Criteria for Septal infarct no longer present Vent. rate has increased BY 36 BPM Confirmed by Karthikeyan Dominguez ([id number]) on 07/04/2020 3:00:30 PM Referred By: REFERRED SELF Confirmed By:Karthikeyan Dominguez
[2020-07-05 05:19] LABS: Partial Thromboplastin Ratio 1.6; Partial Thromboplastin Time 44.6 Seconds (21.0-31.0)
[2020-07-05] MEDS: ATORVASTATIN 20 MG TAB PO SCH (07:57)
[2020-07-05] MEDS: dilTIAZem HCL 240 MG CAPCR PO SCH (07:57)
[2020-07-05] MEDS: lisinopril 20 MG TAB PO SCH (07:57)
[2020-07-05] MEDS: PANTOprazole 40 MG TAB PO SCH (07:58)
[2020-07-05] MEDS: ASPIRIN 81 MG ECTAB PO SCH (07:58)
[2020-07-05] MEDS: RIVAROXABAN 15 MG TAB PO SCH (08:00)
[2020-07-05] MEDS: INSULIN ASPART 100 UNITS/ML 3 ML PEN SC SCH ×2 (08:05→12:34)
[2020-07-05] MEDS: INSULIN GLARGINE SOLOSTAR 100 UNITS/ML 3 ML PEN SC SCH (08:06)
[2020-07-05] MEDS ORDERED: CONSULT PHARMACY STA (16:33)
--- NOTE | 2020-07-05 18:22 | Discharge Summary ---
Date of Service July 05, 2020 Admission HPI Per Admitting Provider Nya Hernandez is a 60yo C female with history of HTN, HLP, DM and GERD, PAF not currently on anticoagulation. Patient had an ORIF of right ankle performed on 06/19/[address] Lennon. Patient has been going to PT weekly but states she has otherwise been fairly sedentary since surgery. She had a followup appointment with Orthopedics today - at that appointment she was noted to be wheezing and short of breath and was sent to the ER. She reports being short of breath for two days - both at rest and with exertion. She has pleuritic chest pain in right lower anterior chest wall. She denies chest pain, palpitations, dizziness, syncope. Denies calf pain. She has been having hot and cold flashes, otherwise no complaints. ER Course: Heparin bolus and gtt per protocol, Dexamethasone 6mg IV, Tylenol 1gm, Albuterol Principal Diagnosis Pulmonary embolism considered provoked with recent orthopedic surgery risk factors include morbid obesity Discharge Exam The patient appeared well Vital signs as documented. Lungs are clear to auscultation and appear unlabored Cardiac exam, Rhythm is regular.. No murmurs, rubs or gallops. Abdominal exam reveals normal bowel sounds, soft non tender, no masses Extremities are with a boot on her right leg Neurologic exam is alert and oriented, no focal loss of strength or sensation Skin is without bruises or rashes Psychologically is without concerns for anxiety or depression. Discharge Data Allergies Allergy/AdvReac Type Severity Reaction Status Date / Time No Known Allergies Allergy Verified 07/03/20 19:44 Consultations 07/03/20 19:30 ED Decision to Admit Stat Ordered Studies 07/03/20 17:24 CT abd pelvis IV con only Stat CT angio chest PE protocol Stat 07/03/20 21:59 US venous doppler [facility] Urgent Hospital Course (1) Pulmonary embolism, bilateral: 60yo C female presenting with 2 days of SOB. Found to have extensive bilateral pulmonary emboli with mild right-sided heart strain. Patient is currently HD stable, adequate oxygenation on RA Suspect provoked PE in setting of recent surgery and immobilization. PT was also with nocturnal desaturations and she then admitted she has a home CPAP which she does not used, I spent additional time educating her on why it will be important to use her CPaP - heparin gtt per protocol due to right heart strain commented on CT congestion to Xarelto therapy in the afternoon of 07/04/2021 07/04/2020 2D echo left-ventricular function is normal concentric LVH grade 1 diastolic dysfunction right ventricle is normal in size and function inferior vena cava diameter and respiratory variation suggesting normal central venous pressure -Bilateral LE doppler does not show evidence of DVT I personally called insurance [employer] in the afternoon 113 for prior authorization of the starting dose of her Xarelto 15 twice daily. The issue remains in the fact that the insurance plan only pays for 30 pills of Xarelto a month no matter what it strength is. I did advise the insurance plan that the typical starting dose for Xarelto is a twice a day 15 mg to fully anticoagulate the patient. We did dispense 3 pills of 15 mg in hopes that in 24 hours we will have an answer whether this is approved or not. Certainly if this is not improved we will have to rethink our treatment plan (2) Hypertension: -Continue Lisinopril - (3) Diabetes: Well controlled, MecP0I=9.2 on 07/02/19 - Glipizide (4) Hyperlipidemia: Chronic. Stable, Continue Atorvastatin (5) GERD (gastroesophageal reflux disease): Chronic. Stable -Continue Omeprazole (6) CKD stage 3 due to type 2 diabetes mellitus: BUN and Cr near baseline (7) Paroxysmal atrial fibrillation: Currently in NSR. Patient not on anticoagulation for this. She was on Coumadin in the past - uncertain why she was taken off -Continue Diltiazem -will be encouraged to discuss xarelto use for home for ac for afib once treatment is complete for PE (8) S/P ORIF (open reduction internal fixation) fracture: Stable ORIf right ankle fracture 06/19/20 Dr Lennon -Oxycodone 10mg po q 4 hours as needed for pain -Tylenol as needed -Colace PRN -continued therapy Morbid obesity with BMI of 50 patient of nocturnal oximetry study to evaluate for sleep apnea or nocturnal hypoxia Code - Full Code Total Time Total Time Spent Total Time Spent (In Minutes): It required greater than 30 minutes to prepare this patient for discharge Discharge Plan Discharge Items Patient Disposition: Home - Self-Care Reason For Visit: BILATERAL PE Discharge Diagnosis: pulmonary embolism Activity: Per Instructions section Activity Comment: gradually increase activity Non-emergency contact: Primary Care Provider Call non-emergency contact if: your symptoms worsen Follow-up/Referrals: Romeo Lanza MD [Primary Care Provider] - 07/07/20 2:00 pm Diet: Regular Addtl Attending Provider Instructions: For your Xarelto dosing the initial dosing is 15 mg twice a day for 3 weeks then followed by 20 mg once a day 2 prescriptions have been sent to your pharmacy one is the shorter prescription for the twice a day dosing and then a prescription with refills for the 20 mg once a day dosing for 6 months total treatment time Medication Instructions: Your condition is typically treated with an anticoagulant. Anticoagulants will thin your blood to help prevent new clots. * You should take her medication exactly as directed. * Never skip a dose. * Never take a double dose. If you miss a dose, take it as soon as you remember. Call your Primary Care doctor if you experience any of the following: * Swelling or Pain in your leg * Sudden, continuous pain deep in a muscle * Pain that worsens when you are active or when you stand still for a long time * Chest Pain * Sudden Shortness of Breath * Rapid or pounding heart beat * Fainting * Dizziness * Cough with blood or bloody sputum * Sweating more than normal * Bruises * Heavy or uncontrolled bleeding * Blood in your urine, stool or vomit * Black or tarry stools Caring for Your Self at Home: * Avoid sitting, standing or lying down for long periods without moving your legs and feet * When traveling by car, stop to get out and move around at least once every 3 hours * On long airplane, train or bus rides, get up and move around when possible * If you can't get up, wiggle your toes and tighten your calves to keep your blood moving Follow Up: It is important for you to keep your follow up appointments with your medical provider. Pending Studies at Discharge: No Stand-Alone Forms: My [employer], Smoking Cessation Medications and DC Order Prescriptions: New rivaroxaban 20 mg tablet 20 mg PO DAILY Qty: 30 RF: 5 rivaroxaban 15 mg tablet 15 mg PO BID 21 Days Qty: 42 RF: 0 Continued aspirin 81 mg tablet,delayed release (DR/EC) 81 mg PO QAM RF: 0 glipizide 5 mg tablet 5 mg PO QAM RF: 0 atorvastatin 20 mg tablet 20 mg PO QAM RF: 0 albuterol sulfate [Ventolin HFA] 90 mcg/actuation Hfa Aerosol Inhaler 2 puff inhalation Q6H PRN (Reason: shortness of breath or wheezing) Qty: 18 RF: 0 diltiazem HCl [DILT-XR] 240 mg capsule,ext.rel 24h degradable 480 mg PO QAM RF: 0 oxycodone 5 mg tablet 5 - 10 mg PO Q4H PRN (Reason: pain) Qty: 14 RF: 0 lisinopril 20 mg tablet 20 mg PO QAM RF: 0 omeprazole 20 mg capsule,delayed release(DR/EC) 20 mg PO QAM RF: 0 Discharge Orders: Discharge Order (Routine); Ordered 07/05/20 Ordered By: Yared Harley/Other Patient Handouts: Pulmonary Embolism Admission Data Admit Date/Time: 07/03/20 20:29 Attending Provider: Yared Magallon Admit Provider: Stacie Mirza Primary Care Provider: Romeo Lanza Other Providers: Stacie Mirza Other Interventions: Discharge Summary Assessment (RN) Last Done: 07/05/20 13:52 Coding Level of Care Code D/C Day Management >30 mins Diagnoses Pulmonary embolism, bilateral I26.99 Hypertension I10 Hypertension type: essential hypertension Diabetes E11.9 Diabetes mellitus type: type 2 Diabetes mellitus ocean transportation intermediary insulin use: without jail use Diabetes mellitus complication status: without complication Hyperlipidemia E78.5 Hyperlipidemia type: unspecified GERD (gastroesophageal reflux disease) K21.9 Esophagitis presence: esophagitis presence not specified CKD stage 3 due to type 2 diabetes mellitus E11.22; N18.3 Paroxysmal atrial fibrillation I48.0 S/P ORIF (open reduction internal fixation) fracture Z98.890; Z87.81
[2020-07-05] MEDS ORDERED: RIVAROXABAN 15 MG TAB PO SCH (21:00)
== END 2020-07-05 20:00 | disposition home or self-care (01) | DRG 176 ==
LOC: ED 15:34 → 1E 20:29 → SUATTDRO 20:29 → 1E 21:30 → 2N 07-04 16:15

== ENCOUNTER 2021-08-08 10:23 | Observation (INO) ==
[2021-08-08] MEDS ORDERED: ONDANSETRON INJ 2 MG/ML 2 ML VIAL IV STA ×2 (11:01→14:06)
[2021-08-08] MEDS ORDERED: FAMOTIDINE 20MG/5ML IV PUSH IV STA (11:01)
[2021-08-08] MEDS ORDERED: SODIUM CHLORIDE 0.9% 1000ML 1,000 ML IV ONE (11:01)
--- NOTE | 2021-08-08 11:06 | Emergency Department Note ---
History of Present Illness General Chief complaint: Nausea Stated complaint: SWEATY,NAUSEA,COUGH Time Seen by Provider: 08/08/21 10:41 Source: patient Mode of arrival: ambulatory Limitations: no limitations History of Present Illness Provider complaint: Nausea, vomiting, abdominal pain Onset (ago): day(s) 4 Location: abdomen Radiation: non-radiation Severity: moderate Pain Consistency: + constant Maximum Pain Intensity: 3 Associated symptoms: + loss of appetite, + malaise and + nausea/vomiting; no cough, no fever/chills, no headaches or no shortness of breath Treatments prior to arrival: none This is a 61-year-old female presents emergency department complaining of nausea, vomiting, abdominal pain over the last 4 days. Patient states symptoms started Friday with a sense of heartburn and then she became nauseated, and vomiting followed after. Patient denies noting any blood in her emesis. Patient denies any known sick contacts. Patient states she was exposed to a Covid positive individual back in June and she tested positive on July 18. Patient states she has a headache and a fever for several days but then felt improved. She had no accompanying GI symptoms at that time. Patient denies any history of PUD, IBS, or IBD. Patient states she has had prior abdominal surgeries including cholecystectomy and appendectomy. Patient denies any concern for foodborne illness, and no recent dietary changes. Patient denies any accompanying diarrhea or change in stools. Patient states she still has so me central abdominal discomfort that she states feels like a soreness which she feels is likely from all of her vomiting. Patient states she has been unable to keep anything down as is concern for dehydration. Pt seen during a time of high acuity and national emergency pandemic while wearing PPE. Home Medications Medication Instructions Recorded Confirmed Type atorvastatin 20 mg tablet 20 mg PO QAM 01/15/19 08/08/21 History albuterol sulfate 90 mcg/actuation 2 puff INHALATION Q6H PRN #18 gm 01/19/19 08/08/21 Rx aerosol inhaler (Ventolin HFA) aspirin 81 mg tablet,delayed 81 mg PO QAM 09/07/19 08/08/21 History release glipizide 5 mg tablet 5 mg PO QAM tab 03/06/20 08/08/21 History omeprazole 20 mg capsule,delayed 20 mg PO QAM 06/12/20 08/08/21 History release rivaroxaban 20 mg tablet 20 mg PO DAILY #30 tab 07/04/20 08/08/21 Rx lisinopril 40 mg tablet 40 mg PO DAILY #90 tab 06/28/21 08/08/21 Rx diltiazem HCl 240 mg 480 mg PO QAM #180 cap 07/26/21 08/08/21 Rx capsule,extended release 24 hr, controlled (DILT-XR) capsaicin 0.025 % topical cream 1 applic TOPICAL QID PRN #60 g 08/09/21 Rx ondansetron 4 mg disintegrating 4 mg PO DAILY PRN #14 tab 08/09/21 Rx tablet Allergies Allergy/AdvReac Type Severity Reaction Status Date / Time No Known Allergies Allergy Verified 08/08/21 13:18 Past Med/Surg History Medical History (Updated 08/09/21 @ 18:14 by Katya Soriano DO) Atrial fibrillation Follows with cardio- per cardio "well-documented atrial fibrillation in December 2018, however it appears to have started with a prolonged episode of SVT at a time when she was ill otherwise. It terminated spontaneously. I would watch for further recurrences before starting anticoagulation." Chronic back pain managed on own. no chronic pain specialist CKD stage 3 due to type 2 diabetes mellitus Diabetes GERD (gastroesophageal reflux disease) History of electrophysiologic study [address] Dr Mendez [facility] "[facility]" femoral artery Hyperlipidemia Hypertension Morbid obesity Sleep apnea does not use machine. SVT (supraventricular tachycardia) treated with medication. follows with Dr Cowan. Surgical History History of adenoidectomy History of appendectomy History of bilateral tubal ligation History of cardioversion 2018 [facility] -- unsuccessful. managed with medication. History of cholecystectomy History of tonsillectomy Family History Other No family history of adverse response to anesthesia No known problems Social History Smoking Status: Current every day smoker Cigarettes Per Day: 30; Second Hand Exposure: Yes; Hx Alcohol Use: Yes Alcohol type: hard liquor Hx Substance Use: Yes Last Used Substance: Days (ago) Preferred Language: [place]ese Communication Ability: Effective Document Imaging Manager Required: No Beliefs That Will Affect Care: None marital status: Current Living Situation: Family current occupational status: unemployed Other Information That Helps Us Care for You: No Feels Safe at Home: Yes Safety Concerns: Feels Safe At This Time Assistive Devices: None Review of Systems A total of 10 systems reviewed and were otherwise negative All systems reviewed & are unremarkable except as noted in HPI & below Physical Exam Vital Signs Vital Signs - 24 hr 08/08/21 10:27 08/08/21 12:24 Temperature 37.0 C Temperature Source Temporal Artery Scan Pulse Rate 107 H Pulse Rate [Apical] 83 Pulse Rhythm [Apical] Regular Respiratory Rate 22 16 Respiratory Depth Normal Blood Pressure 120/61 Blood Pressure [Left Arm] 127/100 Blood Pressure Mean 80 Blood Pressure Mean [Left Arm] 109 Pulse Oximetry 97 98 Oxygen Delivery Method Room Air Room Air Sepsis Recent Fever Within 48 Hours No Sepsis New/Unexplained Change in Mental Status N/A Sepsis Action Taken by Nursing Physician Notified GENERAL: alert, unwell appearing, well nourished, no distress, non-toxic EYE EXAM: normal conjunctiva, PERRL and EOM's grossly intact OROPHARYNX: no exudate, no erythema, lips, buccal mucosa, and tongue normal and mucous membranes are moist NECK: supple, no nuchal rigidity, no adenopathy, non-tender LUNGS: Clear to auscultation. Normal chest wall mechanics, no w/r/r HEART: no murmurs, S1 normal and S2 normal ABDOMEN: abdomen soft, non-tender, normo-active bowel sounds, no masses, no rebound or guarding. Dull to percussion. BACK: Back is symmetrical on inspection and there is no deformity, no midline tenderness, no CVA tenderness. SKIN: no rashes and no bruising UPPER EXTREMITIES: upper extremities are grossly normal. FROM, nml pulses b/l. LOWER EXTREMITIES: No pitting edema. FROM, nml pulses b/l. NEURO EXAM: Normal sensorium, cranial nerves II-XII grossly intact, normal speech, no gross weakness of arms, no gross weakness of legs. Gross sensation intact. Course Course 1400: Pt updated on all results. Verbalized understanding. Patient states she is still nauseated. Administered Medications Aspirin (Aspirin 81 Mg Ectab) [facility] Stop: 09/08/21 08:59 Last Admin: 08/09/21 07:39 Dose: 81 mg Documented by: [id number] Atorvastatin Calcium (Atorvastatin 20 Mg Tab) 20 mg PO QAM [facility] Stop: 09/08/21 08:59 Last Admin: 08/09/21 07:39 Dose: 20 mg Documented by: [id number] Capsaicin (Capsaicin Cr 0.075% 60 Gm Tube) 1 appln EXT QID [facility] Stop: 09/07/21 20:59 Last Admin: 08/09/21 12:08 Dose: 1 appln Documented by: [id number] Admin: 08/09/21 07:39 Dose: 1 appln Documented by: [id number] Admin: 08/08/21 20:55 Dose: 1 appln Documented by: [id number] Diltiazem HCl (Diltiazem Hcl 120 Mg Er Cap) 480 mg PO [facility] Stop: 09/08/21 08:59 Last Admin: 08/09/21 07:38 Dose: 480 mg Documented by: [id number] Lisinopril (Lisinopril 40 Mg Tab) 40 mg PO DAILY [facility] Stop: 09/08/21 08:59 Last Admin: 08/09/21 07:38 Dose: 40 mg Documented by: [id number] Pantoprazole Sodium (Pantoprazole 40 Mg Tab) 40 mg PO [facility]; Protocol Stop: 09/08/21 08:59 Last Admin: 08/09/21 07:39 Dose: 40 mg Documented by: [id number] Rivaroxaban (Rivaroxaban 20 Mg Tab) 20 mg PO DAILY@0730 [facility] Stop: 09/08/21 07:29 Last Admin: 08/09/21 07:39 Dose: 20 mg Documented by: [id number] Discontinued Medications Capsaicin (Capsaicin Cr 0.075% 60 Gm Tube) 1 appln EXT ONE ONE Stop: 08/08/21 14:33 Last Admin: 08/08/21 15:58 Dose: 1 appln Documented by: [id number] Famotidine (Famotidine 20mg/5ml Iv Push) 20 mg IV ONE STA Stop: 08/08/21 11:02 Last Admin: 08/08/21 11:32 Dose: 20 mg Documented by: [id number] Sodium Chloride (Nss 1000ml) 1,000 mls @ 999 mls/hr IV .Q1H1M ONE Stop: 08/08/21 12:01 Last Infusion: 08/08/21 12:58 Dose: 0 mls/hr Documented by: [id number] Admin: 08/08/21 11:32 Dose: 999 mls/hr Documented by: [id number] Sodium Chloride (Nss 1000ml) 1,000 mls @ 250 mls/hr IV .Q4H [facility] Stop: 09/07/21 13:44 Last Infusion: 08/08/21 19:26 Dose: 0 mls/hr Documented by: [id number] Admin: 08/08/21 17:17 Dose: 250 mls/hr Documented by: [id number] Infusion: 08/08/21 17:17 Dose: 250 mls/hr Documented by: [id number] Admin: 08/08/21 13:49 Dose: 250 mls/hr Documented by: [id number] Lactated Ringer's (Lr) 1,000 mls @ 100 mls/hr IV .Q10H [facility] Stop: 09/07/21 17:26 Last Infusion: 08/09/21 11:18 Dose: 0 mls/hr Documented by: [id number] Admin: 08/09/21 05:36 Dose: 100 mls/hr Documented by: [id number] Infusion: 08/09/21 05:35 Dose: 0 mls/hr Documented by: [id number] Admin: 08/08/21 19:32 Dose: 100 mls/hr Documented by: [id number] Ondansetron HCl (Ondansetron Inj 2 Mg/Ml 2 Ml Vial) 4 mg IV NOW STA Stop: 08/08/21 11:02 Last Admin: 08/08/21 11:32 Dose: 4 mg Documented by: [id number] Ondansetron HCl (Ondansetron Inj 2 Mg/Ml 2 Ml Vial) 4 mg IV NOW STA Stop: 08/08/21 14:07 Last Admin: 08/08/21 14:10 Dose: 4 mg Documented by: [id number] Medical Decision Making Differential Diagnosis Differential: Gastroenteritis, Food Borne, Esophageal Perforation, , Electrolyte Abnormality, Dehydration, Intraabdominal Infection, U TI/Pyelonephritis, Bowel Obstruction, Biliary Pathology, amongst other pathology entertained. Medical Records Attestation: I reviewed the patient's medical records. Home Medications Current Medication List: was personally reviewed by me Laboratory Data Attestation: I reviewed the patient's lab results. Result diagrams: 08/08/21 11:20 08/09/21 05:30 Lab Results 08/08/21 08/08/21 08/08/21 Range/Units 11:20 11:20 11:20 WBC 17.58 H (4.8-10.8) K/uL RBC 5.47 H (4.2-5.4) M/uL Hgb 15.2 (12.0-16.0) g/dL Hct 45.7 (37-47) % MCV 83.5 (80-100) fL MCH 27.8 (25-34) pg MCHC 33.3 (32-36) g/dL RDW Std Deviation 52.6 H (36.4-46.3) fL RDW Coeff of Jaswinder 17.2 H (11.5-14.5) % Plt Count 340 (130-400) K/uL MPV 12.1 H (7.4-10.4) fL Immature Gran % (Auto) 0.2 % Neut % (Auto) 87.7 % Lymph % (Auto) 9.2 % Moore % (Auto) 2.8 % Eos % (Auto) 0.0 % Baso % (Auto) 0.1 % Neut # (Auto) 15.42 H (1.4-6.5) K/uL Lymph # (Auto) 1.62 (1.2-3.4) K/uL Moore # (Auto) 0.50 (0.11-0.59) K/uL Eos # (Auto) 0.00 (0-0.5) K/uL Baso # (Auto) 0.01 (0-0.2) K/uL Immature Gran # (Auto) 0.03 H (0.00-0.02) K/uL Sodium 134 L (136-145) mmol/L Potassium 3.8 (3.5-5.1) mmol/L Chloride 101 (98-107) mmol/L Carbon Dioxide 23 (21-32) mmol/L Anion Gap 10 (3-11) BUN 40 H (6-23) mg/dl Creatinine 1.41 H (0.6-1.2) mg/dl Est Cr Clr Drug Dosing 56.7 ml/min Est GFR ( Amer) 46.2 ml/min Est GFR (Non-Af Amer) 39.8 ml/min BUN/Creatinine Ratio 28.4 H (10-20) Glucose 199 H (70-99(Fasting)) mg/dl Calcium 8.9 (8.5-10.1) mg/dl Magnesium 1.9 (1.7-2.4) mg/dl Total Bilirubin 0.4 (0.2-1.0) mg/dl AST 11 L (13-39) U/L ALT 15 (7-52) U/L Alkaline Phosphatase 112 H (34-104) U/L Troponin I 0.05 H* (0-0.04) ng/ml Total Protein 8.2 (6.0-8.3) gm/dl Albumin 3.8 (3.4-5.0) gm/dl Globulin 4.4 H (2.5-4.0) gm/dl Albumin/Globulin Ratio 0.9 (0.9-2) Lipase 5 L (11-82) U/L TSH 0.879 (0.300-4.500) uIu/ml ECG Data Attestation: I personally reviewed and interpreted this ECG as follows: Indication: + vomiting Rate (beats per minute): 100 Rhythm: + normal sinus ECG Intervals/blocks: + Normal QRS and + Normal QT ECG [place]: + Normal ECG ST segments: + Normal ST segments MDM Narrative This is a 61-year-old female presents with nausea and vomiting concern for dehydration. Given patient's past medical history, labs are drawn and sent, patient started on IV fluids. Patient had no accompanying abdominal pain and was concerned for possible viral syndrome. Patient was found to have slightly elevated troponin and evidence of dehydration and VINH. Patient had no chest pain or shortness of breath and EKG reassuring. I do not suspect primary cardiac etiology. Case was discussed with hospitalist as a precaution due to patient's past medical history and concern for need of additional monitoring and recheck of troponin. Patient did have prior similar episode that was thought to be related to use of marijuana. Patient was afebrile and I suspect leukocytosis secondary to vomiting and stress to margination. At this time I do not suspect occult GI bleed, mesenteric ischemia, bowel obstruction, perforation, PUD, or ACS. An order was placed for continuous cardiac monitoring. The monitor shows a rate of _60_ with __normal sinus_ rhythm. Impression & Plan Nausea & vomiting, Dehydration, Elevated troponin Discharge Plan Visit Data Chief Complaint: Nausea Stated Complaint: SWEATY,NAUSEA,COUGH ED Provider: Katya Soriano Discharge Problem: Nausea & vomiting, Dehydration, Elevated troponin Patient Disposition: Admitted As Inpatient Discharge Instructions Interventions: ED Discharge Assessment Last Done: 08/08/21 17:28 Discharge Problem: Nausea & vomiting Qualifiers: Vomiting type: unspecified Qualified Code(s): R11.2 - Nausea with vomiting, unspecified
[2021-08-08 11:28] LABS: Basophils # (auto) 0.01 K/uL (0-0.2); Basophils % (auto) 0.1 %; Hematocrit (blood only) 45.7 % (37-47); Hemoglobin 15.2 g/dL (12.0-16.0); Immature Granulocytes # (auto) 0.03 K/uL (0.00-0.02); Immature Granulocytes % (auto) 0.2 %; Lymphocytes # (auto) 1.62 K/uL (1.2-3.4); Lymphocytes % (auto) 9.2 %; Mean Corpuscular Hemoglobin 27.8 pg (25-34); Mean Corpuscular Hgb Conc 33.3 g/dL (32-36); Mean Corpuscular Volume 83.5 fL (80-100); Mean Platelet Volume 12.1 fL (7.4-10.4); Monocytes % (auto) 2.8 %; Neutrophils # (auto) 15.42 K/uL (1.4-6.5); Neutrophils % (auto) 87.7 %; Platelet Count 340 K/uL (130-400); RDW Coefficient of Variation 17.2 % (11.5-14.5); RDW Standard Deviation 52.6 fL (36.4-46.3); Red Blood Count 5.47 M/uL (4.2-5.4); White Blood Count 17.58 K/uL (4.8-10.8)
[2021-08-08 11:57] LABS: Albumin Globulin Ratio 0.9 (0.9-2); Albumin Level 3.8 gm/dl (3.4-5.0); BUN Creatinine Ratio 28.4 (10-20); Bilirubin,Total 0.4 mg/dl (0.2-1.0); Calcium 8.9 mg/dl (8.5-10.1); Creatinine Clr Calc Pharmacy 56.7 ml/min; Est GFR (African American) 46.2 ml/min; Est GFR (Non-African American) 39.8 ml/min; Globulin 4.4 gm/dl (2.5-4.0); Magnesium 1.9 mg/dl (1.7-2.4); Potassium 3.8 mmol/L (3.5-5.1); Total Protein 8.2 gm/dl (6.0-8.3)
[2021-08-08 11:58] LABS: Troponin I 0.05 ng/ml (0-0.04)
[2021-08-08 12:12] LABS: Influenza A virus by PCR Negative (Neg); Influenza B virus by PCR Negative (Neg); RSV by PCR Negative (Neg); SARS CoV2 RNA(COVID-19) InHosp NEGATIVE (Negative)
[2021-08-08] MEDS: SODIUM CHLORIDE 0.9% 1000ML 1,000 ML IV SCH ×2 (13:49→17:17)
--- NOTE | 2021-08-08 14:21 | History & Physical Report ---
Date of Service August 08, 2021 Assessment & Plan (1) Nausea and vomiting: Plan: Similar previous occurrence noted in [address] A/P at that time abd relatively benign abdominal exam. No specific cause was noted on that occasion. Given history of marijuana use I suspect she has cannabis hyperemesis syndrome. Will start capsaicin cream QID on her abdomen and monitor for symptomatic improvement Ondansetron 1st line, Phenergan 2nd line for ongoing nausea. Previous esophagitis noted on prior CTs. Will continue PO famotidine in addition to PPI (switch omeprazole to pantoprazole per hospital formulary) (2) Elevated troponin: Plan: Trend troponin. Suspect mild elevation related to demand ischemia in the setting of mild dehydration. IV fluids overnight (3) Leukocytosis: Plan: Suspect related to nausea. No need to repeat this in acute setting. No infection signs or symptoms noted. (4) Elevated serum creatinine: Plan: Mild elevation not consistent with VINH. Suspect prerenal and start IV fluids overnight. (5) History of Clostridioides difficile colitis: Plan: Noted. Monitor for watery bowels. (6) Paroxysmal atrial fibrillation: Plan: Normal sinus rhythm on admission. Monitor on med telemetry. Anticoagulation with Xarelto Rate control with diltiazem (7) Sleep apnea: Plan: Does not use CPAP (8) History of pulmonary embolus (PE): Plan: Continue Xarelto as above (9) Diabetes: Plan: HbA1c 6.7 Hold glipizide in setting of reduced oral intake Plan: VTE prophylaxis -Xarelto Diet -clear liquid, type 2 diabetes Disposition -observation status to med telemetry, placed on monitor due to history of paroxysmal atrial fibrillation and elevated troponin Admission and Anticipated Discharge Date Admission Date: August 08, 2021 History of Present Illness Chief Complaint: Nausea Primary Care Provider: Romeo Lanza MD Nya Hernandez is a 61 year old female who presents to the ER with chills, hot sweaty, nausea. She reports no measured fevers. No bowel movement since Friday afternoon however she does not feel constipated. No melena or bright red blood in stools. Mild generalized abdominal pain started yesterday which she thinks is secondary to vomiting. Associated poor appetite. She denies any urinary or respiratory symptoms. She reports smoking 1/2 packs a day. Does not feel she needs a nicotine patch while in hospital. Additionally smokes marijuana. She was unable to take any of her medications this morning. Last took medications yesterday. Did not take any medications this morning. Managed to take them yesterday. She takes Xarelto for paroxysmal atrial fibrillation and pulmonary embolism in June. On chart review she has had similar episodes in [address] abdomen pelvis at that time and no specific etiology identified. She usually gets nauseous without any significant abdominal pain and a benign abdominal exam. In the ER no imaging was performed, UA was unremarkable for urine tract infection, WBC 17.58, troponin 0.05 ng/mL, lipase and LFTs unremarkable She was referred to medicine due to ongoing nausea and elevated troponin. Allergies Allergy/AdvReac Type Severity Reaction Status Date / Time No Known Allergies Allergy Verified 08/08/21 13:18 Home Medications Medication Instructions Recorded Confirmed Type atorvastatin 20 mg tablet 20 mg PO QAM 01/15/19 08/08/21 History albuterol sulfate 90 mcg/actuation 2 puff INHALATION Q6H PRN #18 gm 01/19/19 08/08/21 Rx aerosol inhaler (Ventolin HFA) aspirin 81 mg tablet,delayed 81 mg PO QAM 09/07/19 08/08/21 History release glipizide 5 mg tablet 5 mg PO QAM tab 03/06/20 08/08/21 History omeprazole 20 mg capsule,delayed 20 mg PO QAM 06/12/20 08/08/21 History release rivaroxaban 20 mg tablet 20 mg PO DAILY #30 tab 07/04/20 08/08/21 Rx lisinopril 40 mg tablet 40 mg PO DAILY #90 tab 06/28/21 08/08/21 Rx diltiazem HCl 240 mg 480 mg PO QAM #180 cap 07/26/21 08/08/21 Rx capsule,extended release 24 hr, controlled (DILT-XR) Past Med/Surg History Medical History (Updated 08/09/21 @ 13:19 by Shay Hess MD) Atrial fibrillation Follows with cardio- per cardio "well-documented atrial fibrillation in December 2018, however it appears to have started with a prolonged episode of SVT at a time when she was ill otherwise. It terminated spontaneously. I would watch for further recurrences before starting anticoagulation." Chronic back pain managed on own. no chronic pain specialist CKD stage 3 due to type 2 diabetes mellitus Diabetes GERD (gastroesophageal reflux disease) History of electrophysiologic study [address] [facility] "EPS" femoral artery Hyperlipidemia Hypertension Morbid obesity Sleep apnea does not use machine. SVT (supraventricular tachycardia) treated with medication. follows with Dr Cowan. Surgical History History of adenoidectomy History of appendectomy History of bilateral tubal ligation History of cardioversion 2018 [facility] -- unsuccessful. managed with medication. History of cholecystectomy History of tonsillectomy Family History Other No family history of adverse response to anesthesia No known problems Social History Smoking Status: Current every day smoker Cigarettes Per Day: 30; Second Hand Exposure: Yes; Hx Alcohol Use: Yes Alcohol type: hard liquor Hx Substance Use: Yes Last Used Substance: Days (ago) Preferred Language: South Sudanese Communication Ability: Effective Railway Equipment Operator Required: No Beliefs That Will Affect Care: None marital status: Current Living Situation: Family current occupational status: unemployed Other Information That Helps Us Care for You: No Feels Safe at Home: Yes Safety Concerns: Feels Safe At This Time Assistive Devices: None Review of Systems Review of Systems: All systems reviewed & are unremarkable except as noted in HPI & below Physical Exam Constitutional: WD/WN, vitals as above + morbidly obese Eyes: PERRL, conjunctivae normal, anicteric sclerae ENMT: external ear and nose normal, oropharynx normal Neck: trachea midline, no thyromegaly Respiratory: normal respiratory effort, lungs clear to auscultation Cardiovascular: RRR, no murmur, no edema Gastrointestinal (Abdomen): Inspection/Auscultation: normal bowel sounds Percussion/Palpation: abdomen soft; abdomen nontender, no guarding and abdomen not rigid Musculoskeletal: no cyanosis or clubbing, extremities motor strength 5/5 Skin: no rashes, warm and dry Neurologic: moves all extremities and awake; not confused Psychiatric: A+Ox3, euthymic affect Results & Data Results & Data ([facility]) Vital Signs (Past 12 Hours) Vital Signs Temp Pulse Pulse Resp BP BP Pulse Ox 08/08/21 12:24 83 16 127/100 98 08/08/21 10:27 37.0 C 107 H 22 120/61 97 Medications Administered ER medications given: Ondansetron 4 mg IV NSS @ 125 ml/hr ECG Indication: abdominal pain Rate (beats per minute): 100 Rhythm: normal sinus Findings: no acute ischemic change Comparison ECG Date: from (July 03, 2020) Change: the following changes noted (Anterior infarct now present) Code Status & VTE Plan Code Status Full VTE Prophylaxis Plan VTE Prophylaxis will be ordered: Yes Reason for no VTE mechanical prophylaxis: Treatment not indicated PG Care Time/CCT Total # of Minutes Spent Total Time Spent with Patient: Total time spent is greater than 50% in coordination of care (as documented) at patient's floor/unit and/or counseling patient: Coding Level of Care Code 87966 Initial Inpt Care Lvl 2 Diagnoses Nausea and vomiting R11.2 Elevated troponin R77.8 Leukocytosis D72.829 Elevated serum creatinine R79.89 History of Clostridioides difficile colitis Z86.19 Paroxysmal atrial fibrillation I48.0 Sleep apnea G47.30 History of pulmonary embolus (PE) Z86.711 Diabetes E11.9 Diabetes mellitus type: type 2 Diabetes mellitus detention insulin use: without intermediate school teacher use Diabetes mellitus complication status: without complication (1) Diabetes Diabetes mellitus type: type 2 Diabetes mellitus intermediate school teacher insulin use: without intermediate school teacher use Diabetes mellitus complication status: without complication Qualified Code(s): E11.9 - Type 2 diabetes mellitus without complications
[2021-08-08] MEDS ORDERED: CAPSAICIN CR 0.075% 60 GM TUBE EXT ONE (14:32)
--- NOTE | 2021-08-08 15:27 | Electrocardiogram Report ---
Test Reason : Blood Pressure : / mmHG Vent. Rate : 100 BPM Atrial Rate : 100 BPM P-R Int : 180 ms QRS Dur : 066 ms QT Int : 350 ms P-R-T Axes : 068 -09 060 degrees QTc Int : 451 ms Normal sinus rhythm Anterior infarct , age undetermined Abnormal ECG When compared with ECG of 03-JUL-2020 17:41, Anterior infarct is now Present Confirmed by Candido Cowan ([id number]) on 08/08/2021 3:27:16 PM Referred By: REFERRED SELF Confirmed By:Candido Cowan
[2021-08-08] MEDS ORDERED: PROMETHAZINE HCL 12.5 MG in SODIUM CHLORIDE 0.9% 50 ML IV PRN (17:27)
[2021-08-08] MEDS ORDERED: ACETAMINOPHEN 325 MG TAB PO PRN (17:27)
[2021-08-08] MEDS ORDERED: ONDANSETRON INJ 2 MG/ML 2 ML VIAL IV PRN (17:27)
[2021-08-08] MEDS ORDERED: ALBUTEROL HFA 8 GM INHALER INH PRN (17:27)
[2021-08-08] MEDS: LACTATED RINGER'S 1,000 ML IV SCH (19:32)
[2021-08-08] MEDS: CAPSAICIN CR 0.075% 60 GM TUBE EXT SCH (20:55)
[2021-08-09] MEDS: LACTATED RINGER'S 1,000 ML IV SCH (05:36)
[2021-08-09 06:39] LABS: Troponin I 0.04 ng/ml (0-0.04)
[2021-08-09 06:40] LABS: BUN Creatinine Ratio 34.4 (10-20); Calcium 7.9 mg/dl (8.5-10.1); Creatinine Clr Calc Pharmacy 85.8 ml/min; Est GFR (African American) 76.3 ml/min; Est GFR (Non-African American) 65.9 ml/min; Potassium 3.5 mmol/L (3.5-5.1)
[2021-08-09] MEDS ORDERED: RIVAROXABAN 20 MG TAB PO SCH (07:30)
[2021-08-09 07:38] LABS: Estimated Average Glucose 146 mg/dl; Hemoglobin A1C 6.7 % (4.5-5.6)
[2021-08-09] MEDS: CAPSAICIN CR 0.075% 60 GM TUBE EXT SCH ×2 (07:39→12:08)
[2021-08-09] MEDS ORDERED: ASPIRIN 81 MG ECTAB PO SCH (09:00)
[2021-08-09] MEDS ORDERED: PANTOprazole 40 MG TAB PO SCH (09:00)
[2021-08-09] MEDS ORDERED: lisinopril 40 MG TAB PO SCH (09:00)
[2021-08-09] MEDS ORDERED: ATORVASTATIN 20 MG TAB PO SCH (09:00)
--- NOTE | 2021-08-09 13:37 | Discharge Summary ---
Date of Service August 09, 2021 Admission HPI Per Admitting Provider Nya Hernandez is a 61 year old female who presents to the ER with chills, hot sweaty, nausea. She reports no measured fevers. No bowel movement since Friday afternoon however she does not feel constipated. No melena or bright red blood in stools. Mild generalized abdominal pain started yesterday which she thinks is secondary to vomiting. Associated poor appetite. She denies any urinary or respiratory symptoms. She reports smoking 1/2 packs a day. Does not feel she needs a nicotine patch while in hospital. Additionally smokes marijuana. She was unable to take any of her medications this morning. Last took medications yesterday. Did not take any medications this morning. Managed to take them yesterday. She takes Xarelto for paroxysmal atrial fibrillation and pulmonary embolism in June. On chart review she has had similar episodes in [address] abdomen pelvis at that time and no specific etiology identified. She usually gets nauseous without any significant abdominal pain and a benign abdominal exam. In the ER no imaging was performed, UA was unremarkable for urine tract infection, WBC 17.58, troponin 0.05 ng/mL, lipase and LFTs unremarkable She was referred to medicine due to ongoing nausea and elevated troponin. Principal Diagnosis Intractable nausea and vomiting Suspected cannabis hyperemesis syndrome Discharge Exam Constitutional WD/WN, vitals as above + morbidly obese ENMT external ear and nose normal, oropharynx normal Neck trachea midline, no thyromegaly Respiratory normal respiratory effort, lungs clear to auscultation Cardiovascular RRR, no murmur, no edema Gastrointestinal (Abdomen) Inspection/Auscultation: normal bowel sounds Percussion/Palpation: abdomen soft; abdomen nontender, no guarding and abdomen not rigid Musculoskeletal no cyanosis or clubbing, extremities motor strength 5/5 Skin no rashes, warm and dry Neurologic moves all extremities and awake; not confused Psychiatric A+Ox3, euthymic affect Discharge Data Allergies Allergy/AdvReac Type Severity Reaction Status Date / Time No Known Allergies Allergy Verified 08/08/21 13:18 Consultations 08/08/21 14:22 ED Decision to Admit Stat Hospital Course (1) Nausea and vomiting: Nya Hernandez is a 61 year old female observed overnight at [facility] from August 08-2021 due to nausea and vomiting. Suspect this is related to her marijuana use with possible cannabis hyperemesis syndrome. Less likely alternative diagnosis include esophagitis, viral gastroenteritis or food poisoning. She should continue to evaluate whether there is a correlation in her symptoms and marijuana use. Recommend trial of capsaicin cream as needed if nausea recurs. Her symptoms improved with ondansetron overnight and this was prescribed on discharge. She had similar symptoms during her hospitalization in [address] results and no abdominal pain on exam therefore no imaging was performed on this admission. Glipizide was held during her inpatient stay and glucose levels remained well controlled. HbA1c 6.7. Recommend discontinuing this medication if she has any hypoglycemic events and following up with her primary care physician for alternative diabetic medical management. (2) Elevated troponin: (3) Leukocytosis: (4) Elevated serum creatinine: (5) History of Clostridioides difficile colitis: (6) Paroxysmal atrial fibrillation: (7) Sleep apnea: (8) History of pulmonary embolus (PE): (9) Diabetes: Total Time Total Time Spent Total Time Spent (In Minutes): 35 Discharge Plan Discharge Items Patient Disposition: Home - Self-Care Reason For Visit: VOMITING Discharge Diagnosis: Intractable nausea and vomiting Suspected cannabis hyperemesis syndrome Activity: Resume your previous activity Non-emergency contact: Primary Care Provider Call non-emergency contact if: you have any medication questions and your symptoms worsen Follow-up/Referrals: Romeo Lanza MD [Primary Care Provider] - 08/21/21 3:00 pm Diet: Carb Consistent or DM2 Addtl Attending Provider Instructions: You are observed overnight at [facility] from August 08-2021 due to nausea and vomiting. Suspect this is related to your marijuana use with possible cannabis hyperemesis syndrome. Less likely alternative diagnosis include esophagitis, viral gastroenteritis or food poisoning. Recommend seeing if there is a correlation to your marijuana use and nausea/vomiting in the future. If there is a direct correlation recommend discontinuation of marijuana. Try capsaicin cream as needed if nausea recurs. We have also prescribed ondansetron which can also be tried for nausea and vomiting in the future. Your diabetes medication, glipizide, was held during your inpatient stay and your sugars remain well controlled. HbA1c 6.7. Recommend discontinuing this medication if your glucose levels are running low and following up with your primary care physician for alternative management of your diabetes. Pending Studies at Discharge: No Stand-Alone Forms: [facility], Smoking Cessation Medications and DC Order Prescriptions: New ondansetron 4 mg tablet,disintegrating 4 mg PO DAILY PRN (Reason: nausea and vomiting) Qty: 14 RF: 0 capsaicin 0.025 % cream 1 applic topical QID PRN (Reason: nausea) Qty: 60 RF: 0 Continued diltiazem HCl [DILT-XR] 240 mg capsule,ext.rel 24h degradable 480 mg PO QAM Qty: 180 RF: 3 aspirin 81 mg tablet,delayed release (DR/EC) 81 mg PO QAM RF: 0 glipizide 5 mg tablet 5 mg PO QAM RF: 0 lisinopril 40 mg tablet 40 mg PO DAILY Qty: 90 RF: 3 atorvastatin 20 mg tablet 20 mg PO QAM RF: 0 albuterol sulfate [Ventolin HFA] 90 mcg/actuation Hfa Aerosol Inhaler 2 puff inhalation Q6H PRN (Reason: shortness of breath or wheezing) Qty: 18 RF: 0 rivaroxaban 20 mg tablet 20 mg PO DAILY Qty: 30 RF: 5 omeprazole 20 mg capsule,delayed release(DR/EC) 20 mg PO QAM RF: 0 Discharge Orders: Discharge Order (Routine); Ordered 08/09/21 Ordered By: Shay Harley/Other Patient Handouts: High Blood Sugar (Hyperglycemia), Hypoglycemia (Low Blood Sugar), Managing Type 2 Diabetes Admission Data Admit Date/Time: 08/08/21 14:56 Attending Provider: Shay Hess Admit Provider: Shay Hess Primary Care Provider: Romeo Lanza Other Providers: Shay Hess Other Interventions: Discharge Summary Assessment (RN) Last Done: 08/09/21 14:04 Coding Level of Care Code 04996 OBS Care - Discharge Diagnoses Nausea and vomiting R11.2 Elevated troponin R77.8 Leukocytosis D72.829 Elevated serum creatinine R79.89 History of Clostridioides difficile colitis Z86.19 Paroxysmal atrial fibrillation I48.0 Sleep apnea G47.30 History of pulmonary embolus (PE) Z86.711 Diabetes E11.9 Diabetes mellitus complication status: without complication Diabetes mellitus care home insulin use: without dedicated intermodal truck driver use Diabetes mellitus type: type 2
== END 2021-08-09 18:27 | disposition home or self-care (01) ==
LOC: ED 10:23 → EDINP 10:23 → 2W 19:09
DX: Z20.822 Contact with and (suspected) exposure to COVID-19; G47.30 Sleep apnea, unspecified; R77.8 Other specified abnormalities of plasma proteins; Z86.19 Personal history of other infectious and parasitic diseases; I12.9 Hypertensive chronic kidney disease with stage 1 through stage 4 chronic kidney disease, or unspecified chronic kidney disease; Z79.899 Other long term (current) drug therapy; E66.01 Morbid (severe) obesity due to excess calories; E11.9 Type 2 diabetes mellitus without complications; E78.5 Hyperlipidemia, unspecified; Z79.4 Long term (current) use of insulin; Z86.711 Personal history of pulmonary embolism; D72.829 Elevated white blood cell count, unspecified; R11.2 Nausea with vomiting, unspecified; I48.0 Paroxysmal atrial fibrillation; N18.30 Chronic kidney disease, stage 3 unspecified; Z79.51 Long term (current) use of inhaled steroids; Z68.42 Body mass index [BMI] 45.0-49.9, adult

== ENCOUNTER 2021-12-11 23:59 | Observation (INO) ==
[2021-12-12] MEDS ORDERED: dilTIAZem HCl 5 MG/ML 5 ML VIAL IV STA (00:22)
[2021-12-12 00:36] LABS: Basophils # (auto) 0.05 K/uL (0-0.2); Basophils % (auto) 0.3 %; Eosinophils # (auto) 0.06 K/uL (0-0.5); Eosinophils % (auto) 0.4 %; Immature Granulocytes # (auto) 0.03 K/uL (0.00-0.02); Immature Granulocytes % (auto) 0.2 %; Lymphocytes # (auto) 2.97 K/uL (1.2-3.4); Lymphocytes % (auto) 19.7 %; Mean Corpuscular Hemoglobin 28.2 pg (25-34); Mean Corpuscular Hgb Conc 33.3 g/dL (32-36); Mean Corpuscular Volume 84.5 fL (80-100); Mean Platelet Volume 12.4 fL (7.4-10.4); Monocytes # (auto) 0.74 K/uL (0.11-0.59); Monocytes % (auto) 4.9 %; Neutrophils # (auto) 11.19 K/uL (1.4-6.5); Neutrophils % (auto) 74.5 %; Platelet Count 254 K/uL (130-400); RDW Coefficient of Variation 16.4 % (11.5-14.5); RDW Standard Deviation 50.5 fL (36.4-46.3); Red Blood Count 4.97 M/uL (4.2-5.4); White Blood Count 15.04 K/uL (4.8-10.8)
[2021-12-12 00:47] LABS: INR 1.1 (0.9-1.1); Partial Thromboplastin Ratio 1.4; Partial Thromboplastin Time 37.4 Seconds (21.0-31.0); Prothrombin Time 11.9 Seconds (9.0-12.0)
[2021-12-12 00:50] LABS: Albumin Level 3.8 gm/dl (3.4-5.0); BUN Creatinine Ratio 17.2 (10-20); Bilirubin,Total 0.3 mg/dl (0.2-1.0); Creatinine Clr Calc Pharmacy 92.3 ml/min; Est GFR (African American) 82.8 ml/min; Est GFR (Non-African American) 71.4 ml/min; Magnesium 1.8 mg/dl (1.7-2.4); Potassium 4.3 mmol/L (3.5-5.1); Total Protein 7.8 gm/dl (6.0-8.3)
[2021-12-12 00:52] LABS: Troponin I High Sensitivity 12.6 pg/ml (0-14)
[2021-12-12] MEDS ORDERED: SODIUM CHLORIDE 0.9% 1000ML 1,000 ML IV SCH (01:45)
[2021-12-12 01:48] LABS: Appearance Urine Clear (Clear); Bacteria Urine Automated Negative (Negative); Bilirubin Urine Negative (Negative); Blood Urine Negative (Negative); Color Urine Yellow; Epithelial Cell Urine Auto >30 /lpf (0-5); Glucose Urine UA Negative (Negative); Ketones Urine Negative (Negative); Leukocyte Esterase Urine Trace (Negative); Nitrite Urine Negative (Negative); Protein Urine 1+ (Negative); RBC Urine Automated 0-4 /hpf (0-4); Specific Gravity Urine 1.018 (1.000-1.030); Urobilinogen Urine Negative (Negative); pH Urine 5.5 (4.5-7.5)
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
[2021-12-12] MEDS ORDERED: CARBOHYDRATES FOR HYPOGLYCEMIA PO PRN (04:02)
[2021-12-12] MEDS ORDERED: ACETAMINOPHEN 325 MG TAB PO PRN (04:02)
[2021-12-12] MEDS ORDERED: GLUCOSE 40% GEL 15 GM TUBE PO PRN (04:02)
[2021-12-12] MEDS ORDERED: ALBUTEROL HFA 8 GM INHALER INH PRN (04:02)
[2021-12-12] MEDS ORDERED: ONDANSETRON INJ 2 MG/ML 2 ML VIAL IV PRN (04:02)
[2021-12-12] MEDS ORDERED: GLUCAGON FOR INJ 1 MG VIAL SQ PRN (04:02)
[2021-12-12] MEDS ORDERED: DEXTROSE 50% 50 ML SYRINGE IV PRN (04:02)
[2021-12-12] MEDS ORDERED: GLUCOSE 10 TABS/TUBE PO PRN (04:02)
[2021-12-12] MEDS ORDERED: PNEUMOCOCCAL POLYSACCHARIDES 25 MCG/0.5 ML VIAL/SYR IM ONE (04:32)
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
--- NOTE | 2021-12-12 07:14 | XRay Report ---
XR chest 1V portable HISTORY: 61 years-old Female Chest Pain acute atypical chest pain COMPARISON: Chest radiograph and CTA chest study is 07/03/2020 TECHNIQUE: Portable AP view of the chest FINDINGS: The cardiac silhouette is upper limits of normal in size. Atherosclerosis of the thoracic aorta. No p neumothorax, pleural effusion or overt pulmonary edema. Minimal subsegmental left basilar densities s uggestive of atelectasis. Degenerative changes of the shoulders and spine. IMPRESSION: No acute process. ACT 112: Negative or not required by law. The above report was generated using voice recognition software. It may contain grammatical, syntax o r spelling errors. Electronically signed by: Devonte Jimenez M.D. 12/12/2021 7:13 AM
[2021-12-12 07:38] LABS: Basophils # (auto) 0.02 K/uL (0-0.2); Basophils % (auto) 0.2 %; Eosinophils # (auto) 0.09 K/uL (0-0.5); Eosinophils % (auto) 0.9 %; Hematocrit (blood only) 37.8 % (37-47); Hemoglobin 12.3 g/dL (12.0-16.0); Immature Granulocytes # (auto) 0.02 K/uL (0.00-0.02); Immature Granulocytes % (auto) 0.2 %; Lymphocytes # (auto) 3.54 K/uL (1.2-3.4); Lymphocytes % (auto) 35.1 %; Mean Corpuscular Hgb Conc 32.5 g/dL (32-36); Mean Corpuscular Volume 83.1 fL (80-100); Mean Platelet Volume 11.9 fL (7.4-10.4); Monocytes # (auto) 0.61 K/uL (0.11-0.59); Monocytes % (auto) 6.1 %; Neutrophils % (auto) 57.5 %; Platelet Count 241 K/uL (130-400); RDW Coefficient of Variation 16.4 % (11.5-14.5); RDW Standard Deviation 49.2 fL (36.4-46.3); Red Blood Count 4.55 M/uL (4.2-5.4); White Blood Count 10.08 K/uL (4.8-10.8)
[2021-12-12 08:14] LABS: BUN Creatinine Ratio 19.4 (10-20); Calcium 8.1 mg/dl (8.5-10.1); Creatinine Clr Calc Pharmacy 118.4 ml/min; Est GFR (African American) 109.2 ml/min; Est GFR (Non-African American) 94.2 ml/min; Potassium 3.7 mmol/L (3.5-5.1)
[2021-12-12] MEDS: INSULIN ASPART PER UNIT SC SCH ×3 (08:32→17:39)
[2021-12-12] MEDS ORDERED: dilTIAZem HCL 240 MG CAPCR PO SCH (09:00)
[2021-12-12] MEDS ORDERED: PANTOprazole 40 MG TAB PO SCH (09:00)
[2021-12-12] MEDS ORDERED: lisinopril 40 MG TAB PO SCH (09:00)
[2021-12-12] MEDS ORDERED: ATORVASTATIN 20 MG TAB PO SCH (09:00)
[2021-12-12 09:09] LABS: Estimated Average Glucose 140 mg/dl; Hemoglobin A1C 6.5 % (4.5-5.6)
--- NOTE | 2021-12-12 12:04 | Electrocardiogram Report ---
Test Reason : Blood Pressure : / mmHG Vent. Rate : 126 BPM Atrial Rate : 122 BPM P-R Int : 000 ms QRS Dur : 070 ms QT Int : 308 ms P-R-T Axes : 000 007 053 degrees QTc Int : 446 ms Poor data quality, interpretation may be adversely affected Accelerated Junctional rhythm with retrograde conduction Poor R wave progression, consider anterior [place] vs. lead placement vs. LVH Abnormal ECG When compared with ECG of 08-AUG-2021 11:12, Junctional rhythm has replaced Sinus rhythm Questionable change in initial forces of Anterior leads Confirmed by Mark Ramos ([id number]) on 12/12/2021 12:03:54 PM Referred By: REFERRED SELF Confirmed By:Mark Ramos
--- NOTE | 2021-12-12 12:06 | Electrocardiogram Report ---
Test Reason : Blood Pressure : / mmHG Vent. Rate : 075 BPM Atrial Rate : 075 BPM P-R Int : 332 ms QRS Dur : 070 ms QT Int : 386 ms P-R-T Axes : 057 006 042 degrees QTc Int : 431 ms Sinus rhythm with 1st degree A-V block Otherwise normal ECG When compared with ECG of 12-DEC-2021 00:19, (unconfirmed) MN interval has increased Vent. rate has decreased BY 57 BPM Criteria for Anterior infarct are no longer Present Confirmed by Mark Ramos ([id number]) on 12/12/2021 12:06:18 PM Referred By: REFERRED SELF Confirmed By:Mark Ramos
--- NOTE | 2021-12-12 12:34 | Electrocardiogram Report ---
Test Reason : Blood Pressure : / mmHG Vent. Rate : 075 BPM Atrial Rate : 075 BPM P-R Int : 356 ms QRS Dur : 074 ms QT Int : 414 ms P-R-T Axes : 064 050 046 degrees QTc Int : 462 ms Sinus rhythm with 1st degree A-V block Otherwise normal ECG When compared with ECG of 12-DEC-2021 03:37, (unconfirmed) No significant change was found Confirmed by Mark Ramos ([id number]) on 12/12/2021 12:34:06 PM Referred By: REFERRED SELF Confirmed By:Mark Ramos
--- NOTE | 2021-12-12 13:10 | XCELERA ---
[id number]
[2021-12-12] MEDS ORDERED: RIVAROXABAN 20 MG TAB PO SCH (15:30)
--- NOTE | 2021-12-12 22:59 | Emergency Department Note ---
History of Present Illness General Chief complaint: Cardiac Assessment Time Seen by Provider: 12/12/21 00:09 History of Present Illness This is a 61-year-old female presenting to the emergency department for evalu ation of racing heart rate and chest tightness. The patient has a history of A. fib and a flutter, as well as SVT in the past. The patient is on diltiazem and Xarelto daily for her symptoms. She states that she was under some increased stressors tonight and this seemed to exacerbate her symptoms. She was not able to get her heart rate controlled, and elected to come to the ER for evaluation. On arrival the patient has a heart rate between 130 and 140. She is slightly tachypneic in the 30s. She is answering questions well, and does not report any recent fevers or chills. No nausea or vomiting. She rates her discomfort a 4/10. Home Medications Medication Instructions Recorded Confirmed Type atorvastatin 20 mg tablet 20 mg PO QAM 01/15/19 12/12/21 History albuterol sulfate 90 mcg/actuation 2 puff INHALATION Q6H PRN #18 gm 01/19/19 12/12/21 Rx aerosol inhaler (Ventolin HFA) glipizide 5 mg tablet 5 mg PO QAM tab 03/06/20 12/12/21 History omeprazole 20 mg capsule,delayed 20 mg PO QAM 06/12/20 12/12/21 History release rivaroxaban 20 mg tablet 20 mg PO DAILY #30 tab 07/04/20 12/12/21 Rx lisinopril 40 mg tablet 40 mg PO DAILY #90 tab 06/28/21 12/12/21 Rx diltiazem HCl 240 mg 480 mg PO QAM #180 cap 07/26/21 12/12/21 Rx capsule,extended release 24 hr, controlled (DILT-XR) Allergies Allergy/AdvReac Type Severity Reaction Status Date / Time No Known Allergies Allergy Verified 12/12/21 00:36 Past Med/Surg History Medical History Atrial fibrillation Follows with cardio- per cardio "well-documented atrial fibrillation in December 2018, however it appears to have started with a prolonged episode of SVT at a time when she was ill otherwise. It terminated spontaneously. I would watch for further recurrences before starting anticoagulation." Chronic back pain managed on own. no chronic pain specialist CKD stage 3 due to type 2 diabetes mellitus Diabetes GERD (gastroesophageal reflux disease) History of electrophysiologic study [address] [facility] "EPS" femoral artery Hyperlipidemia Hypertension Morbid obesity Sleep apnea does not use machine. SVT (supraventricular tachycardia) treated with medication. follows with Dr Cowan. Surgical History History of adenoidectomy History of appendectomy History of bilateral tubal ligation History of cardioversion 2018 [facility] -- unsuccessful. managed with medication. History of cholecystectomy History of tonsillectomy Family History Other No family history of adverse response to anesthesia No known problems Social History Smoking Status: Current every day smoker Cigarettes Per Day: 1 -2 packs/day; Second Hand Exposure: Yes; Do You Dip or Chew Tobacco: No; Tobacco Cessation Education Requested by Patient: No Hx Alcohol Use: Yes Alcohol type: wine Hx Substance Use: Yes Last Used Substance: Days (ago) Last Used Substance Other:: Marijuana Preferred Language: [place] Zealander Communication Ability: Effective Leather Crafter Required: No Beliefs That Will Affect Care: None marital status: Current Living Situation: Family and Other Current Living Situation Comment: Appartment current occupational status: unemployed Other Information That Helps Us Care for You: No Feels Safe at Home: Yes Safety Concerns: Afraid for Self and Afraid for Others in Home Assistive Devices: None Review of Systems A total of 10 systems reviewed and were otherwise negative Physical Exam Vital Signs Vital Signs - 24 hr 12/11/21 23:45 12/12/21 00:14 12/12/21 00:15 Temperature 36.6 C Temperature Source Oral Pulse Rate Pulse Rate [Apical] 131 H Pulse Rate from SpO2 Sensor Respiratory Rate 34 H Respiratory Effort / Characteristics Non-Labored Spontaneous Blood Pressure Blood Pressure [Right Arm] 126/100 Blood Pressure Mean Blood Pressure Mean [Right Arm] 108 Pulse Oximetry 96 96 Oxygen Delivery Method Room Air Room Air Sepsis Recent Fever Within 48 Hours No Sepsis New/Unexplained Change in Mental Status No Sepsis Action Taken by Nursing No Action Required 12/12/21 00:30 12/12/21 01:01 12/12/21 01:28 Temperature Temperature Source Pulse Rate 130 H 120 H Pulse Rate [Apical] Pulse Rate from SpO2 Sensor 130 H 122 H Respiratory Rate 27 H 21 Respiratory Effort / Characteristics Blood Pressure 132/77 100/71 Blood Pressure [Right Arm] Blood Pressure Mean 95 80 Blood Pressure Mean [Right Arm] Pulse Oximetry 97 96 94 Oxygen Delivery Method Room Air Room Air Room Air Sepsis Recent Fever Within 48 Hours Sepsis New/Unexplained Change in Mental Status Sepsis Action Taken by Nursing 12/12/21 01:30 12/12/21 02:00 12/12/21 02:30 Temperature Temperature Source Pulse Rate 84 82 80 Pulse Rate [Apical] Pulse Rate from SpO2 Sensor 84 82 80 Respiratory Rate 19 26 H Respiratory Effort / Characteristics Blood Pressure 107/61 133/102 H 134/95 Blood Pressure [Right Arm] Blood Pressure Mean 76 112 108 Blood Pressure Mean [Right Arm] Pulse Oximetry 97 100 94 Oxygen Delivery Method Room Air Room Air Room Air Sepsis Recent Fever Within 48 Hours Sepsis New/Unexplained Change in Mental Status Sepsis Action Taken by Nursing VITALS: Vitals are noted on the nurse's note and reviewed by myself. Vital signs with tachycardia and tachypnea. GENERAL: Pleasant white female who is in no acute distress and is answering questions appropriately. HEAD: Normocephalic atraumatic. NECK: Supple without nuchal rigidity. No lymphadenopathy. No thyromegaly. Cervical spine is nontender. HEART: Tachycardic rate with regular rhythm LUNGS: Clear to auscultation bilaterally without wheezes, rales or rhonchi. No retractions or accessory muscle use. ABDOMEN: Positive normal bowel sounds x 4. Soft, nontender, without masses or organomegaly. No guarding or rebound tenderness. MUSCULOSKELETAL: No muscle atrophy, erythema, or edema noted. Full range of motion in all extremities. Course Administered Medications Discontinued Medications Atorvastatin Calcium (Atorvastatin 20 Mg Tab) 20 mg PO QAM [facility] Stop: 01/11/22 08:59 Last Admin: 12/12/21 08:37 Dose: 20 mg Documented by: [id number] Diltiazem HCl (Diltiazem Hcl 5 Mg/Ml 5 Ml Vial) 10 mg IV NOW STA Stop: 12/12/21 00:23 Last Admin: 12/12/21 00:41 Dose: 10 mg Documented by: [id number] Cosigned by: [id number] Diltiazem HCl (Diltiazem Hcl 240 Mg Capcr) 480 mg PO QAM [facility] Stop: 01/11/22 08:59 Last Admin: 12/12/21 08:37 Dose: 480 mg Documented by: [id number] Sodium Chloride (Nss 1000ml) 1,000 mls @ 125 mls/hr IV .Q8H [facility] Stop: 01/11/22 01:44 Last Infusion: 12/12/21 04:49 Dose: 0 mls/hr Documented by: [id number] Infusion: 12/12/21 04:48 Dose: 0 mls/hr Documented by: [id number] Admin: 12/12/21 01:43 Dose: 125 mls/hr Documented by: [id number] Insulin Aspart (Insulin Aspart Per Unit) 0 units SC ACHS [facility] Stop: 01/11/22 07:29 Last Admin: 12/12/21 17:39 Dose: Not Given Documented by: [id number] Admin: 12/12/21 12:52 Dose: Not Given Documented by: [id number] Admin: 12/12/21 08:32 Dose: 1 units Documented by: [id number] Cosigned by: [id number] Lisinopril (Lisinopril 40 Mg Tab) 40 mg PO DAILY [facility] Stop: 01/11/22 08:59 Last Admin: 12/12/21 08:37 Dose: 40 mg Documented by: [id number] Pantoprazole Sodium (Pantoprazole 40 Mg Tab) 40 mg PO QAM [facility] Stop: 01/11/22 08:59 Last Admin: 12/12/21 08:37 Dose: 40 mg Documented by: [id number] Rivaroxaban (Rivaroxaban 20 Mg Tab) 20 mg PO DAILYBD [facility] Stop: 01/11/22 15:29 Last Admin: 12/12/21 16:52 Dose: 20 mg Documented by: [id number] Medical Decision Making Differential Diagnosis Differential diagnosis includes, but is not limited to: Myocardial infarction, dysrhythmia, pericarditis, pneumothorax, aortic aneurysm/dissection, DVT/PE, anxiety, GERD, PUD, electrolyte imbalance, thyroid disorder, pneumonia, bronchitis, pancreatitis, and others Laboratory Data Result diagrams: 12/12/21 07:06 12/12/21 07:06 Lab Results 12/11/21 12/11/21 12/11/21 Range/Units 23:50 23:50 23:50 WBC 15.04 H (4.8-10.8) K/uL RBC 4.97 (4.2-5.4) M/uL Hgb 14.0 (12.0-16.0) g/dL Hct 42.0 (37-47) % MCV 84.5 (80-100) fL MCH 28.2 (25-34) pg MCHC 33.3 (32-36) g/dL RDW Std Deviation 50.5 H (36.4-46.3) fL RDW Coeff of Jaswinder 16.4 H (11.5-14.5) % Plt Count 254 (130-400) K/uL MPV 12.4 H (7.4-10.4) fL Immature Gran % (Auto) 0.2 % Neut % (Auto) 74.5 % Lymph % (Auto) 19.7 % [place] % (Auto) 4.9 % Eos % (Auto) 0.4 % Baso % (Auto) 0.3 % Neut # (Auto) 11.19 H (1.4-6.5) K/uL Lymph # (Auto) 2.97 (1.2-3.4) K/uL [place] # (Auto) 0.74 H (0.11-0.59) K/uL Eos # (Auto) 0.06 (0-0.5) K/uL Baso # (Auto) 0.05 (0-0.2) K/uL Immature Gran # (Auto) 0.03 H (0.00-0.02) K/uL PT 11.9 (9.0-12.0) Seconds INR 1.1 (0.9-1.1) APTT 37.4 H (21.0-31.0) Seconds PTT Ratio 1.4 Sodium 136 (136-145) mmol/L Potassium 4.3 (3.5-5.1) mmol/L Chloride 106 (98-107) mmol/L Carbon Dioxide 20 L (21-32) mmol/L Anion Gap 10 (3-11) BUN 15 (6-23) mg/dl Creatinine 0.87 (0.6-1.2) mg/dl Est Cr Clr Drug Dosing 92.3 ml/min Est GFR ( Amer) 82.8 ml/min Est GFR (Non-Af Amer) 71.4 ml/min BUN/Creatinine Ratio 17.2 (10-20) Glucose 212 H (70-99(Fasting)) mg/dl POC Glucose (70-99) mg/dl Calcium 9.0 (8.5-10.1) mg/dl Magnesium 1.8 (1.7-2.4) mg/dl Total Bilirubin 0.3 (0.2-1.0) mg/dl AST 11 L (13-39) U/L ALT 10 (7-52) U/L Alkaline Phosphatase 81 (34-104) U/L Troponin I High Sens 12.6 (0-14) pg/ml Total Protein 7.8 (6.0-8.3) gm/dl Albumin 3.8 (3.4-5.0) gm/dl Globulin 4.0 (2.5-4.0) gm/dl Albumin/Globulin Ratio 1.0 (0.9-2) Lipase 14 (11-82) U/L Urine Color Urine Appearance (Clear) Urine pH (4.5-7.5) Ur Specific [facility] (1.000-1.030) Urine Protein (Negative) Urine Glucose (UA) (Negative) Urine Ketones (Negative) Urine Blood (Negative) Urine Nitrite (Negative) Urine Bilirubin (Negative) Urine Urobilinogen (Negative) Ur Leukocyte Esterase (Negative) Urine WBC (Auto) (0-5) /hpf Urine RBC (Auto) (0-4) /hpf U Hyaline Cast (Auto) (0-5) /lpf U Epithel Cells (Auto) (0-5) /lpf Urine Bacteria (Auto) (Negative) SARS-CoV-2, RNA, NAAT (NEGATIVE) 12/12/21 12/12/21 12/12/21 Range/Units 01:25 01:35 02:46 WBC (4.8-10.8) K/uL RBC (4.2-5.4) M/uL Hgb (12.0-16.0) g/dL Hct (37-47) % MCV (80-100) fL MCH (25-34) pg MCHC (32-36) g/dL RDW Std Deviation (36.4-46.3) fL RDW Coeff of Jaswinder (11.5-14.5) % Plt Count (130-400) K/uL MPV (7.4-10.4) fL Immature Gran % (Auto) % Neut % (Auto) % Lymph % (Auto) % [place] % (Auto) % Eos % (Auto) % Baso % (Auto) % Neut # (Auto) (1.4-6.5) K/uL Lymph # (Auto) (1.2-3.4) K/uL [place] # (Auto) (0.11-0.59) K/uL Eos # (Auto) (0-0.5) K/uL Baso # (Auto) (0-0.2) K/uL Immature Gran # (Auto) (0.00-0.02) K/uL PT (9.0-12.0) Seconds INR (0.9-1.1) APTT (21.0-31.0) Seconds PTT Ratio Sodium (136-145) mmol/L Potassium (3.5-5.1) mmol/L Chloride (98-107) mmol/L Carbon Dioxide (21-32) mmol/L Anion Gap (3-11) BUN (6-23) mg/dl Creatinine (0.6-1.2) mg/dl Est Cr Clr Drug Dosing ml/min Est GFR ( Amer) ml/min Est GFR (Non-Af Amer) ml/min BUN/Creatinine Ratio (10-20) Glucose (70-99(Fasting)) mg/dl POC Glucose (70-99) mg/dl Calcium (8.5-10.1) mg/dl Magnesium (1.7-2.4) mg/dl Total Bilirubin (0.2-1.0) mg/dl AST (13-39) U/L ALT (7-52) U/L Alkaline Phosphatase (34-104) U/L Troponin I High Sens 12.0 (0-14) pg/ml Total Protein (6.0-8.3) gm/dl Albumin (3.4-5.0) gm/dl Globulin (2.5-4.0) gm/dl Albumin/Globulin Ratio (0.9-2) Lipase (11-82) U/L Urine Color Yellow Urine Appearance Clear (Clear) Urine pH 5.5 (4.5-7.5) Ur Specific [facility] 1.018 (1.000-1.030) Urine Protein 1+ H (Negative) Urine Glucose (UA) Negative (Negative) Urine Ketones Negative (Negative) Urine Blood Negative (Negative) Urine Nitrite Negative (Negative) Urine Bilirubin Negative (Negative) Urine Urobilinogen Negative (Negative) Ur Leukocyte Esterase Trace H (Negative) Urine WBC (Auto) 5-10 H (0-5) /hpf Urine RBC (Auto) 0-4 (0-4) /hpf U Hyaline Cast (Auto) 1-5 (0-5) /lpf U Epithel Cells (Auto) >30 H (0-5) /lpf Urine Bacteria (Auto) Negative (Negative) SARS-CoV-2, RNA, NAAT NEGATIVE (NEGATIVE) 12/12/21 Range/Units 03:19 WBC (4.8-10.8) K/uL RBC (4.2-5.4) M/uL Hgb (12.0-16.0) g/dL Hct (37-47) % MCV (80-100) fL MCH (25-34) pg MCHC (32-36) g/dL RDW Std Deviation (36.4-46.3) fL RDW Coeff of Jaswinder (11.5-14.5) % Plt Count (130-400) K/uL MPV (7.4-10.4) fL Immature Gran % (Auto) % Neut % (Auto) % Lymph % (Auto) % [place] % (Auto) % Eos % (Auto) % Baso % (Auto) % Neut # (Auto) (1.4-6.5) K/uL Lymph # (Auto) (1.2-3.4) K/uL [place] # (Auto) (0.11-0.59) K/uL Eos # (Auto) (0-0.5) K/uL Baso # (Auto) (0-0.2) K/uL Immature Gran # (Auto) (0.00-0.02) K/uL PT (9.0-12.0) Seconds INR (0.9-1.1) APTT (21.0-31.0) Seconds PTT Ratio Sodium (136-145) mmol/L Potassium (3.5-5.1) mmol/L Chloride (98-107) mmol/L Carbon Dioxide (21-32) mmol/L Anion Gap (3-11) BUN (6-23) mg/dl Creatinine (0.6-1.2) mg/dl Est Cr Clr Drug Dosing ml/min Est GFR ( Amer) ml/min Est GFR (Non-Af Amer) ml/min BUN/Creatinine Ratio (10-20) Glucose (70-99(Fasting)) mg/dl POC Glucose 120 H (70-99) mg/dl Calcium (8.5-10.1) mg/dl Magnesium (1.7-2.4) mg/dl Total Bilirubin (0.2-1.0) mg/dl AST (13-39) U/L ALT (7-52) U/L Alkaline Phosphatase (34-104) U/L Troponin I High Sens (0-14) pg/ml Total Protein (6.0-8.3) gm/dl Albumin (3.4-5.0) gm/dl Globulin (2.5-4.0) gm/dl Albumin/Globulin Ratio (0.9-2) Lipase (11-82) U/L Urine Color Urine Appearance (Clear) Urine pH (4.5-7.5) Ur Specific [facility] (1.000-1.030) Urine Protein (Negative) Urine Glucose (UA) (Negative) Urine Ketones (Negative) Urine Blood (Negative) Urine Nitrite (Negative) Urine Bilirubin (Negative) Urine Urobilinogen (Negative) Ur Leukocyte Esterase (Negative) Urine WBC (Auto) (0-5) /hpf Urine RBC (Auto) (0-4) /hpf U Hyaline Cast (Auto) (0-5) /lpf U Epithel Cells (Auto) (0-5) /lpf Urine Bacteria (Auto) (Negative) SARS-CoV-2, RNA, NAAT (NEGATIVE) Imaging Data Radiologist's Impression: Chest X-Ray 12/12/21 00:15 XR chest 1V portable HISTORY: 61 years-old Female Chest Pain acute atypical chest pain COMPARISON: Chest radiograph and CTA chest study is 07/03/2020 TECHNIQUE: Portable AP view of the chest FINDINGS: The cardiac silhouette is upper limits of normal in size. Atherosclerosis of the thoracic aorta. No pneumothorax, pleural effusion or overt pulmonary edema. Minimal subsegmental left basilar densities suggestive of atelectasis. Degenerative changes of the shoulders and spine. IMPRESSION: No acute process. ACT 112: Negative or not required by law. The above report was generated using voice recognition software. It may contain grammatical, syntax or spelling errors. Electronically signed by: Devonte Jimenez M.D. 12/12/2021 7:13 AM ECG Data Attestation: I personally reviewed and interpreted this ECG as follows: Indication: + palpitations Additional Comments: EKG#1 Accelerated Junctional rhythm with retrograde conduction @126 bpm Poor R wave progression, consider anterior CO vs. lead placement vs. LVH Abnormal ECG When compared with ECG of 08-AUG-2021 11:12, Junctional rhythm has replaced Sinus rhythm EKG#2 Sinus rhythm with 1st degree A-V block @75 bpm Otherwise normal ECG When compared with ECG of 12-DEC-2021 00:19 [place] interval has increased Vent. rate has decreased BY 57 BPM Criteria for Anterior infarct are no longer Present MDM Narrative Physical exam and history were performed. Nursing notes, EMR, and Medication List were personally reviewed. Patient appears to have palpitations and mild chest pain bringing her to the ER. She is tachycardic and EKG is with changes as above. She does not have distinct ST elevation. IV access was established and labs were obtained. She was gently hydrated with normal saline and given 10 mg IV Cardizem here in the E R. An order was placed for continuous cardiac monitoring. The monitor shows a rate of 79 with normal sinus rhythm. Patient's blood work is as above and was reviewed. She does not have a significantly elevated white blood cell count, gross anemia, bandemia, or significant electrolyte imbalance. Troponin 1 is negative. Urine is without distinct evidence of infection. COVID is negative. Chest x-ray was reviewed by myself and radiology showing no acute process. The patient had very quick improvement of symptoms with the IV Cardizem here in the ER, and she did return to a rate of roughly 80s throughout the remainder of her ER stay. Overall I do have concern about the patient as she has a longstanding history of cardiac disease. The case was discussed with the on- call hospitalist team who agreed to evaluate the patient here in the ER. Please see their dictation for further patient course, plan, disposition. The chart was completed utilizing [employer] Voice Recognition Software. Grammatical errors, random word insertions, pronoun errors, and incomplete sentences are an occasional consequence of this system due to software limitations, ambient noise, and hardware issues. Any formal questions or concerns about the content, text, or information contained within the body of this dictation should be directly addressed to the provider for clarification. . Impression & Plan Tachycardia, Atypical chest pain, Acute electrocardiogram changes Discharge Plan Visit Data Chief Complaint: Cardiac Assessment ED Provider: Lokesh Calhoun ED Midlevel Provider: Jeanmarie Saldaña Discharge Problem: Tachycardia, Atypical chest pain, Acute electrocardiogram changes Patient Disposition: Admitted As Inpatient Discharge Instructions Interventions: ED Discharge Assessment Last Done: 12/12/21 03:31
--- NOTE | 2021-12-13 04:28 | Billing Data ---
Date of Service December 13, 2021 Coding Level of Care Code INT OBSERVATION CARE 70M LVL 3
--- NOTE | 2021-12-13 19:30 | Billing Data ---
Date of Service December 13, 2021 Coding Level of Care Code 82711 OBS Care - Discharge
== END 2021-12-12 18:18 | disposition home or self-care (01) ==
LOC: ED 23:59 → 2N 23:59 → SUATTDRO 12-12 03:26 → 2N 12-12 03:31
DX: F17.210 Nicotine dependence, cigarettes, uncomplicated; R07.89 Other chest pain; Z86.711 Personal history of pulmonary embolism; E11.9 Type 2 diabetes mellitus without complications; E78.5 Hyperlipidemia, unspecified; G47.30 Sleep apnea, unspecified; Z79.84 Long term (current) use of oral hypoglycemic drugs; I48.91 Unspecified atrial fibrillation; I12.9 Hypertensive chronic kidney disease with stage 1 through stage 4 chronic kidney disease, or unspecified chronic kidney disease; N18.30 Chronic kidney disease, stage 3 unspecified; R00.2 Palpitations; I47.1 Supraventricular tachycardia; Z79.01 Long term (current) use of anticoagulants; Z79.899 Other long term (current) drug therapy